=== PATIENT | male | born 1930 | race Caucasian/White ===

== ENCOUNTER 2016-12-14 16:30 | Inpatient (IN) | payer OTHER ==
[~2016-12-14] VITALS: Ht 175.3 cm; Wt 87.3 kg
[~2016-12-14 16:30] MED LIST: AMLO-114 PO; CHOL100040 PO; CMD10 PO; FINA5TAB PO; FURO40TA3 PO; HYDR25TA5 PO; ISOS30TA35 PO; LISI-729 PO; METO25TA56 PO; NITR0.4S UT; PANT40TA PO; PHEN64.8 PO; POTA20TA16 PO; SIMV20TA2 PO; SUCR5SUS PO; WARF10TA4 PO
[2016-12-14 17:19] LABS: BASO % 0.2 %; BASO ABS # 0.02 K/uL (0-0.2); COMPLETE YES; EOS % 2.5 %; HEMATOCRIT 38.1 % (42-52); IG% 0.2 %; LYMPH % 16.2 %; LYMPH ABS # 1.83 K/uL (1.2-3.4); MEAN CELL VOLUME 90.9 fL (80-100); MEAN CORPUSCULAR HEMOGLOBIN 29.6 pg (25-34); MEAN CORPUSCULAR HGB CONC 32.5 g/dl (32-36); MEAN PLATELET VOLUME 10.3 fL (7.4-10.4); MONO % 11.7 %; NEUT % 69.2 %; PLATELET COUNT 185 K/uL (130-400); RED BLOOD COUNT 4.19 M/uL (4.7-6.1); WHITE BLOOD COUNT 11.32 K/uL (4.8-10.8)
[2016-12-14 17:22] LABS: URINE APPEARANCE CLEAR (CLEAR); URINE BILIRUBIN NEG (NEG); URINE COLOR YELLOW; URINE EPITHELIAL CELL AUTO 20-30 /lpf (0-5); URINE NITRITE NEG (NEG); UROBILINOGEN NEG (NEG); ZZUR CULT IF INDIC CLEAN CATCH YES
[2016-12-14 17:23] LABS: MANUAL MICROSCOPIC REQUIRED? NO; REVIEW REQ? YES
[2016-12-14] MEDS ORDERED: SODIUM CHLORIDE 0.9% 1000ML 1,000 ML IV STA (17:25)
[2016-12-14] MEDS ORDERED: FAMOTIDINE 20MG/102 ML D5W IV STA (17:25)
[2016-12-14] MEDS ORDERED: PANTOprazole INJ 40 MG in SYRINGE 0 ML IV ONE (17:30)
[2016-12-14] MEDS ORDERED: TOPI25TA10 PO (17:34)
[2016-12-14] MEDS ORDERED: HYDR2.5O TOP (17:34)
[2016-12-14] MEDS ORDERED: PRIM50TA34 PO (17:34)
[2016-12-14] MEDS ORDERED: ALLO300T2 PO (17:34)
[2016-12-14] MEDS ORDERED: WARF5TAB90 PO ×2 (17:34)
[2016-12-14 17:35] LABS: URINE PATH CASTS 0-3 GRANULAR CASTS /lpf (0)
[2016-12-14 17:36] LABS: BUN/CREATININE RATIO 20.7 (10-20); CREATININE 1.5 mg/dl (0.60-1.40); POTASSIUM 3.6 mmol/L (3.5-5.1)
--- NOTE | 2016-12-14 17:37 | EMERGENCY ROOM VISIT NOTE ---
History Report prepared by Neri: Marko Irene Under the Supervision of: Dr. Andres South D.O. First contact with patient: 17:15 Chief Complaint: ABDOMINAL PAIN Stated Complaint: ABD PAIN, BLACK STOOL, LOW BP, FATIGUE Nursing Triage Summary: triage note: pt reports since sunday he has felt "sick in his stomach." pt reports abd pain and dark stools, increased fatigue. History of Present Illness The patient is an 86 year old male who presents to the Emergency Room with complaints of intermittent, burning, epigastric abdominal pain beginning three days ago. The patient states that he was sick to his stomach, and he thought that he was going to vomit. He reports that if he tried to vomit, he would have been successful. The patient notes two nights ago he laid in his bed and tried to drink some Coke before he eventually fell asleep. He states that for the past two days he has not been able to eat anything. The patient reports that yesterday he experienced dark, watery diarrhea and extreme fatigue. He states that his pain does not radiated anywhere else. The patient denies melena, chest pain, and back pain. He notes that he has had similar symptoms like this before , and he was told they were ulcers that were bleeding. He states that he is not on medication for this, and he denies any history of stomach surgeries. The patient reports that he has not seen his PCP yet for these symptoms. He notes that he has right kidney cancer. The patient states that he had his kidney froze twice, but the treatment is not successful. He notes that he is currently taking Warfarin. The patient states that he has a history of a cholecystectomy and an appendectomy. Source of History: patient Onset: three days ago Position: abdomen (epigastric) Quality: burning Timing: intermittent Associated Symptoms: + diarrhea, + fatigue, No chest pain, No back pain, No melena Review of Systems See HPI for pertinent positives & negatives. A total of 10 systems reviewed and were otherwise negative. Past Medical & Surgical Medical Problems: (1) Anemia (2) Cancer of right kidney (3) DVT (deep venous thrombosis) (4) HTN (hypertension) (5) Upper GI bleeding Family History Hypertension Social History Smoking Status: Never Smoker Marital Status: Housing Status: lives with family Occupation Status: employed Current/Historical Medications Scheduled Allopurinol (Zyloprim), 300 MG PO QAM Amlodipine (Norvasc), 10 MG PO QAM Cholecalciferol (Vitamin D-1000), 1,000 UNIT PO QAM Finasteride (Proscar), 5 MG PO HS Furosemide (Lasix), 40 MG PO QAM Isosorbide Mononitrate Ext Rel (Imdur Ext Rel), 30 MG PO QAM Lisinopril (Zestril), 5 MG PO QAM Metoprolol Tartrate (Lopressor) (Lopressor), 25 MG PO BID Phenobarbital (Phenobarbital), 64.8 MG PO BID Primidone (Mysoline), 100 MG PO DIRECTED Simvastatin (Zocor), 20 MG PO HS Topiramate (Topamax), 25 MG PO BID Warfarin Sodium (Coumadin), 2.5 MG PO 2XWK Warfarin Sodium (Coumadin), 5 MG PO 5XWK Scheduled PRN Hydrocortisone (Topical) (Hydrocortisone), 1 APPLN TOP BID PRN for Affected Skin Folds Nitroglycerin (Nitrostat), 0.4 MG UT PRN PRN for Chest Pain Allergies Coded Allergies: Penicillins (Verified Allergy, Severe, HIVES + THROAT SWELLING, 12/14/16) URTICARIA Physical Exam Vital Signs Date Time Temp Pulse Resp B/P (MAP) Pulse Ox O2 Delivery O2 Flow Rate FiO2 12/14/16 18:40 68 20 161/68 97 Room Air 12/14/16 17:45 63 12/14/16 16:44 36.8 68 18 113/61 99 Room Air Physical Exam GENERAL: Patient is awake, alert, and in no acute distress. Patient is resting comfortably and showing mild signs of anxiety EYES: The conjunctivae are clear. The pupils are round and reactive. EARS, NOSE, MOUTH AND THROAT: The nose is without any evidence of any deformity. Mucous membranes are moist tongue is midline NECK: The neck is nontender and supple. RESPIRATORY: Normal respiratory effort is noted there is no evidence of wheezing rhonchi or rales CARDIOVASCULAR: Regular rate and rhythm noted. Systolic murmur was appreciated. GASTROINTESTINAL: The abdomen is soft and distended. No guarding or rigidity. Bowel sounds are present in all quadrants. Abdomen is nontender RECTAL: Dark stool, strongly hem positive. PELVIS: The Pelvis is stable. No tenderness to palpation is noted. BACK: No midline tenderness or or step-off noted range of motion in flexion extension as well as rotation no signs of muscle spasm noted MUSCULOSKELETAL/EXTREMITIES: There is no evidence of gross deformity full range of motion is noted in the hips and shoulders. Pitting edema to the lower extremities bilaterally. SKIN: There is no obvious evidence of any rash. There are no petechiae, pallor or cyanosis noted. NEUROLOGIC: Patient is awake alert and oriented x3 strength is symmetric patellar reflexes are 2+ bilaterally Medical Decision & Procedures ER Provider Diagnostic Interpretation: X-ray results as stated below per interpretation by me and the radiologist. SINGLE VIEW CHEST CLINICAL HISTORY: Epigastric abdominal pain. Fatigue. FINDINGS: An AP, portable, upright chest radiograph is compared to study dated 07/11/2015. The examination is degraded by portable technique and patient rotation. The heart is enlarged and there is atherosclerotic calcification of the thoracic aorta. The pulmonary vasculature is noncongested. Chronic residual thickening is similar to previous. Linear atelectasis versus scarring is seen in the right lower lung and there is mild chronic elevation of the right hemidiaphragm. No airspace consolidation, large pleural effusion, or pneumothorax is seen. The skeletal structures are osteopenic. The bony thorax is grossly intact. IMPRESSION: Cardiomegaly with no acute cardiopulmonary abnormality. Electronically signed by: Mukul Crum M.D. 12/14/2016 6:06 PM Dictated Date/Time: 12/14/2016 6:05 PM Laboratory Results Test 12/14/16 17:08 Immature Granulocyte % (Auto) 0.2 % White Blood Count 11.32 K/uL (4.8-10.8) Red Blood Count 4.19 M/uL (4.7-6.1) Hemoglobin 12.4 g/dL (14.0-18.0) Hematocrit 38.1 % (42-52) Mean Corpuscular Volume 90.9 fL (80-100) Mean Corpuscular Hemoglobin 29.6 pg (25-34) Mean Corpuscular Hemoglobin Concent 32.5 g/dl (32-36) Platelet Count 185 K/uL (130-400) Mean Platelet Volume 10.3 fL (7.4-10.4) Neutrophils (%) (Auto) 69.2 % Lymphocytes (%) (Auto) 16.2 % Monocytes (%) (Auto) 11.7 % Eosinophils (%) (Auto) 2.5 % Basophils (%) (Auto) 0.2 % Neutrophils # (Auto) 7.85 K/uL (1.4-6.5) Lymphocytes # (Auto) 1.83 K/uL (1.2-3.4) Monocytes # (Auto) 1.32 K/uL (0.11-0.59) Eosinophils # (Auto) 0.28 K/uL (0-0.5) Basophils # (Auto) 0.02 K/uL (0-0.2) Immature Granulocyte # (Auto) 0.02 K/uL (0.00-0.02) Activated Partial Thromboplast Time 53.1 SECONDS (21.0-31.0) Partial Thromboplastin Ratio 2.0 Urine Color YELLOW Urine Appearance CLEAR (CLEAR) Urine pH 5.0 (4.5-7.5) Urine Specific [place] 1.020 (1.000-1.030) Urine Protein 1+ (NEG) Urine Glucose (UA) NEG (NEG) Urine Ketones NEG (NEG) Urine Occult Blood 1+ (NEG) Urine Nitrite NEG (NEG) Urine Bilirubin NEG (NEG) Urine Urobilinogen NEG (NEG) Urine Leukocyte Esterase SMALL (NEG) Urine WBC (Auto) 5-10 /hpf (0-5) Urine RBC (Auto) 5-10 /hpf (0-4) Urine Hyaline Casts (Auto) 10-30 /lpf (0-5) Urine Epithelial Cells (Auto) 20-30 /lpf (0-5) Urine Bacteria (Auto) NEG (NEG) Urine Crystals CALCIUM OXALATE (NONE Urine Pathogenic Casts 0-3 GRANULAR CASTS /lpf (0) Urine Yeast (Auto) (NONE PRSENT) Total Bilirubin 0.4 mg/dl (0.2-1) Aspartate Amino Transf (AST/SGOT) 24 U/L (15-37) Alanine Aminotransferase (ALT/SGPT) 29 U/L (12-78) Alkaline Phosphatase 104 U/L (45-117) Troponin I < 0.015 ng/ml (0-0.045) Total Protein 7.3 gm/dl (6.4-8.2) Albumin 3.5 gm/dl (3.4-5.0) Globulin 3.8 gm/dl (2.5-4.0) Albumin/Globulin Ratio 0.9 (0.9-2) Lipase 369 U/L (73-393) Laboratory results per my review. Medications Administered Medications (Trade) Dose Ordered Sig/Oscar Route Start Time Stop Time Status Last Admin Dose Admin Sodium Chloride 1,000 ml @ 125 mls/hr Q8H STAT IV 12/14/16 17:25 12/14/16 21:05 DC 12/14/16 17:25 125 MLS/HR Pantoprazole Sodium 40 mg/ Syringe 10 ml @ 5 mls/min NOW ONCE IV 12/14/16 17:30 12/14/16 17:31 DC 12/14/16 17:42 5 MLS/MIN Famotidine (Pepcid 20mg/100 ml) 20 mg ONE STAT IV 12/14/16 17:25 12/14/16 17:27 DC 12/14/16 17:43 20 MG Sodium Chloride 1,000 ml @ 75 mls/hr [id number] IV 12/14/16 18:54 01/13/17 18:53 12/15/16 08:20 75 MLS/HR ECG Indication: abdominal pain Rate (beats per minute): 67 Rhythm: sinus rhythm Findings: 1st degree AV block, no ectopy, other (LVH was noted by voltage criteria) Comparison ECG Date: 07/13/15 Change: no significant change ED Course 1717: The patient was evaluated in room B10. A complete history and physical examination were performed. 1725: Ordered Famotidine 20mg IV, NSS 1,000 ml @ 125 mls/hr IV 1758: Upon reevaluation, the patient is resting comfortably. I discussed results and treatment plan with him. He verbalizes agreement and understanding. 1801: I discussed the patients case with Dr. Dutch Anand, [facility] Hospitalist. The patient will be evaluated for further treatment. Medical Decision Prior records/ancillary studies reviewed. Triage Nursing notes reviewed. Additional history obtained from the patient's daughter. The patient's history was concerning for possible gastrointestinal bleeding. Differential diagnosis: Etiologies such as diverticulosis, AVM, coagulopathy, colitis, inflammatory bowel disease, malignancy, Kira-Marcelino tear, esophagitis, peptic ulcer disease , variceal bleed, gastritis, epistaxis, fissure, hemorrhoids, as well as others were entertained. Medication Reconciliation: I attest that I have personally reviewed the patient' s current medications list. Blood pressure screening: Patient was found to have normal blood pressure on screening and does not require follow-up. The patient is an 86-year-old male who presented to the emergency department for an evaluation of upper abdominal pain. The patient states that he has a history of upper GI bleeding and currently takes Coumadin for DVT. The patient' s abdominal exam was not consistent with an acute surgical abdomen however he did have black stool which was strongly heme positive. I discussed the patient' s laboratory and radiographic studies with him. Because of his history of anticoagulant use as well as his history of peptic ulcer disease he was started on proton pump inhibitors and H2 blockers. I discussed his case with the on- call [facility] hospitalist group. They've agreed to evaluate the patient in emergency apartment for further management and disposition. Consults Time Called: 175 Consulting Physician: Dr. Dutch Anand, [facility] Hospitalist Returned Call: 1801 I discussed the patients case with Dr. Dutch Anand [facility] Hospitalist. The patient will be evaluated for further treatment. Impression Primary Impression: Upper GI bleed Additional Impression: Upper abdominal pain Scribe Attestation The scribe's documentation has been prepared under my direction and personally reviewed by me in its entirety. I confirm that the note above accurately reflects all work, treatment, procedures, and medical decision making performed by me. Departure Information Dispostion Being Evaluated By Hospitalist Referrals Devyn Garzon M.D. (PCP) Patient Instructions My [facility] Health Problem Qualifiers
[2016-12-14 17:39] LABS: ALB/GLOB RATIO 0.9 (0.9-2)
[2016-12-14 17:55] LABS: INR 2.9 (0.9-1.1); PROTHROMBIN TIME (PATIENT) 32.2 SECONDS (9.0-12.0)
--- NOTE | 2016-12-14 18:08 | DIAGNOSTIC IMAGING REPORT ---
SINGLE VIEW CHEST CLINICAL HISTORY: Epigastric abdominal pain. Fatigue. FINDINGS: An AP, portable, upright chest radiograph is compared to study dated 07/11/2015. The examination is degraded by portable technique and patient rotation. The heart is enlarged and there is atherosclerotic calcification of the thoracic aorta. The pulmonary vasculature is noncongested. Chronic residual thickening is similar to previous. Linear atelectasis versus scarring is seen in the right lower lung and there is mild chronic elevation of the right hemidiaphragm. No airspace consolidation, large pleural effusion, or pneumothorax is seen. The skeletal structures are osteopenic. The bony thorax is grossly intact. IMPRESSION: Cardiomegaly with no acute cardiopulmonary abnormality. Electronically signed by: Mukul Crum M.D. 12/14/2016 6:06 PM Dictated Date/Time: 12/14/2016 6:05 PM
[2016-12-14] MEDS ORDERED: ONDANSETRON INJ 2 MG/ML 2 ML VIAL IV PRN (19:00)
[2016-12-14] MEDS ORDERED: MAGNESIUM HYDROXIDE SUSP 30 ML UDC PO PRN (19:00)
[2016-12-14] MEDS ORDERED: HYDROCORTISONE 2.5% CR 30 GM TUBE EXT PRN (19:00)
[2016-12-14] MEDS ORDERED: POLYETHYLENE (MIRALAX) 17 GM PACK PO PRN (19:00)
[2016-12-14] MEDS ORDERED: NITROGLYCERIN 0.4 MG SL PER TAB CHARGE UT PRN (19:00)
[2016-12-14] MEDS ORDERED: ACETAMINOPHEN 325 MG TAB PO PRN (19:00)
[2016-12-14] MEDS ORDERED: ALUMINUM/MAGNESIUM/SIMETH (MAALOX MAX) 30 ML UDC PO PRN (19:00)
--- NOTE | 2016-12-14 19:26 | History and Physical ---
History & Physical Date & Time of Service: Dec 14, 2016 at 19:22 Chief Complaint: Abd Pain, Black Stool, Low Bp, Fatigue Primary Care Physician: Devyn Garzon M.D. History of Present Illness Source: patient, family Mr. Marshall is an 86 y/o male with PMHx of GI Bleed 2/2 Gastric Ulcers (5 years ago and 1 year ago), CAD S/P Stent x1, DVT/PE S/P IVC Filter, R Kidney CA S/P Multiple Cryotherapy, HTN, BPH, and Seizure Disorder who presents to the ED complaining of generalized fatigue and abdominal pain x 3 days. On Sunday evening, patient began experiencing burning epigastric pain that has been intermittent. He states that this discomfort made him nauseous however he did not vomit. He reports that he was preventing himself from vomiting. He has been mostly resting in bed as he reports generalized fatigue and generalized weakness. He has not been able to eat or drink very much. Associated diarrhea times one episode that was melanotic today. Associated dyspnea on exertion that was present yesterday but resolved at this time. He reports the symptoms are similar to when he had gastric ulcers in the past. 5 years ago, he was transferred to [facility] and needed numerous amounts of blood related to these ulcers. States he was treated with antibiotics as well but is unsure if he was tested for H. pylori. One year ago, he was admitted for GI bleeding related to gastric ulcers. 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 He denies NSAID use and excessive alcohol intake. In the ED, he is normotensive and hemodynamically stable. WBC 11.32. Hemoglobin 12.4. BUNs 31 and creatinine 1.5. EKG with sinus rhythm and first AV block without ischemic changes. CANDACE performed by ED DrMaxine with heme positive stool. Patient will be admitted to telemetry for acute upper GI bleed. Past Medical/Surgical History Medical Problems: (1) DVT (deep venous thrombosis) Status: Resolved (2) HTN (hypertension) Status: Chronic Family History Hypertension Social History Smoking Status: Never Smoker Smokeless Tobacco Use: No Alcohol Use: socially Drug Use: none Marital Status: Housing status: lives alone Occupational Status: employed Immunizations History of Influenza Vaccine: Unknown Influenza Vaccine Date: Apr 12, 2010 History of Tetanus Vaccine?: Yes History of Pneumococcal: Unknown History of Hepatitis B Vaccine: No Multi-Drug Resistant Organisms History of MDRO: No Allergies Coded Allergies: Penicillins (Verified Allergy, Severe, HIVES + THROAT SWELLING, 12/14/16) URTICARIA Home Medications Scheduled Allopurinol (Zyloprim), 300 MG PO QAM Amlodipine (Norvasc), 10 MG PO QAM Cholecalciferol (Vitamin D-1000), 1,000 UNIT PO QAM Finasteride (Proscar), 5 MG PO HS Furosemide (Lasix), 40 MG PO QAM Isosorbide Mononitrate Ext Rel (Imdur Ext Rel), 30 MG PO QAM Lisinopril (Zestril), 5 MG PO QAM Metoprolol Tartrate (Lopressor) (Lopressor), 25 MG PO BID Phenobarbital (Phenobarbital), 64.8 MG PO BID Primidone (Mysoline), 100 MG PO DIRECTED Simvastatin (Zocor), 20 MG PO HS Topiramate (Topamax), 25 MG PO BID Warfarin Sodium (Coumadin), 2.5 MG PO 2XWK Warfarin Sodium (Coumadin), 5 MG PO 5XWK Scheduled PRN Hydrocortisone (Topical) (Hydrocortisone), 1 APPLN TOP BID PRN for Affected Skin Folds Nitroglycerin (Nitrostat), 0.4 MG UT PRN PRN for Chest Pain Review of Systems Constitutional: + weakness (generalized), + fatigue, No fever, No chills Eyes: No worsening of vision ENT: No nasal symptoms, No sore throat, No trouble swallowing Respiratory: + dyspnea on exertion (yesterday - resolved), No cough, No sputum Cardiovascular: No chest pain Abdomen: + pain (burning epigastric), + nausea (yesterday - currently resolved) , + diarrhea (x 1 episode), + GI bleeding (melena x 1 episode), No vomiting Musculoskeletal: No swelling, No calf pain Genitourinary - Male: No dysuria Neurologic: + problem reported (tremor - bilateral hands (chronic)) Integumentary: No rash Physical Exam Vital Signs Date Time Temp Pulse Resp B/P (MAP) Pulse Ox O2 Delivery O2 Flow Rate FiO2 12/14/16 18:40 68 20 161/68 97 Room Air 12/14/16 17:45 63 12/14/16 16:44 36.8 68 18 113/61 99 Room Air General Appearance: WD/WN, no apparent distress Head: normocephalic, atraumatic Eyes: sclerae normal ENT: hearing grossly normal, pharynx normal Neck: supple, no JVD, trachea midline Respiratory/Chest: lungs clear, normal breath sounds, no respiratory distress, no accessory muscle use Cardiovascular: regular rate, rhythm, no gallop, + systolic murmur (harsh III/ appears to radiate into abdomen) Abdomen/GI: normal bowel sounds, non tender, soft Back: no CVA tenderness Extremities/Musculoskelatal: no calf tenderness, no pedal edema Neurologic/Psych: alert, oriented x 3 Skin: normal color, warm/dry Diagnostics Laboratory Results Results Past 24 Hours Test 12/14/16 17:08 Range/Units White Blood Count 11.32 4.8-10.8 K/uL Red Blood Count 4.19 4.7-6.1 M/uL Hemoglobin 12.4 14.0-18.0 g/dL Hematocrit 38.1 42-52 % Mean Corpuscular Volume 90.9 80-100 fL Mean Corpuscular Hemoglobin 29.6 25-34 pg Mean Corpuscular Hemoglobin Concent 32.5 32-36 g/dl Platelet Count 185 130-400 K/uL Mean Platelet Volume 10.3 7.4-10.4 fL Neutrophils (%) (Auto) 69.2 % Lymphocytes (%) (Auto) 16.2 % Monocytes (%) (Auto) 11.7 % Eosinophils (%) (Auto) 2.5 % Basophils (%) (Auto) 0.2 % Neutrophils # (Auto) 7.85 1.4-6.5 K/uL Lymphocytes # (Auto) 1.83 1.2-3.4 K/uL Monocytes # (Auto) 1.32 0.11-0.59 K/uL Eosinophils # (Auto) 0.28 0-0.5 K/uL Basophils # (Auto) 0.02 0-0.2 K/uL RDW Standard Deviation 54.1 36.4-46.3 fL RDW Coefficient of Variation 16.5 11.5-14.5 % Immature Granulocyte % (Auto) 0.2 % Immature Granulocyte # (Auto) 0.02 0.00-0.02 K/uL Prothrombin Time 32.2 9.0-12.0 SECONDS Prothromb Time International Ratio 2.9 0.9-1.1 Activated Partial Thromboplast Time 53.1 21.0-31.0 SECONDS Partial Thromboplastin Ratio 2.0 Urine Color YELLOW Urine Appearance CLEAR CLEAR Urine pH 5.0 4.5-7.5 Urine Specific [place] 1.020 1.000-1.030 Urine Protein 1+ NEG Urine Glucose (UA) NEG NEG Urine Ketones NEG NEG Urine Occult Blood 1+ NEG Urine Nitrite NEG NEG Urine Bilirubin NEG NEG Urine Urobilinogen NEG NEG Urine Leukocyte Esterase SMALL NEG Urine WBC (Auto) 5-10 0-5 /hpf Urine RBC (Auto) 5-10 0-4 /hpf Urine Hyaline Casts (Auto) 10-30 0-5 /lpf Urine Epithelial Cells (Auto) 20-30 0-5 /lpf Urine Bacteria (Auto) NEG NEG Urine Crystals CALCIUM OXALATE NONE PRSENT Urine Pathogenic Casts 0-3 GRANULAR CASTS 0 /lpf Urine Yeast (Auto) NONE PRSENT Sodium Level 144 136-145 mmol/L Potassium Level 3.6 3.5-5.1 mmol/L Chloride Level 112 98-107 mmol/L Carbon Dioxide Level 22 21-32 mmol/L Anion Gap 10.0 3-11 mmol/L Blood Urea Nitrogen 31 7-18 mg/dl Creatinine 1.50 0.60-1.40 mg/dl Est Creatinine Clear Calc Drug Dose 39.4 ml/min Estimated GFR () 48.5 Estimated GFR (Non- 41.9 BUN/Creatinine Ratio 20.7 10-20 Random Glucose 57 70-99 mg/dl Calcium Level 9.0 8.5-10.1 mg/dl Total Bilirubin 0.4 0.2-1 mg/dl Aspartate Amino Transf (AST/SGOT) 24 15-37 U/L Alanine Aminotransferase (ALT/SGPT) 29 12-78 U/L Alkaline Phosphatase 104 45-117 U/L Troponin I < 0.015 0-0.045 ng/ml Total Protein 7.3 6.4-8.2 gm/dl Albumin 3.5 3.4-5.0 gm/dl Globulin 3.8 2.5-4.0 gm/dl Albumin/Globulin Ratio 0.9 0.9-2 Lipase 369 73-393 U/L Microbiology Results 12/14/16 Urine Culture, Received Pending Diagnostic Radiology SINGLE VIEW CHEST CLINICAL HISTORY: Epigastric abdominal pain. Fatigue. FINDINGS: An AP, portable, upright chest radiograph is compared to study dated 07/11/2015. The examination is degraded by portable technique and patient rotation. The heart is enlarged and there is atherosclerotic calcification of the thoracic aorta. The pulmonary vasculature is noncongested. Chronic residual thickening is similar to previous. Linear atelectasis versus scarring is seen in the right lower lung and there is mild chronic elevation of the right hemidiaphragm. No airspace consolidation, large pleural effusion, or pneumothorax is seen. The skeletal structures are osteopenic. The bony thorax is grossly intact. IMPRESSION: Cardiomegaly with no acute cardiopulmonary abnormality. EKG Sinus rhythm with 1st degree A-V block Voltage criteria for left ventricular hypertrophy Abnormal ECG When compared with ECG of 13-JUL-2015 12:17, No significant change was found Confirmed by Abilio Reynoso ([id number]) on 12/14/2016 5:56:57 PM Impression Assessment and Plan Mr. Marshall is an 86 y/o male with PMHx of GI Bleed 2/2 Gastric Ulcers (5 years ago and 1 year ago), CAD S/P Stent x1, DVT/PE S/P IVC Filter, R Kidney CA, HTN, BPH, and Seizure Disorder who presents to the ED complaining of generalized fatigue and abdominal pain x 3 days. Acute Upper GI Bleed Likely Gastric Ulcers: Melena and Heme + Stool - 5 years ago (14 units) and 1 year ago recurrent gastric ulcers - INR 2.9 with only 1 episode melena - given history will reverse with Vit K 2.5 IV - NPO - medications will be help with IV replacements until GI evaluation/ intervention - Protonix IV bolus/drip - NSS at 75 mL/hr - Monitor H&H Q6H - Blood consent obtained - Type and screen pending - Consult GI - last year seen by [facility] - appreciate recommendations/EGD Mild Increase in Cr - Prerenal at 1.5: - Hydration and assess BMP CAD S/P Stent x 1 and HTN: Follows with Dr. Rios - Norvasc 10 mg daily and metoprolol tartrate 25 mg BID - Imdur 30 mg daily and Nitrostat PRN - Hold Lasix and Lisinopril - can likely be resumed in AM after BMP - mild Cr bump of 1.5 - While NPO will place Nitropaste 0.5 in Q6H and Lopressor and Hydralazine PRN Seizure Disorder and Essential Tremor: - Primidone 100 mg TID PRN tremors - Phenobarbital 64.8 mg BID and Topamax 25 mg BID -- Use Phenobarbital 65 mg IV BID until NPO lifted DVT/PE S/P IVC Filter: Hold Coumadin Gout: Follows with [facility] - Hold Allopurinol - can likely be resumed tomorrow with repeat BMP BPH: - Proscar 5 mg daily R Kidney CA S/P Multiple Cryotherapy: STABLE DVT Prophylaxis: ALEAH/SCD; Avoid chemical prophylaxis in setting of bleed Code Status: FULL RESUSCITATION Disposition: - Lives with daughter - does not use ambulatory devices - observed gait to bathroom and is steady I personally and independently interviewed and examined the patient I reviewed labs and imaging I agree with above mentioned physical exam, History and ROS I discussed and formulated the assessment and plan with Mrs. Segal 86 y/o male with PMHx of DVT S/P IVCF and coumadin , P/W melena and had positive occult blood in stool in ED rest of ROS is as above PE average built, not in acute distress chest CTA, heart S1/S2 normal abd soft ND NT ext no edema assessment: Melena Hx of DVT S/P IVCF currently on coumadin Hx of GI Bleed 2/2 Gastric Ulcers CAD S/P Stent x1 R Kidney CA S/P Cryotherapy, HTN BPH Seizure Disorde Plan: continue IVF hydration GI consult follow up H&H hold coumadin Vit K SQ PPI drip FFP X 2 units SCD boots Pretty Anand [facility] Hospitalist Level of Care Telemetry Resuscitation Status FULL RESUSCITATION VTE Prophylaxis VTE Risk Assessment Done? Y/N: Yes Risk Level: Moderate Given or contraindicated: T.E.D. Stockings, SCD's
[2016-12-14] MEDS ORDERED: PANTOprazole INJ 80 MG in DEXTROSE 5% 100ML IV SCH (19:45)
[2016-12-14] MEDS ORDERED: HydrALAZINE HCL 20 MG/ML VIAL IV. PRN (20:15)
[2016-12-14] MEDS ORDERED: METOPROLOL TARTRATE 1 MG/ML VIAL IV PRN (20:15)
[2016-12-14 21:00] VITALS: BP 167/68; PULSE 69; TEMP 37; O2SAT 99; Ht 175.3 cm; Wt 87.3 kg
[2016-12-14] MEDS ORDERED: PHYTONADIONE INJ 2.5 MG in SODIUM CHLORIDE 0.9% 50ML 50 ML IV ONE (21:00)
[2016-12-14] MEDS: PANTOprazole INJ 40 MG in DEXTROSE 5% 100ML IV SCH (21:15)
[2016-12-14] MEDS: SODIUM CHLORIDE 0.9% 1000ML 1,000 ML IV SCH (21:16)
[2016-12-14] MEDS: PHENOBARBITAL SOD INJ 65 MG in SYRINGE 0 ML IV SCH (22:07)
[2016-12-14] MEDS: SIMVASTATIN 20 MG TAB PO SCH (22:11)
[2016-12-14] MEDS: TOPIRAMATE 25 MG TAB PO SCH (22:11)
[2016-12-14] MEDS: FINASTERIDE 5 MG TAB PO SCH (22:12)
[2016-12-14] MEDS: METOPROLOL TARTRATE 25 MG TAB PO SCH (22:12)
[2016-12-14] MEDS: NITROGLYCERIN OINT 2% 1GM PACKET EXT SCH (22:13)
[2016-12-14 22:20] VITALS: BP 161/65; PULSE 74; TEMP 36.9; O2SAT 99
[2016-12-14 22:35] VITALS: BP 161/70; PULSE 75; TEMP 36.9; O2SAT 97
[2016-12-14 22:50] VITALS: BP 131/66; PULSE 70; TEMP 37.1; O2SAT 96
[2016-12-14 23:20] VITALS: BP 134/68; PULSE 70; TEMP 36.8; O2SAT 96
[2016-12-14 23:22] VITALS: BP 134/68; PULSE 70; TEMP 36.8; O2SAT 96
[2016-12-15] VITALS (13 sets, daily range): BP systolic 118–156; BP diastolic 61–73; PULSE 56–72; TEMP 36.4–37; O2SAT 96–98
[2016-12-15] MEDS: PANTOprazole INJ 40 MG in DEXTROSE 5% 100ML IV SCH ×3 (01:49→11:55)
[2016-12-15 03:13] LABS: HEMATOCRIT 31.5 % (42-52); MEAN CELL VOLUME 89.7 fL (80-100); MEAN CORPUSCULAR HEMOGLOBIN 29.1 pg (25-34); MEAN CORPUSCULAR HGB CONC 32.4 g/dl (32-36); MEAN PLATELET VOLUME 10.2 fL (7.4-10.4); PLATELET COUNT 141 K/uL (130-400); RED BLOOD COUNT 3.51 M/uL (4.7-6.1); WHITE BLOOD COUNT 7.22 K/uL (4.8-10.8)
[2016-12-15] MEDS: NITROGLYCERIN OINT 2% 1GM PACKET EXT SCH ×4 (04:22→21:21)
[2016-12-15 05:59] LABS: HEMATOCRIT 32.3 % (42-52); MEAN CORPUSCULAR HEMOGLOBIN 28.7 pg (25-34); MEAN CORPUSCULAR HGB CONC 31.9 g/dl (32-36); MEAN PLATELET VOLUME 10.9 fL (7.4-10.4); PLATELET COUNT 151 K/uL (130-400); RED BLOOD COUNT 3.59 M/uL (4.7-6.1); WHITE BLOOD COUNT 7.86 K/uL (4.8-10.8)
[2016-12-15 06:08] LABS: INR 1.3 (0.9-1.1); PROTHROMBIN TIME (PATIENT) 14.2 SECONDS (9.0-12.0)
[2016-12-15 06:28] LABS: BUN/CREATININE RATIO 20.6 (10-20); CALCIUM 8.1 mg/dl (8.5-10.1); CREATININE 1.2 mg/dl (0.60-1.40); POTASSIUM 3.5 mmol/L (3.5-5.1)
--- NOTE | 2016-12-15 07:39 | Gastrointestinal Consultation ---
Gastrointestinal Consultation Date of Consultation: Dec 15, 2016 Attending Physician: Cheng Consulting Physician: Brock Reason for Consultation: melena, epigastic pain, h/o GI bleed History of Present Illness Patient is a 86 year old male w/ PMH significant for GI Bleed (gastric Ulcers 2011, 2015), CAD S/P Stent, HTN, BPH, DVT/PE S/P IVC Filter, R Kidney CA, Seizure Disorder and others below who presented through the ED for evaluation of abdominal pain, fatigue and melena - GI is consulted for management. Pt was seen and evaluated this AM. He tells me he has had severe upper abdominal pain associated with epigastric burning, burping, nausea and belching x 4 days. He developed dark, melanotic stools yesterday and was concerned about a repeat gastric ulcer and presented through the ED. He cannot tell me which medications he is taking - but tells me he takes everything he prescribed. Does not appear he is taking a PPI. He is on coumadin. INR on arrival was 2.9. His only other complaints are generalized muscle aches and pains. Epigastric pain has been greatly resolved since admission. EGD 07/10/15: Normal esophagus. Multiple large ulcers along the incisura extending up into the cardia. Erythematous, friable (with contact bleeding) and ulcerated mucosa in the cardia, gastric fundus and incisura. Biopsied. ? ischemic vs infiltrative process vs ZE vs?? Normal examined duodenum. EGD 09/13/15: esophagus normal, food in stomach Past Medical/Surgical History Medical Problems: (1) GI bleed Status: Acute (2) Near syncope Status: Acute (3) Upper abdominal pain Status: Acute (4) Upper GI bleed Status: Acute (5) Weakness Status: Acute Past Medical History: seizure disorder, history of tremors, GERD, CAD, gastric ulcers, PE, DVT, renal artery aneurysm Past Surgical History: ex lap for adhesions, appendectomy, hemorrhoidectomy, choleycysectomy, cryablation of renal mass, IVC clipping, cardiac cancerization Family History Hypertension Social History Smoking Status: Never Smoker Drug Use: none Marital Status: Housing Status: lives with family Occupation Status: employed Allergies Coded Allergies: Penicillins (Verified Allergy, Severe, HIVES + THROAT SWELLING, 12/14/16) URTICARIA Current Medications Home Meds and Scripts Medications Dose Route/Sig Max Daily Dose Days Date Category Dose Instructions Hydrocortisone (Hydrocortisone (Topical)) 2.5 % Oin 1 Appln TOP BID PRN 5 12/14/16 Reported Topamax (Topiramate) 25 Mg Tab 25 Mg PO BID 12/14/16 Reported Mysoline (Primidone) 50 Mg Tab 100 Mg PO DIRECTED 12/14/16 Reported FOR TREMORS-MAY TAKE UP TO 3XDAY. Zyloprim (Allopurinol) 300 Mg Tab 300 Mg PO QAM 12/14/16 Reported Coumadin (Warfarin Sodium) 5 Mg Tab 5 Mg PO 5XWK 12/14/16 Reported TAKES EVERY DAY EXCEPT SUN. & SUN. Coumadin (Warfarin Sodium) 5 Mg Tab 2.5 Mg PO 2XWK 90 12/14/16 Reported TAKES ON SUNDAY & SATURDAYS. Lasix (Furosemide) 40 Mg Tab 40 Mg PO QAM 09/08/15 Reported Phenobarbital 64.8 Mg Tab 64.8 Mg PO BID 07/11/15 Reported Nitrostat (Nitroglycerin) 0.4 Mg Sub 0.4 Mg UT PRN PRN 07/11/15 Reported Lopressor (Metoprolol Tartrate) 25 Mg Tab 25 Mg PO BID 07/11/15 Reported Zestril (Lisinopril) 5 Mg Tab 5 Mg PO QAM 07/11/15 Reported Imdur Ext Rel (Isosorbide Mononitrate) 30 Mg Tabcr 30 Mg PO QAM 07/11/15 Reported Vitamin D-1000 (Cholecalciferol) 1,000 Unit Tab 1,000 Unit PO QAM 07/11/15 Reported Norvasc (Amlodipine Besylate) 10 Mg Tab 10 Mg PO QAM 07/11/15 Reported Zocor (Simvastatin) 20 Mg Tab 20 Mg PO HS 01/20/08 Reported Proscar (Finasteride) 5 Mg Tab 5 Mg PO HS 01/20/08 Reported Review of Systems Constitutional: No fever, No chills Respiratory: + shortness of breath (unchanged from baselines, occurs with activity), No cough Cardiac: No chest pain Abdomen: + pain, + nausea, + diarrhea, + GI bleeding, No vomiting Physical Exam Date Time Temp Pulse Resp B/P (MAP) Pulse Ox O2 Delivery O2 Flow Rate FiO2 12/15/16 07:01 36.4 63 18 118/66 (83) 98 Room Air 12/15/16 04:22 37.0 71 16 138/66 (90) 96 Room Air 12/15/16 04:00 Room Air 12/15/16 01:15 36.9 71 18 133/66 (88) 96 Room Air 12/15/16 00:45 36.9 71 18 147/69 (95) 96 Room Air 12/15/16 00:30 36.9 72 18 156/71 (99) 97 Room Air 12/15/16 00:15 36.4 70 18 130/62 (84) 96 Room Air 12/15/16 00:14 36.4 70 18 130/62 96 12/15/16 00:00 96 Room Air 0.0 12/14/16 23:22 36.8 70 16 134/68 (90) 96 Room Air 12/14/16 23:20 36.8 70 18 134/68 (90) 96 Room Air 12/14/16 22:50 37.1 70 18 131/66 (87) 96 Room Air 12/14/16 22:35 36.9 75 18 161/70 (100) 97 Room Air 12/14/16 22:20 36.9 74 18 161/65 99 0.0 12/14/16 22:20 36.9 74 18 161/65 (97) 99 Room Air 12/14/16 21:00 37.0 69 18 167/68 99 Room Air 12/14/16 20:36 68 18 158/59 95 12/14/16 19:30 66 18 154/59 96 Room Air 12/14/16 18:40 68 20 161/68 97 Room Air 12/14/16 17:45 63 12/14/16 16:44 36.8 68 18 113/61 99 Room Air General Appearance: no apparent distress Eyes: PERRL ENT: hearing grossly normal Neck: supple, trachea midline Respiratory/Chest: lungs clear, normal breath sounds Cardiovascular: regular rate, rhythm, + systolic murmur Abdomen: normal bowel sounds, non tender, soft Neurologic/Psych: alert, normal mood/affect, oriented x 3 Skin: normal color, no jaundice Laboratory Results Last 24 Hours Test 12/14/16 17:08 12/15/16 03:05 12/15/16 05:17 White Blood Count 11.32 K/uL 7.22 K/uL 7.86 K/uL Red Blood Count 4.19 M/uL 3.51 M/uL 3.59 M/uL Hemoglobin 12.4 g/dL 10.2 g/dL 10.3 g/dL Hematocrit 38.1 % 31.5 % 32.3 % Mean Corpuscular Volume 90.9 fL 89.7 fL 90.0 fL Mean Corpuscular Hemoglobin 29.6 pg 29.1 pg 28.7 pg Mean Corpuscular Hemoglobin Concent 32.5 g/dl 32.4 g/dl 31.9 g/dl Platelet Count 185 K/uL 141 K/uL 151 K/uL Mean Platelet Volume 10.3 fL 10.2 fL 10.9 fL Neutrophils (%) (Auto) 69.2 % Lymphocytes (%) (Auto) 16.2 % Monocytes (%) (Auto) 11.7 % Eosinophils (%) (Auto) 2.5 % Basophils (%) (Auto) 0.2 % Neutrophils # (Auto) 7.85 K/uL Lymphocytes # (Auto) 1.83 K/uL Monocytes # (Auto) 1.32 K/uL Eosinophils # (Auto) 0.28 K/uL Basophils # (Auto) 0.02 K/uL RDW Standard Deviation 54.1 fL 53.1 fL 53.5 fL RDW Coefficient of Variation 16.5 % 16.2 % 16.2 % Immature Granulocyte % (Auto) 0.2 % Immature Granulocyte # (Auto) 0.02 K/uL Prothrombin Time 32.2 SECONDS 14.2 SECONDS Prothromb Time International Ratio 2.9 1.3 Activated Partial Thromboplast Time 53.1 SECONDS Partial Thromboplastin Ratio 2.0 Urine Color YELLOW Urine Appearance CLEAR Urine pH 5.0 Urine Specific [place] 1.020 Urine Protein 1+ Urine Glucose (UA) NEG Urine Ketones NEG Urine Occult Blood 1+ Urine Nitrite NEG Urine Bilirubin NEG Urine Urobilinogen NEG Urine Leukocyte Esterase SMALL Urine WBC (Auto) 5-10 /hpf Urine RBC (Auto) 5-10 /hpf Urine Hyaline Casts (Auto) 10-30 /lpf Urine Epithelial Cells (Auto) 20-30 /lpf Urine Bacteria (Auto) NEG Urine Crystals CALCIUM OXALATE Urine Pathogenic Casts 0-3 GRANULAR CASTS /lpf Urine Yeast (Auto) Sodium Level 144 mmol/L 143 mmol/L Potassium Level 3.6 mmol/L 3.5 mmol/L Chloride Level 112 mmol/L 112 mmol/L Carbon Dioxide Level 22 mmol/L 22 mmol/L Anion Gap 10.0 mmol/L 9.0 mmol/L Blood Urea Nitrogen 31 mg/dl 25 mg/dl Creatinine 1.50 mg/dl 1.20 mg/dl Est Creatinine Clear Calc Drug Dose 39.4 ml/min 49.7 ml/min Estimated GFR () 48.5 63.5 Estimated GFR (Non- 41.9 54.8 BUN/Creatinine Ratio 20.7 20.6 Random Glucose 57 mg/dl 90 mg/dl Calcium Level 9.0 mg/dl 8.1 mg/dl Total Bilirubin 0.4 mg/dl Aspartate Amino Transf (AST/SGOT) 24 U/L Alanine Aminotransferase (ALT/SGPT) 29 U/L Alkaline Phosphatase 104 U/L Troponin I < 0.015 ng/ml Total Protein 7.3 gm/dl Albumin 3.5 gm/dl Globulin 3.8 gm/dl Albumin/Globulin Ratio 0.9 Lipase 369 U/L Impression Patient is a 86 year old male with upper GI symptoms including epigastric pain, burning, nausea and burping x 4 days who developed melena yesterday. VSS. HGB 10.3, INR 2.9 --> 1.3, BUN 25, INSPECTOR EYEGLASS 1.2 Plan NPO EGD with Brock Barrientos H&H Monitor stools Transfuse as needed IV PPI Hold Coumadin Given his history of gastric ulcers and numerous upper GI bleeds, he should be on PPI as an outpatient Further recommendations pending EGD. Dr. Ford is covering our service this weekend, please contact him with any questions. Rosario STEVENS will resume coverage on Sunday. I saw and evaluated the patient with Ms. Pierson. He presents with recurrent melena, prior history of PUD. PE: nad, no icterus Impression; patient with suspected UGI bleeding, history of PUD. Plan EGD today Agree with protonix drip patient should be discharged on long-term PPI given prior hx of PUD.
[2016-12-15] MEDS: SODIUM CHLORIDE 0.9% 1000ML 1,000 ML IV SCH ×2 (08:20→22:02)
[2016-12-15] MEDS: ISOSORBIDE MONONITRATE 30 MG TABCR PO SCH (08:23)
[2016-12-15] MEDS: TOPIRAMATE 25 MG TAB PO SCH ×2 (08:23→20:19)
[2016-12-15] MEDS: AMLODIPINE BESYLATE 5 MG TAB PO SCH (08:24)
[2016-12-15] MEDS: METOPROLOL TARTRATE 25 MG TAB PO SCH ×2 (08:24→20:18)
[2016-12-15] MEDS: PHENOBARBITAL SOD INJ 65 MG in SYRINGE 0 ML IV SCH ×2 (08:25→20:18)
--- NOTE | 2016-12-15 10:34 | Clinical Documentation Query ---
CLINICAL DOCUMENTATION QUERY Query #1/3 86 year old male who presents to the Emergency Room with complaints of intermittent, burning, & epigastric abdominal pain. In your clinical opinion is this patient being managed for: (x ) Suspected bleeding peptic ulcer due to Warfarin therapy treated with Protonix gtt, Vitamin K, and FFP. ( ) Other explanation of clinical findings (Please Explain) ( ) Unable to determine (Please Define) ( ) Need to Discuss ( ) Not Agree The medical record reflects the following clinical findings, treatment, and risk factors. Clinical Indicators: Anemia (Hgb 10.2, Hct 31.5), upper GI symptoms including epigastric pain, burning, nausea and burping x 4, and INR of 2.9. Treatment: 2 FFP, Protonix gtt, IV Vitamin K, daily CBC's, repeat PT/INR, NPO Risk Factors: Age, Hx of gastric ulcer, warfarin therapy, Query #2/3 H&P states "mild increase in creatinine" BUN 31, Creatinine 1.50, GFR 41.9. In your clinical opinion is this patient being managed for: ( x ) GUSTAVO on CKD 3 treated with IVF's and daily PRP's ( ) GUSTAVO only ( ) CKD stage 3 only ( ) Other explanation of clinical findings (Please Explain) ( ) Unable to determine (Please Define) ( ) Need to Discuss ( ) Not Agree The medical record reflects the following clinical findings, treatment, and risk factors. Clinical Indicators: As above. BUN 31, Creatinine 1.50, GFR 41.9 Hgb 10.2, Hct 31.5, Treatment: IVF's, daily PRP's Risk Factors: Age, dehydration, GI bleed Query #3/3 This patient normally is on Lasix, Norvasc, Lisinopril and Imdur at home. In your clinical opinion is this patient being managed for: (x ) Chronic diastolic (Preserved EF) heart failure ( ) Other explanation of clinical findings (Please Explain) ( ) Unable to determine (Please Define) ( ) Need to Discuss ( ) Not Agree The medical record reflects the following clinical findings, treatment, and risk factors. Clinical Indicators: HTN, home diuretic therapy Treatment: I/O's, daily weights Risk Factors: Age, CAD, HTN, Please clarify and document your clinical opinion in the progress notes and discharge summary. Terms such as "probable", "suspected", "likely", "questionable", "possible", or "still to be ruled out" are acceptable. IF IN AGREEMENT, YOU MUST DOCUMENT ABOVE DIAGNOSTIC STATEMENT IN DAILY PROGRESS NOTES AND DISCHARGE SUMMARY. This document is not part of the patient's record. Thank You, Puneet Wells, DAWSON [phone]
[2016-12-15] MEDS ORDERED: PROPOFOL IV EMULSION 10 MG/ML 20 ML VIAL IV ONE (14:28)
[2016-12-15] MEDS ORDERED: LIDOCAINE HCL 2% 2 ML VIAL (20MG/ML) ONE (14:28)
--- NOTE | 2016-12-15 15:01 | Anesthesiology Progress Note ---
Anesthesia Post Op Note Date & Time Dec 15, 2016 at 15:00 Vital Signs Pain Intensity: 0.0 Vital Signs Past 12 Hours Date Time Temp Pulse Resp B/P (MAP) Pulse Ox O2 Delivery O2 Flow Rate FiO2 12/15/16 13:03 36.5 55 16 134/56 (82) 96 Room Air 12/15/16 12:00 96 Room Air 0.0 12/15/16 11:42 36.6 56 16 128/61 (83) 97 Room Air 12/15/16 08:00 98 Room Air 0.0 12/15/16 07:01 36.4 63 18 118/66 (83) 98 Room Air 12/15/16 04:22 37.0 71 16 138/66 (90) 96 Room Air 12/15/16 04:00 Room Air Notes Mental Status: alert / awake / arousable, participated in evaluation Pt Amnestic to Procedure: Yes Nausea / Vomiting: adequately controlled Pain: adequately controlled Airway Patency, RR, SpO2: stable & adequate BP & HR: stable & adequate Hydration State: stable & adequate Anesthetic Complications: no major complications apparent
--- NOTE | 2016-12-15 15:10 | GI REPORT ---
Procedure Date: 12/15/2016 2:30 PM Procedure: Upper GI endoscopy Indications: Melena Medicines: Monitored Anesthesia Care Complications: No immediate complications. Estimated blood loss: Minimal. Estimated Blood Loss: Estimated blood loss was minimal. Procedure: Pre-Anesthesia Assessment: - Prior to the procedure, a History and Physical was performed, and patient medications, allergies and sensitivities were reviewed. The patient's tolerance of previous anesthesia was reviewed. - The risks and benefits of the procedure and the sedation options and risks were discussed with the patient. All questions were answered and informed consent was obtained. - Patient identification and proposed procedure were verified prior to the procedure by the physician, the nurse and the manager creative services. The procedure was verified in the procedure room. - Pre-procedure physical examination revealed no contraindications to sedation. - ASA Grade Assessment: III - A patient with severe systemic disease. - After reviewing the risks and benefits, the patient was deemed in satisfactory condition to undergo the procedure. - The anesthesia plan was to use monitored anesthesia care (MAC). - Immediately prior to administration of medications, the patient was re-assessed for adequacy to receive sedatives. - The heart rate, respiratory rate, oxygen saturations, blood pressure, adequacy of pulmonary ventilation, and response to care were monitored throughout the procedure. - The physical status of the patient was re-assessed after the procedure. After obtaining informed consent, the endoscope was passed under direct vision. Throughout the procedure, the patient's blood pressure, pulse, and oxygen saturations were monitored continuously. The scope was introduced through the mouth, and advanced to the third part of duodenum. The upper GI endoscopy was accomplished without difficulty. The patient tolerated the procedure well. Findings: The examined esophagus was normal. The Z-line was regular and was found 39 cm from the incisors. A medium-sized, infiltrative, partially circumferential (involving one-half of the lumen circumference) mass - like arem involving most of the posterior gastric wall and lesser curvature of the gastric body was seen, several ulcerations were also noted.. Biopsies were taken with a cold forceps for histology. Estimated blood loss was minimal. The examined duodenum was normal. Impression: - Normal esophagus. - Z-line regular, 39 cm from the incisors. - Rule out malignancy, gastric tumor on the lesser curvature of the gastric body. Biopsied. - Normal examined duodenum. Recommendation: - Full liquid diet today. - Use Protonix (pantoprazole) 40 mg PO BID. - Perform CT scan (computed tomography) of the abdomen with contrast. Kwesi Gutiérrez D.O. Kwesi Gutiérrez, DO 12/15/2016 3:09:53 PM This report has been signed electronically. Note Initiated On: 12/15/2016 2:30 PM I attest to the content of the Intraoperative Record and orders documented therein, exceptions below
[2016-12-15] MEDS ORDERED: OPTIRAY 320 IV PRN (15:15)
--- NOTE | 2016-12-15 18:24 | DIAGNOSTIC IMAGING REPORT ---
ABDOMEN AND PELVIS CT WITH IV AND ORAL CONTRAST CT DOSE: 734.75 mGy.cm HISTORY: Pain abnormal EGD TECHNIQUE: Multiaxial CT images of the abdomen and pelvis were performed following the use of intravenous and oral contrast. COMPARISON STUDY: 09/25/2007 FINDINGS: Right to a lesser extent left basilar atelectatic and/or fibrotic change. Prior cholecystectomy. Liver appears to be generally uniform. There is a large right renal mass occupying the bulk of the mid to upper aspect of the right kidney. This shows areas of partial necrosis. Dimensions are approximately 9 x 6 cm. There appears to be extension to the renal vein as well as inferior vena cava. Masslike changes are identified within the inferior vena cava. There is moderate perinephric infiltrative change. There is a potential partial involvement medial aspect lower right hepatic lobe. There may be a slight degree of reactive wall thickening of the a sending colon. There is trace amount of free fluid within the right paracolic gutter region area Calcified renal aneurysms previously described are similar. There is a 1.2 x 1.0 cm calcification within the right renal pelvis. There is no evidence for hydronephrosis. Left kidney demonstrates several small cysts similar as compared to the prior study. There is no evidence for left renal hydronephrosis. Pancreas appears uniform. There is a slight degree of nonspecific gastric wall thickening. There is a small hiatal hernia. There is slight wall thickening of the descending aspect of the duodenal sweep. There are no obstructive changes. Bowel pattern is considered nonobstructive. Prostate is enlarged. Bladder is midline. There is no significant pelvic adenopathy. Several small inguinal nodes measuring up to 9 mm are unchanged in the prior study. IMPRESSION: 1. Large right renal mass demonstrating evidence for invasion into the right renal vein and inferior vena cava. 2. Additional invasive characteristics most likely to the medial aspect of the right hepatic lobe and possibly components of the right paracolic gutter region. 3. Mild reactive in wall thickening of the a sending colon. 4. Small hiatal hernia. 5. Slight gastric wall thickening. 6. Nonobstructing calcification of the right renal pelvis. 7. Mild wall thickening descending aspect of the duodenum raising the possibility of localized invasive change to the structure versus technical lack of distention 8. This study is highly suggestive of a right renal neoplasm with evidence for localized soft tissue as well as vascular invasion. Electronically signed by: Dilshad Rivero M.D. 12/15/2016 6:23 PM Dictated Date/Time: 12/15/2016 6:14 PM
[2016-12-15] MEDS: PANTOprazole SOD 40 MG TAB PO SCH (20:19)
[2016-12-15] MEDS: FINASTERIDE 5 MG TAB PO SCH (20:19)
[2016-12-15] MEDS: SIMVASTATIN 20 MG TAB PO SCH (20:19)
[2016-12-16] VITALS (8 sets, daily range): BP systolic 122–167; BP diastolic 60–67; PULSE 57–71; TEMP 36.5–37; O2SAT 93–97
[2016-12-16] MEDS: NITROGLYCERIN OINT 2% 1GM PACKET EXT SCH (03:53)
--- NOTE | 2016-12-16 05:52 | Progress Note ---
Subjective Date of Service: Dec 15, 2016. Subjective Pt evaluation today including: conversation w/ patient, conversation w/ family (daughter at bedside), physical exam, chart review, lab review, review of studies (EGD), conversation w/ travel sales consultant (GI- Dr. Gutiérrez), review of inpatient medication list Pain: denies abd pain Voiding: no voiding problems tele overnight normal no further melena no overt GI bleeding reports some element of weight loss over the last few months at home -10-20 pounds? reports mild upper abdominal discomfort last few months Problem List Medical Problems: (1) GI bleed Status: Acute (2) Near syncope Status: Acute (3) Upper abdominal pain Status: Acute (4) Upper GI bleed Status: Acute (5) Weakness Status: Acute Review of Systems Constitutional: No fever Respiratory: No shortness of breath, No dyspnea on exertion Cardiac: No chest pain Abdomen: No pain Objective Vital Signs Date Time Temp Pulse Resp B/P (MAP) Pulse Ox O2 Delivery O2 Flow Rate FiO2 12/15/16 20:11 Room Air 12/15/16 19:36 36.7 68 20 137/73 (94) 96 Room Air 12/15/16 16:00 Room Air 12/15/16 15:20 65 16 121/57 (78) 97 Room Air 12/15/16 15:05 62 16 140/47 (78) 98 Room Air 12/15/16 14:50 59 16 95/43 (60) 96 Room Air 12/15/16 13:03 36.5 55 16 134/56 (82) 96 Room Air 12/15/16 12:00 96 Room Air 0.0 12/15/16 11:42 36.6 56 16 128/61 (83) 97 Room Air 12/15/16 08:00 98 Room Air 0.0 12/15/16 07:01 36.4 63 18 118/66 (83) 98 Room Air 12/15/16 04:22 37.0 71 16 138/66 (90) 96 Room Air 12/15/16 04:00 Room Air 12/15/16 01:15 36.9 71 18 133/66 (88) 96 Room Air 12/15/16 00:45 36.9 71 18 147/69 (95) 96 Room Air 12/15/16 00:30 36.9 72 18 156/71 (99) 97 Room Air 12/15/16 00:15 36.4 70 18 130/62 (84) 96 Room Air 12/15/16 00:14 36.4 70 18 130/62 96 12/15/16 00:00 96 Room Air 0.0 12/14/16 23:22 36.8 70 16 134/68 (90) 96 Room Air 12/14/16 23:20 36.8 70 18 134/68 (90) 96 Room Air 12/14/16 22:50 37.1 70 18 131/66 (87) 96 Room Air 12/14/16 22:35 36.9 75 18 161/70 (100) 97 Room Air 12/14/16 22:20 36.9 74 18 161/65 99 0.0 12/14/16 22:20 36.9 74 18 161/65 (97) 99 Room Air 12/14/16 21:00 37.0 69 18 167/68 99 Room Air Physical Exam General Appearance: no apparent distress ENT: pharynx normal Neck: no JVD Respiratory/Chest: lungs clear, no respiratory distress, no accessory muscle use Cardiovascular: regular rate, rhythm, no gallop, no murmur Abdomen: normal bowel sounds, non tender, soft, no organomegaly Extremities: no pedal edema Neurologic/Psychiatric: alert, oriented x 3 Laboratory Results Last 24 Hours Test 12/15/16 03:05 12/15/16 05:17 White Blood Count 7.22 K/uL 7.86 K/uL Red Blood Count 3.51 M/uL 3.59 M/uL Hemoglobin 10.2 g/dL 10.3 g/dL Hematocrit 31.5 % 32.3 % Mean Corpuscular Volume 89.7 fL 90.0 fL Mean Corpuscular Hemoglobin 29.1 pg 28.7 pg Mean Corpuscular Hemoglobin Concent 32.4 g/dl 31.9 g/dl RDW Standard Deviation 53.1 fL 53.5 fL RDW Coefficient of Variation 16.2 % 16.2 % Platelet Count 141 K/uL 151 K/uL Mean Platelet Volume 10.2 fL 10.9 fL Prothrombin Time 14.2 SECONDS Prothromb Time International Ratio 1.3 Sodium Level 143 mmol/L Potassium Level 3.5 mmol/L Chloride Level 112 mmol/L Carbon Dioxide Level 22 mmol/L Anion Gap 9.0 mmol/L Blood Urea Nitrogen 25 mg/dl Creatinine 1.20 mg/dl Est Creatinine Clear Calc Drug Dose 49.7 ml/min Estimated GFR () 63.5 Estimated GFR (Non- 54.8 BUN/Creatinine Ratio 20.6 Random Glucose 90 mg/dl Calcium Level 8.1 mg/dl Assessment and Plan 86yo male with: 1. upper GI bleeding in the setting of chronic warfarin therapy - s/p protonix drip, vitamin K and FFP. EGD today with mass in the gastric body. Minor ulcerations also seen. No overt bleeding during the EGD. Stop PPI drip. Change to po protonix BID. Repeat cbc in am. Await biopsy results. Appreciate GI consultation. CT abd/pelvis pending for tonight. 2. acute kidney injury in the setting of CKD stage 3 - improving Cr. Leave fluids on due to need for IV contrast for CT scan. Repeat BMP in am. 3. chronic diastolic CHF - compensated. 4. CAD with stents in the past - stable, no ischemic symptoms at this time. 5. 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 Coumadin has been reversed. Leave coumadin off for now. 6. 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 7. HTN - acceptable BPs at this time. 8. BPH - noted; no voiding sx's at this time. 9. seizure d/o - topamax, phenobarbital. daughter updated PT eval Continued [facility] stay due to: multiple IV medications needed Discharge planning: home
[2016-12-16 06:12] LABS: HEMATOCRIT 31.5 % (42-52); MEAN CELL VOLUME 89.2 fL (80-100); MEAN CORPUSCULAR HEMOGLOBIN 28.9 pg (25-34); MEAN CORPUSCULAR HGB CONC 32.4 g/dl (32-36); MEAN PLATELET VOLUME 10.2 fL (7.4-10.4); PLATELET COUNT 162 K/uL (130-400); RED BLOOD COUNT 3.53 M/uL (4.7-6.1); WHITE BLOOD COUNT 6.13 K/uL (4.8-10.8)
[2016-12-16 06:20] LABS: INR 1.1 (0.9-1.1); PROTHROMBIN TIME (PATIENT) 11.3 SECONDS (9.0-12.0)
[2016-12-16 06:57] LABS: BUN/CREATININE RATIO 14.5 (10-20); CALCIUM 8.5 mg/dl (8.5-10.1); CREATININE 1.1 mg/dl (0.60-1.40); POTASSIUM 3.9 mmol/L (3.5-5.1)
[2016-12-16] MEDS: METOPROLOL TARTRATE 25 MG TAB PO SCH ×2 (08:12→21:07)
[2016-12-16] MEDS: PHENOBARBITAL SOD INJ 65 MG in SYRINGE 0 ML IV SCH (08:12)
[2016-12-16] MEDS: ISOSORBIDE MONONITRATE 30 MG TABCR PO SCH (08:13)
[2016-12-16] MEDS: AMLODIPINE BESYLATE 5 MG TAB PO SCH (08:13)
[2016-12-16] MEDS: PANTOprazole SOD 40 MG TAB PO SCH ×2 (08:14→21:07)
[2016-12-16] MEDS: TOPIRAMATE 25 MG TAB PO SCH ×2 (08:15→21:07)
--- NOTE | 2016-12-16 14:30 | Gastroenterology Progress Note ---
Progress Note Date of Service: Dec 16, 2016 Subjective Pt evaluation today including: conversation w/ patient, conversation w/ family , physical exam, chart review, lab review, review of studies, review of inpatient medication list Doing OK today. States that he had a small BM this morning without any melena or hematochezia. States that he is tolerating PO intake. Review of Systems Constitutional: No fever, No chills ENT: No trouble swallowing, No pain on swallowing Respiratory: No cough, No sputum Cardiac: No chest pain Abdomen: No GI bleeding, No dysphagia, No odynophagia Male : No dysuria, No hematuria Endo: + fatigue Medications Current Inpatient Medications Medications (Trade) Dose Ordered Sig/Oscar Route Start Time Stop Time Status Last Admin Dose Admin Acetaminophen (Tylenol Tab) 650 mg Q4H PRN PO 12/14/16 19:00 01/13/17 18:59 Al Hydrox/Mg Hydrox/Simethicone (Maalox Max Susp) 15 ml Q4H PRN PO 12/14/16 19:00 01/13/17 18:59 Magnesium Hydroxide (Milk Of Magnesia Susp) 30 ml Q12H PRN PO 12/14/16 19:00 01/13/17 18:59 Ondansetron HCl (Zofran Inj) 4 mg Q6H PRN IV 12/14/16 19:00 01/13/17 18:59 Polyethylene (Miralax Powder Packet) 17 gm DAILY PRN PO 12/14/16 19:00 01/13/17 18:59 Amlodipine Besylate (Norvasc Tab) 10 mg QAM PO 12/15/16 09:00 01/14/17 08:59 12/16/16 08:13 10 MG Finasteride (Proscar Tab) 5 mg HS PO 12/14/16 21:00 01/13/17 20:59 12/15/16 20:19 5 MG Isosorbide Mononitrate (Imdur Ext Rel Tab) 30 mg QAM PO 12/15/16 09:00 01/14/17 08:59 12/16/16 08:13 30 MG Metoprolol Tartrate (Lopressor Tab) 25 mg BID PO 12/14/16 21:00 01/13/17 20:59 12/16/16 08:12 25 MG Nitroglycerin (Nitrostat Tab) 0.4 mg PRN PRN UT 12/14/16 19:00 01/13/17 18:59 Simvastatin (Zocor Tab) 20 mg HS PO 12/14/16 21:00 01/13/17 20:59 12/15/16 20:19 20 MG Topiramate (Topamax Tab) 25 mg BID PO 12/14/16 21:00 01/13/17 20:59 12/16/16 08:15 25 MG Hydrocortisone (Hydrocortisone 2.5% Crm) 1 appln BID PRN EXT 12/14/16 19:00 01/13/17 18:59 Phenobarbital (Phenobarbital Tab) 64.8 mg BID PO 12/14/16 21:00 01/13/17 20:59 Future hold Primidone (Mysoline Tab) 100 mg TID PRN PO 12/14/16 19:00 01/13/17 18:59 Metoprolol Tartrate (Lopressor Iv) 5 mg Q6H PRN IV 12/14/16 20:15 01/13/17 20:14 Hydralazine HCl (HydrALAZINE INJ) 10 mg Q6 PRN IV. 12/14/16 20:15 01/13/17 20:14 Ioversol (Optiray 320) 100 ml UD PRN IV 12/15/16 15:15 12/19/16 15:14 Pantoprazole Sodium (Protonix Tab) 40 mg BID PO 12/15/16 21:00 01/14/17 20:59 12/16/16 08:14 40 MG Sucralfate (Carafate Susp) 1 gm QID PO 12/16/16 17:00 01/15/17 16:59 Objective Vital Signs Date Time Temp Pulse Resp B/P (MAP) Pulse Ox O2 Delivery O2 Flow Rate FiO2 12/16/16 12:00 93 Room Air 12/16/16 11:28 36.7 57 20 160/63 (95) 97 Room Air 12/16/16 08:00 95 Room Air 12/16/16 07:54 36.7 71 18 156/66 (96) 95 Room Air 12/16/16 04:11 Room Air 12/16/16 04:00 36.7 67 18 122/60 (80) 96 Room Air 12/16/16 00:12 Room Air 12/15/16 23:46 36.8 70 20 135/65 (88) 96 Room Air 12/15/16 20:11 Room Air 12/15/16 19:36 36.7 68 20 137/73 (94) 96 Room Air 12/15/16 16:00 Room Air 12/15/16 15:20 65 16 121/57 (78) 97 Room Air 12/15/16 15:05 62 16 140/47 (78) 98 Room Air 12/15/16 14:50 59 16 95/43 (60) 96 Room Air Physical Exam General Appearance: no apparent distress, + pertinent finding (Chronic ill- appearing) Eyes: PERRL, EOMI ENT: hearing grossly normal Neck: supple Respiratory/Chest: lungs clear Cardiovascular: regular rate, rhythm Abdomen: non tender, soft Laboratory Results Last 24 Hours Test 12/16/16 05:51 White Blood Count 6.13 K/uL Red Blood Count 3.53 M/uL Hemoglobin 10.2 g/dL Hematocrit 31.5 % Mean Corpuscular Volume 89.2 fL Mean Corpuscular Hemoglobin 28.9 pg Mean Corpuscular Hemoglobin Concent 32.4 g/dl RDW Standard Deviation 51.8 fL RDW Coefficient of Variation 15.9 % Platelet Count 162 K/uL Mean Platelet Volume 10.2 fL Prothrombin Time 11.3 SECONDS Prothromb Time International Ratio 1.1 Sodium Level 142 mmol/L Potassium Level 3.9 mmol/L Chloride Level 113 mmol/L Carbon Dioxide Level 20 mmol/L Anion Gap 9.0 mmol/L Blood Urea Nitrogen 16 mg/dl Creatinine 1.10 mg/dl Est Creatinine Clear Calc Drug Dose 54.2 ml/min Estimated GFR () 70.6 Estimated GFR (Non- 60.9 BUN/Creatinine Ratio 14.5 Random Glucose 85 mg/dl Calcium Level 8.5 mg/dl Assessment and Plan Assessment: 86 yo CM who underwent EGD yesterday secondary to melena and was found to have a gastric mass with numerous ulcerations. Plan: Continue Protonix 40mg by mouth twice daily Add Carafate 1g by mouth four times daily prior to each meal and at bedtime for 10 days. Will follow clinical course and make further recommendations as needed. [facility] will resume care on 12/18/2016
[2016-12-16] MEDS: SUCRALFATE 1 GM/10 ML UDC PO SCH ×2 (16:49→21:07)
[2016-12-16] MEDS: PRIMIDONE 50 MG TAB PO PRN ×2 (17:26→21:06)
[2016-12-16] MEDS ORDERED: PHENOBARBITAL 32.4 MG TAB PO SCH (21:00)
[2016-12-16] MEDS: FINASTERIDE 5 MG TAB PO SCH (21:06)
[2016-12-16] MEDS: PHENOBARBITAL 32.4 MG TAB PO SCH (21:06)
[2016-12-16] MEDS: SIMVASTATIN 20 MG TAB PO SCH (21:07)
[2016-12-17 00:03] VITALS: BP 160/66; PULSE 62; TEMP 37; O2SAT 96
--- NOTE | 2016-12-17 00:29 | Progress Note ---
Subjective Date of Service: late entry for visit Dec 16, 2016. Subjective Pt evaluation today including: conversation w/ patient, conversation w/ family (daughter at bedside), physical exam, chart review, lab review, review of studies (records from [facility]), conversation w/ media consultant outside sales ( gastroenterology), review of inpatient medication list Pain: denies abd pain PO Intake: tolerating full liquids Voiding: no voiding problems tele stable overnight denies any overt GI bleeding, melena, etc he reports his last imaging study for his renal cell ca was 2 years ago in [place] surgery was recommended in 2014 but he declined and has not had any f/u since Problem List Medical Problems: (1) GI bleed Status: Acute (2) Near syncope Status: Acute (3) Upper abdominal pain Status: Acute (4) Upper GI bleed Status: Acute (5) Weakness Status: Acute Review of Systems Constitutional: No fever Respiratory: No shortness of breath Cardiac: No chest pain Abdomen: + diarrhea, No pain, No nausea, No vomiting, No constipation, No GI bleeding Objective Vital Signs Date Time Temp Pulse Resp B/P (MAP) Pulse Ox O2 Delivery O2 Flow Rate FiO2 12/17/16 00:03 37.0 62 20 160/66 (97) 96 Room Air 12/16/16 20:05 Room Air 12/16/16 19:53 37.0 58 20 167/67 (100) 97 Room Air 12/16/16 16:00 95 Room Air 12/16/16 14:43 36.5 68 18 163/66 (98) 96 Room Air 12/16/16 12:00 93 Room Air 12/16/16 11:28 36.7 57 20 160/63 (95) 97 Room Air 12/16/16 08:00 95 Room Air 12/16/16 07:54 36.7 71 18 156/66 (96) 95 Room Air 12/16/16 04:11 Room Air 12/16/16 04:00 36.7 67 18 122/60 (80) 96 Room Air Physical Exam General Appearance: no apparent distress ENT: pharynx normal Neck: no JVD Respiratory/Chest: lungs clear, no respiratory distress, no accessory muscle use Cardiovascular: regular rate, rhythm, no gallop Abdomen: normal bowel sounds, non tender, soft, no organomegaly Extremities: no pedal edema Neurologic/Psychiatric: alert, oriented x 3 Laboratory Results Last 24 Hours Test 12/16/16 05:51 White Blood Count 6.13 K/uL Red Blood Count 3.53 M/uL Hemoglobin 10.2 g/dL Hematocrit 31.5 % Mean Corpuscular Volume 89.2 fL Mean Corpuscular Hemoglobin 28.9 pg Mean Corpuscular Hemoglobin Concent 32.4 g/dl RDW Standard Deviation 51.8 fL RDW Coefficient of Variation 15.9 % Platelet Count 162 K/uL Mean Platelet Volume 10.2 fL Prothrombin Time 11.3 SECONDS Prothromb Time International Ratio 1.1 Sodium Level 142 mmol/L Potassium Level 3.9 mmol/L Chloride Level 113 mmol/L Carbon Dioxide Level 20 mmol/L Anion Gap 9.0 mmol/L Blood Urea Nitrogen 16 mg/dl Creatinine 1.10 mg/dl Est Creatinine Clear Calc Drug Dose 54.2 ml/min Estimated GFR () 70.6 Estimated GFR (Non- 60.9 BUN/Creatinine Ratio 14.5 Random Glucose 85 mg/dl Calcium Level 8.5 mg/dl Assessment and Plan 86yo male with: 1. acute blood loss anemia due to upper GI bleeding in the setting of chronic warfarin therapy - s/p protonix drip, vitamin K and FFP. H/H remaining stable. EGD with mass in the gastric body. Minor ulcerations also seen. No overt bleeding during the EGD. Cont PPI bid. Carafate to be added by Dr. Ford. Await biopsy results. Appreciate GI consultation. CT abd/pelvis results reviewed in detail with pt/daughter. 2. acute kidney injury in the setting of CKD stage 3 - GUSTAVO resolved. Ok to stop fluids. BMP in am. 3. chronic diastolic CHF - compensated. 4. CAD with stents in the past - stable, no ischemic symptoms at this time. 5. 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 Coumadin has been reversed. Leave coumadin off for now. 6. 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 The right-sided renal cancer is in fact bigger now than in 2015. Consider heme/onc consultation and/or urology consultation. 7. HTN - BPs mildly elevated; follow for now; adjust meds if needed. 8. BPH - noted; no voiding sx's at this time. 9. seizure d/o - topamax, phenobarbital. daughter updated extensively advance diet Continued [facility] stay due to: inadequate po fluid intake Discharge planning: home
[2016-12-17 04:00] VITALS: BP 146/67; PULSE 64; TEMP 36.7; O2SAT 97
[2016-12-17 07:13] LABS: HEMATOCRIT 32.2 % (42-52)
[2016-12-17 07:27] VITALS: BP 151/64; PULSE 64; TEMP 36.7; O2SAT 96
[2016-12-17 07:55] LABS: BUN/CREATININE RATIO 12.8 (10-20); POTASSIUM 3.8 mmol/L (3.5-5.1)
[2016-12-17 07:58] LABS: CALCIUM 8.8 mg/dl (8.5-10.1)
[2016-12-17] MEDS: SUCRALFATE 1 GM/10 ML UDC PO SCH ×2 (07:59→12:05)
[2016-12-17 08:00] VITALS: O2SAT 96
[2016-12-17] MEDS: ISOSORBIDE MONONITRATE 30 MG TABCR PO SCH (08:00)
[2016-12-17] MEDS: PANTOprazole SOD 40 MG TAB PO SCH (08:00)
[2016-12-17] MEDS: AMLODIPINE BESYLATE 5 MG TAB PO SCH (08:00)
[2016-12-17] MEDS: METOPROLOL TARTRATE 25 MG TAB PO SCH (08:00)
[2016-12-17] MEDS: PRIMIDONE 50 MG TAB PO PRN (08:00)
[2016-12-17] MEDS: TOPIRAMATE 25 MG TAB PO SCH (08:01)
[2016-12-17] MEDS: PHENOBARBITAL 32.4 MG TAB PO SCH (08:07)
[2016-12-17 12:29] VITALS: BP 172/69; PULSE 71; TEMP 36.6; O2SAT 95
[2016-12-17] MEDS ORDERED: CRFUDL PO (14:02)
[2016-12-17] MEDS ORDERED: PRT40 PO (14:02)
[2016-12-17] MEDS ORDERED: FRRS300 PO (14:06)
--- NOTE | 2016-12-17 14:16 | Discharge Instructions ---
Discharge Instructions Date of Service Dec 17, 2016. Admission Reason for Admission: Upper Gi Bleed Discharge Discharge Diagnosis / Problem: Upper GI bleeding due to mass in the stomach Discharge Goals Goal(s): Learn about illness, Diagnostic testing, Therapeutic intervention Activity Recommendations Activity Limitations: resume your previous activity (take it easy for the next 2-3 days as you recover from your hospitalization) . Instructions / Follow-Up Instructions / Follow-Up From Dr. Wolff - 1. upper gastrointestinal bleeding due to stomach mass and tiny ulcerations - * please take the following to prevent stomach bleeding - * protonix 40mg twice daily every day (AM on empty stomach, and at bedtime) indefinitely * carafate liquid 1gram four times a day for 30 days (take 30 minutes before meals and at bedtime) * do NOT take any aspirin, motrin, ibuprofen, naprosyn, alleve * tylenol IS ok to take for aches & pains * avoid excessive amounts of caffeine (soda, tea, coffee) * avoid all forms of alcohol * you may see some dark stool for the next 1-2 days; this is OLD blood 2. anemia due to bleeding - * take ferrous sulfate 325mg twice a day for 2-3 months * the iron can be purchased [id number] * it will cause your stools to be dark and cause constipation 3. coumadin - * please STOP your coumadin at this time * talk with Dr. Garzon about risks/benefits of resuming this in the future, if at all 4. right-sided kidney cancer - * please see Dr. Call in the Cancer Center over the next 1-2 weeks to discuss options for treatment 5. please see Dr. Arnoldo Gutiérrez, [facility], in the next 1-2 weeks to discuss the biopsy findings 6. please see Dr. Garzon no later than THIS Sunday 7. during your follow-up visit with Dr. Garzon please ask him to repeat a "CBC" (blood counts) 8. Upon return home today please TAKE your lisinopril AND lasix (furosemide) rather than waiting until tomorrow 9. Return to [facility] if - * you feel dizzy, lightheaded, or experience passing out * you see dark stools that remind you of the GI bleeding you had last week * you see bright red blood in your stool * your legs are swollen, painful, etc (these could be signs of blood clots) * you experience shortness of breath, chest pain, etc Current Hospital Diet Patient's current hospital diet: AHA Diet (Heart Healthy) Discharge Diet Recommended Diet: AHA Diet (Heart Healthy) Procedures Procedures Performed: 1. Upper endoscopy with mass in the stomach and very tiny ulcerations. 2. CAT scan of the abdomen showing enlargement of the right-sided kidney cancer. Pending Studies Studies pending at discharge: yes List of pending studies: biopsy from the stomach mass Medical Emergencies . Who to Call and When: Medical Emergencies: If at any time you feel your situation is an emergency, please call 911 immediately. . Non-Emergent Contact Non-Emergency issues call your: Primary Care Provider Call Non-Emergent contact if: temperature is above 100.5, your pain is unusual for you, you have any medication questions . . "Provider Documentation" section prepared by Reji Wolff. . VTE Core Measure Inpt VTE Proph given/why not?: T.E.D. Stockings, SCD's, Contraindicated
[2016-12-17 14:28] VITALS: BP 172/69; PULSE 71; TEMP 36.6; O2SAT 95
--- NOTE | 2016-12-17 14:35 | ONCOLOGY CONSULTATION ---
DATE OF CONSULTATION: 12/17/2016 REASON FOR CONSULTATION: Gastric mass and remote history of renal cell carcinoma. HISTORY OF PRESENT ILLNESS: Mr. Marshall is a pleasant 86-year-old gentleman who was admitted to [facility] on December 14 with progressive generalized fatigue and abdominal pain x3 days. He states that as of late, he has become more anorexic and nauseated to the point where he was eating very little. He also describes burning epigastric pain which has been intermittent. He denies any overt vomiting, but because of his fatigue and weakness he has not been able to do his activities of daily living. He reports diarrhea x1 which was melanotic. Mr. Marshall has several comorbid issues including renal cell carcinoma that was diagnosed a few years prior at [facility] and underwent cryosurgery x2. He was also admitted about 1 year prior with gastrointestinal bleeding related to ulcers. He continues on anticoagulation because of recurrent thromboses. CT scan of the abdomen and pelvis done on admission reveals a large right renal mass with evidence of invasion into the right renal vein and inferior vena cava. Additionally, wall thickening of the descending aspect of the duodenum raising the possibility of a localized invasive picture. The patient has been seen by gastroenterology and underwent an EGD revealing a large gastric mass with numerous ulcerations. Biopsy was performed with results pending. The primary hospitalist service is requesting assistance what appears to be a second primary gastric tumor and progression of previously diagnosed renal cell carcinoma. 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 MEDICATIONS: On admission include allopurinol 300 mg p.o. q.a.m., Norvasc 10 mg p.o. daily, cholecalciferol 1000 units p.o. q.a.m., finasteride 5 mg p.o. at bedtime, Lasix 40 mg p.o. daily, Imdur 30 mg p.o. daily, lisinopril 5 mg p.o. daily, metoprolol 25 mg p.o. b.i.d., phenobarbital 64.8 mg p.o. b.i.d., primidone 100 mg p.o. daily, Zocor 20 mg p.o. daily, Topamax 25 mg p.o. b.i.d., Coumadin 2.5 mg p.o. twice weekly and 5 mg p.o. 5 times weekly. ALLERGIES: PENICILLINS. SOCIAL HISTORY: The patient is , lives with his daughter. Nonsmoker, social alcohol consumer. FAMILY HISTORY: Positive for hypertension. REVIEW OF SYSTEMS: As per HPI most notably for a gastrointestinal pain, chronic nausea, gastrointestinal bleeding, anorexia. Negative for fevers, chills or night sweats. SKIN: No history of dermatoses. No current rashes or lesions. HEENT: Negative for headaches, lightheadedness or dizziness. No acute visual or hearing deficits. No sinus symptoms, sore throat, and denies dysphagia. LYMPH: No history of lymphoproliferative disorder or peripheral lymphadenopathy. CARDIAC: Positive history of coronary artery disease. No current angina or palpitations. PULMONARY: Negative for COPD. No shortness of breath, dyspnea or orthopnea. No cough or hemoptysis at present. GASTROINTESTINAL: As per HPI. GENITOURINARY: Positive for BPH. No current hematuria, dysuria, urinary incontinence. PSYCHIATRIC: Negative for anxiety or depression. NEUROLOGIC: Positive for seizure disorder by history, currently on phenobarbital. ENDOCRINE: Negative for diabetes or thyroid disease. NEUROLOGIC: Negative for stroke or migraine headache. Again, positive for seizure disorder, currently on phenobarbital. HEMATOLOGIC: Positive for thrombophilia. PHYSICAL EXAMINATION: GENERAL: Colin is a very pleasant 86-year-old gentleman awake, alert and conversant, in no acute distress. VITAL SIGNS: Temperature 36.7, pulse 64, respirations 18, blood pressure 151/64. SKIN: Pale, warm, dry, noncyanotic without petechia, rash or ecchymosis. HEAD: Atraumatic, normocephalic. EYES: PERRLA, EOMI. Sclerae nonicteric. No conjunctival injection. Nares are patent without rhinorrhea or discharge. Throat is clear. Tongue is midline. Mucous membranes are moist. NECK: Supple without JVD or thyromegaly. LYMPH: No cervical, supraclavicular, axillary or inguinal palpable nodes. HEART: Regular rate and rhythm, 3/6 holosystolic murmur heard in the left precordium. LUNGS: Clear to auscultation bilaterally. ABDOMEN: Mildly distended, soft otherwise. No rigidity or guarding. Bowel sounds are hypoactive. No palpable hepatosplenomegaly. EXTREMITIES: Musculoskeletal strength is equal as are pulses. No clubbing, cyanosis or edema otherwise. NEUROLOGICALLY: He is awake, alert and oriented x3. Cranial nerves II through XII are intact. No gross motor or sensory deficits are noted. LABORATORY DATA: WBC count 6130, hemoglobin 10.2, platelet count 162,000. Sodium 143, potassium 3.8, chloride 111, carbon dioxide 22, creatinine 1, BUN 13. RADIOGRAPHIC DATA: Chest x-ray on admission reveals cardiomegaly, but otherwise no acute intrapulmonary findings. CT scan of the abdomen and pelvis as described with enlarging right renal mass with vascular invasion and thickening of the duodenal wall which most likely represents the gastric mass biopsied. IMPRESSION: 1. Gastric mass. 2. Progressing renal cell carcinoma (right kidney). 3. Normocytic normochromic anemia. 4. Generalized weakness. 5. Abdominal pain. PLAN: Mr. Marshall is a pleasant 86-year-old gentleman who was admitted to [facility] on the with subacute onset of abdominal pain. Radiographic studies on admission confirmed the presence of relatively large gastric mass which proved to be ulcerated. Dr. Dragan Ford saw the patient in consultation and EGD performed. Biopsy of the gastric mass is pending. Additionally, Mr. Marshall was diagnosed with a clear cell carcinoma of the right kidney a couple years prior by physicians at [facility]. He was offered and received cryosurgery x2. Radiographically, it would appear his disease is progressing with vascular invasion evident. I suspect the gastric lesion is another primary as this is a very unusual site for metastatic renal cell carcinoma. Commonly renal cell carcinoma invades bone and lung. We will await formal biopsy and discuss therapeutic options thereafter. I agree with patient's current medical management and have nothing further to add at this time. Dr. Cooley will take over service tomorrow and will sign Mr. Marshall's case out and arrange for appropriate followup. Thank you very much for allowing me to participate in his care. If you have any questions or concerns, feel free to contact me at any time.
--- NOTE | 2016-12-20 22:17 | Discharge Summary ---
Discharge Summary Date of Service Dec 20, 2016. Discharge Summary Admission Date: Dec 14, 2016 at 19:05 Discharge Date: Dec 17, 2016 Discharge Disposition: Home Principal Diagnosis: acute blood loss anemia due to upper GI bleeding Problems/Secondary Diagnoses: 1. 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 hyperlipidemia 5. renal cell cancer 6. HTN 7. h/o recurrent upper GI bleeding due to gastric ulcers 8. acute kidney injury 9. CAD S/P Stent 10. BPH 11. seizure Disorder 12. chronic diastolic CHF Immunizations: Have You Had Influenza Vaccine: Unknown Influenza Vaccine Date: Apr 12, 2010 History of Tetanus Vaccine?: Yes History of Pneumococcal: Unknown History of Hepatitis B Vaccine: No Procedures: 1. EGD - Dr. Kwesi Gutiérrez - Findings: The examined esophagus was normal. The Z-line was regular and was found 39 cm from the incisors. A medium-sized, infiltrative, partially circumferential (involving one-half of the lumen circumference) mass - like arem involving most of the posterior gastric wall and lesser curvature of the gastric body was seen, several ulcerations were also noted.. Biopsies were taken with a cold forceps for histology. Estimated blood loss was minimal. The examined duodenum was normal. 2. CT abd/pelvis - IMPRESSION: 1. Large right renal mass demonstrating evidence for invasion into the right renal vein and inferior vena cava. 2. Additional invasive characteristics most likely to the medial aspect of the right hepatic lobe and possibly components of the right paracolic gutter region. 3. Mild reactive in wall thickening of the a sending colon. 4. Small hiatal hernia. 5. Slight gastric wall thickening. 6. Nonobstructing calcification of the right renal pelvis. 7. Mild wall thickening descending aspect of the duodenum raising the possibility of localized invasive change to the structure versus technical lack of distention 8. This study is highly suggestive of a right renal neoplasm with evidence for localized soft tissue as well as vascular invasion. 3. two units FFP Consultations: gastroenterology - Kwesi Gutiérrez, DO physical therapy Medication Reconciliation New Medications: Ferrous Sulfate (Ferrous Sulfate) 325 Mg Tab 325 MG PO BID, #60 TABS 2 Refills Pantoprazole (Pantoprazole Sodium) 40 Mg Tab 40 MG PO BID, #60 TAB 5 Refills Sucralfate (Sucralfate) 1 Gm/10 Ml Susp 1 GM PO ACHS for 15 Days, #600 ML 1 Refill Continued Medications: Allopurinol (Zyloprim) 300 Mg Tab 300 MG PO QAM, TAB Amlodipine (Norvasc) 10 Mg Tab 10 MG PO QAM, TAB Cholecalciferol (Vitamin D-1000) 1,000 Unit Tab 1000 UNIT PO QAM Finasteride (Proscar) 5 Mg Tab 5 MG PO HS, 0 Refills Furosemide (Lasix) 40 Mg Tab 40 MG PO QAM, TAB Hydrocortisone (Topical) (Hydrocortisone) 2.5 % Oin 1 APPLN TOP BID PRN for Affected Skin Folds for 5 Days, #30 GM Isosorbide Mononitrate Ext Rel (Imdur Ext Rel) 30 Mg Tabcr 30 MG PO QAM, TAB Lisinopril (Zestril) 5 Mg Tab 5 MG PO QAM, TAB Metoprolol Tartrate (Lopressor) (Lopressor) 25 Mg Tab 25 MG PO BID, TAB Nitroglycerin (Nitrostat) 0.4 Mg Sub 0.4 MG UT PRN PRN for Chest Pain, BTL Phenobarbital (Phenobarbital) 64.8 Mg Tab 64.8 MG PO BID Primidone (Mysoline) 50 Mg Tab 100 MG PO DIRECTED , TAB FOR TREMORS-MAY TAKE UP TO 3XDAY. Simvastatin (Zocor) 20 Mg Tab 20 MG PO HS, 0 Refills Topiramate (Topamax) 25 Mg Tab 25 MG PO BID, TAB Discontinued Medications: Warfarin Sodium (Coumadin) 5 Mg Tab 2.5 MG PO 2XWK for 90 Days, TAB 3 Refills TAKES ON SUNDAY & SATURDAYS. Warfarin Sodium (Coumadin) 5 Mg Tab 5 MG PO 5XWK, TAB TAKES EVERY DAY EXCEPT SUN. & SUN. Referrals At Discharge Follow up Referrals: Labor Supervisor Referral - Within 1 Week with Kwesi Gutiérrez DO Oncology/Hematology Referral - Within 1-2 Weeks with Jerry Call D.O. Discharge Exam Physical Exam: General Appearance: no apparent distress, + pertinent finding (severe kyphosis ) ENT: pharynx normal Neck: no JVD Respiratory/Chest: lungs clear, no respiratory distress, no accessory muscle use Cardiovascular: regular rate, rhythm, no gallop, no murmur, normal peripheral pulses Abdomen / GI: normal bowel sounds, non tender, soft, no organomegaly Extremities: no pedal edema Neurologic/Psychiatric: alert, oriented x 3 Hospital Course HISTORY OF PRESENT ILLNESS: Mr. Marshall is an 86 y/o male with PMHx of two GI Bleeds secondary to Gastric Ulcers (5 years ago, and 1 year ago, respectively), CAD S/P Stent x1, DVT/PE S/ P IVC Filter, right Kidney CA S/P Multiple Cryotherapy, HTN, BPH, and Seizure Disorder who presented to the ED complaining of generalized fatigue and abdominal pain x 3 days. On Sunday evening, patient began experiencing burning epigastric pain that had been intermittent. He stated that this discomfort made him nauseous however he did not vomit. He reported that he was preventing himself from vomiting. He had not been able to eat or drink very much. Associated diarrhea times one episode that was melanotic on the day of admission. Associated dyspnea on exertion that was present yesterday but resolved at this time. He reported the symptoms were similar to when he had gastric ulcers in the past. 5 years ago, he was transferred to [facility] and needed numerous amounts of blood related to these ulcers. Stated he was treated with antibiotics as well but is unsure if he was tested for H. pylori. One year ago, he was admitted for GI bleeding related to gastric ulcers. 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 He denied NSAID use or excessive alcohol intake. In the ED, he was normotensive and hemodynamically stable. Initial hemoglobin was 12.4. CANDACE performed by ED physician showed heme positive stool. HOSPITAL COURSE: The patient's acute blood loss anemia was due to upper GI bleeding from a gastric mass and small gastric ulcerations in the setting of chronic warfarin therpay. He received protonix drip, FFP, and vitamin K. Lowest hemoglobin while hospitalized was 10.2. He was seen in consult by [facility] and underwent EGD by Dr. Kwesi Gutiérrez. This demonstrated a gastric mass. Biopsy was taken and results were pending at time of discharge. Following his EGD he was resumed on a diet and this was advanced as tolerated. He remained hemodynamically stable for the remainder of his stay. He discharged home on PPI twice daily as well as carafate QID. CT abd/pelvis was recommended by GI and this showed evidence of worsening right- sided renal cell carcinoma. Records were obtained from [facility] and his previous imaging of the right kidney was in 2015. The 2015 study did NOT show invasion of the tumor into the vascular structures as seen on this admission's study. He was seen in consult by Dr. Jerry Call of oncology and Mr. Marshall will have follow-up with him after discharge to discuss his options for the renal cell cancer. Other issues addressed while hospitalized: 1. acute kidney injury - admission Cr was 1.5, improving to 1 at discharge. 2. 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 This is his 3rd major episode of GI bleeding on coumadin over the last few years. Fortunately he has an IVC filter in place. At time of discharge it was decided to hold the coumadin for now. The patient will discuss further with his PCP, oncology, and GI about resuming coumadin in the future if deemed appropriate and safe. All other medical problems remained stable while hospitalized. Total Time Spent: Greater than 30 minutes This includes examination of the patient, discharge planning, medication reconciliation, and communication with other providers. Discharge Instructions Please refer to the electronic Patient Visit Report (Discharge Instructions) for additional information. Follow-Up 1. Dr. Devyn Garzon within [address] Call in [facility] over the next 1-2 weeks to discuss options for treatment 3. Dr. Arnoldo Gutiérrez, [facility], in the next 1-2 weeks to discuss the gastric biopsy findings Additional Copies To Kwesi Gutiérrez, DO; Devyn Garzon M.D.; Jerry Call D.O.
== END 2016-12-17 14:50 | disposition home or self-care (01) | DRG 813 ==
LOC: C.EDB 16:31 → C.MED 19:05 → ENRESERV 20:27
PROVIDERS: ADMIT Internal Medicine; ATTEND Internal Medicine
PROC: 0DB68ZX Excision of Stomach, Via Natural or Artificial Opening Endoscopic, Diagnostic (ICD-10-PCS; principal; 2016-12-15 12:51)
DX: D68.32 Hemorrhagic disorder due to extrinsic circulating anticoagulants (principal); K27.4 Chronic or unspecified peptic ulcer, site unspecified, with hemorrhage; D62 Acute posthemorrhagic anemia; I13.0 Hypertensive heart and chronic kidney disease with heart failure and stage 1 through stage 4 chronic kidney disease, or unspecified chronic kidney disease; I50.32 Chronic diastolic (congestive) heart failure; N17.9 Acute kidney failure, unspecified; K25.9 Gastric ulcer, unspecified as acute or chronic, without hemorrhage or perforation; N18.3 Chronic kidney disease, stage 3 (moderate); I25.10 Atherosclerotic heart disease of native coronary artery without angina pectoris; Z95.5 Presence of coronary angioplasty implant and graft; N40.0 Benign prostatic hyperplasia without lower urinary tract symptoms; G40.909 Epilepsy, unspecified, not intractable, without status epilepticus; G25.0 Essential tremor; Z85.528 Personal history of other malignant neoplasm of kidney; Z79.899 Other long term (current) drug therapy; Z87.19 Personal history of other diseases of the digestive system; Z86.711 Personal history of pulmonary embolism; Z86.718 Personal history of other venous thrombosis and embolism; Z79.01 Long term (current) use of anticoagulants; Z82.49 Family history of ischemic heart disease and other diseases of the circulatory system; Z90.49 Acquired absence of other specified parts of digestive tract

== ENCOUNTER → 2016-12-20 | Outpatient (CLI) | payer OTHER ==
[~2016-12-20] MED LIST changes: +ALLO300T2 PO; -CMD10 PO; +CRFUDL PO; +FRRS300 PO; +HYDR2.5O TOP; -HYDR25TA5 PO; -PANT40TA PO; -POTA20TA16 PO; +PRIM50TA34 PO; +PRT40 PO; -SUCR5SUS PO; +TOPI25TA10 PO; -WARF10TA4 PO
[2016-12-20 16:56] LABS: HEMATOCRIT 37.3 % (42-52); MEAN CELL VOLUME 90.5 fL (80-100); MEAN CORPUSCULAR HEMOGLOBIN 28.4 pg (25-34); MEAN CORPUSCULAR HGB CONC 31.4 g/dl (32-36); MEAN PLATELET VOLUME 9.9 fL (7.4-10.4); PLATELET COUNT 233 K/uL (130-400); RED BLOOD COUNT 4.12 M/uL (4.7-6.1); WHITE BLOOD COUNT 8.55 K/uL (4.8-10.8)
== END | disposition home or self-care (01) ==
LOC: C.LABBC 12:49
PROVIDERS: ATTEND Physician Assistant Medical
DX: K92.2 Gastrointestinal hemorrhage, unspecified (principal)

== ENCOUNTER 2017-01-25 07:11 | Day surgery (SDC) | payer OTHER ==
[2017-01-09 13:06] VITALS: BMI 28.0
[~2017-01-25] VITALS: Ht 175.3 cm; Wt 86.4 kg
[~2017-01-25 07:11] MED LIST changes: -HYDR2.5O TOP; +LACTATED RINGER'S 1000ML 1,000 ML IV SCH
[2017-01-25] MEDS ORDERED: MIDAZOLAM HCL 1 MG/ML 2ML VIAL ONE (07:16)
[2017-01-25] MEDS ORDERED: KETAMINE HCL INJ 50 MG/ML 10 ML VIAL ONE (07:16)
[2017-01-25] MEDS ORDERED: PROPOFOL IV EMULSION 10 MG/ML 20 ML VIAL IV ONE ×2 (07:16→08:57)
[2017-01-25] MEDS ORDERED: PROMETHAZINE HCL INJ 6.25 MG in SODIUM CHLORIDE 0.9% 50ML 50 ML IV PRN (07:45)
[2017-01-25] MEDS ORDERED: ATROPINE SULFATE 0.1 MG/ML 5ML SYR IV PRN (07:45)
[2017-01-25] MEDS ORDERED: EpHEDrine SULFATE INJ 50 MG/ML AMP IV PRN (07:45)
[2017-01-25] MEDS ORDERED: FENTANYL CITRATE INJ 50 MCG/1 ML 2 ML VIAL IV PRN (07:45)
[2017-01-25] MEDS ORDERED: ONDANSETRON INJ 2 MG/ML 2 ML VIAL IV PRN ×2 (07:45→10:00)
[2017-01-25 07:51] VITALS: BP 164/71; PULSE 68; TEMP 36.6; O2SAT 99; Ht 175.3 cm; Wt 86.4 kg
[2017-01-25] MEDS ORDERED: LACTATED RINGER'S 1000ML 1,000 ML IV ONE (08:19)
--- NOTE | 2017-01-25 08:23 | Endo History and Physical ---
History & Physical Date of Service: Jan 25, 2017. Chief Complaint: Abnormal imaging study Referring Physician: Dr. Garzon History of Present Illness The patient presented to the hospital 6 weeks ago with melena and suspected upper GI bleeding. Upper endoscopy was performed showing a large area of thickened ulcerated mucosa. Biopsies showed inflammatory changes. The patient presents for follow-up endoscopy and endoscopic ultrasound for a suspected gastric malignancy. Past Medical History Angioplasty/Stent, Arthritis, Pulmonary Emboli, Reflux, Cancer, High Cholesterol , Hypertension, Thrombophlebitis, [place] Renal Cell Carcinoma Past Surgical History Hx Cardiac Surgery: Yes (CATH AND STENT X1 ) Hx Internal Defibrillator: No Hx Pacemaker: No Hx Abdominal Surgery: Yes (MARY, APPY, repair of H.Hernia) Hx Post-Op Nausea and Vomiting: No Hx Cancer Surgery: Yes (CRYOTHERAPY RIGHT RENAL) Hx Thoracic Surgery: No Hx Orthopedic: No Hx Urinary Tract Surgery: Yes (CYSTO, CYSTO WITH STENT AND STONE RETRIEVAL) Cholecystectomy Sid Fundoplication Social History Smoking Status: Never Smoker Hx Substance Use: No Hx Alcohol Use: Yes (OCCASIONAL) Allergies Coded Allergies: Penicillins (Verified Allergy, Severe, HIVES + THROAT SWELLING, 01/09/17) URTICARIA Current Medications Reported Home Medications Medications Dose Route/Sig Max Daily Dose Days Date Category Dose Instructions Ferrous Sulfate 325 Mg Tab 325 Mg PO BID 12/17/16 Rx Sucralfate 1 Gm/10 Ml Susp 1 Gm PO ACHS 15 12/17/16 Rx Pantoprazole Sodium (Pantoprazole) 40 Mg Tab 40 Mg PO BID 12/17/16 Rx Topamax (Topiramate) 25 Mg Tab 25 Mg PO BID 12/14/16 Reported Mysoline (Primidone) 50 Mg Tab 100 Mg PO DIRECTED 12/14/16 Reported FOR TREMORS-MAY TAKE UP TO 3XDAY. Zyloprim (Allopurinol) 300 Mg Tab 300 Mg PO QPM 12/14/16 Reported Lasix (Furosemide) 40 Mg Tab 40 Mg PO QAM 09/08/15 Reported Phenobarbital 64.8 Mg Tab 64.8 Mg PO BID 07/11/15 Reported Nitrostat (Nitroglycerin) 0.4 Mg Sub 0.4 Mg UT PRN PRN 07/11/15 Reported Lopressor (Metoprolol Tartrate) 25 Mg Tab 25 Mg PO BID 07/11/15 Reported Zestril (Lisinopril) 5 Mg Tab 5 Mg PO QAM 07/11/15 Reported Imdur Ext Rel (Isosorbide Mononitrate) 30 Mg Tabcr 30 Mg PO QAM 07/11/15 Reported Vitamin D-1000 (Cholecalciferol) 1,000 Unit Tab 1,000 Unit PO QAM 07/11/15 Reported Norvasc (Amlodipine Besylate) 10 Mg Tab 10 Mg PO QAM 07/11/15 Reported Zocor (Simvastatin) 20 Mg Tab 20 Mg PO HS 01/20/08 Reported Proscar (Finasteride) 5 Mg Tab 5 Mg PO HS 01/20/08 Reported Vital Signs Weight (Kilograms): 86.36 Height (Feet): 5 Height (Inches): 9 Date Time Temp Pulse Resp B/P (MAP) Pulse Ox O2 Delivery O2 Flow Rate FiO2 01/25/17 07:51 36.6 68 20 164/71 (102) 99 Room Air Physical Exam General Appearance: no apparent distress Respiratory/Chest: Auscultation: deminished air movement Cardiovascular: Heart Auscultation: RRR Abdomen: Inspection & Palpation: soft Assessment and Plan Endoscopic ultrasound and upper endoscopy for evaluation of abnormal-appearing gastric mucosa. Given the patient's history I am suspicious for an underlying gastric malignancy. We have discussed the risks and benefits of upper endoscopy and endoscopic ultrasound to include bleeding, infection, perforation , pain and insufficient cellularity
[2017-01-25] MEDS ORDERED: FENTANYL CITRATE INJ 50 MCG/1 ML 2 ML VIAL ONE (08:35)
[2017-01-25] MEDS ORDERED: SUCCINYLCHOLINE CHLORIDE 20 MG/ML 10 ML VIAL IV ONE (08:57)
[2017-01-25] MEDS ORDERED: DEXAMETHASONE SOD INJ 4 MG/ML VIAL ONE (08:57)
[2017-01-25] MEDS ORDERED: LIDOCAINE HCL 2% 2 ML VIAL (20MG/ML) ONE (08:57)
[2017-01-25] MEDS ORDERED: ONDANSETRON INJ 2 MG/ML 2 ML VIAL ONE (08:57)
[2017-01-25] MEDS ORDERED: EpHEDrine SULFATE INJ 50 MG/ML AMP ONE (09:20)
--- NOTE | 2017-01-25 09:54 | Discharge Instructions ---
Endoscopy Patient Instructions Date / Procedure(s) Performed Jan 25, 2017. EGD, Other (Endoscopic ultrasound) Allergy Information Coded Allergies: Penicillins (Verified Allergy, Severe, HIVES + THROAT SWELLING, 01/09/17) URTICARIA Discharge Date / Findings Jan 25, 2017. Diffuse gastritis No gastric masses seen Medication Instructions Reported Home Medications Medications Dose Route/Sig Max Daily Dose Days Date Category Dose Instructions Ferrous Sulfate 325 Mg Tab 325 Mg PO BID 12/17/16 Rx Sucralfate 1 Gm/10 Ml Susp 1 Gm PO ACHS 15 12/17/16 Rx Pantoprazole Sodium (Pantoprazole) 20 Mg Tab 20 12/17/16 Rx Topamax (Topiramate) 25 Mg Tab 25 Mg PO BID 12/14/16 Reported Mysoline (Primidone) 50 Mg Tab 100 Mg PO DIRECTED 12/14/16 Reported FOR TREMORS-MAY TAKE UP TO 3XDAY. Zyloprim (Allopurinol) 300 Mg Tab 300 Mg PO QPM 12/14/16 Reported Lasix (Furosemide) 40 Mg Tab 40 Mg PO QAM 09/08/15 Reported Phenobarbital 64.8 Mg Tab 64.8 Mg PO BID 07/11/15 Reported Nitrostat (Nitroglycerin) 0.4 Mg Sub 0.4 Mg UT PRN PRN 07/11/15 Reported Lopressor (Metoprolol Tartrate) 25 Mg Tab 25 Mg PO BID 07/11/15 Reported Zestril (Lisinopril) 5 Mg Tab 5 Mg PO QAM 07/11/15 Reported Imdur Ext Rel (Isosorbide Mononitrate) 30 Mg Tabcr 30 Mg PO QAM 07/11/15 Reported Vitamin D-1000 (Cholecalciferol) 1,000 Unit Tab 1,000 Unit PO QAM 07/11/15 Reported Norvasc (Amlodipine Besylate) 10 Mg Tab 10 Mg PO QAM 07/11/15 Reported Zocor (Simvastatin) 20 Mg Tab 20 Mg PO HS 01/20/08 Reported Proscar (Finasteride) 5 Mg Tab 5 Mg PO HS 01/20/08 Reported Provider Instructions Activity Restrictions - No exercising or heavy lifting for 24 hours. - Do not drink alcohol the day of the procedure. - Do not drive a car or operate machinery until the day after the procedure. - Do not make any important decisions or sign important papers in 24 hours after the procedure. Following Day: - Return to full activity which may include returning to work/school. Diet Start your diet with liquids and light foods (jello, soup, juice, toast). Then eat your usual diet if not nauseated. Treatment For Common After Affects For mild abdominal pain, bloating, or excessive gas: - Rest - Eat lightly - Lie on right side Follow-Up Information Decrease Protonix to 20 mg 1 time daily Await today's pathology results Follow-up with gastroenterology in 4-6 months Anesthesia Information What You Should Know You have had a procedure that required some medicine to reduce anxiety and discomfort. This treatment is called moderate sedation. After receiving the treatment, you may be sleepy, but you will be able to breathe on your own. The effects of the treatment may last for several hours. Follow these instructions along with Activity/Diet recommendations noted above: * Do NOT do anything where dizziness or clumsiness would be dangerous. * Rest quietly at home today, then you can be up and about tomorrow. * Have a responsible person stay with you the rest of today. * You may have had an I.V. today. If so, you may take the dressing off later today. Recommendations Call your doctor if: * Trouble breathing * Continuous vomiting for more than 24 hours * Temperature above 101 degrees * Severe abdominal pain or bloating * Pain not relieved by pain medicine ordered * There is increased drainage or redness from any incision * A large amount of rectal bleeding greater than 2-3 tablespoons. (If you had a polyp/s removed or have hemorrhoids, a small amount of blood - from the rectum is to be expected.) * You have any unanswered questions or concerns. IN THE EVENT OF A SERIOUS EMERGENCY, GO TO THE NEAREST EMERGENCY ROOM Your discharge instructions were prepared by provider Kwesi Gutiérrez. Patient Instructions Signature Page Colin Marshall Patient (or Guardian) Signature/Date: I have read and understand the instructions given to me by my caregivers. Caregiver/RN/Doctor Signature/Date: The above-named patient and/or guardian has received patient instructions on this date. + Original Patient Signature Page (only) stays with chart. Please make copy for patient.
--- NOTE | 2017-01-25 09:56 | [facility] Post Operative Brief Note ---
Immediate Operative Summary Operative Date Jan 25, 2017. Pre-Operative Diagnosis Abnormal esophagogastroduodenoscopy with thicked ulcerated mucosa Post-Operative Diagnosis Diffuse gastritis Procedure(s) Performed Endoscopy and Upper Endoscopic Ultrasound with Biopsies Surgeon Brock Paint Technician Surgeon(s) Endoscopy staff Estimated Blood Loss 0CC Findings Diffuse gastritis No gastric mass seen Specimens A) gastric antrum B) Gastric body C) Gastric fundus Drains None Anesthesia General Disposition Recovery Room / PACU
--- NOTE | 2017-01-25 10:01 | GI REPORT ---
Procedure Date: 01/25/2017 8:33 AM Procedure: Upper GI endoscopy Indications: Follow-up of gastric mucosal hypertrophy with hemorrhage and diffuse ulceration Medicines: General Anesthesia Complications: No immediate complications. Estimated blood loss: Minimal. Estimated Blood Loss: Estimated blood loss was minimal. Procedure: Pre-Anesthesia Assessment: - Prior to the procedure, a History and Physical was performed, and patient medications, allergies and sensitivities were reviewed. The patient's tolerance of previous anesthesia was reviewed. - The risks and benefits of the procedure and the sedation options and risks were discussed with the patient. All questions were answered and informed consent was obtained. - Patient identification and proposed procedure were verified prior to the procedure by the physician, the nurse and the machine cementer. The procedure was verified in the procedure room. - Pre-procedure physical examination revealed no contraindications to sedation. - ASA Grade Assessment: III - A patient with severe systemic disease. - After reviewing the risks and benefits, the patient was deemed in satisfactory condition to undergo the procedure. - The anesthesia plan was to use general anesthesia. - Immediately prior to administration of medications, the patient was re-assessed for adequacy to receive sedatives. - The heart rate, respiratory rate, oxygen saturations, blood pressure, adequacy of pulmonary ventilation, and response to care were monitored throughout the procedure. - The physical status of the patient was re-assessed after the procedure. After obtaining informed consent, the endoscope was passed under direct vision. Throughout the procedure, the patient's blood pressure, pulse, and oxygen saturations were monitored continuously. The scope was introduced through the mouth, and advanced to the second part of duodenum. The upper GI endoscopy was accomplished without difficulty. The patient tolerated the procedure well. Findings: The examined esophagus was normal. The Z-line was regular and was found 39 cm from the incisors. Evidence of a Pio fundoplication was found in the cardia. The wrap appeared intact. This was traversed. A medium amount of food (residue) was found in the gastric fundus. Removal of food was accomplished. Diffuse moderate inflammation characterized by congestion (edema), erythema and granularity was found in the entire examined stomach. This was much improved compared to his prior examination. No obvious mass lesion was noted. Biopsies were taken with a cold forceps for histology. Estimated blood loss was minimal. The examined duodenum was normal. Impression: - Normal esophagus. - Z-line regular, 39 cm from the incisors. - A Pio fundoplication was found. The wrap appears intact. - A medium amount of food (residue) in the stomach. Removal was successful. - Chronic gastritis. Biopsied. - Normal examined duodenum. Recommendation: - Perform an upper endoscopic ultrasound (UEUS) today. - Use Protonix (pantoprazole) 20 mg PO daily indefinitely. - Await pathology results. Kwesi Gutiérrez D.O. Kwesi Gutiérrez, 01/25/2017 10:01:04 AM This report has been signed electronically. Note Initiated On: 01/25/2017 8:33 AM I attest to the content of the Intraoperative Record and orders documented therein, exceptions below
--- NOTE | 2017-01-25 10:10 | GI REPORT ---
Procedure Date: 01/25/2017 8:46 AM Procedure: Upper EUS Indications: Gastric mucosal mass/polyp found on endoscopy Medicines: General Anesthesia Complications: No immediate complications. Estimated blood loss: Minimal. Estimated Blood Loss: Estimated blood loss was minimal. Procedure: Pre-Anesthesia Assessment: - Prior to the procedure, a History and Physical was performed, and patient medications, allergies and sensitivities were reviewed. The patient's tolerance of previous anesthesia was reviewed. - The risks and benefits of the procedure and the sedation options and risks were discussed with the patient. All questions were answered and informed consent was obtained. - Patient identification and proposed procedure were verified prior to the procedure by the physician, the nurse and the morning news anchor. The procedure was verified in the procedure room. - Pre-procedure physical examination revealed no contraindications to sedation. - ASA Grade Assessment: III - A patient with severe systemic disease. - After reviewing the risks and benefits, the patient was deemed in satisfactory condition to undergo the procedure. - The anesthesia plan was to use general anesthesia. - Immediately prior to administration of medications, the patient was re-assessed for adequacy to receive sedatives. - The heart rate, respiratory rate, oxygen saturations, blood pressure, adequacy of pulmonary ventilation, and response to care were monitored throughout the procedure. - The physical status of the patient was re-assessed after the procedure. After obtaining informed consent, the endoscope was passed under direct vision. Throughout the procedure, the patient's blood pressure, pulse, and oxygen saturations were monitored continuously. The Endosonoscope was introduced through the mouth, and advanced to the second part of duodenum. The upper EUS was accomplished without difficulty. The patient tolerated the procedure well. Findings: Endosonographic Finding : Endosonographic images of the stomach were unremarkable. No pathologic lymphadenopathy and no masses were identified. No lymphadenopathy seen. Evidence of a previous cholecystectomy was identified endosonographically. There was no sign of significant endosonographic abnormality in the common bile duct. The maximum diameter of the duct was 6.2 mm. No masses, no stones and no biliary sludge were identified. A hypoechoic lesion suggestive of a cyst was identified in the pancreatic body. It is not in obvious communication with the pancreatic duct. The lesion measured 8 mm by 6 mm in maximal cross-sectional diameter. There was a single compartment without septae. The outer wall of the lesion was not seen. There was no associated mass. There was no internal debris within the fluid-filled cavity. This appeared too small for FNA. There was no sign of significant endosonographic abnormality in the pancreatic head, in the pancreatic tail, in the pancreatic neck and in the main pancreatic duct. The pancreatic duct measured up to 2.2 mm in diameter. There was no sign of significant endosonographic abnormality in the left lobe of the liver. Homogeneous parenchyma and no focal pathology were identified. An irregular mass was identified endosonographically in the right kidney. The mass was hypoechoic. The endosonographic borders were poorly-defined. There was no sign of significant endosonographic abnormality in the ampulla. No masses were identified. Impression: - Endosonographic images of the stomach were unremarkable. No masses seen. - Evidence of a cholecystectomy. - Normal common bile duct. - A cystic lesion was seen in the pancreatic body. Tissue has not been obtained. 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 - There was no evidence of significant pathology in the left lobe of the liver. - A mass was identified endosonographically in the right kidney. This has previously been identified as a renal cell carcinoma (FNA not done today) - No specimens collected. Recommendation: - Discharge patient to home (ambulatory). - Advance diet as tolerated today. - No evidnece of a gastric mass. - Prior EGD findings likely related to a medication or perhaps ischemia (now resolved). Kwesi Gutiérrez D.O. Kwesi Gutiérrez, 01/25/2017 10:09:11 AM This report has been signed electronically. Note Initiated On: 01/25/2017 8:46 AM I attest to the content of the Intraoperative Record and orders documented therein, exceptions below
[2017-01-25 10:45] VITALS: BP 131/58; PULSE 68; TEMP 37.1; O2SAT 93
--- NOTE | 2017-01-25 10:46 | Anesthesiology Progress Note ---
Anesthesia Post Op Note Date & Time Jan 25, 2017 at 10:43 Vital Signs Pain Intensity: 3 Vital Signs Past 12 Hours Date Time Temp Pulse Resp B/P (MAP) Pulse Ox O2 Delivery O2 Flow Rate FiO2 01/25/17 10:36 142/67 01/25/17 10:33 69 16 01/25/17 10:33 69 16 95 01/25/17 10:31 147/63 01/25/17 10:29 36.8 01/25/17 10:28 68 16 95 01/25/17 10:28 69 16 01/25/17 10:27 71 16 93 01/25/17 10:27 69 16 01/25/17 10:26 141/62 01/25/17 10:22 70 12 01/25/17 10:22 70 12 98 01/25/17 10:21 148/64 01/25/17 10:17 70 16 95 01/25/17 10:17 70 16 01/25/17 10:16 70 16 144/60 95 01/25/17 10:16 70 16 01/25/17 10:12 141/62 01/25/17 10:11 72 13 96 01/25/17 10:11 73 13 01/25/17 10:06 75 14 01/25/17 10:06 75 14 142/60 97 01/25/17 10:05 67 12 99 01/25/17 10:05 67 12 01/25/17 10:01 145/61 01/25/17 10:00 68 14 99 01/25/17 10:00 69 14 01/25/17 09:56 149/65 01/25/17 09:55 69 16 100 01/25/17 09:55 69 16 01/25/17 09:51 152/63 01/25/17 09:50 76 14 100 01/25/17 09:50 76 14 01/25/17 09:47 167/71 01/25/17 09:45 36.5 83 12 167/71 100 Mask 10 01/25/17 07:51 36.6 68 20 164/71 (102) 99 Room Air Notes Mental Status: alert / awake / arousable, participated in evaluation Pt Amnestic to Procedure: Yes Nausea / Vomiting: adequately controlled Pain: adequately controlled Airway Patency, RR, SpO2: stable & adequate BP & HR: stable & adequate Hydration State: stable & adequate Anesthetic Complications: no major complications apparent Patient had some "chest discomfort" in recovery. This was reported to be just above his sternum and was slightly worse with swallowing. Hemodynamically the patient was stable and he was otherwise showing any sign of acute coronary syndrome. This appears to be mild discomfort from the EUS procedure and the patient is stable for dispo from phase I recovery.
[2017-01-25 11:15] VITALS: BP 139/62; PULSE 69; O2SAT 97
[2017-01-25 11:40] VITALS: BP 130/61; PULSE 72; TEMP 36.8; O2SAT 96
== END 2017-01-25 11:42 | disposition home or self-care (01) ==
LOC: C.ACU 07:11
PROVIDERS: ATTEND Internal Medicine Gastroenterology
DX: K92.1 Melena (principal); K29.50 Unspecified chronic gastritis without bleeding; Z95.5 Presence of coronary angioplasty implant and graft; M19.90 Unspecified osteoarthritis, unspecified site; Z86.711 Personal history of pulmonary embolism; K21.9 Gastro-esophageal reflux disease without esophagitis; E78.00 Pure hypercholesterolemia, unspecified; I10 Essential (primary) hypertension; I80.9 Phlebitis and thrombophlebitis of unspecified site; I25.2 Old myocardial infarction; Z85.528 Personal history of other malignant neoplasm of kidney; Z90.49 Acquired absence of other specified parts of digestive tract; Z90.89 Acquired absence of other organs; F41.9 Anxiety disorder, unspecified; F32.9 Major depressive disorder, single episode, unspecified; M10.9 Gout, unspecified; I25.10 Atherosclerotic heart disease of native coronary artery without angina pectoris; E78.5 Hyperlipidemia, unspecified; K25.9 Gastric ulcer, unspecified as acute or chronic, without hemorrhage or perforation; G25.0 Essential tremor; Z87.442 Personal history of urinary calculi

== ENCOUNTER → 2017-04-23 | Outpatient (CLI) | payer OTHER ==
[~2017-04-23] MED LIST changes: -LACTATED RINGER'S 1000ML 1,000 ML IV SCH
[2017-04-23 17:06] LABS: BASO % 0.1 %; BASO ABS # 0.01 K/uL (0-0.2); COMPLETE YES; EOS % 2.8 %; HEMATOCRIT 37.7 % (42-52); IG% 0.1 %; LYMPH % 27.2 %; LYMPH ABS # 1.87 K/uL (1.2-3.4); MEAN CELL VOLUME 90.4 fL (80-100); MEAN CORPUSCULAR HEMOGLOBIN 28.5 pg (25-34); MEAN CORPUSCULAR HGB CONC 31.6 g/dl (32-36); MEAN PLATELET VOLUME 10.2 fL (7.4-10.4); MONO % 6.3 %; NEUT % 63.5 %; PLATELET COUNT 190 K/uL (130-400); RED BLOOD COUNT 4.17 M/uL (4.7-6.1); WHITE BLOOD COUNT 6.87 K/uL (4.8-10.8)
[2017-04-23 17:25] LABS: ALT/SGPT 28 U/L (12-78); AST/SGOT 29 U/L (15-37); BLOOD UREA NITROGEN 21 mg/dl (7-18); BUN/CREATININE RATIO 14.7 (10-20); CALCIUM 8.8 mg/dl (8.5-10.1); CARBON DIOXIDE 20 mmol/L (21-32); CHLORIDE 112 mmol/L (98-107); CREATININE 1.41 mg/dl (0.60-1.40); GLUCOSE 127 mg/dl (70-99); POTASSIUM 3.9 mmol/L (3.5-5.1); SODIUM 141 mmol/L (136-145)
[2017-04-23 17:28] LABS: ALB/GLOB RATIO 0.9 (0.9-2); ALKALINE PHOSPHATASE 128 U/L (45-117)
== END | disposition home or self-care (01) ==
LOC: C.LABBC 13:41
PROVIDERS: ATTEND Internal Medicine Hematology & Oncology
DX: C64.1 Malignant neoplasm of right kidney, except renal pelvis (principal)

== ENCOUNTER 2017-06-22 17:30 | Inpatient (IN) | payer OTHER ==
[~2017-06-22] VITALS: Ht 170.2 cm; Wt 79.3 kg
[~2017-06-22 17:30] MED LIST changes: -AMLO-114 PO; +AMLO10TA3 PO; +PANT1TAB4 PO; -PRT40 PO
--- NOTE | 2017-06-22 18:00 | EMERGENCY ROOM VISIT NOTE ---
History Report prepared by Rowdyibroopa: Gilmer Macias Under the Supervision of: Dr. Gregory Vincent M.D. First contact with patient: 17:34 Chief Complaint: DIARRHEA Stated Complaint: FALL, SHOULDER PAIN, FLU LIKE SX Nursing Triage Summary: Patient has had diarrhea for three days "I don't know where all the water is coming from". Patient was getting ready to come to ED and was bent over tying his shoes and fell to the floor also complaining of right shoulder pain. History of Present Illness The patient is a 87 year old white male with a past medical history of renal cell carcinoma, stent, IVC filter, HTN, BPH, reoccurring blood clots, and cholecystectomy who presents to the ED with a cc of constant diarrhea beginning three days ago. He rates his discomfort as a 4/10 in severity. Positive abdominal pain, sick contact, flu shot, right shoulder pain, head injury, weakness, fatigue. Negative urinating difficulty, nausea, vomiting, blood in stool, blood thinner use, using stream or well water, headache, head pain, neck pain. The patient states that he was getting ready to come to the ED and was bending over to tie his shoe when he fell over. He reports that he fell another time and hit his right arm on the carpet. He reports that during one incident, he hit his head after falling on the ground. The patient states that following these incidents he started to experience right shoulder pain. Source of History: patient Onset: three days ago Position: other (global) Symptom Intensity: 4/10 Timing: constant Associated Symptoms: + abdominal pain, + fatigue, + weakness, No headache, No neck pain, No nausea, No vomiting, No melena, No hematochezia, No urinary symptoms Review of Systems See HPI for pertinent positives and negatives. A total of ten systems were reviewed and were otherwise negative. Past Medical & Surgical Medical Problems: (1) Anemia (2) Cancer of right kidney (3) DVT (deep venous thrombosis) (4) Gastric mass (5) HTN (hypertension) (6) Upper GI bleeding Family History Hypertension Social History Smoking Status: Former Smoker Drug Use: none Marital Status: Housing Status: lives with family Occupation Status: employed Current/Historical Medications Scheduled Allopurinol (Zyloprim), 300 MG PO QPM Amlodipine (Norvasc), 10 MG PO QAM Cholecalciferol (Vitamin D-1000), 1,000 UNIT PO QAM Ferrous Sulfate (Ferrous Sulfate), 325 MG PO BID Finasteride (Proscar), 5 MG PO HS Furosemide (Lasix), 40 MG PO QAM Isosorbide Mononitrate Ext Rel (Imdur Ext Rel), 30 MG PO QAM Lisinopril (Zestril), 5 MG PO QAM Loperamide Hcl (Imodium), 2 MG PO prn ud Metoprolol Tartrate (Lopressor) (Lopressor), 25 MG PO BID Pantoprazole (Pantoprazole Sodium), 40 MG PO BID Phenobarbital (Phenobarbital), 64.8 MG PO BID Primidone (Mysoline), 100 MG PO DIRECTED Simvastatin (Zocor), 20 MG PO HS Topiramate (Topamax), 25 MG PO BID Scheduled PRN Nitroglycerin (Nitrostat), 0.4 MG UT PRN PRN for Chest Pain Allergies Coded Allergies: Penicillins (Verified Allergy, Severe, HIVES + THROAT SWELLING, 01/09/17) URTICARIA Physical Exam Vital Signs Date Time Temp Pulse Resp B/P (MAP) Pulse Ox O2 Delivery O2 Flow Rate FiO2 06/22/17 20:36 76 20 111/47 97 Room Air 06/22/17 20:10 81 18 140/59 99 Room Air 06/22/17 19:21 59 20 108/48 99 Room Air 06/22/17 18:05 59 06/22/17 17:36 36.4 89 12 124/55 96 Room Air Physical Exam GENERAL: Awake, alert, well-appearing, NAD HENT: Normocephalic, atraumatic. EYES: Normal conjunctiva. Sclera non-icteric. NECK: Supple. No nuchal rigidity. FROM. RESPIRATORY: CTAB, no rhonchi, wheezing, crackles CARDIAC: RRR, no MRG ABDOMEN: Soft, Mid abdominal TTP, ND, BS+ MSK: No chest wall TTP, no LE edema, No midline tenderness, No anterior chest wall pain, No pain in upper or lower extremities bilaterally. NEURO: GCS 15, CN 2-12 intact, moves all 4s on command SKIN: No rash or jaundice noted. Prior surgical scars. Medical Decision & Procedures ER Provider Diagnostic Interpretation: Radiology results as stated below per my review and radiologist interpretation: CHEST ONE VIEW PORTABLE CLINICAL HISTORY: ABDOMINAL PAIN/GI pain COMPARISON STUDY: No previous studies for comparison. FINDINGS: Moderate cardiomegaly. Lungs are clear. Diaphragms smooth. IMPRESSION: Moderate cardiomegaly. Otherwise negative study The above report was generated using voice recognition software. It may contain grammatical, syntax or spelling errors. Electronically signed by: Dilshad Rivero M.D. 06/22/2017 6:13 PM Dictated Date/Time: 06/22/2017 6:13 PM HEAD WITHOUT CONTRAST (CT) CT DOSE: 1689.94 mGy.cm HISTORY: Trauma. Assess change. s/p fall TECHNIQUE: Multiaxial CT images of the head were performed without the use of intravenous contrast. A dose lowering technique was utilized adhering to the principles of ALARA. Comparison: None. Findings: The paranasal sinuses and mastoid air cells are clear. Findings of moderate generalized cerebellar as well as cerebral atrophy. Components of chronic small vessel change are noted. Scattered areas of several malacia are noted and appear old. No acute intracranial abnormality. No evidence for acute intracranial hemorrhage. Ventricular system is midline. Impression: Chronic and age-related change. No acute intracranial abnormality. The above report was generated using voice recognition software. It may contain grammatical, syntax or spelling errors. Electronically signed by: Dilshad Rivero M.D. 06/22/2017 7:13 PM Dictated Date/Time: 06/22/2017 7:12 PM CERVICAL SPINE W/O CT DOSE: HISTORY: Trauma. Pain. s/p fall TECHNIQUE: Multiaxial CT images of the cervical spine were performed and reformatted in the sagittal and coronal plane without the use of contrast. A dose lowering technique was utilized adhering to the principles of ALARA. COMPARISON: None. FINDINGS: Considerable degenerative change throughout the entire cervical region. Accentuation of the cervical lordosis. Considerable degenerative change of the posterior elements throughout. No acute compression deformity. No evidence for disruption of the C1-C2 complex. Degenerative changes anterior arch of C1. IMPRESSION: Chronic and degenerative change. No acute process. The above report was generated using voice recognition software. It may contain grammatical, syntax or spelling errors. Electronically signed by: Dilshad Rivero M.D. 06/22/2017 7:15 PM Dictated Date/Time: 06/22/2017 7:13 PM ABD/PELVIS NO IV OR ORAL CONT CT DOSE: HISTORY: Trauma s/p fall, ab pain, h/o gastric mass and RCC TECHNIQUE: Multiaxial CT images of the abdomen and pelvis were performed without contrast. A dose lowering technique was utilized adhering to the principles of ALARA. COMPARISON STUDY: 04/26/2017 FINDINGS: Slight chronic basilar interstitial prominence. The 5 mm nodule left lung base is unchanged. Calcified granuloma medial left base is unchanged. The invasive right renal mass is noted and appears to be similar. The right renal calcifications including the calcification of the right renal pelvis is unaltered. Infiltrative change of the perinephric fat as well as potential vascular involvement are again noted. This is considered similar within limitations of an unenhanced scan as compared to the prior study. Multiple cystic calcific as well as renovascular findings of the left kidney are unchanged. Generalized bowel pattern is considered consistent with a generalized nonobstructive ileus. IMPRESSION: 1. No significant posttraumatic abnormality of the abdomen or pelvis. 2. Multiple additional findings previously described involving the right kidney, vasculature, and multiple additional nonacute findings produces described. 3. Mild nonobstructive ileus, most likely on a posttraumatic basis. The above report was generated using voice recognition software. It may contain grammatical, syntax or spelling errors. Electronically signed by: Dilshad Rivero M.D. 06/22/2017 7:40 PM Dictated Date/Time: 06/22/2017 7:31 PM Laboratory Results 06/22/17 18:35 Red Blood Count 4.27, Mean Corpuscular Volume 91.6, Mean Corpuscular Hemoglobin 29.5, Mean Corpuscular Hemoglobin Concent 32.2, Mean Platelet Volume 10.1, Neutrophils (%) (Auto) 71.4, Lymphocytes (%) (Auto) 14.0, Monocytes (%) (Auto) 12.7, Eosinophils (%) (Auto) 1.5, Basophils (%) (Auto) 0.1, Neutrophils # (Auto ) 7.38, Lymphocytes # (Auto) 1.45, Monocytes # (Auto) 1.31, Eosinophils # (Auto ) 0.16, Basophils # (Auto) 0.01 06/22/17 18:35 Test 06/22/17 18:35 06/22/17 19:53 White Blood Count 10.34 K/uL (4.8-10.8) Red Blood Count 4.27 M/uL (4.7-6.1) Hemoglobin 12.6 g/dL (14.0-18.0) Hematocrit 39.1 % (42-52) Mean Corpuscular Volume 91.6 fL (80-100) Mean Corpuscular Hemoglobin 29.5 pg (25-34) Mean Corpuscular Hemoglobin Concent 32.2 g/dl (32-36) Platelet Count 186 K/uL (130-400) Mean Platelet Volume 10.1 fL (7.4-10.4) Neutrophils (%) (Auto) 71.4 % Lymphocytes (%) (Auto) 14.0 % Monocytes (%) (Auto) 12.7 % Eosinophils (%) (Auto) 1.5 % Basophils (%) (Auto) 0.1 % Neutrophils # (Auto) 7.38 K/uL (1.4-6.5) Lymphocytes # (Auto) 1.45 K/uL (1.2-3.4) Monocytes # (Auto) 1.31 K/uL (0.11-0.59) Eosinophils # (Auto) 0.16 K/uL (0-0.5) Basophils # (Auto) 0.01 K/uL (0-0.2) RDW Standard Deviation 52.7 fL (36.4-46.3) RDW Coefficient of Variation 15.8 % (11.5-14.5) Immature Granulocyte % (Auto) 0.3 % Immature Granulocyte # (Auto) 0.03 K/uL (0.00-0.02) Anion Gap 13.0 mmol/L (3-11) Est Creatinine Clear Calc Drug Dose 15.1 ml/min Estimated GFR () 16.2 Estimated GFR (Non- 14.0 BUN/Creatinine Ratio 15.6 (10-20) Calcium Level 8.8 mg/dl (8.5-10.1) Magnesium Level 2.5 mg/dl (1.8-2.4) Total Bilirubin 0.2 mg/dl (0.2-1) Direct Bilirubin < 0.1 mg/dl (0-0.2) Aspartate Amino Transf (AST/SGOT) 27 U/L (15-37) Alanine Aminotransferase (ALT/SGPT) 31 U/L (12-78) Alkaline Phosphatase 159 U/L (45-117) Troponin I < 0.015 ng/ml (0-0.045) Total Protein 7.8 gm/dl (6.4-8.2) Albumin 3.7 gm/dl (3.4-5.0) Lipase 270 U/L (73-393) Venous Blood pH 7.16 (7.36-7.41) Venous Blood Partial Pressure CO2 35 mmHg (38.0-50.0) Venous Blood Partial Pressure O2 33 mmHg Venous Blood HCO3 12 mmol/L Venous Blood Oxygen Saturation < 60.0 % Venous Blood Base Excess -15.2 mEq/L Lactic Acid Level 1.0 mmol/L (0.4-2.0) Laboratory results reviewed by me Medications Administered Medications (Trade) Dose Ordered Sig/Oscar Route Start Time Stop Time Status Last Admin Dose Admin Sodium Chloride 1,000 ml @ 999 mls/hr Q1H1M STAT IV 06/22/17 18:53 06/22/17 19:53 DC 06/22/17 18:53 999 MLS/HR Dextrose (Dextrose 50% 50ML Syringe) 50 ml NOW ONCE IV 06/22/17 19:45 06/22/17 19:46 DC 06/22/17 19:51 50 ML Fentanyl Citrate (Fentanyl Inj) 25 mcg NOW ONCE IV 06/22/17 20:00 06/22/17 20:01 DC 06/22/17 20:06 25 MCG Nitroglycerin (Nitrostat Tab) 0.4 mg ONE STAT SL 06/22/17 20:02 06/22/17 20:04 DC 06/22/17 20:09 0.4 MG Aspirin (Aspirin Chew) 324 mg NOW STAT PO 06/22/17 20:02 06/22/17 20:04 DC 06/22/17 20:09 324 MG ECG Indication: syncope Rate (beats per minute): 61 Rhythm: normal sinus Findings: 1st degree AV block, other (prolonged MS, Normal axis and intervals) ED Course 1742: The patient was evaluated in room C09. A complete history and physical exam was performed. 1933: I discussed the patient's case with Dr. Powell, [facility] Hospitalist. He understands the patient's condition and agrees to accept the patient. The patient will be further evaluated. 1850: I reevaluated the patient and he is doing well. 1927: I reevaluated the patient and updated him on his results. We are waiting on more scans to come back. Medical Decision Triage Nursing notes reviewed. The patient is a 87 year old white male with a past medical history of renal cell carcinoma, stent, IVC filter, HTN, BPH, reoccurring blood clots, and cholecystectomy who presents to the ED with a cc of constant diarrhea beginning three days ago. The patient's presentation and history were concerning for etiologies such as gastroenteritis, food borne illness, infections, appendicitis, diverticulitis, inflammatory bowel disease, obstruction, GI bleed, biliary pathology, ICH, sprain, strain, fracture, as well as others were entertained. Patient was seen and evaluated the bedside. Patient has purportedly been having persistent diarrhea for approximately 3 days time. Patient did have 2 falls today and they believe this is secondary to weakness. Unsure as to whether not he struck his head but denies any LOC. Patient does not take any blood thinning medications including aspirin or Plavix. Patient was taken off any blood thinning medications and GI bleeds in the past. Patient did have blood work that was completed along with CT scans. Of note patient did not have any focal neurologic deficits and no other signs of overt trauma. Patient did have CT scans of the C-spine and head which only showed chronic changes without any acute abnormalities. The CT of the abdomen pelvis did not show much acute change but does show his renal cell carcinoma as well as non obstructing ileus. Patient's blood work did show a normal white blood cell count. Patient does have chronic anemia which is fairly unchanged from prior. Patient does not show any elevations in his LFTs or troponin. Patient's EKG was fairly unremarkable. Patient kidney function did show acute worsening and concern for renal failure. Patient does have a low bicarbonate. A VBG and lactate were added in addition to a Nam catheter to monitor urine output. Patient was also given fluids as well as D50 given his low blood sugar. I did speak with the hospitalist about patient's acute renal failure as well as low bicarbonate. This may be slightly contributory secondary to his uremia. Patient did have an episode of active chest pain. Patient did have a repeat EKG and troponin ordered. Patient's EKG did show some changes or he now has T- wave inversions in the high lateral leads along with lateral depressions. Cardiology was consulted. Dr. Matos did review the EKG and did agree that there were acute changes on his EKG. Given the patient's acute renal failure, he recommended medical management at this time. Patient was ordered additional statin and heparin drip. I did relay these findings to the hospitalist who agreed with the management of the patient. Of note the patient had a normal lactate but was acidotic with a fairly normal PCO2 although look like mild respiratory compensation as he did have a PCO2 less than 40. Patient's anion gap is not very high, so this may be a non-anion gap metabolic acidosis potentially related to his diarrhea. Other considerations would be ureteral enteric fistula or renal tubular acidosis. Patient was admitted to the medicine team. Medication Reconcilliation Current Medication List: was personally reviewed by me Blood Pressure Screening Patient's blood pressure: Normal blood pressure Consults Time Called: 1933 Consulting Physician: Dr. Powell, [facility] Hospitalist Returned Call: 1933 I discussed the patient's case with Dr. Powell [facility] Hospitalist. He understands the patient's condition and agrees to accept the patient. The patient will be further evaluated. Additional Consults: Time Called: 2011 Consulted Physician: [place]. Mat[place], [facility] [place] Returned Call: 2016 Additional Comments: Needs to see transmitted EKG Returned Call: 2026 Additional Comments: Agrees that there are marked changes on EKG. Given worsening kidney function would be more conservative w/ medical management, statin, heparin, and IVF. Impression Primary Impression: Acute renal failure Additional Impressions: Chest pain Acute electrocardiogram changes Anemia Ileus Critical Care I have personally spent greater than 45 minutes of critical care time in the direct management of this patient. This includes bedside care, interpretation of diagnostic studies, and testing, discussion with consultants, patient, and family members, and other required patient management activities. This 45 minutes is in excess of all separately billable procedures. Scribe Attestation The scribe's documentation has been prepared under my direction and personally reviewed by me in its entirety. I confirm that the note above accurately reflects all work, treatment, procedures, and medical decision making performed by me. Departure Information Dispostion Being Evaluated By Hospitalist Referrals Devyn Garzon M.D. (PCP) Patient Instructions [facility] Problem Qualifiers Primary Impression: Acute renal failure Acute renal failure type: unspecified Qualified Codes: N17.9 - Acute kidney failure, unspecified Additional Impressions: Chest pain Chest pain type: chest pain due to myocardial ischemia Ischemic chest pain type: unspecified angina pectoris type Qualified Codes: I20.9 - Angina pectoris, unspecified Anemia Anemia type: unspecified type Qualified Codes: D64.9 - Anemia, unspecified
--- NOTE | 2017-06-22 18:15 | DIAGNOSTIC IMAGING REPORT ---
CHEST ONE VIEW PORTABLE CLINICAL HISTORY: ABDOMINAL PAIN/GI pain COMPARISON STUDY: No previous studies for comparison. FINDINGS: Moderate cardiomegaly. Lungs are clear. Diaphragms smooth. IMPRESSION: Moderate cardiomegaly. Otherwise negative study The above report was generated using voice recognition software. It may contain grammatical, syntax or spelling errors. Electronically signed by: Dilshad Rivero M.D. 06/22/2017 6:13 PM Dictated Date/Time: 06/22/2017 6:13 PM
[2017-06-22 18:49] LABS: BASO % 0.1 %; BASO ABS # 0.01 K/uL (0-0.2); EOS % 1.5 %; EOS ABS # 0.16 K/uL (0-0.5); HEMATOCRIT 39.1 % (42-52); HEMOGLOBIN 12.6 g/dL (14.0-18.0); IG# 0.03 K/uL (0.00-0.02); LYMPH ABS # 1.45 K/uL (1.2-3.4); MEAN CELL VOLUME 91.6 fL (80-100); MEAN CORPUSCULAR HEMOGLOBIN 29.5 pg (25-34); MEAN CORPUSCULAR HGB CONC 32.2 g/dl (32-36); MEAN PLATELET VOLUME 10.1 fL (7.4-10.4); MONO % 12.7 %; MONO ABS # 1.31 K/uL (0.11-0.59); NEUT % 71.4 %; NEUT ABS # 7.38 K/uL (1.4-6.5); PLATELET COUNT 186 K/uL (130-400); RED CELL DISTRIBUTION WIDTH CV 15.8 % (11.5-14.5); RED CELL DISTRIBUTION WIDTH SD 52.7 fL (36.4-46.3); WHITE BLOOD COUNT 10.34 K/uL (4.8-10.8)
[2017-06-22] MEDS ORDERED: SODIUM CHLORIDE 0.9% 1000ML 1,000 ML IV STA (18:53)
[2017-06-22] MEDS ORDERED: IMD/2 PO (18:58)
[2017-06-22 19:07] LABS: ALBUMIN 3.7 gm/dl (3.4-5.0); ALT/SGPT 31 U/L (12-78); AST/SGOT 27 U/L (15-37); BLOOD UREA NITROGEN 57 mg/dl (7-18); CALCIUM 8.8 mg/dl (8.5-10.1); CARBON DIOXIDE 13 mmol/L (21-32); CREATININE 3.69 mg/dl (0.60-1.40); GLUCOSE 60 mg/dl (70-99); LIPASE 270 U/L (73-393); POTASSIUM 3.9 mmol/L (3.5-5.1); SODIUM 139 mmol/L (136-145)
[2017-06-22 19:12] LABS: ALKALINE PHOSPHATASE 159 U/L (45-117); TOTAL PROTEIN 7.8 gm/dl (6.4-8.2)
--- NOTE | 2017-06-22 19:14 | DIAGNOSTIC IMAGING REPORT ---
HEAD WITHOUT CONTRAST (CT) CT DOSE: 1689.94 mGy.cm HISTORY: Trauma. Assess change. s/p fall TECHNIQUE: Multiaxial CT images of the head were performed without the use of intravenous contrast. A dose lowering technique was utilized adhering to the principles of ALARA. Comparison: None. Findings: The paranasal sinuses and mastoid air cells are clear. Findings of moderate generalized cerebellar as well as cerebral atrophy. Components of chronic small vessel change are noted. Scattered areas of several malacia are noted and appear old. No acute intracranial abnormality. No evidence for acute intracranial hemorrhage. Ventricular system is midline. Impression: Chronic and age-related change. No acute intracranial abnormality. The above report was generated using voice recognition software. It may contain grammatical, syntax or spelling errors. Electronically signed by: Dilshad Rivero M.D. 06/22/2017 7:13 PM Dictated Date/Time: 06/22/2017 7:12 PM
--- NOTE | 2017-06-22 19:16 | DIAGNOSTIC IMAGING REPORT ---
CERVICAL SPINE W/O CT DOSE: HISTORY: Trauma. Pain. s/p fall TECHNIQUE: Multiaxial CT images of the cervical spine were performed and reformatted in the sagittal and coronal plane without the use of contrast. A dose lowering technique was utilized adhering to the principles of ALARA. COMPARISON: None. FINDINGS: Considerable degenerative change throughout the entire cervical region. Accentuation of the cervical lordosis. Considerable degenerative change of the posterior elements throughout. No acute compression deformity. No evidence for disruption of the C1-C2 complex. Degenerative changes anterior arch of C1. IMPRESSION: Chronic and degenerative change. No acute process. The above report was generated using voice recognition software. It may contain grammatical, syntax or spelling errors. Electronically signed by: Dilshad Rivero M.D. 06/22/2017 7:15 PM Dictated Date/Time: 06/22/2017 7:13 PM
--- NOTE | 2017-06-22 19:41 | DIAGNOSTIC IMAGING REPORT ---
ABD/PELVIS NO IV OR ORAL CONT CT DOSE: HISTORY: Trauma s/p fall, ab pain, h/o gastric mass and RCC TECHNIQUE: Multiaxial CT images of the abdomen and pelvis were performed without contrast. A dose lowering technique was utilized adhering to the principles of ALARA. COMPARISON STUDY: 04/26/2017 FINDINGS: Slight chronic basilar interstitial prominence. The 5 mm nodule left lung base is unchanged. Calcified granuloma medial left base is unchanged. The invasive right renal mass is noted and appears to be similar. The right renal calcifications including the calcification of the right renal pelvis is unaltered. Infiltrative change of the perinephric fat as well as potential vascular involvement are again noted. This is considered similar within limitations of an unenhanced scan as compared to the prior study. Multiple cystic calcific as well as renovascular findings of the left kidney are unchanged. Generalized bowel pattern is considered consistent with a generalized nonobstructive ileus. IMPRESSION: 1. No significant posttraumatic abnormality of the abdomen or pelvis. 2. Multiple additional findings previously described involving the right kidney, vasculature, and multiple additional nonacute findings produces described. 3. Mild nonobstructive ileus, most likely on a posttraumatic basis. The above report was generated using voice recognition software. It may contain grammatical, syntax or spelling errors. Electronically signed by: Dilshad Rivero M.D. 06/22/2017 7:40 PM Dictated Date/Time: 06/22/2017 7:31 PM
[2017-06-22] MEDS ORDERED: DEXTROSE 50% 50 ML SYR IV ONE (19:45)
[2017-06-22] MEDS ORDERED: FENTANYL CITRATE INJ 50 MCG/1 ML 2 ML VIAL IV ONE (20:00)
[2017-06-22] MEDS ORDERED: ASPIRIN 324 MG CHEW PO STA (20:02)
[2017-06-22] MEDS ORDERED: NITROGLYCERIN 0.4 MG SL PER TAB CHARGE SL STA (20:02)
[2017-06-22] MEDS ORDERED: ATORVASTATIN 40 MG TAB PO STA (20:28)
[2017-06-22] MEDS ORDERED: HEPARIN IV LOW DOSE NO BOLUS STA (20:32)
[2017-06-22] MEDS ORDERED: HEPARIN 25000 UNIT/500 ML D5W ONE (20:45)
[2017-06-22] MEDS ORDERED: HEPARIN 25,000 UNIT/500ML D5W 500 ML IV PRN (21:15)
[2017-06-22] MEDS ORDERED: SODIUM BICARBONATE 8.4% INJ 50 MEQ in D5W AND 1/2NSS 1,000 ML IV SCH (21:45)
--- NOTE | 2017-06-22 22:57 | History and Physical ---
History & Physical Date & Time of Service: Jun 22, 2017 at 22:57 Chief Complaint: Fall, Shoulder Pain, Flu Like Sx Primary Care Physician: Devyn Garzon M.D. History of Present Illness Source: patient, hospital records The patient is an 87-year-old male who presents to the ED with complaint of diarrhea that began 3 days prior to arrival, with abdominal pain, generalized weakness and fatigue, and reports falling over when bending over to tie his shoe just prior to arrival. He did fall a previous time and hit his right arm and head on the carpet. Past Medical/Surgical History Medical Problems: (1) DVT (deep venous thrombosis) Status: Resolved (2) HTN (hypertension) Status: Chronic Family History Hypertension Social History Smoking Status: Former Smoker Smokeless Tobacco Use: No Alcohol Use: none Drug Use: none Marital Status: Housing status: lives alone Occupational Status: employed Immunizations History of Influenza Vaccine: Unknown Influenza Vaccine Date: Apr 12, 2010 History of Tetanus Vaccine?: Yes History of Pneumococcal: Unknown History of Hepatitis B Vaccine: No Multi-Drug Resistant Organisms History of MDRO: No Allergies Coded Allergies: Penicillins (Verified Allergy, Severe, HIVES + THROAT SWELLING, 01/09/17) URTICARIA Home Medications Scheduled Allopurinol (Zyloprim), 300 MG PO QPM Amlodipine (Norvasc), 10 MG PO QAM Cholecalciferol (Vitamin D-1000), 1,000 UNIT PO QAM Ferrous Sulfate (Ferrous Sulfate), 325 MG PO BID Finasteride (Proscar), 5 MG PO HS Furosemide (Lasix), 40 MG PO QAM Isosorbide Mononitrate Ext Rel (Imdur Ext Rel), 30 MG PO QAM Lisinopril (Zestril), 5 MG PO QAM Loperamide Hcl (Imodium), 2 MG PO prn ud Metoprolol Tartrate (Lopressor) (Lopressor), 25 MG PO BID Pantoprazole (Pantoprazole Sodium), 40 MG PO BID Phenobarbital (Phenobarbital), 64.8 MG PO BID Primidone (Mysoline), 100 MG PO DIRECTED Simvastatin (Zocor), 20 MG PO HS Topiramate (Topamax), 25 MG PO BID Scheduled PRN Nitroglycerin (Nitrostat), 0.4 MG UT PRN PRN for Chest Pain Review of Systems The patient denies chest pain, palpitations, shortness of breath, cough, lower extremity swelling, vision change, hearing change, sore throat, fevers, chills, sweats, nausea, vomiting, blood in urine or stool , dysuria, urinary frequency or urgency, loss of consciousness, rash, abnormal bruising or bleeding, focal weakness, numbness or tingling in arms or legs, generalized arthralgias or myalgias, back or neck pain, or night sweats. The review of systems is otherwise negative other than for that already noted above, and at least 10 systems have been reviewed. Physical Exam Vital Signs Date Time Temp Pulse Resp B/P (MAP) Pulse Ox O2 Delivery O2 Flow Rate FiO2 06/22/17 22:23 75 06/22/17 22:23 74 20 107/49 99 Room Air 06/22/17 20:36 76 20 111/47 97 Room Air 06/22/17 20:10 81 18 140/59 99 Room Air 06/22/17 19:21 59 20 108/48 99 Room Air 06/22/17 18:05 59 06/22/17 17:36 36.4 89 12 124/55 96 Room Air The patient is awake, alert and oriented 3, normocephalic and atraumatic, looks fatigued, lying in bed and in no acute distress. HEENT--PERRL, EOMI, mucous membranes and oropharynx dry. Neck--supple, no JVD or bruits, thyroid normal, trachea midline, no adenopathy. Heart--normal S1 and S2, no extra beats, no murmurs, rubs or gallops. Lungs--clear bilaterally with good air movement, no respiratory distress, no accessory muscle use. Abdomen--decreased bowel sounds, mildly distended, nontender. Extremities--no cyanosis, clubbing or edema. There are good distal pulses b/l. Dermatologic--normal skin turgor, normal color, warm and dry, no abnormal lymph nodes, no rash. Neurologic--cranial nerves II through XII grossly intact. Rheumatologic--normal range of motion. Psychiatric--normal affect. Diagnostics Laboratory Results Results Past 24 Hours Test 06/22/17 18:35 06/22/17 19:53 06/22/17 20:47 Range/Units White Blood Count 10.34 4.8-10.8 K/uL Red Blood Count 4.27 4.7-6.1 M/uL Hemoglobin 12.6 14.0-18.0 g/dL Hematocrit 39.1 42-52 % Mean Corpuscular Volume 91.6 80-100 fL Mean Corpuscular Hemoglobin 29.5 25-34 pg Mean Corpuscular Hemoglobin Concent 32.2 32-36 g/dl Platelet Count 186 130-400 K/uL Mean Platelet Volume 10.1 7.4-10.4 fL Neutrophils (%) (Auto) 71.4 % Lymphocytes (%) (Auto) 14.0 % Monocytes (%) (Auto) 12.7 % Eosinophils (%) (Auto) 1.5 % Basophils (%) (Auto) 0.1 % Neutrophils # (Auto) 7.38 1.4-6.5 K/uL Lymphocytes # (Auto) 1.45 1.2-3.4 K/uL Monocytes # (Auto) 1.31 0.11-0.59 K/uL Eosinophils # (Auto) 0.16 0-0.5 K/uL Basophils # (Auto) 0.01 0-0.2 K/uL RDW Standard Deviation 52.7 36.4-46.3 fL RDW Coefficient of Variation 15.8 11.5-14.5 % Immature Granulocyte % (Auto) 0.3 % Immature Granulocyte # (Auto) 0.03 0.00-0.02 K/uL Sodium Level 139 136-145 mmol/L Potassium Level 3.9 3.5-5.1 mmol/L Chloride Level 113 98-107 mmol/L Carbon Dioxide Level 13 21-32 mmol/L Anion Gap 13.0 3-11 mmol/L Blood Urea Nitrogen 57 7-18 mg/dl Creatinine 3.69 0.60-1.40 mg/dl Est Creatinine Clear Calc Drug Dose 15.1 ml/min Estimated GFR () 16.2 Estimated GFR (Non- 14.0 BUN/Creatinine Ratio 15.6 10-20 Random Glucose 60 70-99 mg/dl Calcium Level 8.8 8.5-10.1 mg/dl Magnesium Level 2.5 1.8-2.4 mg/dl Total Bilirubin 0.2 0.2-1 mg/dl Direct Bilirubin < 0.1 0-0.2 mg/dl Aspartate Amino Transf (AST/SGOT) 27 15-37 U/L Alanine Aminotransferase (ALT/SGPT) 31 12-78 U/L Alkaline Phosphatase 159 45-117 U/L Troponin I < 0.015 0-0.045 ng/ml Total Protein 7.8 6.4-8.2 gm/dl Albumin 3.7 3.4-5.0 gm/dl Lipase 270 73-393 U/L Venous Blood pH 7.16 7.36-7.41 Venous Blood Partial Pressure CO2 35 38.0-50.0 mmHg Venous Blood Partial Pressure O2 33 mmHg Venous Blood HCO3 12 mmol/L Venous Blood Oxygen Saturation < 60.0 % Venous Blood Base Excess -15.2 mEq/L Lactic Acid Level 1.0 0.4-2.0 mmol/L Bedside Troponin I < 0.030 0-0.045 ng/ml Microbiology Results 06/22/17 C.difficile Toxin B Gene (PCR), Received Pending Diagnostic Radiology Patient Name: ELLEN ARGUELLES Unit Number: [id number] Dictated: 06/22/171911 Transcribed: 06/22/171911 MS Printed Date/Time: [~ rep prt dt]/[~ rep prt tm] [~ rep ct labl] - [~ rep ct ivnm] [facility] [place] [address] Dictated: 06/22/171911 Transcribed: 06/22/171911 MS Printed Date/Time: [~ rep prt dt]/[~ rep prt tm] [~ rep ct labl] - [~ rep ct ivnm] HEAD WITHOUT CONTRAST (CT) CT DOSE: 1689.94 mGy.cm HISTORY: Trauma. Assess change. s/p fall TECHNIQUE: Multiaxial CT images of the head were performed without the use of intravenous contrast. A dose lowering technique was utilized adhering to the principles of ALARA. Comparison: None. Findings: The paranasal sinuses and mastoid air cells are clear. Findings of moderate generalized cerebellar as well as cerebral atrophy. Components of chronic small vessel change are noted. Scattered areas of several malacia are noted and appear old. No acute intracranial abnormality. No evidence for acute intracranial hemorrhage. Ventricular system is midline. Impression: Chronic and age-related change. No acute intracranial abnormality. The above report was generated using voice recognition software. It may contain grammatical, syntax or spelling errors. Electronically signed by: Dilshad Rivero M.D. 06/22/2017 7:13 PM Dictated Date/Time: 06/22/2017 7:12 PM The status of this report is Signed. Draft = Not yet reviewed or approved by Radiologist. Signed = Reviewed and approved by Radiologist. <AttendingPhy></AttendingPhy> <FamilyPhy>Devyn Garzon M.D.</FamilyPhy> < PrimaryPhy>Devyn Garzon M.D.</PrimaryPhy> <UnitNumber>[id number]</UnitNumber> <VisitNumber>[id number]</VisitNumber> <PatientName>ELLEN ARGUELLES</PatientName > <DateOfBirth>1930</DateOfBirth> <Location>[facility]</Location> <ServiceDate> 06/22/17</ServiceDate> <MNE>ESINDI</MNE> <OrderingPhy>Gregory Vincent M.D.</ OrderingPhy> <OrderingPhyMNE>f rep ord dr colon</OrderingPhyMNE> <DictatingPhyMNE> f rep dict dr colon</DictatingPhyMNE> <CCListMNE>f rep ct mne</CCListMNE> < AdmittingPhyMNE>f pt admit dr colon</AdmittingPhyMNE> <AttendingPhyMNE>f pt attend dr colon</AttendingPhyMNE> <ConsultingPhyMNE>f pt consult dr colon</ConsultingPhyMNE> <FamilyPhyMNE>f pt fam dr colon</FamilyPhyMNE> <OtherPhyMNE>f pt other dr colon</OtherPhyMNE> < PrimaryPhyMNE>f pt prim care dr colon</PrimaryPhyMNE> <ReferringPhyMNE>f pt referring dr colon</ReferringPhyMNE> Patient Name: MALINDALEBRONELLEN Unit Number: [id number] Dictated: 06/22/171812 Transcribed: 06/22/171812 MS Printed Date/Time: [~ rep prt dt]/[~ rep prt tm] [~ rep ct labl] - [~ rep ct ivnm] [facility] Radiology [place] [address] Dictated: 06/22/171812 Transcribed: 06/22/171812 MS Printed Date/Time: [~ rep prt dt]/[~ rep prt tm] [~ rep ct labl] - [~ rep ct ivnm] [~ rep ct add3]] CHEST ONE VIEW PORTABLE CLINICAL HISTORY: ABDOMINAL PAIN/GI pain COMPARISON STUDY: No previous studies for comparison. FINDINGS: Moderate cardiomegaly. Lungs are clear. Diaphragms smooth. IMPRESSION: Moderate cardiomegaly. Otherwise negative study The above report was generated using voice recognition software. It may contain grammatical, syntax or spelling errors. Electronically signed by: Dilshad Rivero M.D. 06/22/2017 6:13 PM Dictated Date/Time: 06/22/2017 6:13 PM The status of this report is Signed. Draft = Not yet reviewed or approved by Radiologist. Signed = Reviewed and approved by Radiologist. <AttendingPhy></AttendingPhy> <FamilyPhy>Devyn Garzon M.D.</FamilyPhy> < PrimaryPhy>Devyn Garzon M.D.</PrimaryPhy> <UnitNumber>[id number]</UnitNumber> <VisitNumber>[id number]</VisitNumber> <PatientName>KINDRAELLEN</PatientName > <DateOfBirth>1930</DateOfBirth> <Location>[facility]</Location> <ServiceDate> 06/22/17</ServiceDate> <MNE>ESINDI</MNE> <OrderingPhy>Gregory Vincent M.D.</ OrderingPhy> <OrderingPhyMNE>f rep ord dr colon</OrderingPhyMNE> <DictatingPhyMNE> f rep dict dr colon</DictatingPhyMNE> <CCListMNE>f rep ct mne</CCListMNE> < AdmittingPhyMNE>f pt admit dr colon</AdmittingPhyMNE> <AttendingPhyMNE>f pt attend dr colon</AttendingPhyMNE> <ConsultingPhyMNE>f pt consult dr colon</ConsultingPhyMNE> <FamilyPhyMNE>f pt fam dr colon</FamilyPhyMNE> <OtherPhyMNE>f pt other dr colon</OtherPhyMNE> < PrimaryPhyMNE>f pt prim care dr colon</PrimaryPhyMNE> <ReferringPhyMNE>f pt referring dr colon</ReferringPhyMNE> Patient Name: ELLEN ARGUELLES Unit Number: [id number] Dictated: 06/22/171912 Transcribed: 06/22/171912 MS Printed Date/Time: [~ rep prt dt]/[~ rep prt tm] [~ rep ct labl] - [~ rep ct ivnm] [facility] Radiology Department [place] [id number] Dictated: 06/22/171912 Transcribed: 06/22/171912 MS Printed Date/Time: [~ rep prt dt]/[~ rep prt tm] [~ rep ct labl] - [~ rep ct ivnm] CERVICAL SPINE W/O CT DOSE: HISTORY: Trauma. Pain. s/p fall TECHNIQUE: Multiaxial CT images of the cervical spine were performed and reformatted in the sagittal and coronal plane without the use of contrast. A dose lowering technique was utilized adhering to the principles of ALARA. COMPARISON: None. FINDINGS: Considerable degenerative change throughout the entire cervical region. Accentuation of the cervical lordosis. Considerable degenerative change of the posterior elements throughout. No acute compression deformity. No evidence for disruption of the C1-C2 complex. Degenerative changes anterior arch of C1. IMPRESSION: Chronic and degenerative change. No acute process. The above report was generated using voice recognition software. It may contain grammatical, syntax or spelling errors. Electronically signed by: Dilshad Rivero M.D. 06/22/2017 7:15 PM Dictated Date/Time: 06/22/2017 7:13 PM The status of this report is Signed. Draft = Not yet reviewed or approved by Radiologist. Signed = Reviewed and approved by Radiologist. <AttendingPhy></AttendingPhy> <FamilyPhy>Devyn Garzon M.D.</FamilyPhy> < PrimaryPhy>Devyn Garzon M.D.</PrimaryPhy> <UnitNumber>[id number]</UnitNumber> <VisitNumber>[id number]</VisitNumber> <PatientName>ELLEN ARGUELLES</PatientName > <DateOfBirth>1930</DateOfBirth> <Location>[facility]</Location> <ServiceDate> 06/22/17</ServiceDate> <MNE>ESINDI</MNE> <OrderingPhy>Gregory Vincent M.D.</ OrderingPhy> <OrderingPhyMNE>f rep ord dr colon</OrderingPhyMNE> <DictatingPhyMNE> f rep dict dr colon</DictatingPhyMNE> <CCListMNE>f rep ct mne</CCListMNE> < AdmittingPhyMNE>f pt admit dr colon</AdmittingPhyMNE> <AttendingPhyMNE>f pt attend dr colon</AttendingPhyMNE> <ConsultingPhyMNE>f pt consult dr colon</ConsultingPhyMNE> <FamilyPhyMNE>f pt fam dr colon</FamilyPhyMNE> <OtherPhyMNE>f pt other dr colon</OtherPhyMNE> < PrimaryPhyMNE>f pt prim care dr colon</PrimaryPhyMNE> <ReferringPhyMNE>f pt referring dr colon</ReferringPhyMNE> Patient Name: ELLEN ARGUELLES Unit Number: [id number] Dictated: 06/22/171930 Transcribed: 06/22/171930 MS Printed Date/Time: [~ rep prt dt]/[~ rep prt tm] [~ rep ct labl] - [~ rep ct ivnm] [facility] [place] [address] Dictated: 06/22/171930 Transcribed: 06/22/171930 MS Printed Date/Time: [~ rep prt dt]/[~ rep prt tm] [~ rep ct labl] - [~ rep ct ivnm] ABD/PELVIS NO IV OR ORAL CONT CT DOSE: HISTORY: Trauma s/p fall, ab pain, h/o gastric mass and RCC TECHNIQUE: Multiaxial CT images of the abdomen and pelvis were performed without contrast. A dose lowering technique was utilized adhering to the principles of ALARA. COMPARISON STUDY: 04/26/2017 FINDINGS: Slight chronic basilar interstitial prominence. The 5 mm nodule left lung base is unchanged. Calcified granuloma medial left base is unchanged. The invasive right renal mass is noted and appears to be similar. The right renal calcifications including the calcification of the right renal pelvis is unaltered. Infiltrative change of the perinephric fat as well as potential vascular involvement are again noted. This is considered similar within limitations of an unenhanced scan as compared to the prior study. Multiple cystic calcific as well as renovascular findings of the left kidney are unchanged. Generalized bowel pattern is considered consistent with a generalized nonobstructive ileus. IMPRESSION: 1. No significant posttraumatic abnormality of the abdomen or pelvis. 2. Multiple additional findings previously described involving the right kidney, vasculature, and multiple additional nonacute findings produces described. 3. Mild nonobstructive ileus, most likely on a posttraumatic basis. The above report was generated using voice recognition software. It may contain grammatical, syntax or spelling errors. Electronically signed by: Dilshad Rivero M.D. 06/22/2017 7:40 PM Dictated Date/Time: 06/22/2017 7:31 PM The status of this report is Signed. Draft = Not yet reviewed or approved by Radiologist. Signed = Reviewed and approved by Radiologist. <AttendingPhy></AttendingPhy> <FamilyPhy>Devyn Garzon M.D.</FamilyPhy> < PrimaryPhy>Devyn Garzon M.D.</PrimaryPhy> <UnitNumber>[id number]</UnitNumber> <VisitNumber>[id number]</VisitNumber> <PatientName>ELLEN ARGUELLES</PatientName > <DateOfBirth>1930</DateOfBirth> <Location>[facility]</Location> <ServiceDate> 06/22/17</ServiceDate> <MNE>ESINDI</MNE> <OrderingPhy>Gregory Vincent M.D.</ OrderingPhy> <OrderingPhyMNE>f rep ord dr colon</OrderingPhyMNE> <DictatingPhyMNE> f rep dict dr colon</DictatingPhyMNE> <CCListMNE>f rep ct karole</CCListMNE> < AdmittingPhyMNE>f pt admit dr colon</AdmittingPhyMNE> <AttendingPhyMNE>f pt attend dr colon</AttendingPhyMNE> <ConsultingPhyMNE>f pt consult dr colon</ConsultingPhyMNE> <FamilyPhyMNE>f pt fam dr colon</FamilyPhyMNE> <OtherPhyMNE>f pt other dr colon</OtherPhyMNE> < PrimaryPhyMNE>f pt prim care dr colon</PrimaryPhyMNE> <ReferringPhyMNE>f pt referring dr colon</ReferringPhyMNE> EKG EKG #1 shows normal sinus rhythm at 61 bpm, first-degree heart block, with no acute ST-T changes EKG #2 shows normal sinus rhythm with first-degree heart block at 78 bpm, with lateral ST-T changes. This EKG was performed after patient had a Nam catheter placed and reported a brief episode of chest discomfort which resolved spontaneously. Impression Assessment and Plan Acute renal failure/dehydration secondary to diarrhea/ileus-- Place on normal saline IV Recheck BMP and magnesium level in the a.m. We'll place on heart healthy diet as tolerated, as diarrheal symptoms appear to be improving. Stool is negative for C. difficile, stool cultures pending CAD/hypertension/chest pain during Nam insertion with rate related lateral EKG changes-- The patient will be admitted to telemetry for serial cardiac enzymes, cardiac rhythm monitoring and a 2-D echocardiogram with Dopplers. Stop amlodipine 10 mg daily, lisinopril 5 mg daily and furosemide 40 mg daily. Increase Imdur from 30-60 mg daily and increased with metoprolol tartrate 25 mg twice a day to 50 mg twice a day. His case was discussed by Dr. Vincent with Dr. Matos from cardiology, who advised starting heparin drip. Patient's daughter reports that Dr. Traore from hematology advised the patient should never be on heparin due to severe GI bleed recently. Since patient's symptoms were brought on by the stress of Nam catheter placement, and have resolved, and monitor is improved, we will hold on heparin drip at this time. 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 Follows with Dr. Traore from oncology Follow resolution of acute renal failure with hydration as above. Question possible extension if failure does not improve. Seizure disorder-- Continue phenobarbital, primidone and Topamax Hyperlipidemia-- continue simvastatin 20 mg at bedtime Gout-- Continue allopurinol 300 mg in the evening BPH-- Continue finasteride 5 mg at bedtime GERD-- Continue pantoprazole 40 mg by mouth twice a day Level of Care Telemetry Advanced Directives Existing Advance Directive: No Existing Living Will: No Existing Power of Bag Bleacher: No Resuscitation Status FULL RESUSCITATION VTE Prophylaxis VTE Risk Assessment Done? Y/N: Yes Risk Level: Moderate Given or contraindicated: SCD's Social Service Consult None Apply
[2017-06-22] MEDS ORDERED: ONDANSETRON 8MG OD TAB PO PRN (23:00)
[2017-06-22] MEDS ORDERED: NITROGLYCERIN 0.4 MG SL PER TAB CHARGE SL PRN (23:00)
[2017-06-22] MEDS ORDERED: ACETAMINOPHEN 325 MG TAB PO PRN (23:00)
[2017-06-22] MEDS ORDERED: LOPERAMIDE HCL 2 MG CAP PO PRN (23:00)
[2017-06-22] MEDS ORDERED: NITROGLYCERIN 0.4 MG SL PER TAB CHARGE UT PRN (23:00)
[2017-06-22 23:15] VITALS: BP 130/65; PULSE 71; TEMP 36.8; O2SAT 100; Ht 170.2 cm; Wt 79.3 kg
--- NOTE | 2017-06-22 23:15 | NUR ---
A/ID: PT ARRIVED TO UNIT AROUND THIS TIME VIA LITTER. PT TRANSFERRED INTO HOSPITAL BED WITH STAFF ASSIST. ASSESSMENT COMPLETED SEE DOCUMENTATION FOR DETAILS. GOWN CHANGED, MONITOR APPLIED, WEIGHT, AND VITAL SIGNS TAKEN. PT ORIENTED TO ROOM, CALL THAO, LIGHTS, BED CONTROLS, AND UNIT ACTIVITIES. CODE WORD AND FALL SHEET SIGNED. PT GIVEN YELLOW SOCKS AND FALL BRACELET. CARE ASSUMED BY PRIMARY RN. CALL THAO WITHIN REACH. PENDING DISCHARGE.
--- NOTE | 2017-06-23 00:05 | NUR ---
A: Full assessment complete; see EMR. A&OX4. SR on tele monitor. Lungs clear/diminished on RA. Pulses WNL. Trace edema noted to BLE. Hyperactive BSx4; abdomen soft, NT & ND. Diarrhea noted upon arrival from ED; ambulated to BR w/1 assist. Patient is slightly unsteady & weak. Nam catheter intact & patent; draining clear, fer urine. No skin issues noted. Bicarb gtt infusing per MD order. BSG 84 upon arrival; patient given dinner tray. Denies CP, SOB, numbness/tingling, nausea, pain. Call monroy within reach. RN will continue to monitor.
[2017-06-23 03:34] VITALS: BP 99/54; PULSE 64; TEMP 36.5; O2SAT 99
--- NOTE | 2017-06-23 04:15 | NUR ---
A: Patient resting in bed; no changes noted in assessment. VSS. SR w/1st degree & PVCs on tele monitor. No diarrhea since start of 11-7 shift. Nam patent. Denies pain/needs. Bicarb infusing. Call monroy within reach. RN will continue to monitor.
[2017-06-23 06:46] LABS: BASO % 0.1 %; BASO ABS # 0.01 K/uL (0-0.2); EOS % 3.2 %; EOS ABS # 0.26 K/uL (0-0.5); HEMATOCRIT 32.9 % (42-52); HEMOGLOBIN 10.8 g/dL (14.0-18.0); IG# 0.02 K/uL (0.00-0.02); LYMPH % 15.6 %; LYMPH ABS # 1.28 K/uL (1.2-3.4); MEAN CELL VOLUME 90.1 fL (80-100); MEAN CORPUSCULAR HEMOGLOBIN 29.6 pg (25-34); MEAN CORPUSCULAR HGB CONC 32.8 g/dl (32-36); MEAN PLATELET VOLUME 9.5 fL (7.4-10.4); MONO % 12.8 %; MONO ABS # 1.05 K/uL (0.11-0.59); NEUT % 68.1 %; NEUT ABS # 5.56 K/uL (1.4-6.5); PLATELET COUNT 133 K/uL (130-400); RED CELL DISTRIBUTION WIDTH CV 15.6 % (11.5-14.5); RED CELL DISTRIBUTION WIDTH SD 51.3 fL (36.4-46.3); WHITE BLOOD COUNT 8.18 K/uL (4.8-10.8)
[2017-06-23 07:23] LABS: CALCIUM 8.1 mg/dl (8.5-10.1); CREATININE 3.07 mg/dl (0.60-1.40); POTASSIUM 3.4 mmol/L (3.5-5.1)
[2017-06-23 07:28] LABS: CKMB 4.6 ng/ml (0.5-3.6)
[2017-06-23 07:49] VITALS: BP 112/56; PULSE 67; TEMP 36.9; O2SAT 96
[2017-06-23] MEDS ORDERED: POTASSIUM CHLORIDE 20 MEQ TABCR PO STA (08:12)
[2017-06-23] MEDS: CHOLECALCIFEROL 1000 INTER.UNIT TAB PO SCH (08:32)
[2017-06-23] MEDS: TOPIRAMATE 25 MG TAB PO SCH ×2 (08:32→21:25)
[2017-06-23] MEDS: PANTOprazole SOD 40 MG TAB PO SCH ×2 (08:32→21:25)
[2017-06-23] MEDS: ISOSORBIDE MONONITRATE 30 MG TABCR PO SCH (08:32)
[2017-06-23] MEDS: FERROUS SULFATE 325 MG TAB PO SCH ×2 (08:32→21:25)
[2017-06-23] MEDS: METOPROLOL TARTRATE 25 MG TAB PO SCH ×2 (08:32→21:25)
[2017-06-23] MEDS: PHENOBARBITAL 32.4 MG TAB PO SCH ×2 (08:36→21:25)
--- NOTE | 2017-06-23 09:30 | NUR ---
Case Management: Received discharge planning consult on this pt. Dr Molina was in seeing pt and when I returned pt was behind the curtain and son Bert was outside the room - phone [phone]. Bert was able to provide some information. Pt lives in his own home with 1st floor set up. Dgt Peggy lives with pt. Per Bert pt is does not use any equipment in the home and is independent with his care. No services involved at this time. CM will cont to follow for possible needs.
--- NOTE | 2017-06-23 09:40 | NUR ---
pt resting in bed alert and orientedx4, pt denies any pain or sob, pt lungs clear dim in bases no sob, pt sr 1st degree on monitor, oob into chair with some assistance mild weakness noted, pt denies any pain at this time, zamudio intact with dark fer urine, conc, almost tea colored, aware and updated this am, will continue to monitor call monroy and monitor intact.
[2017-06-23 11:26] VITALS: BP 108/55; PULSE 58; TEMP 36.9; O2SAT 98
--- NOTE | 2017-06-23 12:28 | Progress Note ---
Subjective Date of Service: Jun 23, 2017. Subjective pt is in quite good spirits has no new issues and no recurrent chest pain, still with metabolic acidosis likely from renal failure Problem List Medical Problems: (1) Acute electrocardiogram changes Status: Acute (2) Acute renal failure Status: Acute (3) Chest pain Status: Acute (4) GI bleed Status: Acute (5) Near syncope Status: Acute (6) Upper abdominal pain Status: Acute (7) Upper GI bleed Status: Acute (8) Weakness Status: Acute Review of Systems Constitutional: + weakness, + fatigue Respiratory: No cough, No sputum, No wheezing Cardiac: No chest pain, No PND, No edema Abdomen: No pain, No nausea, No vomiting, No diarrhea Musculoskeletal: + muscle pain (has some neck pain from fall), No joint pain Objective Vital Signs Date Time Temp Pulse Resp B/P (MAP) Pulse Ox O2 Delivery O2 Flow Rate FiO2 06/23/17 07:49 36.9 67 18 112/56 (74) 96 06/23/17 04:02 Room Air 06/23/17 03:34 36.5 64 20 99/54 (69) 99 Room Air 06/23/17 00:00 Room Air 06/22/17 23:15 36.8 71 18 130/65 100 Room Air 06/22/17 22:23 75 06/22/17 22:23 74 20 107/49 99 Room Air 06/22/17 20:36 76 20 111/47 97 Room Air 06/22/17 20:10 81 18 140/59 99 Room Air 06/22/17 19:21 59 20 108/48 99 Room Air 06/22/17 18:05 59 06/22/17 17:36 36.4 89 12 124/55 96 Room Air Physical Exam General Appearance: WD/WN, + mild distress Eyes: normal inspection, sclerae normal Neck: + pertinent finding (muscular tenderness to exam) Respiratory/Chest: chest non-tender, lungs clear, normal breath sounds Cardiovascular: regular rate, rhythm, + systolic murmur Abdomen: normal bowel sounds, non tender, soft Extremities: no pedal edema, no calf tenderness Neurologic/Psychiatric: alert, oriented x 3 Laboratory Results Last 24 Hours Test 06/22/17 18:35 06/22/17 19:53 06/22/17 20:47 06/22/17 23:24 White Blood Count 10.34 K/uL Red Blood Count 4.27 M/uL Hemoglobin 12.6 g/dL Hematocrit 39.1 % Mean Corpuscular Volume 91.6 fL Mean Corpuscular Hemoglobin 29.5 pg Mean Corpuscular Hemoglobin Concent 32.2 g/dl Platelet Count 186 K/uL Mean Platelet Volume 10.1 fL Neutrophils (%) (Auto) 71.4 % Lymphocytes (%) (Auto) 14.0 % Monocytes (%) (Auto) 12.7 % Eosinophils (%) (Auto) 1.5 % Basophils (%) (Auto) 0.1 % Neutrophils # (Auto) 7.38 K/uL Lymphocytes # (Auto) 1.45 K/uL Monocytes # (Auto) 1.31 K/uL Eosinophils # (Auto) 0.16 K/uL Basophils # (Auto) 0.01 K/uL RDW Standard Deviation 52.7 fL RDW Coefficient of Variation 15.8 % Immature Granulocyte % (Auto) 0.3 % Immature Granulocyte # (Auto) 0.03 K/uL Sodium Level 139 mmol/L Potassium Level 3.9 mmol/L Chloride Level 113 mmol/L Carbon Dioxide Level 13 mmol/L Anion Gap 13.0 mmol/L Blood Urea Nitrogen 57 mg/dl Creatinine 3.69 mg/dl Est Creatinine Clear Calc Drug Dose 15.1 ml/min Estimated GFR () 16.2 Estimated GFR (Non- 14.0 BUN/Creatinine Ratio 15.6 Random Glucose 60 mg/dl Calcium Level 8.8 mg/dl Magnesium Level 2.5 mg/dl Total Bilirubin 0.2 mg/dl Direct Bilirubin < 0.1 mg/dl Aspartate Amino Transf (AST/SGOT) 27 U/L Alanine Aminotransferase (ALT/SGPT) 31 U/L Alkaline Phosphatase 159 U/L Troponin I < 0.015 ng/ml Total Protein 7.8 gm/dl Albumin 3.7 gm/dl Lipase 270 U/L Venous Blood pH 7.16 Venous Blood Partial Pressure CO2 35 mmHg Venous Blood Partial Pressure O2 33 mmHg Venous Blood HCO3 12 mmol/L Venous Blood Oxygen Saturation < 60.0 % Venous Blood Base Excess -15.2 mEq/L Lactic Acid Level 1.0 mmol/L Bedside Troponin I < 0.030 ng/ml Bedside Glucose 84 mg/dl Test 06/23/17 05:04 06/23/17 06:37 Bedside Glucose 93 mg/dl White Blood Count 8.18 K/uL Red Blood Count 3.65 M/uL Hemoglobin 10.8 g/dL Hematocrit 32.9 % Mean Corpuscular Volume 90.1 fL Mean Corpuscular Hemoglobin 29.6 pg Mean Corpuscular Hemoglobin Concent 32.8 g/dl Platelet Count 133 K/uL Mean Platelet Volume 9.5 fL Neutrophils (%) (Auto) 68.1 % Lymphocytes (%) (Auto) 15.6 % Monocytes (%) (Auto) 12.8 % Eosinophils (%) (Auto) 3.2 % Basophils (%) (Auto) 0.1 % Neutrophils # (Auto) 5.56 K/uL Lymphocytes # (Auto) 1.28 K/uL Monocytes # (Auto) 1.05 K/uL Eosinophils # (Auto) 0.26 K/uL Basophils # (Auto) 0.01 K/uL RDW Standard Deviation 51.3 fL RDW Coefficient of Variation 15.6 % Immature Granulocyte % (Auto) 0.2 % Immature Granulocyte # (Auto) 0.02 K/uL Sodium Level 141 mmol/L Potassium Level 3.4 mmol/L Chloride Level 116 mmol/L Carbon Dioxide Level 12 mmol/L Anion Gap 13.0 mmol/L Blood Urea Nitrogen 67 mg/dl Creatinine 3.07 mg/dl Est Creatinine Clear Calc Drug Dose 17.5 ml/min Estimated GFR () 20.3 Estimated GFR (Non- 17.5 BUN/Creatinine Ratio 21.8 Random Glucose 92 mg/dl Calcium Level 8.1 mg/dl Magnesium Level 2.2 mg/dl Total Creatine Kinase 70 U/L Creatine Kinase MB 4.6 ng/ml Creatine Kinase MB Ratio 6.6 Troponin I 0.031 ng/ml Assessment and Plan 87 M with know renal carcinoma who had a fall while bending over, no acute injures but appears with Acute renal failure/dehydration secondary to diarrhea/ ileus acute on chronic renal failure, was placed on bicarb gtt, has persistent metabolic acidosis and Cr elevated, has one kidney, will have renal evaluation and continue treatment unless directed otherwise, no changes to left kidney seen on intake imaging. baseline Cr seems to be about 1/2 and although usually some decrease in CO2 it is much more at this point Clinical dehydration, replete K+ Place on normal saline IV. Stool is negative for C. difficile, stool cultures pending CAD/hypertension/chest pain during Nam insertion with rate related lateral EKG changes Dr Jarrett will follow no elevated troponin and ECG returned to baseline, did hold norvasc Increased Imdur to 60 mg daily plus increased with metoprolol tartrate to 50 mg twice a day. 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 Follows with Dr. Traore from oncology Seizure disorder--phenobarbital, primidone and Topamax Hyperlipidemia-- simvastatin 20 mg at bedtime Gout-- allopurinol 300 mg in the evening BPH--finasteride 5 mg at bedtime GERD-- pantoprazole 40 mg by mouth twice a day
--- NOTE | 2017-06-23 13:13 | NUR ---
pt resting oob into chair, no c/o pain or chest pain, no sob noted, pt assessment unchanged, remains on bicarb@50cc/hr intact will continue to monitor call monroy and monitor intact.
--- NOTE | 2017-06-23 14:09 | NEPHROLOGY CONSULTATION ---
DATE OF CONSULTATION: 06/23/2017 ATTENDING OF RECORD: Dr. Molina. REASON FOR CONSULTATION: GUSTAVO with metabolic acidosis. HISTORY OF PRESENT ILLNESS: This is an 87-year-old male who was feeling well up until Sunday, when he developed significant diarrhea with abdominal pain and generalized weakness and eventually got so weak that he fell over and came to the Emergency Room with a baseline creatinine of 1.2 and comes in with a creatinine of 3.69 with a bicarbonate of 13. A VBG showed a pH of 7.16, pCO2 of 35, pO2 of 33 and a bicarbonate of 12. Elevated white count at 10,000. C. diff was checked and came back negative. The patient had abdominal pelvis CT, which shows an invasive right renal mass, which is known to the patient, who has undergone cryoablation x2 and is followed closely by Dr. Pizarro in [place] of urology as well as Dr. Call of hematology. The patient is currently getting a bicarbonate drip at a low rate of 50 mL an hour. He did have a traumatic Nam insertion with some resultant hematuria. Otherwise, doing okay. Surrounded by 2 daughters, who also providing history. 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 PAST SURGICAL HISTORY: Hernia repair, appendectomy, tonsillectomy, cholecystectomy, and renal lesion ablation in 2011. SOCIAL HISTORY: with 3 children. Former smoker. Occasional alcohol. No drugs. FAMILY HISTORY: Significant for mother with metastatic liver cancer. Father with a PE. CURRENT MEDICATIONS: Allopurinol 300 mg a day, Proscar 5 mg at night, Zocor 20 mg at night, vitamin D 1000 units daily, iron 325 p.o. b.i.d., Imdur 60 mg daily, Lopressor 50 mg p.o. b.i.d., Protonix 40 mg p.o. b.i.d., Topamax 25 mg p.o. b.i.d., phenobarbital 64.8 mg p.o. b.i.d., D5W half NS at 50 mL an hour with 50 mEq sodium bicarbonate. REVIEW OF SYSTEMS: No fevers or chills. No blurry vision. No dysphagia. No chest pain. No shortness of breath. No nausea or vomiting. Positive diarrhea. Positive abdominal tenderness. Positive generalized weakness. Positive anorexia. All other review of systems otherwise negative. PHYSICAL EXAMINATION: VITAL SIGNS: Temperature 36.9, pulse 58, respiratory rate 16, blood pressure 108/55 and satting 98% on room air. GENERAL: Awake, alert, and oriented x3. EYES: No scleral icterus. ENT: Moist mucous membranes. NECK: Supple. PULMONARY: Clear to auscultation. CARDIAC: [place]. 3/6 systolic murmur. ABDOMEN: Mild tenderness. Bowel sounds positive. Nondistended. EXTREMITIES: No clubbing, cyanosis or edema. NEUROLOGICALLY: Nonfocal. DERMATOLOGIC: No rash or ulcers noted. LABORATORY DATA: White count 8, H&H 10 and 32, and platelet count 133. Sodium level is 141, potassium 3.4, chloride is 116, bicarb is 12, BUN 67, creatinine is 3.07, glucose 92, calcium is 8.1, and mag is 2.2. Troponins negative. C. diff negative. ASSESSMENT AND PLAN: Acute kidney injury, nonoliguric in the setting of significant diarrhea, currently on a bicarbonate drip, appears to be tolerating the fluids well. We will increase the rate of fluids and add more bicarbonate to help offset the significant acidosis. The patient is on Topamax, which could contribute to non-gap metabolic acidosis; however, this has been on for years with relatively normal bicarb levels. Lactic acid was normal. So, the patient is likely with an acidosis from diarrhea with concomitant renal failure, nonseptic given the fact lactic acid is normal. We will continue hydration with bicarbonate; however, we will switch to D5W with 3 amps of bicarbonate and increase rate to 100 mL an hour, following the calcium levels closely since it is known to drop in the setting of bicarb. I appreciate the consultation. KENNETH
[2017-06-23] MEDS: SODIUM BICARBONATE 8.4% INJ 150 MEQ in DEXTROSE 5% 1000ML 1,000 ML IV SCH (14:22)
--- NOTE | 2017-06-23 14:26 | ECHOCARDIOGRAM REPORT ---
*NOTICE TO RECEIVING [employer] This information is strictly Confidential and protected under [place] law. [place] law prohibits you from making any further disclosure of this information unless further disclosure is expressly permitted by the written consent of the person to whom it pertains or is authorized by law. A general authorization for the release of medical or other information is not sufficient for this purpose. Hospital accepts no responsibility if the information is made available to any other person, INCLUDING THE PATIENT. Interpretation Summary * Name: ELLEN ARGUELLES Study Date: 06/23/2017 09:23 AM BP: 99/54 mmHg * Patient Location: C.2T\S\S233\S\1 HR: 64 * : 1930 (M/d/yyyy) Gender: Male Height: 67 in * Age: 87 yrs Ethnicity: [place] Weight: 172 lb * Ordering Physician: Juan Powell * Referring Physician: Devyn Garzon * Performed By: Adam Abarca RCS * * Reason For Study: Chest Pain * BSA: 1.9 m2 * The study was technically difficult. * -- Conclusions -- * There is moderate concentric left ventricular hypertrophy. * Focal thickening of the basal septum with no evidence of left ventricular outflow obstruction. * The left ventricular wall motion is normal. * The LV Ejection Fraction = 55-60%. * The aortic valve is severely calcified, however, it is not visualized sufficiently to determine the number of cusps. * Mild aortic regurgitation. * Moderate to severe valvular aortic stenosis. * The peak CW aortic valve velocity is 3.7 m/s, mean gradient =29 mm Hg. * There is mild mitral regurgitation. Procedure Details * A complete two-dimensional transthoracic echocardiogram was performed (2D, M-mode, Doppler and color flow Doppler). Left Ventricle * The left ventricle is normal in size. * There is moderate concentric left ventricular hypertrophy. * Focal thickening of the basal septum with no evidence of left ventricular outflow obstruction. * Ejection Fraction = 55-60%. * Left ventricular systolic function is normal. * The left ventricular wall motion is normal. Right Ventricle * The right ventricle is normal size. * The right ventricular systolic function is normal as assessed by tricuspid annular plane systolic excursion (TAPSE) (normal >1.5 cm). Atria * The left atrium is mildly dilated. * Right atrial size is normal. * There is no evidence of atrial septal defect, but resolution does not allow assessment for a patent foramen ovale. Mitral Valve * The mitral valve is normal. * There is no mitral valve stenosis. * There is mild mitral regurgitation. Tricuspid Valve * The tricuspid valve is normal. * There is no tricuspid stenosis. * Significant tricuspid regurgitation is absent. * Doppler findings do not suggest pulmonary hypertension. Aortic Valve * The aortic valve is severely calcified however, it is not visuallized sufficiently to determine the number of cusps. * Moderate to severe valvular aortic stenosis. * Mild aortic regurgitation. Pulmonic Valve * The pulmonary valve is not well seen, but the Doppler examination is normal without significant regurgitation or stenosis. Great Vessels * The aortic root and proximal ascending aorta are normal sized. Pericardium/Pleural * There is no pericardial effusion. Great Vessels * Normal inferior vena cava diameter and respiratory variation suggests normal central venous pressure. Left Ventricular Diastolic Function * Grade I diastolic dysfunction, (abnormal relaxation pattern). MMode 2D Measurements and Calculations IVSd 0.99 cm IVSs 1.2 cm LVIDd 4.6 cm LVIDs 3.2 cm LVPWd 1.1 cm LVPWs 1.3 cm IVS/LVPW 0.92 FS 30.2 % EDV(Teich) 97.2 ml ESV(Teich) 41.3 ml EF(Teich) 57.5 % EDV(cubed) 97.2 ml ESV(cubed) 33.1 ml EF(cubed) 65.9 % % IVS thick 21.2 % % LVPW thick 23.4 % LV mass(C)d 165.3 grams LV mass(C)dI 87.1 grams/m\S\2 LV mass(C)s 129.7 grams LV mass(C)sI 68.4 grams/m\S\2 SV(Teich) 55.9 ml SI(Teich) 29.5 ml/m\S\2 SV(cubed) 64.1 ml SI(cubed) 33.8 ml/m\S\2 Ao root diam 3.9 cm Ao root area 12.0 cm\S\2 LA dimension 4.7 cm asc Aorta Diam 3.4 cm LA/Ao 1.2 LVOT diam 2.2 cm LVOT area 3.7 cm\S\2 EDV(MOD-sp4) 111.0 ml ESV(MOD-sp4) 50.0 ml EF(MOD-sp4) 55.0 % EDV(MOD-sp2) 121.0 ml ESV(MOD-sp2) 59.0 ml EF(MOD-sp2) 51.2 % SV(MOD-sp4) 61.0 ml SI(MOD-sp4) 32.2 ml/m\S\2 SV(MOD-sp2) 62.0 ml SI(MOD-sp2) 32.7 ml/m\S\2 Doppler Measurements and Calculations MV E max aundrea 81.4 cm/sec MV A max aundrea 97.1 cm/sec MV E/A 0.84 MV P1/2t max aundrea 109.5 cm/sec MV P1/2t 74.8 msec MVA(P1/2t) 2.9 cm\S\2 MV dec slope 428.5 cm/sec\S\2 MV dec time 0.26 sec Ao V2 max 359.7 cm/sec Ao max PG 51.8 mmHg Ao max PG (full) 44.6 mmHg Ao V2 mean 241.2 cm/sec Ao mean PG 26.9 mmHg Ao mean PG (full) 23.0 mmHg Ao V2 VTI 89.4 cm ALICIA(I,A) 1.5 cm\S\2 ALICIA(I,D) 1.5 cm\S\2 ALICIA(V,A) 1.4 cm\S\2 ALICIA(V,D) 1.4 cm\S\2 AI max aundrea 299.0 cm/sec AI max PG 35.7 mmHg AI dec slope 175.4 cm/sec\S\2 AI P1/2t 499.1 msec LV V1 max PG 7.2 mmHg LV V1 mean PG 4.0 mmHg LV V1 max 134.2 cm/sec LV V1 mean 93.9 cm/sec LV V1 VTI 35.2 cm SV(Ao) 1075.2 ml SI(Ao) 566.9 ml/m\S\2 SV(LVOT) 131.4 ml SI(LVOT) 69.3 ml/m\S\2 PA V2 max 133.7 cm/sec PA max PG 7.2 mmHg TR max aundrea 297.8 cm/sec
[2017-06-23 15:17] VITALS: BP 98/56; PULSE 59; TEMP 36.5; O2SAT 99
[2017-06-23 15:23] LABS: CKMB 4.6 ng/ml (0.5-3.6)
--- NOTE | 2017-06-23 15:26 | Cardiology Consultation ---
Cardiology Consultation Date of Consultation: Jun 23, 2017 History of Present Illness Colin Marshall is a 87 year old male seen in cardiology consultation per the request of Dr. Powell for the evaluation of abnormal EKG. The patient's primary food sales clerk is Dr. Rios of our practice. His most recent outpatient visit was in the spring 2016. He has a history of coronary heart disease with remote circumflex territory pertains coronary intervention and moderate aortic valve stenosis based on his prior echocardiogram dating back to 2015. He presented to the emergency room last evening complaining of 4 days of diarrhea and not quite feeling like himself. Initial EKG revealed sinus rhythm with no significant ST changes. He then reported chest discomfort and repeat EKG was performed on 06/22/17 at 20:00 hours revealing sinus rhythm at 70 bpm with first-degree AV block, new ST segment depression noted in the lateral leads not present on the prior tracing. The patient was found to be in acute renal failure with a creatinine of 3.69. His previous baseline creatinine is typically in the 1.2 mg/dL range, and he had a reading of 1.4 in March 2017. IV fluids were initiated received a dose of sublingual nitroglycerin with palliation of his chest discomfort. Cardiac enzymes were negative 2 thus far with the third set pending this afternoon. Repeat tracing was performed this morning. 6:28 AM revealed resolution of the previously noted ischemic EKG changes. During my interview with the patient and he states that the discomfort he had last night in the emergency room was healing recent chest discomfort he has had. Otherwise he is just concerned about the diarrhea related illness. He denies any recent lightheadedness or dizziness. Past Medical/Surgical History Problem List: Medical Problems: (1) Anemia (2) Cancer of right kidney (3) DVT (deep venous thrombosis) (4) Gastric mass (5) HTN (hypertension) (6) Upper GI bleeding History Past Medical History: 1. History of coronary artery disease, status post prior coronary intervention to the circumflex territory 2. Hypertension 3. History of pulmonary embolism in the past, as well as DVT, with Coumadin having been stopped within the last year due to gastrointestinal bleeding 4. History of invasive right renal mass for which she has undergone prior cryoablation 2 and is followed by urology in [place] as well as by hematology 5. History of prior moderate aortic valve stenosis Past Surgical History: 1. Cryoablation of renal mass 2. Cardiac catheterization with artery stenting 3. Cholecystectomy 4. Tonsillectomy Social History: He is . His daughter convinced him at the bedside. Review Of Systems See above for pertinent positives & negatives. A total of 10 systems reviewed and were otherwise negative. Allergies Coded Allergies: Penicillins (Verified Allergy, Severe, HIVES + THROAT SWELLING, 01/09/17) URTICARIA Medications Reported Home Medications Medications Dose Route/Sig Max Daily Dose Days Date Category Dose Instructions Imodium (Loperamide HCl) 2 Mg Cap 2 Mg PO PRN UD 06/22/17 Reported Ferrous Sulfate 325 Mg Tab 325 Mg PO BID 12/17/16 Rx Pantoprazole Sodium (Pantoprazole) 40 Mg Tab 40 Mg PO BID 12/17/16 Rx Topamax (Topiramate) 25 Mg Tab 25 Mg PO BID 12/14/16 Reported Mysoline (Primidone) 50 Mg Tab 100 Mg PO DIRECTED 12/14/16 Reported FOR TREMORS-MAY TAKE UP TO 3XDAY. Zyloprim (Allopurinol) 300 Mg Tab 300 Mg PO QPM 12/14/16 Reported Lasix (Furosemide) 40 Mg Tab 40 Mg PO QAM 09/08/15 Reported Phenobarbital 64.8 Mg Tab 64.8 Mg PO BID 07/11/15 Reported Nitrostat (Nitroglycerin) 0.4 Mg Sub 0.4 Mg UT PRN PRN 07/11/15 Reported Lopressor (Metoprolol Tartrate) 25 Mg Tab 25 Mg PO BID 07/11/15 Reported Zestril (Lisinopril) 5 Mg Tab 5 Mg PO QAM 07/11/15 Reported Imdur Ext Rel (Isosorbide Mononitrate) 30 Mg Tabcr 30 Mg PO QAM 07/11/15 Reported Vitamin D-1000 (Cholecalciferol) 1,000 Unit Tab 1,000 Unit PO QAM 07/11/15 Reported Norvasc (Amlodipine Besylate) 10 Mg Tab 10 Mg PO QAM 07/11/15 Reported Zocor (Simvastatin) 20 Mg Tab 20 Mg PO HS 01/20/08 Reported Proscar (Finasteride) 5 Mg Tab 5 Mg PO HS 01/20/08 Reported Physical Exam Vital Signs (Last 8hrs): Last 8 Hrs Date Time Temp Pulse Resp B/P (MAP) Pulse Ox O2 Delivery O2 Flow Rate FiO2 06/23/17 12:03 Room Air 06/23/17 11:26 36.9 58 16 108/55 (72) 98 06/23/17 08:04 Room Air 06/23/17 07:49 36.9 67 18 112/56 (74) 96 General Appearance: Alert and Oriented x3. NAD. Head: Normocephalic Atraumatic. Eyes: PERRLA, EOMI, conjunctiva and sclera clear Neck: Supple. No carotid bruits noted. No JVD. No HJD. Respiratory: Breath sounds clear to auscultation bilaterally. No w/r/r. Cardiovascular: Reg rate and rhythm. S1 and S2 noted. No murmurs, rubs, gallops. PMI non displace. Abdomen: Normal bowel sounds, soft nontender. no abdominal bruits. Extremities: No edema, no clubbing or cyanosis. distal pulses 2/4 bilaterally. Neuro: No focal deficits. Psychiatric: Normal affect. Data Last Resulted 06/23/17 06:37 Red Blood Count 3.65, Mean Corpuscular Volume 90.1, Mean Corpuscular Hemoglobin 29.6, Mean Corpuscular Hemoglobin Concent 32.8, Mean Platelet Volume 9.5, Neutrophils (%) (Auto) 68.1, Lymphocytes (%) (Auto) 15.6, Monocytes (%) (Auto) 12.8, Eosinophils (%) (Auto) 3.2, Basophils (%) (Auto) 0.1, Neutrophils # (Auto ) 5.56, Lymphocytes # (Auto) 1.28, Monocytes # (Auto) 1.05, Eosinophils # (Auto ) 0.26, Basophils # (Auto) 0.01 Last Resulted 06/23/17 06:37 Past 24 Hours Test 06/22/17 18:35 06/23/17 06:37 06/23/17 14:52 Range/Units Troponin I < 0.015 0.031 0-0.045 ng/ml Creatine Kinase MB 4.6 H 0.5-3.6 ng/ml Creatine Kinase MB Ratio 6.6 H 0-3.0 Total Creatine Kinase 70 39-308 U/L Imaging: Echocardiogram performed today 06/23/17 reviewed independently by the undersigned revealed normal left ventricular wall motion with normal LVEF, normal right ventricular wall motion. Moderate to severe aortic valve stenosis was noted. EKG: Tracings as outlined in the history of present illness Telemetry reviewed: Stable sinus rhythm Assessment & Plan Impression: 87-year-old male 1. Transient ischemic EKG changes in the setting of profound volume depletion, lactic acidosis from diarrhea related illness 2. Normal resting wall motion after mount is an echocardiogram, moderate to severe aortic stenosis which is progressed to some degree since his prior outpatient echo in 2016, based on the peak continuous wave Doppler velocity of 2.7 m/s, mean gradient 29 mmHg, it appears that the severity of aortic stenosis is still within the range of moderate, however valve is very calcified, and the doctor may be underestimating the degree of severity. Plan: Nephrology input is noted and appreciated. IV fluids with sodium bicarbonate. Resume aspirin. Hold his antihypertensives including amlodipine, furosemide, and lisinopril. Continue metoprolol. Continue isosorbide mononitrate. Continue home dose of simvastatin.
[2017-06-23] MEDS ORDERED: ASPIRIN 81 MG CHEW ONE (15:45)
[2017-06-23] MEDS ORDERED: ASPIRIN 81 MG ECTAB PO ONE (16:00)
--- NOTE | 2017-06-23 16:39 | NUR ---
pt resting in bed hob elevated, denies any n/v, pt had one bm today, no /o abd pain, pt assessment unchanged, sr/sb 1st degree on monitor, no c/o call monroy and monitor intact, will continue to monitor.
[2017-06-23 19:38] VITALS: BP 116/59; PULSE 66; TEMP 36.5; O2SAT 100
--- NOTE | 2017-06-23 20:06 | NUR ---
A: Full assessment complete; see EMR. A&OX4. SR w/1st degree block on tele monitor. Lungs clear/diminished on RA. Pulses WNL. +1 pitting edema noted to BLE. Normoactive BSx4; abdomen soft, NT & ND. C/o ongoing diarrhea. OOB w/1 assist. Nam catheter intact & patent; draining concentrated, fer urine w/some clots noted. Bicarb gtt infusing at 100ml/hr per MD order. Denies CP, SOB, numbness/tingling, nausea, pain. Call monroy within reach. RN will continue to monitor.
[2017-06-23] MEDS: FINASTERIDE 5 MG TAB PO SCH (21:25)
[2017-06-23] MEDS: ALLOPURINOL 300 MG TAB PO SCH (21:25)
[2017-06-23] MEDS: SIMVASTATIN 20 MG TAB PO SCH (21:25)
[2017-06-23 23:39] VITALS: BP 123/67; PULSE 67; TEMP 36.8; O2SAT 98
--- NOTE | 2017-06-24 00:02 | NUR ---
A: Patient resting in bed; no changes noted in assessment. VSS. SR w/1st degree on tele monitor. Incontinent of stool; OOB to finish BM in toilet, liquid stool. Linen change & skin care provided. Nam patent. Denies pain/needs. Bicarb infusing. Call monroy within reach. RN will continue to monitor.
[2017-06-24] MEDS: SODIUM BICARBONATE 8.4% INJ 150 MEQ in DEXTROSE 5% 1000ML 1,000 ML IV SCH ×3 (01:37→21:26)
--- NOTE | 2017-06-24 04:08 | NUR ---
A: Patient resting in bed; no changes noted in assessment. VSS. SR w/1st degree on tele monitor. Viv patent. Denies pain/needs. Bicarb infusing. Call monroy within reach. RN will continue to monitor.
[2017-06-24 04:33] VITALS: BP 129/56; PULSE 61; TEMP 37; O2SAT 98
[2017-06-24 06:27] LABS: BASO % 0.1 %; BASO ABS # 0.01 K/uL (0-0.2); EOS % 2.5 %; EOS ABS # 0.19 K/uL (0-0.5); HEMATOCRIT 33.8 % (42-52); HEMOGLOBIN 11.5 g/dL (14.0-18.0); IG# 0.03 K/uL (0.00-0.02); LYMPH % 18.2 %; LYMPH ABS # 1.37 K/uL (1.2-3.4); MEAN CELL VOLUME 88.5 fL (80-100); MEAN CORPUSCULAR HEMOGLOBIN 30.1 pg (25-34); MEAN PLATELET VOLUME 9.9 fL (7.4-10.4); MONO % 14.5 %; MONO ABS # 1.09 K/uL (0.11-0.59); NEUT % 64.3 %; NEUT ABS # 4.82 K/uL (1.4-6.5); PLATELET COUNT 142 K/uL (130-400); RED CELL DISTRIBUTION WIDTH CV 15.5 % (11.5-14.5); RED CELL DISTRIBUTION WIDTH SD 50.1 fL (36.4-46.3); WHITE BLOOD COUNT 7.51 K/uL (4.8-10.8)
[2017-06-24 06:59] LABS: CALCIUM 8.5 mg/dl (8.5-10.1); CREATININE 2.46 mg/dl (0.60-1.40); PHOSPHORUS 3.7 mg/dl (2.5-4.9); URIC ACID 5.3 mg/dl (2.6-7.2)
[2017-06-24] MEDS ORDERED: POTASSIUM CHLORIDE 20 MEQ TABCR PO ONE (07:45)
[2017-06-24 07:49] VITALS: BP 118/62; PULSE 61; TEMP 36.5; O2SAT 96
[2017-06-24] MEDS: PANTOprazole SOD 40 MG TAB PO SCH ×2 (08:01→21:26)
[2017-06-24] MEDS: ASPIRIN 81 MG ECTAB PO SCH (08:01)
[2017-06-24] MEDS: ISOSORBIDE MONONITRATE 30 MG TABCR PO SCH (08:01)
[2017-06-24] MEDS: FERROUS SULFATE 325 MG TAB PO SCH ×2 (08:01→21:27)
[2017-06-24] MEDS: TOPIRAMATE 25 MG TAB PO SCH ×2 (08:02→21:27)
[2017-06-24] MEDS: METOPROLOL TARTRATE 25 MG TAB PO SCH ×2 (08:02→21:26)
[2017-06-24] MEDS: CHOLECALCIFEROL 1000 INTER.UNIT TAB PO SCH (08:03)
[2017-06-24] MEDS: PHENOBARBITAL 32.4 MG TAB PO SCH ×2 (08:08→21:27)
--- NOTE | 2017-06-24 08:30 | NUR ---
pt resting in bed quietly at this time, pt lungs clear pt has some puffiness of legs this am, pt oob to bathroom, c/o some diaherra at this time, pt sr on monitor, dr. adler updated at this time, no c/o pain oob in chair will continue to monitor call monroy and monitor intact.
--- NOTE | 2017-06-24 09:38 | Nephrology Progress Note ---
Nephrology Progress Note Date of Service: Jun 24, 2017. Subjective 87 yo male with renal cell carcinoma with hx of cryoablation x 2, moderate to severe aortic stenosis who presented with watery diarrhea, metabolic acidosis and barbara. on bicarb drip. creatinine improving although continues to have persistent acidosis. pt still weak, with abdominal tenderness and decreased appetite. pt with heavy urine sediment in zamudio. urination is trending down despite hydration. Objective Date Time Temp Pulse Resp B/P (MAP) Pulse Ox O2 Delivery O2 Flow Rate FiO2 06/24/17 07:49 36.5 61 18 118/62 (80) 96 06/24/17 04:33 37.0 61 22 129/56 (80) 98 Room Air 06/24/17 04:02 Room Air 06/24/17 00:00 Room Air 06/23/17 23:39 36.8 67 20 123/67 (85) 98 Room Air 06/23/17 20:00 Room Air 06/23/17 19:38 36.5 66 18 116/59 (78) 100 Room Air 06/23/17 16:04 Room Air 06/23/17 15:17 36.5 59 16 98/56 (70) 99 Room Air 06/23/17 12:03 Room Air 06/23/17 11:26 36.9 58 16 108/55 (72) 98 Physical Exam: General-aaox3 Eyes-no scleral icterus ENT-mmm Neck-supple Lungs-cta Heart-3/6 systolic murmur Abdomen-bs+, mildly tender Extremities-no c/c/e Neuro-nonfocal Current Inpatient Medications Medications (Trade) Dose Ordered Sig/Oscar Route Start Time Stop Time Status Last Admin Dose Admin Acetaminophen (Tylenol Tab) 650 mg Q4H PRN PO 06/22/17 23:00 07/22/17 22:59 06/23/17 08:36 650 MG Allopurinol (Zyloprim Tab) 300 mg QPM PO 06/23/17 21:00 07/23/17 20:59 06/23/17 21:25 300 MG Cholecalciferol (Vitamin D Tab) 1,000 inter.unit QAM PO 06/23/17 09:00 07/23/17 08:59 06/24/17 08:03 1,000 INTER.UNIT Ferrous Sulfate (Feosol Tab) 325 mg BID PO 06/23/17 09:00 07/23/17 08:59 06/24/17 08:01 325 MG Finasteride (Proscar Tab) 5 mg HS PO 06/23/17 21:00 07/23/17 20:59 06/23/17 21:25 5 MG Isosorbide Mononitrate (Imdur Ext Rel Tab) 60 mg QAM PO 06/23/17 09:00 07/23/17 08:59 06/24/17 08:01 60 MG Loperamide HCl (Imodium Cap) 2 mg DAILY PRN PO 06/22/17 23:00 07/22/17 22:59 Metoprolol Tartrate (Lopressor Tab) 50 mg BID PO 06/23/17 09:00 07/23/17 08:59 06/24/17 08:02 50 MG Nitroglycerin (Nitrostat Tab) 0.4 mg PRN PRN UT 06/22/17 23:00 07/22/17 22:59 Pantoprazole Sodium (Protonix Tab) 40 mg BID PO 06/23/17 09:00 07/23/17 08:59 06/24/17 08:01 40 MG Simvastatin (Zocor Tab) 20 mg HS PO 06/23/17 21:00 07/23/17 20:59 06/23/17 21:25 20 MG Topiramate (Topamax Tab) 25 mg BID PO 06/23/17 09:00 07/23/17 08:59 06/24/17 08:02 25 MG Phenobarbital (Phenobarbital Tab) 64.8 mg BID PO 06/23/17 09:00 07/23/17 08:59 06/24/17 08:08 64.8 MG Ondansetron HCl (Zofran Odt) 8 mg Q6H PRN PO 06/22/17 23:00 07/22/17 22:59 Sodium Bicarbonate 150 meq/Dextrose 1,150 ml @ 100 mls/hr [id number] IV 06/23/17 14:15 07/23/17 13:44 06/24/17 01:37 100 MLS/HR Aspirin (Ecotrin Tab) 81 mg QAM PO 06/24/17 09:00 07/24/17 08:59 06/24/17 08:01 81 MG Last 24 Hours Test 06/23/17 14:52 06/24/17 06:15 06/24/17 09:21 Total Creatine Kinase 78 U/L Creatine Kinase MB 4.6 ng/ml Creatine Kinase MB Ratio 5.9 Troponin I 0.021 ng/ml White Blood Count 7.51 K/uL Red Blood Count 3.82 M/uL Hemoglobin 11.5 g/dL Hematocrit 33.8 % Mean Corpuscular Volume 88.5 fL Mean Corpuscular Hemoglobin 30.1 pg Mean Corpuscular Hemoglobin Concent 34.0 g/dl Platelet Count 142 K/uL Mean Platelet Volume 9.9 fL Neutrophils (%) (Auto) 64.3 % Lymphocytes (%) (Auto) 18.2 % Monocytes (%) (Auto) 14.5 % Eosinophils (%) (Auto) 2.5 % Basophils (%) (Auto) 0.1 % Neutrophils # (Auto) 4.82 K/uL Lymphocytes # (Auto) 1.37 K/uL Monocytes # (Auto) 1.09 K/uL Eosinophils # (Auto) 0.19 K/uL Basophils # (Auto) 0.01 K/uL RDW Standard Deviation 50.1 fL RDW Coefficient of Variation 15.5 % Immature Granulocyte % (Auto) 0.4 % Immature Granulocyte # (Auto) 0.03 K/uL Sodium Level 138 mmol/L Potassium Level 3.0 mmol/L Chloride Level 114 mmol/L Carbon Dioxide Level 12 mmol/L Anion Gap 12.0 mmol/L Blood Urea Nitrogen 71 mg/dl Creatinine 2.46 mg/dl Est Creatinine Clear Calc Drug Dose 20.2 ml/min Estimated GFR () 26.5 Estimated GFR (Non- 22.9 BUN/Creatinine Ratio 28.8 Random Glucose 122 mg/dl Uric Acid 5.3 mg/dl Calcium Level 8.5 mg/dl Ionized Calcium 1.22 mmol/l Phosphorus Level 3.7 mg/dl Magnesium Level 2.2 mg/dl Assessment & Plan barbara-urination is trending down-will follow is/os. has a zamudio catheter so assume accurate is/os. despite urination trending down, creatinine is improving. continue hydration. hypokalemia-repleting prn. giving additional 40meq of kdur this morning. [id number]. one last night and one this morning. check stool cultures. cdiff negative. metabolic acidosis-should be improving with the bicarb drip. tolerating fluids well. will increase the rate to 125cc/hr. recheck an abg. recheck lactic acid in the am. pt is on topamax for tremors and would like to continue the topamax for now-could contribute to non gapped metabolic acidosis. check salicylate level and osmolar gap to be thorough.
[2017-06-24 11:36] VITALS: BP 116/65; PULSE 62; TEMP 36.6; O2SAT 99
--- NOTE | 2017-06-24 12:30 | NUR ---
pt resting oob in chair no c/o pain or sob, pt denies any distress, assessment unchanged, sr on monitor will continue to monitor call monroy and monitor intact.
[2017-06-24 15:41] VITALS: BP 108/59; PULSE 65; TEMP 36.5; O2SAT 98
--- NOTE | 2017-06-24 16:00 | NUR ---
a- VSS... BANKING ATTORNEY SR....LETHARGIC....IV.BICARB INFUSING AT PRESENT....K 3.....
--- NOTE | 2017-06-24 18:33 | Progress Note ---
Subjective Date of Service: Jun 24, 2017. Subjective Pt evaluation today including: conversation w/ patient, conversation w/ family (daughter at bedside), physical exam, chart review, lab review, review of studies (CT abd/pelvis, etc), review of inpatient medication list Pain: minimal abdominal bloating PO Intake: poor Voiding: zamudio catheter in place tele stable overnight has had 2 loose stools since the AM frequent of stooling has decreased per daughter as he was stooling every 1-2 hours at home prior to admission he continues with weakness denies recent travel or sick contacts Problem List Medical Problems: (1) Acute electrocardiogram changes Status: Acute (2) Acute renal failure Status: Acute (3) Chest pain Status: Acute (4) GI bleed Status: Acute (5) Near syncope Status: Acute (6) Upper abdominal pain Status: Acute (7) Upper GI bleed Status: Acute (8) Weakness Status: Acute Review of Systems Constitutional: No fever Respiratory: No shortness of breath Cardiac: No chest pain Abdomen: No pain, No nausea, No vomiting Objective Vital Signs Date Time Temp Pulse Resp B/P (MAP) Pulse Ox O2 Delivery O2 Flow Rate FiO2 06/24/17 16:00 Room Air 06/24/17 15:41 36.5 65 18 108/59 (75) 98 Room Air 06/24/17 12:06 Room Air 06/24/17 11:36 36.6 62 18 116/65 (82) 99 06/24/17 08:05 Room Air 06/24/17 07:49 36.5 61 18 118/62 (80) 96 06/24/17 04:33 37.0 61 22 129/56 (80) 98 Room Air 06/24/17 04:02 Room Air 06/24/17 00:00 Room Air 06/23/17 23:39 36.8 67 20 123/67 (85) 98 Room Air 06/23/17 20:00 Room Air 06/23/17 19:38 36.5 66 18 116/59 (78) 100 Room Air Physical Exam General Appearance: no apparent distress ENT: + pertinent finding (MM very dry) Neck: no JVD Respiratory/Chest: lungs clear, no respiratory distress, no accessory muscle use Cardiovascular: regular rate, rhythm, no gallop, + systolic murmur (2/6 holosystolic RUSB) Abdomen: normal bowel sounds, non tender, no organomegaly, + distended (mild) Extremities: no pedal edema Neurologic/Psychiatric: alert, oriented x 3 Laboratory Results Last 24 Hours Test 06/24/17 06:15 06/24/17 10:02 White Blood Count 7.51 K/uL Red Blood Count 3.82 M/uL Hemoglobin 11.5 g/dL Hematocrit 33.8 % Mean Corpuscular Volume 88.5 fL Mean Corpuscular Hemoglobin 30.1 pg Mean Corpuscular Hemoglobin Concent 34.0 g/dl Platelet Count 142 K/uL Mean Platelet Volume 9.9 fL Neutrophils (%) (Auto) 64.3 % Lymphocytes (%) (Auto) 18.2 % Monocytes (%) (Auto) 14.5 % Eosinophils (%) (Auto) 2.5 % Basophils (%) (Auto) 0.1 % Neutrophils # (Auto) 4.82 K/uL Lymphocytes # (Auto) 1.37 K/uL Monocytes # (Auto) 1.09 K/uL Eosinophils # (Auto) 0.19 K/uL Basophils # (Auto) 0.01 K/uL RDW Standard Deviation 50.1 fL RDW Coefficient of Variation 15.5 % Immature Granulocyte % (Auto) 0.4 % Immature Granulocyte # (Auto) 0.03 K/uL Sodium Level 138 mmol/L Potassium Level 3.0 mmol/L Chloride Level 114 mmol/L Carbon Dioxide Level 12 mmol/L Anion Gap 12.0 mmol/L Blood Urea Nitrogen 71 mg/dl Creatinine 2.46 mg/dl Est Creatinine Clear Calc Drug Dose 20.2 ml/min Estimated GFR () 26.5 Estimated GFR (Non- 22.9 BUN/Creatinine Ratio 28.8 Random Glucose 122 mg/dl Uric Acid 5.3 mg/dl Calcium Level 8.5 mg/dl Ionized Calcium 1.22 mmol/l Phosphorus Level 3.7 mg/dl Magnesium Level 2.2 mg/dl Arterial Blood pH 7.32 Arterial Blood Partial Pressure CO2 28 mmHg Arterial Blood Partial Pressure O2 114 mm/Hg Arterial Blood HCO3 14 mmol/L Arterial Blood Oxygen Saturation 97.9 % Arterial Blood Base Excess -10.5 mEq/L Arterial Blood Gas Delivery ROOM AIR Young Test POS Assessment and Plan 87yo male: 1. diarrhea/enteritis - etiology uncertain. C diff negative. Stool cx pending. Check rotavirus. Supportive care, IVF. No antibiotics at this time. 2. acute renal failure - 2nd to volume depletion from #1 above. Slowly improving with IVF/supportive care. Appreciate nephrology consultation. Has associated non-anion gap acidosis from #1. On bicarbonate infusion. Hold LYNDON. 3. non-anion gap acidosis 2nd to diarrhea - bicarb drip, daily BMP. 4. right-sided renal cell cancer - noted. Known issue. 5. CAD with prior stent - noted; had transient chest pain earlier this admission; no Rx at this time. 6. mod-severe - no symptoms referrable to such; no acute CHF. 7. seizure disorder - continue outpatient medications. Check phenobarbital level in AM. 8. BPH - zamudio in place. Cont finasteride. 9. hyperlipidemia - statin agent. 10. GERD - PPI. 11. hypokalemia - replace, repeat BMP am. PT, OT evals due to weakness Continued [facility] stay due to: multiple IV medications needed Discharge planning: uncertain
[2017-06-24 19:57] VITALS: BP 112/61; PULSE 69; TEMP 36.3; O2SAT 99
--- NOTE | 2017-06-24 20:04 | NUR ---
A: Full assessment complete; see EMR. A&OX4. SR w/1st degree block on tele monitor. Lungs clear/diminished on RA. Pulses WNL. +1 pitting edema noted to BLE. +BSx4, abdomen soft, NT & ND. Ongoing diarrhea; stool culture pending. OOB w/1 assist & walker. Nam catheter intact & patent; draining clear, fer urine. Bicarb gtt infusing at 125ml/hr per MD order. Denies CP, SOB, numbness/tingling, nausea, pain. Call monroy within reach. RN will continue to monitor.
[2017-06-24] MEDS: SIMVASTATIN 20 MG TAB PO SCH (21:26)
[2017-06-24] MEDS: FINASTERIDE 5 MG TAB PO SCH (21:27)
[2017-06-24] MEDS: ALLOPURINOL 300 MG TAB PO SCH (21:27)
[2017-06-24 23:51] VITALS: BP 139/71; PULSE 69; TEMP 36.7; O2SAT 98
--- NOTE | 2017-06-25 00:04 | NUR ---
A: Patient resting in bed; no changes noted in assessment. VSS. SR w/1st degree on tele monitor. OOB to toilet; liquid stool. Nam patent. Denies pain/needs. Bicarb infusing. Call monroy within reach. RN will continue to monitor.
--- NOTE | 2017-06-25 04:10 | NUR ---
A: Patient OOB to have BM in toilet; liquid stool. 2 assist to get OOB. No changes in assessment. VSS. SR w/1st degree block on tele monitor. Bicarb infusing. Nam patent. Denies pain/needs. Call monroy within reach. RN will continue to monitor.
[2017-06-25 04:30] VITALS: BP 134/68; PULSE 61; TEMP 36.9; O2SAT 99
[2017-06-25] MEDS: SODIUM BICARBONATE 8.4% INJ 150 MEQ in DEXTROSE 5% 1000ML 1,000 ML IV SCH ×2 (05:49→14:52)
[2017-06-25 07:02] LABS: BASO % 0.3 %; BASO ABS # 0.02 K/uL (0-0.2); EOS % 3.2 %; EOS ABS # 0.21 K/uL (0-0.5); HEMATOCRIT 32.9 % (42-52); HEMOGLOBIN 11.4 g/dL (14.0-18.0); IG# 0.01 K/uL (0.00-0.02); LYMPH ABS # 1.82 K/uL (1.2-3.4); MEAN CELL VOLUME 86.8 fL (80-100); MEAN CORPUSCULAR HEMOGLOBIN 30.1 pg (25-34); MEAN CORPUSCULAR HGB CONC 34.7 g/dl (32-36); MONO % 14.9 %; MONO ABS # 0.97 K/uL (0.11-0.59); NEUT % 53.4 %; NEUT ABS # 3.47 K/uL (1.4-6.5); PLATELET COUNT 147 K/uL (130-400); RED CELL DISTRIBUTION WIDTH CV 15.4 % (11.5-14.5); RED CELL DISTRIBUTION WIDTH SD 48.8 fL (36.4-46.3)
[2017-06-25 07:38] VITALS: BP 161/64; PULSE 65; TEMP 36.8; O2SAT 99
[2017-06-25 07:45] LABS: CALCIUM 8.5 mg/dl (8.5-10.1); CREATININE 1.96 mg/dl (0.60-1.40); POTASSIUM 3.1 mmol/L (3.5-5.1)
[2017-06-25] MEDS: TOPIRAMATE 25 MG TAB PO SCH ×2 (07:47→21:12)
[2017-06-25] MEDS: PANTOprazole SOD 40 MG TAB PO SCH ×2 (07:47→21:12)
[2017-06-25] MEDS: FERROUS SULFATE 325 MG TAB PO SCH ×2 (07:47→21:12)
[2017-06-25] MEDS: METOPROLOL TARTRATE 25 MG TAB PO SCH ×2 (07:47→21:12)
[2017-06-25] MEDS: PHENOBARBITAL 32.4 MG TAB PO SCH ×2 (07:47→21:12)
[2017-06-25] MEDS: ISOSORBIDE MONONITRATE 30 MG TABCR PO SCH (07:47)
[2017-06-25] MEDS: ASPIRIN 81 MG ECTAB PO SCH (07:47)
[2017-06-25] MEDS: CHOLECALCIFEROL 1000 INTER.UNIT TAB PO SCH (07:48)
--- NOTE | 2017-06-25 08:00 | NUR ---
a/id: pt assessment completed. pt is awake, alert and oriented. denies pain. c/o liquid stool. SR 1st degree block. zamudio patent and draining. call monroy within reach.
[2017-06-25] MEDS ORDERED: POTASSIUM CHLORIDE 20 MEQ TABCR PO STA (08:12)
[2017-06-25] MEDS: CHOLESTYRAMINE LIGHT 4 GM PKT PO SCH (09:06)
--- NOTE | 2017-06-25 09:08 | Nephrology Progress Note ---
Nephrology Progress Note Date of Service: Jun 25, 2017. Subjective 87 yo male with renal cell carcinoma with hx of cryoablation x 2, moderate to severe aortic stenosis who presented with watery diarrhea, metabolic acidosis and barbara. on bicarb drip. urine looks much clearer. bicarb improving. kidney function continues to improve. pt complaining of substernal pain worse with swallowing. no sob. Objective Date Time Temp Pulse Resp B/P (MAP) Pulse Ox O2 Delivery O2 Flow Rate FiO2 06/25/17 08:00 Room Air 06/25/17 07:38 36.8 65 18 161/64 (96) 99 06/25/17 04:30 36.9 61 17 134/68 (90) 99 Room Air 06/25/17 04:02 Room Air 06/25/17 00:02 Room Air 06/24/17 23:51 36.7 69 18 139/71 (93) 98 Room Air 06/24/17 20:00 Room Air 06/24/17 19:57 36.3 69 18 112/61 (78) 99 Room Air 06/24/17 16:00 Room Air 06/24/17 15:41 36.5 65 18 108/59 (75) 98 Room Air 06/24/17 12:06 Room Air 06/24/17 11:36 36.6 62 18 116/65 (82) 99 Physical Exam: General-aaox3 Eyes-no scleral icterus ENT-mmm Neck-supple Lungs-clear Heart-3/6 systolic murmur Abdomen-bs+, epigastric tenderness Extremities-no c/c/e Neuro-nonfocal Current Inpatient Medications Medications (Trade) Dose Ordered Sig/Oscar Route Start Time Stop Time Status Last Admin Dose Admin Acetaminophen (Tylenol Tab) 650 mg Q4H PRN PO 06/22/17 23:00 07/22/17 22:59 06/23/17 08:36 650 MG Allopurinol (Zyloprim Tab) 300 mg QPM PO 06/23/17 21:00 07/23/17 20:59 06/24/17 21:27 300 MG Cholecalciferol (Vitamin D Tab) 1,000 inter.unit QAM PO 06/23/17 09:00 07/23/17 08:59 06/25/17 07:48 1,000 INTER.UNIT Ferrous Sulfate (Feosol Tab) 325 mg BID PO 06/23/17 09:00 07/23/17 08:59 06/25/17 07:47 325 MG Finasteride (Proscar Tab) 5 mg HS PO 06/23/17 21:00 07/23/17 20:59 06/24/17 21:27 5 MG Isosorbide Mononitrate (Imdur Ext Rel Tab) 60 mg QAM PO 06/23/17 09:00 07/23/17 08:59 06/25/17 07:47 60 MG Loperamide HCl (Imodium Cap) 2 mg DAILY PRN PO 06/22/17 23:00 07/22/17 22:59 Metoprolol Tartrate (Lopressor Tab) 50 mg BID PO 06/23/17 09:00 07/23/17 08:59 06/25/17 07:47 50 MG Nitroglycerin (Nitrostat Tab) 0.4 mg PRN PRN UT 06/22/17 23:00 07/22/17 22:59 Pantoprazole Sodium (Protonix Tab) 40 mg BID PO 06/23/17 09:00 07/23/17 08:59 06/25/17 07:47 40 MG Simvastatin (Zocor Tab) 20 mg HS PO 06/23/17 21:00 07/23/17 20:59 06/24/17 21:26 20 MG Topiramate (Topamax Tab) 25 mg BID PO 06/23/17 09:00 07/23/17 08:59 06/25/17 07:47 25 MG Phenobarbital (Phenobarbital Tab) 64.8 mg BID PO 06/23/17 09:00 07/23/17 08:59 06/25/17 07:47 64.8 MG Ondansetron HCl (Zofran Odt) 8 mg Q6H PRN PO 06/22/17 23:00 07/22/17 22:59 Sodium Bicarbonate 150 meq/Dextrose 1,150 ml @ 125 mls/hr Q9H12M IV 06/23/17 14:15 07/23/17 13:44 06/25/17 05:49 125 MLS/HR Aspirin (Ecotrin Tab) 81 mg QAM PO 06/24/17 09:00 07/24/17 08:59 06/25/17 07:47 81 MG Potassium Chloride (Klor-Con Tab) 40 meq ONE ONCE PO 06/25/17 12:00 06/25/17 12:01 Cholestyramine Resin (Questran Powder Light) 4 gm DAILY@1000 PO 06/25/17 10:00 07/25/17 09:59 Last 24 Hours Test 06/24/17 10:02 06/25/17 06:53 Arterial Blood pH 7.32 Arterial Blood Partial Pressure CO2 28 mmHg Arterial Blood Partial Pressure O2 114 mm/Hg Arterial Blood HCO3 14 mmol/L Arterial Blood Oxygen Saturation 97.9 % Arterial Blood Base Excess -10.5 mEq/L Arterial Blood Gas Delivery ROOM AIR Young Test POS White Blood Count 6.50 K/uL Red Blood Count 3.79 M/uL Hemoglobin 11.4 g/dL Hematocrit 32.9 % Mean Corpuscular Volume 86.8 fL Mean Corpuscular Hemoglobin 30.1 pg Mean Corpuscular Hemoglobin Concent 34.7 g/dl Platelet Count 147 K/uL Mean Platelet Volume 10.0 fL Neutrophils (%) (Auto) 53.4 % Lymphocytes (%) (Auto) 28.0 % Monocytes (%) (Auto) 14.9 % Eosinophils (%) (Auto) 3.2 % Basophils (%) (Auto) 0.3 % Neutrophils # (Auto) 3.47 K/uL Lymphocytes # (Auto) 1.82 K/uL Monocytes # (Auto) 0.97 K/uL Eosinophils # (Auto) 0.21 K/uL Basophils # (Auto) 0.02 K/uL RDW Standard Deviation 48.8 fL RDW Coefficient of Variation 15.4 % Immature Granulocyte % (Auto) 0.2 % Immature Granulocyte # (Auto) 0.01 K/uL Sodium Level 139 mmol/L Potassium Level 3.1 mmol/L Chloride Level 111 mmol/L Carbon Dioxide Level 17 mmol/L Anion Gap 11.0 mmol/L Blood Urea Nitrogen 64 mg/dl Creatinine 1.96 mg/dl Est Creatinine Clear Calc Drug Dose 25.3 ml/min Estimated GFR () 34.9 Estimated GFR (Non- 30.1 BUN/Creatinine Ratio 32.7 Random Glucose 122 mg/dl Osmolality 307 mOsm/kg Lactic Acid Level 1.1 mmol/L Calcium Level 8.5 mg/dl Magnesium Level 2.1 mg/dl Salicylates Level < 1.7 mg/dl Phenobarbital Level 26.0 mcg/mL Date/Time Source Procedure Growth Status 06/24/17 13:35 Stool Rotavirus Antigen - Final Negative for Rotavirus Antigen Complete 06/24/17 13:35 Stool Shiga Toxin Test Pending Received 06/24/17 13:35 Stool Stool Culture Pending Received Assessment & Plan barbara-creatinine continues to improve. hopefully will be able to stop the iv fluids tomorrow and remove the zamudio catheter depending on labs. hypokalemia-repleting prn. getting 40 this am and 40 again at noon. [id number]. cdiff negative. cultures pending. metabolic acidosis-finally starting to improve after several days of iv fluids. perhaps pt was very dehydrated at baseline prior to the diarrhea. did check salicylates which was negative and checked osmolar gap which was -2-so normal. lactic acid on recheck was normal. abg showed appropriate ompensation. likely from diarrhea and renal failure but was slow to improve. hopefully will be able to stop the bicarb drip tomorrow.
--- NOTE | 2017-06-25 11:45 | NUR ---
A: no acute changes to pt assessment. new 20g IV placed to right forearm - other site was leaking. up in chair. zamudio patent and draining - bicarb drip continues to infuse. Dr. Small saw patient earlier this AM - pt continues to improve, will reeval bicarb drip and zamudio tomorrow. call monroy within reach.
[2017-06-25 11:53] VITALS: BP 126/62; PULSE 64; TEMP 36.4; O2SAT 99
[2017-06-25] MEDS: SUCRALFATE 1 GM/10 ML UDC PO SCH ×3 (12:00→21:12)
[2017-06-25] MEDS ORDERED: POTASSIUM CHLORIDE 20 MEQ TABCR PO ONE (12:00)
--- NOTE | 2017-06-25 14:23 | Progress Note ---
Subjective Date of Service: Jun 25, 2017. Subjective Pt evaluation today including: conversation w/ patient, physical exam, chart review, lab review, conversation w/ agriculture consultant (nephrology Dr. Small) Pain: starting last pm developed upper abdominal discomfort - similar to GERD PO Intake: eating is fair if not poor Voiding: zamudio catheter in place tele stable overnight main complaint is the abdominal pain states it is NOT cardiac type pain no vomiting still with diarrhea - loose/watery/some mucous no blood per rectum Problem List Medical Problems: (1) Acute electrocardiogram changes Status: Acute (2) Acute renal failure Status: Acute (3) Chest pain Status: Acute (4) GI bleed Status: Acute (5) Near syncope Status: Acute (6) Upper abdominal pain Status: Acute (7) Upper GI bleed Status: Acute (8) Weakness Status: Acute Review of Systems Constitutional: No fever, No chills Respiratory: No shortness of breath, No dyspnea on exertion Cardiac: No chest pain Abdomen: + see HPI, + pain Objective Vital Signs Date Time Temp Pulse Resp B/P (MAP) Pulse Ox O2 Delivery O2 Flow Rate FiO2 06/25/17 12:00 Room Air 06/25/17 11:53 36.4 64 18 126/62 (83) 99 06/25/17 08:00 Room Air 06/25/17 07:38 36.8 65 18 161/64 (96) 99 06/25/17 04:30 36.9 61 17 134/68 (90) 99 Room Air 06/25/17 04:02 Room Air 06/25/17 00:02 Room Air 06/24/17 23:51 36.7 69 18 139/71 (93) 98 Room Air 06/24/17 20:00 Room Air 06/24/17 19:57 36.3 69 18 112/61 (78) 99 Room Air 06/24/17 16:00 Room Air 06/24/17 15:41 36.5 65 18 108/59 (75) 98 Room Air Physical Exam General Appearance: no apparent distress ENT: pharynx normal Neck: no JVD Respiratory/Chest: lungs clear, no respiratory distress, no accessory muscle use Cardiovascular: regular rate, rhythm, no gallop, + systolic murmur (2-3/6 holosystolic RUSB) Abdomen: normal bowel sounds, soft, no organomegaly, + tenderness (epigastric region), + pertinent finding (no peritoneal signs) Extremities: no pedal edema Neurologic/Psychiatric: alert, oriented x 3 Laboratory Results Last 24 Hours Test 06/25/17 06:53 White Blood Count 6.50 K/uL Red Blood Count 3.79 M/uL Hemoglobin 11.4 g/dL Hematocrit 32.9 % Mean Corpuscular Volume 86.8 fL Mean Corpuscular Hemoglobin 30.1 pg Mean Corpuscular Hemoglobin Concent 34.7 g/dl Platelet Count 147 K/uL Mean Platelet Volume 10.0 fL Neutrophils (%) (Auto) 53.4 % Lymphocytes (%) (Auto) 28.0 % Monocytes (%) (Auto) 14.9 % Eosinophils (%) (Auto) 3.2 % Basophils (%) (Auto) 0.3 % Neutrophils # (Auto) 3.47 K/uL Lymphocytes # (Auto) 1.82 K/uL Monocytes # (Auto) 0.97 K/uL Eosinophils # (Auto) 0.21 K/uL Basophils # (Auto) 0.02 K/uL RDW Standard Deviation 48.8 fL RDW Coefficient of Variation 15.4 % Immature Granulocyte % (Auto) 0.2 % Immature Granulocyte # (Auto) 0.01 K/uL Sodium Level 139 mmol/L Potassium Level 3.1 mmol/L Chloride Level 111 mmol/L Carbon Dioxide Level 17 mmol/L Anion Gap 11.0 mmol/L Blood Urea Nitrogen 64 mg/dl Creatinine 1.96 mg/dl Est Creatinine Clear Calc Drug Dose 25.3 ml/min Estimated GFR () 34.9 Estimated GFR (Non- 30.1 BUN/Creatinine Ratio 32.7 Random Glucose 122 mg/dl Osmolality 307 mOsm/kg Lactic Acid Level 1.1 mmol/L Calcium Level 8.5 mg/dl Magnesium Level 2.1 mg/dl Salicylates Level < 1.7 mg/dl Phenobarbital Level 26.0 mcg/mL Assessment and Plan 87yo male: 1. diarrhea/enteritis - etiology uncertain. C diff negative. Rotavirus negative. Stool cx pending but thus far negative. No other symptoms/signs, however, to suggest enteric pathogen (salmonella, e. coli, etc). If stool cx is negative and diarrhea persists then GI consultation. Low fiber diet. Supportive care, IVF. No antibiotics at this time. Since c. diff is negative trial of questran powder. 2. acute renal failure - 2nd to volume depletion from #1 above. Cont to improve with IVF/supportive care. Appreciate nephrology consultation. Has associated non-anion gap acidosis from #1. That too is improving with bicarbonate infusion. Hold LYNDON. 3. non-anion gap acidosis 2nd to diarrhea - bicarb drip and improving. BMP am. 4. right-sided renal cell cancer - noted. Known issue. 5. CAD with prior stent - noted; had transient chest pain earlier this admission. Seen by cardiology; no intervention recommended. Abdominal pain overnight - I don't believe this is cardiac - see below. 6. mod-severe - no symptoms referable to such; no acute CHF. 7. seizure disorder - continue outpatient medications. phenobarbital level acceptable today. 8. BPH - zamudio in place. Cont finasteride. Likely d/c zamudio in AM. 9. hyperlipidemia - statin agent. 10. GERD - PPI. 11. hypokalemia - replace once again, repeat BMP am. 12. epigastric pain - has h/o severe gastritis on multiple prior EGDs. These were done by Dr. Kwesi Gutiérrez. remains on PPI. add carafate QID. lipase/lfts earlier this admission were normal. follow this issue carefully. PT, OT evals due to weakness leave on tele until the AM Continued [facility] stay due to: multiple IV medications needed Discharge planning: uncertain
[2017-06-25 15:27] VITALS: BP 137/63; PULSE 71; TEMP 36.6; O2SAT 98
--- NOTE | 2017-06-25 15:35 | NUR ---
A: NO ACUTE CHANGES TO PT ASSESSMENT. HE IS ALERT AND ORIENTED. SR 1ST DEGREE BLOCK ON MONITOR. IV INTACT - BICARB DRIP INFUSING WITHOUT DIFFICULTY. JOHNSON PATENT AND DRAINING. DAUGHTER AT BEDSIDE. CALL LIGHT WITHIN REACH.
--- NOTE | 2017-06-25 18:15 | NUR ---
PT RESTING IN BED READING NEWSPAPER. DENIES COMPLAINTS. IV INTACT. JOHNSON PATENT AND DRAINING. CALL THAO WITHIN REACH.
[2017-06-25 19:41] VITALS: BP 136/67; PULSE 103; TEMP 37.4; O2SAT 98
--- NOTE | 2017-06-25 20:00 | NUR ---
A: Full assessment complete; see EMR. A&OX4. SR w/1st degree block on tele monitor. Lungs clear/diminished on RA. Pulses WNL. +1 pitting edema noted to BLE. +BSx4, abdomen soft, NT & ND. Patient reports that he still has diarrhea but not as frequently as when he came to the hospital. OOB w/1 assist & walker. Nam catheter intact & patent; draining clear, fer urine. Bicarb gtt infusing at 125ml/hr per MD order. Denies CP, SOB, numbness/tingling, nausea, pain. Call monroy within reach. RN will continue to monitor.
[2017-06-25] MEDS: ALLOPURINOL 300 MG TAB PO SCH (21:12)
[2017-06-25] MEDS: SIMVASTATIN 20 MG TAB PO SCH (21:12)
[2017-06-25] MEDS: FINASTERIDE 5 MG TAB PO SCH (21:12)
[2017-06-25 23:54] VITALS: BP 156/70; PULSE 75; TEMP 37; O2SAT 99
[2017-06-26] VITALS (7 sets, daily range): BP systolic 125–171; BP diastolic 63–69; PULSE 68–78; TEMP 36.8–37.3; O2SAT 96–98
--- NOTE | 2017-06-26 00:06 | NUR ---
A: Patient OOB to have BM in toilet; liquid stool. 1 assist to get OOB; patient is still very weak. No changes in assessment. VSS. SR w/1st degree block on tele monitor. Bicarb infusing. Nam patent. Denies pain/needs. Call monroy within reach. RN will continue to monitor.
[2017-06-26] MEDS: SODIUM BICARBONATE 8.4% INJ 150 MEQ in DEXTROSE 5% 1000ML 1,000 ML IV SCH ×2 (00:15→10:14)
--- NOTE | 2017-06-26 09:02 | Hospitalist Progress Note ---
Hospitalist Progress Note Date of Service Jun 26, 2017. (Nicky Blount PA-C) Subjective Pt evaluation today including: conversation w/ patient, physical exam, chart review, lab review, review of studies Pain: None PO Intake: Good Voiding: zamudio catheter in place The patient was seen and examined this morning. Pt reports doing better today. He had one BM last evening prior to getting ready for bed, and one watery bowel movement overnight. He didn't sleep well due to new patients arriving on the floor beside his room. Additional Comments: Constitutional: No fever, sweats or chills Eyes: No diplopia, no worsening or blurred vision ENT: normal hearing, no trouble swallowing Respiratory: No cough, sputum, dyspnea at rest or on exertion Cardiovascular: No chest pain, tightness or palpitations Abdomen: See history of present illness Musculoskeletal: No joint pain, calf pain, swelling Neurologic: + weakness generalized, numbness/tingling, or balance problems Psychiatric: No anxiety or depression Skin: No rash or itch (Nicky Blount PA-C) Objective Vital Signs Date Time Temp Pulse Resp B/P (MAP) Pulse Ox O2 Delivery O2 Flow Rate FiO2 06/26/17 07:15 37.1 73 20 125/67 (86) 96 Room Air 06/26/17 04:02 Room Air 06/26/17 03:58 37.2 74 18 136/66 (89) 98 Room Air 06/26/17 00:00 Room Air 06/25/17 23:54 37.0 75 18 156/70 (98) 99 Room Air 06/25/17 20:01 Room Air 06/25/17 19:41 37.4 103 18 136/67 (90) 98 Room Air 06/25/17 16:00 Room Air 06/25/17 15:27 36.6 71 18 137/63 (87) 98 Room Air 06/25/17 12:00 Room Air 06/25/17 11:53 36.4 64 18 126/62 (83) 99 (Nicky Blount PA-C) Physical Exam Notes: General: awake, alert, no apparent distress Head: Normocephalic, atraumatic ENT: PERRL, EOMI, no pharyngeal exudate, mucous membranes moist Chest: Clear to auscultation, on room air, no adventitious breath sounds Cardiac: Regular rate and rhythm, + holosystolic murmur RUSB grade III/, no JVD, normal peripheral pulses, good capillary refill Abdominal: NABS x 4 quadrants, + mildly distended, soft, nontender to palpation , no rebound, guarding or tenderness Extremities: Normal inspection, no peripheral edema or erythema, calfs nontender to palpation Psych: Normal mood and affect Neuro: AAO x 3, speech is clear, no peripheral sensory deficits (Nicky Blount PA-C) Laboratory Results Last 24 Hours Test 06/26/17 05:56 Vitamin B12 Level 273 pg/mL Folate 4.97 ng/mL (Nicky Blount PA-C) Assessment and Plan 87yo male: Diarrhea/enteritis - etiology uncertain. C diff negative. Rotavirus negative. Stool cx neg for salmonella and shigella - No other symptoms/signs, however, to suggest enteric pathogen (salmonella, e. coli, etc). -Stool cx is negative- diarrhea is improving and the patient had increased appetite this morning. No need for GI consultation at this time. - Low fiber diet. - Supportive care, DC IVF - No antibiotics at this time. Likely viral gastroenteritis. - Since c. diff is negative continue cholestyramine, immodium and other supportive care - PT, OT evals due to generalized weakness Acute renal failure Non anion gap Metabolic Acidosis secondary to diarrhea - 2nd to volume depletion from diarrhea - Cr improved, bicarb also improved. D/c IVFs, follow am PRP - Appreciate nephrology consultation. - Hold LYNDON. Hypokalemia - K 2.7 today, replaced via 2 doses of 40 meq PO. Follow am prp Right-sided renal cell cancer - noted. CAD with prior stent - noted; had transient chest pain earlier this admission. - Seen by cardiology; no intervention recommended. - Abdominal pain overnight resolved, pt denies any type of cardiac sx Mod-severe - no symptoms referable to such; no acute CHF. Seizure disorder - continue outpatient medications. - Phenobarbital 64.8 mg BID, level acceptable - Continue on topamax 25 mg BID BPH - zamudio in place during exam, dc today. Void trial. - Cont finasteride. Hyperlipidemia - statin agent. GERD - PPI. Epigastric pain - has h/o severe gastritis on multiple prior EGDs. These were done by Dr. Kwesi Gutiérrez. remains on PPI. - Cont carafate QID. - lipase/lfts earlier this admission were normal. DVT ppx: teds, scds CODE STATUS: FULL Disposition: From home, lives with daughter, likely dc in ~2 days. (Nicky Blount, THEO) Attending Attestation: Pt seen/examined, chart reviewed, care plan d/w JILL Blount. I agree w/ the garcia components of her documentation. Pt with "really good" appetite this AM, no abd bloating, and less # of diarrhea stools. Feels better overall. Tele stable overnight. Upper epigastric pain resolved. VSS no fever gen - looks better mouth - MMM neck - no JVD heart - RRR, s1, s2, 2/6 holosystolic murmur RUSB lungs - CTA b/l abd - minimal distension, BS+, NT, no HSM ext - no edema K low mag wnl Cr < 2 today A/P: 1. diarrhea - nonspecific enteritis - improving. Stool cx, c. diff, rotavirus negative. Since he is improved (less diarrhea, better appetite) - hold off on GI consult for now. Cont questran. 2. hypokalemia - replace, BMP/mag today and in AM. 3. metabolic acidosis - resolved; d/c bicarbonate infusion. 4. GUSTAVO - resolving nicely. d/c fluids, BMP am. d/c lizz PT, OT - needs rehab; SW aware ok to send to med/surg Sidra WOLFF MD (Reji Wolff MD)
[2017-06-26] MEDS: SUCRALFATE 1 GM/10 ML UDC PO SCH ×4 (09:13→21:44)
[2017-06-26] MEDS: ASPIRIN 81 MG ECTAB PO SCH (09:13)
[2017-06-26] MEDS: FERROUS SULFATE 325 MG TAB PO SCH ×2 (09:14→21:42)
[2017-06-26] MEDS: ISOSORBIDE MONONITRATE 30 MG TABCR PO SCH (09:14)
[2017-06-26] MEDS: TOPIRAMATE 25 MG TAB PO SCH ×2 (09:14→21:44)
[2017-06-26] MEDS: PANTOprazole SOD 40 MG TAB PO SCH ×2 (09:14→21:44)
[2017-06-26] MEDS: CHOLECALCIFEROL 1000 INTER.UNIT TAB PO SCH (09:14)
[2017-06-26] MEDS: METOPROLOL TARTRATE 25 MG TAB PO SCH ×2 (09:14→21:43)
[2017-06-26] MEDS: PHENOBARBITAL 32.4 MG TAB PO SCH ×2 (09:28→21:43)
[2017-06-26] MEDS: CHOLESTYRAMINE LIGHT 4 GM PKT PO SCH (10:15)
[2017-06-26] MEDS: CYANOCOBALAMIN 500 MCG TAB (VIT B-12) PO SCH (10:15)
--- NOTE | 2017-06-26 10:42 | NUR ---
A:Awake and oriented. Denies chest pain. Breath sounds clear throughout. Room air. Sinus on monitor. Vitals stable at this time. Nam draining. Patient resting in bed with call monroy in reach. Will continue to monitor patient.
[2017-06-26 10:45] LABS: CALCIUM 8.1 mg/dl (8.5-10.1); CREATININE 1.4 mg/dl (0.60-1.40); POTASSIUM 2.7 mmol/L (3.5-5.1)
[2017-06-26] MEDS ORDERED: POTASSIUM CHLORIDE 20 MEQ TABCR PO STA (10:47)
--- NOTE | 2017-06-26 12:06 | NUR ---
A:At bedside eating. Vitals stable at this time. Will continue to monitor patient.
[2017-06-26] MEDS ORDERED: POTASSIUM CHLORIDE 20 MEQ TABCR PO SCH (14:00)
--- NOTE | 2017-06-26 16:00 | NUR ---
A: Patient resting in bed. Denies any pain or SOB. NSR on the monitor. Supervision with ambulation with a walker. Call monroy is in reach.
[2017-06-26 16:14] LABS: POTASSIUM 3.2 mmol/L (3.5-5.1)
--- NOTE | 2017-06-26 16:16 | NUR ---
Case Management: Pt lives with his daughter, Peggy, and is independent at baseline per his family. PT/OT evaluated pt and recommend inpatient rehab. Will need to address with pt and family. Case Management to follow.
--- NOTE | 2017-06-26 16:39 | NUR ---
Patient transferred to room 452 in stable condition. Report called to DAWSON Espinal. All belongings sent with him. He notified his family members.
[2017-06-26] MEDS ORDERED: NURSING VERBAL MED ORDER ONE (16:45)
--- NOTE | 2017-06-26 16:45 | NUR ---
A: The patient arrived to [facility] from [facility] at 16:44. The patient is alert and oriented x4, denies pain, nausea and shortness of breath. Patient's vital signs are stable on room air. The patient is being reoriented to call monroy use and new room. Belongings and medications arrived with the patient. Call monroy is within reach. Addendum: 06/26/17 at 1821 by Cindy Alicea RN A: Report received from DAWSON Carlson. Addendum: 06/26/17 at 2246 by Cindy Alicea RN A: 1600 inside sales manager reviewed, this nurse agrees with assessment. Pt is alert and oriented x4, remains stable, pleasantly conversational.
[2017-06-26] MEDS ORDERED: POTASSIUM CHLORIDE 20 MEQ TABCR PO ONE (17:00)
[2017-06-26] MEDS: POTASSIUM CHLORIDE 20 MEQ TABCR PO SCH (21:42)
[2017-06-26] MEDS: ALLOPURINOL 300 MG TAB PO SCH (21:44)
[2017-06-26] MEDS: FINASTERIDE 5 MG TAB PO SCH (21:44)
[2017-06-26] MEDS: SIMVASTATIN 20 MG TAB PO SCH (21:44)
--- NOTE | 2017-06-27 05:03 | NUR ---
ID: Pt is AAO x 4, VSS on RA. Denies pain. Pt has been having diarrhea, which is improving per pt. OOB with 1 assist and a walker. See EMR for full assessment. DCP: Inpatient rehab; [facility]. Will monitor.
[2017-06-27] MEDS: SUCRALFATE 1 GM/10 ML UDC PO SCH ×2 (06:42→10:04)
[2017-06-27] MEDS: ASPIRIN 81 MG ECTAB PO SCH (07:24)
[2017-06-27] MEDS: FERROUS SULFATE 325 MG TAB PO SCH (07:24)
[2017-06-27] MEDS: METOPROLOL TARTRATE 25 MG TAB PO SCH (07:25)
[2017-06-27] MEDS: CHOLECALCIFEROL 1000 INTER.UNIT TAB PO SCH (07:25)
[2017-06-27] MEDS: TOPIRAMATE 25 MG TAB PO SCH (07:25)
[2017-06-27] MEDS: ISOSORBIDE MONONITRATE 30 MG TABCR PO SCH (07:25)
[2017-06-27] MEDS: CYANOCOBALAMIN 500 MCG TAB (VIT B-12) PO SCH (07:25)
[2017-06-27] MEDS: POTASSIUM CHLORIDE 20 MEQ TABCR PO SCH (07:25)
[2017-06-27] MEDS: PANTOprazole SOD 40 MG TAB PO SCH (07:25)
[2017-06-27 07:41] VITALS: BP 149/61; PULSE 67; TEMP 36.7; O2SAT 96
[2017-06-27 07:41] LABS: CALCIUM 8.6 mg/dl (8.5-10.1); CREATININE 1.31 mg/dl (0.60-1.40); POTASSIUM 3.7 mmol/L (3.5-5.1)
[2017-06-27 08:01] VITALS: O2SAT 96
--- NOTE | 2017-06-27 08:01 | NUR ---
A/ID: Assessment completed, see EMR. Alert and oriented X4. VSS. Denies CP or SOB. Lungs clear and diminished throughout on room air. Bowel sounds WNL. Voiding. + pedal pulses with trace pitting edema noted to BLE. Skin issues noted in EMR. Tolerating diet. Self positioning. Call monroy within reach. Verbalizes no needs at this time. Plan for home or [facility] upon discharge at this time.
--- NOTE | 2017-06-27 08:27 | Hospitalist Progress Note ---
Hospitalist Progress Note Date of Service Jun 27, 2017. Objective Vital Signs Date Time Temp Pulse Resp B/P (MAP) Pulse Ox O2 Delivery O2 Flow Rate FiO2 06/27/17 07:41 36.7 67 20 149/61 (90) 96 Room Air 06/27/17 00:00 Room Air 06/26/17 23:48 36.9 75 18 171/65 (100) 96 Room Air 06/26/17 16:50 36.9 78 18 151/64 (93) 98 Room Air 06/26/17 16:00 96 Room Air 06/26/17 15:24 36.8 74 18 135/69 (91) 96 06/26/17 12:00 Room Air 06/26/17 11:19 37.3 68 20 144/63 (90) 97 Room Air Laboratory Results Last 24 Hours Test 06/26/17 15:30 06/27/17 06:31 Potassium Level 3.2 mmol/L 3.7 mmol/L Magnesium Level 1.9 mg/dl 2.0 mg/dl Sodium Level 142 mmol/L Chloride Level 112 mmol/L Carbon Dioxide Level 25 mmol/L Anion Gap 5.0 mmol/L Blood Urea Nitrogen 39 mg/dl Creatinine 1.31 mg/dl Est Creatinine Clear Calc Drug Dose 37.9 ml/min Estimated GFR () 56.7 Estimated GFR (Non- 49.0 BUN/Creatinine Ratio 29.5 Random Glucose 87 mg/dl Calcium Level 8.6 mg/dl Assessment and Plan 87yo male: Diarrhea/enteritis - etiology likely viral as all other causes ruled out -C diff negative. Rotavirus negative. Stool cx neg for salmonella and shigella - No other symptoms/signs, however, to suggest enteric pathogen (salmonella, e. coli, etc). - Stool cx is negative- diarrhea is improving and the patient had increased appetite this morning. No need for GI consultation at this time. - Low fiber diet. - Supportive care, DC IVF - No antibiotics at this time. Likely viral gastroenteritis. - Since c. diff is negative continue cholestyramine, immodium and other supportive care - PT, OT evals due to generalized weakness Acute renal failure Non anion gap Metabolic Acidosis secondary to diarrhea - 2nd to volume depletion from diarrhea - Cr improved, bicarb also improved. D/c IVFs, follow am PRP - Appreciate nephrology consultation. - Hold LYNDON. Hypokalemia - K 3.7 today. If more diarrhea will give additional 40 meq due to low level yesterday. Follow am prp Right-sided renal cell cancer - noted. CAD with prior stent - noted; had transient chest pain earlier this admission. - Seen by cardiology; no intervention recommended. - Abdominal pain overnight resolved, pt denies any type of cardiac sx Mod-severe - no symptoms referable to such; no acute CHF. Seizure disorder - continue outpatient medications. - Phenobarbital 64.8 mg BID, level acceptable - Continue on topamax 25 mg BID BPH - zamudio dc - Void trial. - Cont finasteride. Hyperlipidemia - statin agent. GERD - PPI. Epigastric pain - has h/o severe gastritis on multiple prior EGDs. These were done by Dr. Kwesi Gutiérrez. remains on PPI. - Cont carafate QID. - lipase/lfts earlier this admission were normal. DVT ppx: teds, scds CODE STATUS: FULL Disposition: From home, lives with daughter, likely dc in ~2 days.
--- NOTE | 2017-06-27 08:54 | NUR ---
Case Management: Transferred to [facility]; handoff with unit Health Aide. Met with pt this morning to address PT/OT recommendations for inpatient rehab. Pt is resistant to rehab at this time but is agreeable to home health. Pt states he used [facility] with his and felt that was good care. Referral placed to [facility]. Case Management to follow. Addendum: 06/27/17 at 1353 by Maru Brooks SERV Discharge instructions given to MERLINE Sue liaison.
[2017-06-27] MEDS: CHOLESTYRAMINE LIGHT 4 GM PKT PO SCH (10:04)
[2017-06-27] MEDS: PHENOBARBITAL 32.4 MG TAB PO SCH (10:04)
[2017-06-27] MEDS ORDERED: AMLODIPINE BESYLATE 5 MG TAB PO SCH (12:30)
[2017-06-27] MEDS ORDERED: LISINOPRIL 5 MG TAB PO SCH (12:30)
[2017-06-27] MEDS ORDERED: CRFUDL PO (12:48)
[2017-06-27] MEDS ORDERED: QSTP PO (12:48)
[2017-06-27] MEDS ORDERED: ASPI-320 PO (12:48)
[2017-06-27] MEDS ORDERED: MCRK20 PO (12:48)
--- NOTE | 2017-06-27 12:50 | NUR ---
[facility]: Post hospital appointment scheduled w/ Dr. Devyn Garzon for SundayJuly 04 at 11:00 am. Addendum: 06/27/17 at 1323 by Tamia Mohan SERV This info was added to the DC instructions.
--- NOTE | 2017-06-27 13:02 | Discharge Instructions ---
Discharge Instructions Date of Service Jun 27, 2017. Admission Reason for Admission: Acute Electrocardiogram Changes, Acute Renal Failu Discharge Discharge Diagnosis / Problem: Viral gastroenteritis, acute renal failure Discharge Goals Goal(s): Decrease discomfort, Improve function, Increase independence, Improve disease control Activity Recommendations Activity Limitations: resume your previous activity Lifting Limitations: no more than 25 pounds, gradually increase as tolerated Exercise/Sports Limitations: rest today, gradually increase as tolerated Shower/Bathe: no limitations Driving or Machine Use: Do Not Drive . Instructions / Follow-Up Instructions / Follow-Up You were admitted to [facility] with Viral Gastroenteritis, acute renal failure and diagnosed with the same. Stool cultures were obtained and negative for any infectious etiology. Your blood cultures were negative. Diarrhea improved with supportive care, immodium, Questran, and low fiber diet. Medications: Continue taking cholestyramine (Questran) to help bulk your stools, and immodium as needed for diarrhea. Drink plenty of fluids to help remain hydrated while still having loose stools. HOLD Lasix for 4 days! You have been given a potassium supplement to start taking with lasix in 4 days. Discuss this with your family physician, follow up within 1 week. Continue taking your other antihypertensive medications (metoprolol, amlodipine and lisinopril) as you have been prescribed. Continue taking your other medications as prescribed. Appointments Follow up with your Primary Care Provider within 1 week. An appointment has been requested for you. Current Hospital Diet Patient's current hospital diet: AHA Diet (Heart Healthy), Low Fiber Diet Discharge Diet Recommended Diet: AHA Diet (Heart Healthy) Procedures Procedures Performed: None Pending Studies Studies pending at discharge: no Medical Emergencies . Who to Call and When: Medical Emergencies: If at any time you feel your situation is an emergency, please call 911 immediately. . Non-Emergent Contact Non-Emergency issues call your: Primary Care Provider Call Non-Emergent contact if: you have a fever, temperature is above 100.5, your pain is not controlled, your pain is worsening, your pain is unusual for you, your pain is concerning you, you have any medication questions other concerns with your health. Call 911 or go directly to the Emergency Department if you experience any of the following: Chest pain, chest tightness, shortness of breath, abdominal pain , lightheadedness, dizziness, gastrointestinal bleeding, or have any other concerns regarding your health. . Past History Medical & Surgical History: (1) Gastroenteritis (2) Acute renal failure (3) HTN (hypertension) (4) Anemia (5) Cancer of right kidney . "Provider Documentation" section prepared by Angelita Blount. Attending Attestation: Pt seen/examined, and discharge care plan d/w PA Angelita Blount. I agree with her discharge instructions as outlined. Reji Wolff MD . VTE Core Measure Inpt VTE Proph given/why not?: SCD's
--- NOTE | 2017-06-27 13:21 | Discharge Summary ---
Discharge Summary Date of Service Jun 27, 2017. Discharge Summary Admission Date: Jun 22, 2017 at 22:05 Discharge Date: Jun 27, 2017 Discharge Disposition: Home Principal Diagnosis: Viral Gastroenteritis, Acute renal failure due to dehydration Problems/Secondary Diagnoses: Diarrhea/ viral gastroenteritis Acute renal failure Non anion gap Metabolic Acidosis secondary to diarrhea Hypokalemia Right-sided renal cell cancer CAD with prior stent Mod-severe Seizure disorder BPH Hyperlipidemia GERD Immunizations: Have You Had Influenza Vaccine: Unknown Influenza Vaccine Date: Apr 12, 2010 History of Tetanus Vaccine?: Yes History of Pneumococcal: Unknown History of Hepatitis B Vaccine: No Procedures: HEAD WITHOUT CONTRAST (CT) 06/22/17 Impression: Chronic and age-related change. No acute intracranial abnormality. CHEST ONE VIEW PORTABLE 06/22/17 IMPRESSION: Moderate cardiomegaly. Otherwise negative study CERVICAL SPINE W/O 06/22/17 IMPRESSION: Chronic and degenerative change. No acute process. ABD/PELVIS NO IV OR ORAL CONT 06/22/17 FINDINGS: Slight chronic basilar interstitial prominence. The 5 mm nodule left lung base is unchanged. Calcified granuloma medial left base is unchanged. The invasive right renal mass is noted and appears to be similar. The right renal calcifications including the calcification of the right renal pelvis is unaltered. Infiltrative change of the perinephric fat as well as potential vascular involvement are again noted. This is considered similar within limitations of an unenhanced scan as compared to the prior study. Multiple cystic calcific as well as renovascular findings of the left kidney are unchanged. Generalized bowel pattern is considered consistent with a generalized nonobstructive ileus. IMPRESSION: 1. No significant posttraumatic abnormality of the abdomen or pelvis. 2. Multiple additional findings previously described involving the right kidney, vasculature, and multiple additional nonacute findings produces described. 3. Mild nonobstructive ileus, most likely on a posttraumatic basis. Consultations: Nephrology Cardiology Medication Reconciliation New Medications: Aspirin (Aspirin EC Low Dose) 81 Mg Ectab 81 MG PO QAM for 30 Days, #30 TAB Cholestyramine (Cholestyramine Light) 4 Gm Pack 4 GM PO DAILY@1000 for 7 Days, #7 DOSE Potassium Chloride (Klor-Con M20) 20 Meq Tabcr 20 MEQ PO DAILY for 7 Days, #7 DOSE Sucralfate (Sucralfate) 1 Gm/10 Ml Susp 1 GM PO ACHS for 14 Days, #28 DOSE Continued Medications: Allopurinol (Zyloprim) 300 Mg Tab 300 MG PO QPM, TAB Amlodipine (Norvasc) 10 Mg Tab 10 MG PO QAM, TAB Cholecalciferol (Vitamin D-1000) 1,000 Unit Tab 1000 UNIT PO QAM Ferrous Sulfate (Ferrous Sulfate) 325 Mg Tab 325 MG PO BID, #60 TABS 2 Refills Finasteride (Proscar) 5 Mg Tab 5 MG PO HS, 0 Refills Furosemide (Lasix) 40 Mg Tab 40 MG PO QAM, TAB Isosorbide Mononitrate Ext Rel (Imdur Ext Rel) 30 Mg Tabcr 30 MG PO QAM, TAB Lisinopril (Zestril) 5 Mg Tab 5 MG PO QAM, TAB Loperamide Hcl (Imodium) 2 Mg Cap 2 MG PO prn ud, CAP Metoprolol Tartrate (Lopressor) (Lopressor) 25 Mg Tab 25 MG PO BID, TAB Nitroglycerin (Nitrostat) 0.4 Mg Sub 0.4 MG UT PRN PRN for Chest Pain, BTL Pantoprazole (Pantoprazole Sodium) 40 Mg Tab 40 MG PO BID, #60 TAB 5 Refills Phenobarbital (Phenobarbital) 64.8 Mg Tab 64.8 MG PO BID Primidone (Mysoline) 50 Mg Tab 100 MG PO DIRECTED , TAB FOR TREMORS-MAY TAKE UP TO 3XDAY. Simvastatin (Zocor) 20 Mg Tab 20 MG PO HS, 0 Refills Topiramate (Topamax) 25 Mg Tab 25 MG PO BID, TAB Discharge Exam The patient was seen and examined this morning. Pt reports doing well, he had one BM this morning which he reports was almost back to normal for him. He has been eating and drinking fluids without difficulty. He has been up walking with as tolerated, but OT noted him to be slightly unsteady with gait. He is adamant that he is going home. Pt does have a walker which he is using. He also is requesting home health be set up as he does not want to go to an inpatient rehab facility. ROS: Constitutional: No fever, sweats or chills Eyes: No diplopia, no worsening or blurred vision ENT: normal hearing, no trouble swallowing Respiratory: No cough, sputum, dyspnea at rest or on exertion Cardiovascular: No chest pain, tightness or palpitations Abdomen: No abd pain, no cramping, 1 BM today. Musculoskeletal: No joint pain, calf pain, swelling Neurologic: + weakness generalized improving, numbness/tingling, or balance problems Psychiatric: No anxiety or depression Skin: No rash or itch Physical Exam General: awake, alert, no apparent distress Head: Normocephalic, atraumatic ENT: PERRL, EOMI, no pharyngeal exudate, mucous membranes moist Chest: Clear to auscultation, on room air, no adventitious breath sounds Cardiac: Regular rate and rhythm, + holosystolic murmur RUSB grade III/, no JVD, normal peripheral pulses, good capillary refill Abdominal: NABS x 4 quadrants, nondistended, soft, nontender to palpation, no rebound, guarding or tenderness Extremities: Normal inspection, no peripheral edema or erythema, calfs nontender to palpation Psych: Normal mood and affect Neuro: AAO x 3, speech is clear, no peripheral sensory deficits Hospital Course History of Present Illness Source: patient, hospital records The patient is an 87-year-old male who presents to the ED with complaint of diarrhea that began 3 days prior to arrival, with abdominal pain, generalized weakness and fatigue, and reports falling over when bending over to tie his shoe just prior to arrival. He did fall a previous time and hit his right arm and head on the carpet. Physical Exam The patient is awake, alert and oriented 3, normocephalic and atraumatic, looks fatigued, lying in bed and in no acute distress. HEENT--PERRL, EOMI, mucous membranes and oropharynx dry. Neck--supple, no JVD or bruits, thyroid normal, trachea midline, no adenopathy. Heart--normal S1 and S2, no extra beats, no murmurs, rubs or gallops. Lungs--clear bilaterally with good air movement, no respiratory distress, no accessory muscle use. Abdomen--decreased bowel sounds, mildly distended, nontender. Extremities--no cyanosis, clubbing or edema. There are good distal pulses b/l. Dermatologic--normal skin turgor, normal color, warm and dry, no abnormal lymph nodes, no rash. Neurologic--cranial nerves II through XII grossly intact. Rheumatologic--normal range of motion. Psychiatric--normal affect. Hospital Course: 87yo male Diarrhea/enteritis - etiology likely viral as all other causes ruled out -C diff negative. Rotavirus negative. Stool cx neg for salmonella and shigella - No other symptoms/signs, however, to suggest enteric pathogen (salmonella, e. coli, etc). - Stool cx is negative- diarrhea is improving and the patient had increased appetite this morning. No need for GI consultation during admission. - Low fiber diet and can advance as tolerated - Supportive care, DC IVF - No antibiotics administered. - Since c. diff is negative continue cholestyramine, immodium and other supportive care - PT, OT evals due to generalized weakness - pt will go home with home health services Acute renal failure - RESOLVED Non anion gap Metabolic Acidosis secondary to diarrhea- RESOLVED - 2nd to volume depletion from diarrhea - Cr improved, bicarb also improved. D/c IVFs - Appreciate nephrology consultation. - Hold LYNDON. - resumed prior to admission as Cr and GFR improved. Hypokalemia - K 3.7 today. If more diarrhea will give additional 40 meq due to low level yesterday. - Lasix held during admission - Ordered supplemental potassium to start with resuming lasix in 4 days to allow diarrhea to completely resolve (start Lasix on 07/01/17 unless otherwise directed by PCP). Right-sided renal cell cancer - noted. CAD with prior stent - noted; had transient chest pain earlier this admission. - Seen by cardiology; no intervention recommended. - Abdominal pain overnight resolved, pt denies any type of cardiac sx Mod-severe - no symptoms referable to such; no acute CHF. Seizure disorder - continue outpatient medications. - Phenobarbital 64.8 mg BID, level acceptable - Continue on topamax 25 mg BID BPH - zamudio dc - Void trial. - Cont finasteride. Hyperlipidemia - statin agent. GERD - PPI. Epigastric pain - has h/o severe gastritis on multiple prior EGDs. These were done by Dr. Kwesi Gutiérrez. remains on PPI. - Cont carafate QID. - lipase/lfts earlier this admission were normal. DVT ppx: teds, scds CODE STATUS: FULL Disposition: From home, lives with daughter, dc home today. Follow up with PCP within 1 week. Attending Attestation and Discharge Note: Pt seen/examined, chart reviewed, discharge care plan d/w JILL Blount on day of discharge. I agree with the garcia components of her discharge summary. 87yo male with history of CAD, HTN, gastritis, and renal cell cancer who presented with several days of severe diarrhea leading to dehydration. At time of admission he had evidence of acute renal failure and non-anion gap metabolic acidosis from his diarrhea. C. diff toxin, rotavirus antigen, and stool cultures were all negative while here. He required copious hydration and even bicarbonate infusion due to his dehydration & metabolic derangements. Over his hospitalization the frequency of his diarrhea improved and stools started to bulk. Appetite returned and improved to normal. Electrolyte abnormalities were corrected prior to discharge. The exact etiology of his diarrhea was uncertain but suspected to be viral in nature. Admission creatinine was over 3, improving to 1.3 at discharge. He was seen by PT/OT, both of whom suggested inpatient rehab, but he refused such. He was agreeable to home health services. He will take several more days of cholestyramine then taper off. He was also prescribed a 2-week course of carafate for suspected gastritis. He will remain on his PPI twice a day as previous. If diarrhea was to recur he would need evaluation by [facility] GI. Lastly, the patient was seen by [facility] cardiology during this stay due to ischemic appearing changes on EKG. It was felt that his EKG changes were due in part to the stress of his diarrhea illness. Cardiac biomarkers were negative and he never had chest pain or dyspnea. Aspirin and statin therapy were advised to be continued. Discharge exam: gen - NAD mouth - MMM neck - no JVD heart - RRR, s1, s2, 2/6 holosystolic murmur RUSB lungs - CTA b/l abd - soft, NT, BS+ ext - no edema f/u with his PCP within 1 week of discharge was recommended Reji Wolff MD Total Time Spent: Greater than 30 minutes This includes examination of the patient, discharge planning, medication reconciliation, and communication with other providers. Discharge Instructions Please refer to the electronic Patient Visit Report (Discharge Instructions) for additional information. Follow-Up Follow up with your Primary Care Provider within 1 week. Additional Copies To Devyn Garzon M.D.
[2017-06-27 13:37] VITALS: BP 149/61; PULSE 67; TEMP 36.7; O2SAT 96
--- NOTE | 2017-06-27 14:44 | NUR ---
A: Patient discharged with all belongings and daughter via wheelchair by volunteer. Discharge instructions given and patient verbalizes understanding.
[2017-12-12] MEDS ORDERED: CLC/300 (23:33)
[2017-12-12] MEDS ORDERED: PANT40TA2 PO (23:34)
[2017-12-20] MEDS ORDERED: ASPI81TA28 PO (04:18)
[2017-12-20] MEDS ORDERED: MCRK20 PO (04:23)
[2017-12-27] MEDS ORDERED: IMDSR60 PO (10:03)
[2017-12-27] MEDS ORDERED: LPT40 PO (10:03)
[2017-12-27] MEDS ORDERED: CLC100 PO (10:03)
[2017-12-27] MEDS ORDERED: SPT/ PO (10:03)
[2017-12-27] MEDS ORDERED: LVQ250 PO (10:03)
[2017-12-27] MEDS ORDERED: METO50TA16 PO (10:03)
== END 2017-06-27 14:45 | disposition home health service (06) | DRG 683 ==
LOC: EDBD 17:30 → C.EDC 17:33 → C.2T 22:05 → ENRESERV 22:34 → C.MS4W 06-26 16:39
PROVIDERS: ADMIT Hospitalist; ATTEND Internal Medicine
DX: N17.9 Acute kidney failure, unspecified (principal); K56.7 Ileus, unspecified; E87.2 Acidosis; A08.4 Viral intestinal infection, unspecified; R07.9 Chest pain, unspecified; I10 Essential (primary) hypertension; E86.0 Dehydration; I25.10 Atherosclerotic heart disease of native coronary artery without angina pectoris; G40.909 Epilepsy, unspecified, not intractable, without status epilepticus; I35.0 Nonrheumatic aortic (valve) stenosis; E78.5 Hyperlipidemia, unspecified; M1A.9XX0 Chronic gout, unspecified, without tophus (tophi); N40.0 Benign prostatic hyperplasia without lower urinary tract symptoms; K21.9 Gastro-esophageal reflux disease without esophagitis; E87.6 Hypokalemia; Z95.818 Presence of other cardiac implants and grafts; Z87.891 Personal history of nicotine dependence; Z85.528 Personal history of other malignant neoplasm of kidney; Z86.718 Personal history of other venous thrombosis and embolism; Z86.711 Personal history of pulmonary embolism

== ENCOUNTER → 2017-07-04 | Outpatient (CLI) | payer OTHER ==
[~2017-07-04] MED LIST changes: +AMLO-114 PO; -AMLO10TA3 PO; +ASPEC81 PO; +IMD/2 PO; +MCRK20 PO; -PANT1TAB4 PO; +PRT40 PO; +QSTP PO
[2017-07-04 17:21] LABS: BASO % 0.2 %; BASO ABS # 0.02 K/uL (0-0.2); EOS % 2.5 %; EOS ABS # 0.21 K/uL (0-0.5); HEMATOCRIT 34.4 % (42-52); HEMOGLOBIN 11.4 g/dL (14.0-18.0); IG# 0.06 K/uL (0.00-0.02); LYMPH % 21.5 %; LYMPH ABS # 1.84 K/uL (1.2-3.4); MEAN CELL VOLUME 90.1 fL (80-100); MEAN CORPUSCULAR HEMOGLOBIN 29.8 pg (25-34); MEAN CORPUSCULAR HGB CONC 33.1 g/dl (32-36); MEAN PLATELET VOLUME 10.4 fL (7.4-10.4); MONO % 6.9 %; MONO ABS # 0.59 K/uL (0.11-0.59); NEUT % 68.2 %; NEUT ABS # 5.84 K/uL (1.4-6.5); PLATELET COUNT 195 K/uL (130-400); RED CELL DISTRIBUTION WIDTH CV 15.4 % (11.5-14.5); RED CELL DISTRIBUTION WIDTH SD 49.9 fL (36.4-46.3); WHITE BLOOD COUNT 8.56 K/uL (4.8-10.8)
[2017-07-04 17:31] LABS: ALBUMIN 3.5 gm/dl (3.4-5.0); ALT/SGPT 28 U/L (12-78); AST/SGOT 25 U/L (15-37); BLOOD UREA NITROGEN 17 mg/dl (7-18); CARBON DIOXIDE 18 mmol/L (21-32); GLUCOSE 81 mg/dl (70-99); POTASSIUM 3.4 mmol/L (3.5-5.1); SODIUM 140 mmol/L (136-145)
[2017-07-04 17:33] LABS: ALKALINE PHOSPHATASE 144 U/L (45-117); TOTAL PROTEIN 7.2 gm/dl (6.4-8.2)
[2017-07-05 06:11] LABS: HEMOGLOBIN A1C 5.5 % (4.5-5.6)
== END | disposition home or self-care (01) ==
LOC: C.LABBC 12:26
PROVIDERS: ATTEND Internal Medicine
DX: R73.09 Other abnormal glucose (principal); N18.3 Chronic kidney disease, stage 3 (moderate); K52.9 Noninfective gastroenteritis and colitis, unspecified

== ENCOUNTER → 2017-07-27 | Outpatient (CLI) | payer OTHER ==
[~2017-07-27] MED LIST changes: +OPTIRAY 320 IV PRN
--- NOTE | 2017-07-27 15:31 | DIAGNOSTIC IMAGING REPORT ---
CHEST, ABDOMEN, PELVIS CT WITH CONTRAST CT DOSE: 768.79 mGycm HISTORY: RENAL CELL CA TECHNIQUE: Multiaxial CT images of the chest , abdomen, and pelvis were performed following the intravenous administration of contrast. Oral contrast was also used for the abdomen and pelvis CT. A dose lowering technique was utilized adhering to the principles of ALARA. COMPARISON: Abdomen and pelvis CT 06/22/2017. Chest CT 04/26/2017. 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 Small hiatus hernia. No mediastinal or hilar lymphadenopathy. The heart remains mildly enlarged. Normal caliber thoracic aorta. The central pulmonary arteries are patent. No suspicious lytic or blastic osseous lesions within the chest. No pneumothorax. Small amount of mucoid material within the upper trachea. Otherwise, the airways are patent. Calcified granuloma seen within the base of the left lower lobe. Bibasilar linear densities consistent with subsegmental atelectasis. Tiny subpleural nodular densities within the left lung apex measuring 1 mm remain stable. These are likely benign. Decrease in size in the small nodule within the base of the left lower lobe on image 212. This now measures 4 mm, previously measuring 6 mm. No new pulmonary nodules. These subpleural nodule within the lingula on image 179 has also decreased in size and measures 4 mm. No pneumoperitoneum. No pneumatosis. No suspicious lytic or blastic osseous lesions within the abdomen or pelvis. No hepatic masses. The spleen, pancreas, left adrenal gland are unremarkable. Stable 12 mm right adrenal gland nodule. Stable hypodense lesions within the left kidney which favor cysts. 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 The prostate remains enlarged. The bladder is mildly to the standard and demonstrates mild thickening. This may be due to chronic elevation. Right-sided varicocele is again noted. No change in the 13 mm right inguinal lymph node which is concerning for metastatic disease. Colonic diverticulosis. No bowel wall thickening or obstruction. Postoperative changes at the gastroesophageal junction. Mild delayed distended fluid-filled stomach. However, there is no transition point to suggest an obstruction. Single mildly enlarged gastrohepatic lymph node remains unchanged. This measures approximately 14 mm. Large infiltrative mass centered within the right kidney and extending into the right renal sinus is not significant changed. This measures approximately 10.5 x 6.1 cm. There is tumor extension into the right renal vein and the IVC extending into the intrahepatic IVC. This does not clearly extend into the right atrium. There is again noted a 1.4 cm right renal pelvis stone, unchanged. A few additional right renal calculi are noted. No significant hydronephrosis. Soft tissue infiltration within the adjacent right perinephric fat with thickening of the posterior Gerota's fascia. This is concerning for spread of tumor. This is also unchanged. There is a metallic device surrounding the distal IVC. This remains unchanged. IMPRESSION: 1. Decrease in size in the lingular and left lower lobe pulmonary nodules. 2. No significant change in appearance of the large infiltrative right renal mass with associated invasion of the right renal vein and IVC. Right perinephric soft tissue infiltration is also unchanged. 3. Stable right renal calculi. No hydronephrosis. 4. Additional findings as described above. Electronically signed by: Maynor Soler M.D. 07/27/2017 3:30 PM Dictated Date/Time: 07/27/2017 3:11 PM
== END | disposition home or self-care (01) ==
LOC: C.CTS 12:41
PROVIDERS: ATTEND Nurse Practitioner Family
DX: C64.1 Malignant neoplasm of right kidney, except renal pelvis (principal); R91.8 Other nonspecific abnormal finding of lung field; N20.0 Calculus of kidney

== ENCOUNTER → 2018-02-07 | Outpatient (CLI) | payer OTHER ==
[~2018-02-07] MED LIST changes: -AMLO-114 PO; +AMLO10TA3 PO; -ASPEC81 PO; +ASPI81TA28 PO; -CRFUDL PO; -FRRS300 PO; -IMD/2 PO; +IMDSR60 PO; -ISOS30TA35 PO; +LPT40 PO; +LVQ250 PO; -METO25TA56 PO; +METO50TA16 PO; -OPTIRAY 320 IV PRN; +PANT40TA2 PO; -PRT40 PO; -QSTP PO; -SIMV20TA2 PO
[2018-02-07 15:11] VITALS: BP 136/53; PULSE 58; TEMP 36.7; O2SAT 97
--- NOTE | 2018-02-07 16:17 | Radiation Oncology Follow-Up ---
Radiation Oncology Follow-Up Date of Visit Feb 07, 2018. Reason For Visit One-month follow-up Radiation Completion Date 01/11/18 Diagnosis (1) Metastatic renal cell carcinoma Status: Chronic Stage: IV Permanent Comment: Status post completion of radiation therapy January 11, 2018 given for palliation due to hematuria caused by the right renal neoplasm. He received 3750 cGy. Last Edited By: Felicia Nails on Jan 18, 2018 09:54 History of Present Illness Mr. Marshall is an 87-year-old gentleman with a long-standing history of renal cell carcinoma who was previously treated with multiple cryo-ablative procedures by Dr. Perez from urology at [facility] in [place], [place]. More recently, the patient has been followed and evaluated by Dr. Call and Yoly Seth from [facility]. The patient has refused any treatment and has only elected to being monitor. He was most recently seen by Yoly Burger on 12/04/2017 and the plan was to repeat imaging studies in 3 months with consideration of Sutent if the shows continued progression of disease. Patient July 2017, he did have a CT of the chest/ abdomen/pelvis which did reveal pulmonary nodules and a stable mass involving the right kidney consistent with progressive renal cell carcinoma. More recently, he was complaining of hematuria and was brought to the emergency department. He was admitted to the hospital for further workup and evaluation. As per the patient, he has been in contact with Dr. Cisneros who also discussed options including arterial embolization and palliative radiation therapy. We are being asked to evaluate him for consideration of palliative external beam radiation therapy. Currently, the patient is relatively tired. He also states that he continues to have some bleeding with clots which causes some discomfort. Status post completion of radiation therapy January 11, 2017. He received 3750 cGy For palliation of bleeding caused by the right kidney neoplasm. Interim History He continues to have intermittent hematuria. This is mild. This greatly improved compared to prior emergency room evaluation. The bleeding usually occurs twice each day. It is noted especially at 5 AM. The blood is red. There has been passage of small clots on 2 occasions. Otherwise there has been no passage of clots. He denies any back pain or pelvis pain. There is been no increasing fatigue. Between the morning void and evening void the urine is clear. Allergies Coded Allergies: Penicillins (Verified Allergy, Severe, HIVES + THROAT SWELLING, 01/09/17) URTICARIA Home Medications Scheduled Allopurinol (Zyloprim), 300 MG PO QPM Amlodipine (Norvasc), 10 MG PO QAM Aspirin (Aspirin Ec), 81 MG PO DAILY Atorvastatin (Lipitor), 40 MG PO QPM Cholecalciferol (Vitamin D-1000), 1,000 UNIT PO QAM Finasteride (Proscar), 5 MG PO HS Furosemide (Lasix), 40 MG PO QAM Isosorbide Mononitrate (Isosorbide Mononitrate ER), 60 MG PO QAM Lisinopril (Zestril), 5 MG PO QAM Metoprolol Tartrate (Lopressor) (Lopressor), 50 MG PO BID Pantoprazole (Pantoprazole Sodium), 40 MG PO DAILY Phenobarbital (Phenobarbital), 64.8 MG PO BID Primidone (Mysoline), 100 MG PO DIRECTED Topiramate (Topamax), 25 MG PO BID Scheduled PRN Nitroglycerin (Nitrostat), 0.4 MG UT UD PRN for Chest Pain Review of Systems Gastrointestinal: Symptoms: Nausea Oral: Symptoms: No Problems Respiratory: Symptoms: SOB With Exertion, Productive Cough Sputum Character: white, yellow Urinary: Comments: hematuria Skin: Other Skin Symptoms: dry and pruitis treatment area per patient Additional Notes: He completed a distress management report and answered "no" to all questions other than a feeling of depression. Physical Exam Vital Signs Date Time Temp Pulse Resp B/P (MAP) Pulse Ox O2 Delivery O2 Flow Rate FiO2 02/07/18 15:11 36.7 58 24 136/53 97 ECOG Performance Status: 1 Fatigue: Mild General Appearance: no apparent distress Eyes: normal inspection, EOMI ENT: normal ENT inspection, hearing grossly normal Respiratory/Chest: lungs clear, no respiratory distress, no accessory muscle use Cardiovascular: regular rate, rhythm, no gallop, no murmur Abdomen: non tender, soft Extremities: no pedal edema Neurologic/Psychiatric: no motor/sensory deficits, alert, normal mood/affect Skin: warm/dry Pain Management Patient Reports Pain: No Initial Pain Intensity: 0.0 Pain Management Plan He denies pain therefore requires no pain management. Laboratory Laboratory Results: not applicable Pathology Pathology Results: not applicable Imaging Imaging Studies: not applicable Assessment & Plan Plan: He was seen and examined by Dr. Blanco. We have discussed his episodes of bleeding. These have been minimal. Laboratory studies have been checked at the end of treatment and his hemoglobin was stable. He is seeing Dr. Traore March 07, 2018. He will have blood work just prior to that visit. Should he have an increase amount of bleeding he can call our office for recheck laboratory studies. He will continue follow-up with his primary care provider and medical oncologist. A follow-up appointment with our office was not given. He may call if he has any questions or concerns. He will return only on an as -needed basis. Assessment & Plan (Attending) I agree with note created by Felicia Nails PA-C. I reviewed the patient's chart and information with her. I have examined and evaluated the patient. I reviewed relevant clinical information and answered the patient's and/or family' s questions. REGISTERED NURSE CARDIAC Total Time In Follow-Up I spent 20 minutes speaking to the patient in performing examination. I spent 15 minutes reviewing information and completing this note. [place] Total Time (Attending) In Follow-Up I spent 15 minutes examining and counseling the patient. REGISTERED NURSE CARDIAC Copy To Junior Cisneros M.D.; Devyn Garzon M.D.; Jerry Call D.O. Problem Qualifiers (1) Metastatic renal cell carcinoma: Laterality: right Qualified Codes: C64.1 - Malignant neoplasm of right kidney , except renal pelvis; C79.9 - Secondary malignant neoplasm of unspecified site
== END | disposition home or self-care (01) ==
LOC: C.ONC 14:53
PROVIDERS: ATTEND Physician Assistant Medical
DX: Z08 Encounter for follow-up examination after completed treatment for malignant neoplasm (principal); Z92.3 Personal history of irradiation; Z85.528 Personal history of other malignant neoplasm of kidney

== ENCOUNTER 2020-11-01 06:34 | Inpatient (IN) ==
[2020-11-01] MEDS ORDERED: ASPIRIN CHEW 324 MG PO STA (07:09)
--- NOTE | 2020-11-01 07:17 | Emergency Department Note ---
Impression & Plan Hypoxia, Chest pain ED Provider Note NAME: ELLEN ARGUELLES AGE: 89 SEX: M : 1930 ARRIVES VIA: Ambulance INFORMANT: Patient ED PROVIDER(S): Anselmo Olsen DO CHIEF COMPLAINT: chest pain and shortness of breath HPI: Patient is an 86-year-old male, presents the ER for shortness of breath and chest pain. Past medical history includes aortic stenosis, DVT with IVC filter in place, renal artery aneurysm, upper GI bleed and previous DC. Symptoms started this morning around 2 AM. He describes chest pain which she had 2 episodes of. Admits to previous heart attacks but this feels different. Denies any belly pain but admits to some watery diarrhea. Admits to nausea as well. No vomiting. Denies any dysuria, urgency, or frequency. Admits to taking blood thinners previously but has not taken any recently as his doctor told him not to. He denies any history of CHF. EMS brought him in and found him hypoxic at 70% on room air. He has no chest pain at this time. He notes his shortness of breath is nearly resolved. ROS: See above HPI for pertinent positives & negatives. A total of 10 systems reviewed and were otherwise negative. PAST MEDICAL HISTORY:See Below PAST SURGICAL HISTORY:See Below FAMILY HISTORY:See Below SOCIAL HISTORY:See Below HOME MEDICATIONS:See Below ALLERGIES:See Below VITALS:See Below PHYSICAL EXAMINATION: GENERAL: Sitting up in bed, alert, ill appearing, disheveled EYE EXAM: normal conjunctiva. OROPHARYNX: no exudate, no erythema, lips, buccal mucosa, and tongue normal and mucous membranes are moist NECK: supple, no nuchal rigidity, no adenopathy, non-tender LUNGS: Diminished bilateral with crackles. Normal chest wall mechanics HEART: no murmurs, S1 normal and S2 normal ABDOMEN: abdomen soft, non-tender, normo-active bowel sounds, no masses, no rebound or guarding. UPPER EXTREMITIES: upper extremities are grossly normal. LOWER EXTREMITIES: Pitting edema bilaterally NEURO EXAM: Normal sensorium, cranial nerves II-XII grossly intact, normal speech, no gross weakness of arms, no gross weakness of legs. MEDICAL DECISION MAKING: Patient is a 89-year-old male who presents the ER for the above complaints. He has no chest pain at this time. IV was established blood work was obtained. Chest x-ray showed pulmonary vascular congestion. Labs showed mild leukocytosis 11.9 thousand. No significant anemia. INR was unremarkable. BMP with slightly elevated chloride. LFTs bilirubin was unremarkable. Troponin was positive at 0.079 consistent with his previous admission. He has no chest pain at this time. Uncertain if this is secondary to aortic stenosis, ischemia, demand i schemia. EKG was no significant change from previous. Covid was negative. He was given IV Lasix. Discussed with the hospitalist as he rested comfortably on nasal cannula. Did not feel this consistent with a PE as he does have an IVC filter. Patient was lightly diuresed and discussed and admitted for further work-up with [facility] service. Triage Nursing notes reviewed. Limited review of prior medical records performed Vital Signs: reviewed and remarkable for HTN Differential diagnosis: Differential diagnoses includes but is not limited to pneumonia, bronchitis, COPD/Asthma exacerbation, pneumothorax, pulmonary embolism, congestive heart failure, acute coronary syndrome ER treatment provided: See below Diagnostics interpreted by me: ECG: Sinus rhythm rate 84 First-degree AV block Left axis ST depressions in the lateral leads Cardiac Monitoring: An order was placed for continuous cardiac monitoring. The monitor shows a rate of 86 with sinus rhythm. Laboratory studies: As stated above and show below. Imaging studies: Portable AP upright one view of the chest shows pulmonary vascular congestion Consultation(s): [facility] be admitted to Dr. Azalea Cross. Procedures: none Critical Care: I have personally spent 32 minutes of critical care time in the direct management of this patient. This includes bedside care, interpretation of diagnostic studies, and testing, discussion with consultants, patient, and family members, and other required patient management activities. This 32 minutes is in excess of all separately billable procedures. 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 He received 3750 cGy." Moderate aortic stenosis Palliative care encounter Upper GI bleeding Surgical History H/O colonoscopy H/O hernia repair diaphragmatic hernia History of appendectomy History of cholecystectomy History of cystoscopy History of intravascular stent placement Hx of tonsillectomy S/P IVC filter Status post cryoablation renal cancer Family History Mother Liver cancer Denies family history of Ovarian cancer Prostate cancer Breast cancer Lung cancer Colorectal cancer Social History Smoking Status: Former smoker Second Hand Exposure: No; Do You Dip or Chew Tobacco: No; Tobacco Cessation Education Requested by Patient: No Hx Alcohol Use: Yes Alcohol Intake Frequency: Monthly or Less Hx Substance Use: No Preferred Language: Lao [employer] Instructor Required: No Beliefs That Will Affect Care: None marital status: / Current Living Situation: Family Current Living Situation Comment: Lives with daughter Peggy current occupational status: retired Other Information That Helps Us Care for You: No Feels Safe at Home: Yes Safety Concerns: Feels Safe At This Time Dental Care, Regularly: No Physical Activity Frequency: Does not Exercise Seatbelt Use: always Sunscreen Use: No Assistive Devices: Cane, Denture - Upper, Denture - Lower, Glasses, Walker and Wheelchair Assistive Devices Comment: patient uses as needed for ambulation assistance Allergies Allergies Allergy/AdvReac Type Severity Reaction Status Date / Time Penicillins Allergy Severe HIVES + Verified 11/01/20 07:24 THROAT SWELLING Home Meds Home Medications Medication Instructions Recorded Confirmed allopurinol 300 mg PO DAILY 12/26/18 11/01/20 furosemide [Lasix] 40 mg PO DAILY 12/26/18 11/01/20 isosorbide mononitrate 60 mg PO QAM 12/26/18 11/01/20 phenobarbital 64.8 mg PO BID 12/26/18 11/01/20 primidone [Mysoline] 100 mg PO TID PRN 12/26/18 11/01/20 metoprolol tartrate 50 mg tablet 50 mg PO BID tab 04/01/19 11/01/20 aspirin 81 mg PO DAILY 11/01/20 11/01/20 atorvastatin 40 mg PO QPM 11/01/20 11/01/20 cholecalciferol (vitamin D3) 1,000 unit PO DAILY 11/01/20 11/01/20 [Vitamin D3] diphenoxylate-atropine [Lomotil] 1 tab PO DAILY PRN 11/01/20 11/01/20 fluorouracil 1 applic TOPICAL BID 11/01/20 11/01/20 folic acid 400 mcg PO DAILY 11/01/20 11/01/20 nitroglycerin 0.4 mg SUBLINGUAL UD PRN 11/01/20 11/01/20 psyllium [Metamucil] 1 packet PO TID PRN 11/01/20 11/01/20 topiramate 25 mg PO BID 11/01/20 11/01/20 Previous Rx's Medication Instructions Recorded lisinopril 5 mg tablet 5 mg PO DAILY #90 tab 06/03/20 amlodipine 10 mg tablet 10 mg PO DAILY #90 tab 09/13/20 finasteride 5 mg tablet 5 mg PO DAILY #90 tab 10/15/20 Results & Data (ED) Vital Signs Vital Signs - 24 hr 11/01/20 06:39 11/01/20 06:41 11/01/20 06:46 Temperature 36.9 C Temperature Source Oral Pulse Rate 84 85 84 Pulse Rate [Finger] Pulse Rate from SpO2 Sensor 84 85 Respiratory Rate 19 20 19 Respiratory Effort / Characteristics Spontaneous Labored Blood Pressure 157/73 H 157/73 H Blood Pressure [Left Arm] Blood Pressure Mean 101 101 Blood Pressure Mean [Left Arm] Blood Pressure Position [Left Arm] Pulse Oximetry 99 99 99 Oxygen Delivery Method Non-rebreather Oxygen Flow Rate 10 Sepsis New/Unexplained Change in Mental Status N/A Sepsis Action Taken by Nursing No Action Required Oxygen Flow Rate - Titration Pulse Oximetry Post Tiitration 11/01/20 06:50 11/01/20 06:54 11/01/20 07:00 Temperature Temperature Source Pulse Rate 80 78 Pulse Rate [Finger] Pulse Rate from SpO2 Sensor 81 78 Respiratory Rate 18 17 Respiratory Effort / Characteristics Spontaneous Labored Short of Breath Blood Pressure 149/56 H Blood Pressure [Left Arm] Blood Pressure Mean 87 Blood Pressure Mean [Left Arm] Blood Pressure Position [Left Arm] Pulse Oximetry 100 100 Oxygen Delivery Method Non-rebreather Oxygen Flow Rate 10 Sepsis New/Unexplained Change in Mental Status Sepsis Action Taken by Nursing Oxygen Flow Rate - Titration Pulse Oximetry Post Tiitration 11/01/20 07:01 11/01/20 07:10 11/01/20 07:13 Temperature Temperature Source Pulse Rate 78 78 Pulse Rate [Finger] Pulse Rate from SpO2 Sensor 78 78 Respiratory Rate 16 17 Respiratory Effort / Characteristics Blood Pressure Blood Pressure [Left Arm] Blood Pressure Mean Blood Pressure Mean [Left Arm] Blood Pressure Position [Left Arm] Pulse Oximetry 100 100 Oxygen Delivery Method Non-rebreather Oxygen Flow Rate 10 Sepsis New/Unexplained Change in Mental Status Sepsis Action Taken by Nursing Oxygen Flow Rate - Titration Pulse Oximetry Post Tiitration 11/01/20 07:20 11/01/20 07:30 11/01/20 07:31 Temperature Temperature Source Pulse Rate 76 76 77 Pulse Rate [Finger] Pulse Rate from SpO2 Sensor 76 77 77 Respiratory Rate 22 16 20 Respiratory Effort / Characteristics Blood Pressure 142/58 H Blood Pressure [Left Arm] Blood Pressure Mean 86 Blood Pressure Mean [Left Arm] Blood Pressure Position [Left Arm] Pulse Oximetry 100 100 100 Oxygen Delivery Method Non-rebreather Oxygen Flow Rate 5 Sepsis New/Unexplained Change in Mental Status Sepsis Action Taken by Nursing Oxygen Flow Rate - Titration Pulse Oximetry Post Tiitration 11/01/20 07:34 11/01/20 07:40 11/01/20 07:50 Temperature Temperature Source Pulse Rate 75 73 Pulse Rate [Finger] 77 Pulse Rate from SpO2 Sensor 75 73 Respiratory Rate 22 17 17 Respiratory Effort / Characteristics Blood Pressure Blood Pressure [Left Arm] 142/58 H Blood Pressure Mean Blood Pressure Mean [Left Arm] 86 Blood Pressure Position [Left Arm] Sitting Pulse Oximetry 100 100 100 Oxygen Delivery Method Non-rebreather Oxygen Flow Rate 5 Sepsis New/Unexplained Change in Mental Status Sepsis Action Taken by Nursing Oxygen Flow Rate - Titration Pulse Oximetry Post Tiitration 11/01/20 08:00 11/01/20 08:01 11/01/20 08:10 Temperature Temperature Source Pulse Rate 70 71 69 Pulse Rate [Finger] Pulse Rate from SpO2 Sensor 70 70 68 Respiratory Rate 16 17 17 Respiratory Effort / Characteristics Blood Pressure 134/68 Blood Pressure [Left Arm] Blood Pressure Mean 90 Blood Pressure Mean [Left Arm] Blood Pressure Position [Left Arm] Pulse Oximetry 100 100 100 Oxygen Delivery Method Oxygen Flow Rate Sepsis New/Unexplained Change in Mental Status Sepsis Action Taken by Nursing Oxygen Flow Rate - Titration Pulse Oximetry Post Tiitration 11/01/20 08:20 11/01/20 08:29 11/01/20 08:30 Temperature Temperature Source Pulse Rate 66 66 Pulse Rate [Finger] Pulse Rate from SpO2 Sensor 66 66 Respiratory Rate 17 16 Respiratory Effort / Characteristics Blood Pressure 129/54 L Blood Pressure [Left Arm] Blood Pressure Mean 79 Blood Pressure Mean [Left Arm] Blood Pressure Position [Left Arm] Pulse Oximetry 100 100 100 Oxygen Delivery Method Nasal Cannula Oxygen Flow Rate 5 Sepsis New/Unexplained Change in Mental Status Sepsis Action Taken by Nursing Oxygen Flow Rate - Titration 4 Pulse Oximetry Post Tiitration 100 11/01/20 08:31 11/01/20 08:40 11/01/20 08:50 Temperature Temperature Source Pulse Rate 65 67 68 Pulse Rate [Finger] Pulse Rate from SpO2 Sensor 66 67 68 Respiratory Rate 16 17 18 Respiratory Effort / Characteristics Blood Pressure Blood Pressure [Left Arm] Blood Pressure Mean Blood Pressure Mean [Left Arm] Blood Pressure Position [Left Arm] Pulse Oximetry 100 100 100 Oxygen Delivery Method Oxygen Flow Rate Sepsis New/Unexplained Change in Mental Status Sepsis Action Taken by Nursing Oxygen Flow Rate - Titration Pulse Oximetry Post Tiitration 11/01/20 09:00 11/01/20 09:01 11/01/20 09:10 Temperature Temperature Source Pulse Rate 73 71 68 Pulse Rate [Finger] Pulse Rate from SpO2 Sensor 74 71 68 Respiratory Rate 22 17 18 Respiratory Effort / Characteristics Blood Pressure 147/63 H Blood Pressure [Left Arm] Blood Pressure Mean 91 Blood Pressure Mean [Left Arm] Blood Pressure Position [Left Arm] Pulse Oximetry 99 98 100 Oxygen Delivery Method Oxygen Flow Rate Sepsis New/Unexplained Change in Mental Status Sepsis Action Taken by Nursing Oxygen Flow Rate - Titration Pulse Oximetry Post Tiitration 11/01/20 09:20 11/01/20 09:30 11/01/20 09:40 Temperature Temperature Source Pulse Rate 70 70 73 Pulse Rate [Finger] Pulse Rate from SpO2 Sensor 69 71 73 Respiratory Rate 18 18 22 Respiratory Effort / Characteristics Blood Pressure 142/62 H Blood Pressure [Left Arm] Blood Pressure Mean 88 Blood Pressure Mean [Left Arm] Blood Pressure Position [Left Arm] Pulse Oximetry 100 100 98 Oxygen Delivery Method Oxygen Flow Rate Sepsis New/Unexplained Change in Mental Status Sepsis Action Taken by Nursing Oxygen Flow Rate - Titration Pulse Oximetry Post Tiitration 11/01/20 09:42 11/01/20 09:50 11/01/20 10:00 Temperature Temperature Source Pulse Rate 78 76 Pulse Rate [Finger] 73 Pulse Rate from SpO2 Sensor 78 76 Respiratory Rate 22 20 18 Respiratory Effort / Characteristics Blood Pressure 154/63 H Blood Pressure [Left Arm] 142/62 H Blood Pressure Mean 93 Blood Pressure Mean [Left Arm] 88 Blood Pressure Position [Left Arm] Sitting Pulse Oximetry 99 99 97 Oxygen Delivery Method Nasal Cannula Oxygen Flow Rate 4 Sepsis New/Unexplained Change in Mental Status Sepsis Action Taken by Nursing Oxygen Flow Rate - Titration Pulse Oximetry Post Tiitration 11/01/20 10:01 11/01/20 10:10 11/01/20 10:20 Temperature Temperature Source Pulse Rate 75 80 73 Pulse Rate [Finger] Pulse Rate from SpO2 Sensor 75 81 73 Respiratory Rate 16 21 16 Respiratory Effort / Characteristics Blood Pressure Blood Pressure [Left Arm] Blood Pressure Mean Blood Pressure Mean [Left Arm] Blood Pressure Position [Left Arm] Pulse Oximetry 99 98 98 Oxygen Delivery Method Oxygen Flow Rate Sepsis New/Unexplained Change in Mental Status Sepsis Action Taken by Nursing Oxygen Flow Rate - Titration Pulse Oximetry Post Tiitration Laboratory Data Result diagrams: 11/01/20 06:45 11/01/20 06:45 Lab Results 11/01/20 11/01/20 11/01/20 Range/Units 06:45 06:45 06:45 WBC 11.92 H (4.8-10.8) K/uL RBC 3.66 L (4.7-6.1) M/uL Hgb 11.0 L (14.0-18.0) g/dL Hct 35.3 L (42-52) % MCV 96.4 (80-100) fL MCH 30.1 (25-34) pg MCHC 31.2 L (32-36) g/dL RDW Std Deviation 57.3 H (36.4-46.3) fL RDW Coeff of [place] 16.3 H (11.5-14.5) % Plt Count 207 (130-400) K/uL MPV 10.4 (7.4-10.4) fL Immature Gran % (Auto) 0.3 % Neut % (Auto) 73.3 % Lymph % (Auto) 18.6 % [place] % (Auto) 6.5 % Eos % (Auto) 1.2 % Baso % (Auto) 0.1 % Neut # (Auto) 8.74 H (1.4-6.5) K/uL Lymph # (Auto) 2.22 (1.2-3.4) K/uL [place] # (Auto) 0.78 H (0.11-0.59) K/uL Eos # (Auto) 0.14 (0-0.5) K/uL Baso # (Auto) 0.01 (0-0.2) K/uL Immature Gran # (Auto) 0.03 H (0.00-0.02) K/uL PT 10.0 (9.0-12.0) Seconds INR 1.0 (0.9-1.1) Sodium 142 (136-145) mmol/L Potassium 4.1 (3.5-5.1) mmol/L Chloride 112 H (98-107) mmol/L Carbon Dioxide 22 (21-32) mmol/L Anion Gap 8.0 (3-11) BUN 28 H (7-18) mg/dl Creatinine 1.40 (0.6-1.4) mg/dl Est Cr Clr Drug Dosing 34.4 ml/min Est GFR ( Amer) 51.3 Est GFR (Non-Af Amer) 44.2 BUN/Creatinine Ratio 20.1 H (10-20) Glucose 173 H (70-99) mg/dl Calcium 8.4 L (8.5-10.1) mg/dl Total Bilirubin 0.3 (0.2-1) mg/dl AST 26 (15-37) U/L ALT 28 (12-78) U/L Alkaline Phosphatase 206 H (45-117) U/L Troponin I 0.079 H* (0-0.045) ng/ml Total Protein 7.7 (6.4-8.2) gm/dl Albumin 3.5 (3.4-5.0) gm/dl Globulin 4.2 H (2.5-4.0) gm/dl Albumin/Globulin Ratio 0.8 L (0.9-2) Lipase 180 (73-393) U/L Phenobarbital (15-40) mcg/mL COVID-19 Eval Order SARS-CoV-2 (PCR) (Negative) Influenza Type A (PCR) (Neg) Influenza Type B (PCR) (Neg) RSV (RT-PCR) (Neg) SARS-CoV-2, RNA, NAAT 11/01/20 11/01/20 11/01/20 Range/Units 06:45 07:24 07:24 WBC (4.8-10.8) K/uL RBC (4.7-6.1) M/uL Hgb (14.0-18.0) g/dL Hct (42-52) % MCV (80-100) fL MCH (25-34) pg MCHC (32-36) g/dL RDW Std Deviation (36.4-46.3) fL RDW Coeff of [place] (11.5-14.5) % Plt Count (130-400) K/uL MPV (7.4-10.4) fL Immature Gran % (Auto) % Neut % (Auto) % Lymph % (Auto) % [place] % (Auto) % Eos % (Auto) % Baso % (Auto) % Neut # (Auto) (1.4-6.5) K/uL Lymph # (Auto) (1.2-3.4) K/uL [place] # (Auto) (0.11-0.59) K/uL Eos # (Auto) (0-0.5) K/uL Baso # (Auto) (0-0.2) K/uL Immature Gran # (Auto) (0.00-0.02) K/uL PT (9.0-12.0) Seconds INR (0.9-1.1) Sodium (136-145) mmol/L Potassium (3.5-5.1) mmol/L Chloride (98-107) mmol/L Carbon Dioxide (21-32) mmol/L Anion Gap (3-11) BUN (7-18) mg/dl Creatinine (0.6-1.4) mg/dl Est Cr Clr Drug Dosing ml/min Est GFR ( Amer) Est GFR (Non-Af Amer) BUN/Creatinine Ratio (10-20) Glucose (70-99) mg/dl Calcium (8.5-10.1) mg/dl Total Bilirubin (0.2-1) mg/dl AST (15-37) U/L ALT (12-78) U/L Alkaline Phosphatase (45-117) U/L Troponin I (0-0.045) ng/ml Total Protein (6.4-8.2) gm/dl Albumin (3.4-5.0) gm/dl Globulin (2.5-4.0) gm/dl Albumin/Globulin Ratio (0.9-2) Lipase (73-393) U/L Phenobarbital 38.1 (15-40) mcg/mL COVID-19 Eval Order CovFluRsv at [facility] SARS-CoV-2 (PCR) (Negative) Influenza Type A (PCR) (Neg) Influenza Type B (PCR) (Neg) RSV (RT-PCR) (Neg) SARS-CoV-2, RNA, NAAT Cancelled 11/01/20 Range/Units 07:24 WBC (4.8-10.8) K/uL RBC (4.7-6.1) M/uL Hgb (14.0-18.0) g/dL Hct (42-52) % MCV (80-100) fL MCH (25-34) pg MCHC (32-36) g/dL RDW Std Deviation (36.4-46.3) fL RDW Coeff of [place] (11.5-14.5) % Plt Count (130-400) K/uL MPV (7.4-10.4) fL Immature Gran % (Auto) % Neut % (Auto) % Lymph % (Auto) % [place] % (Auto) % Eos % (Auto) % Baso % (Auto) % Neut # (Auto) (1.4-6.5) K/uL Lymph # (Auto) (1.2-3.4) K/uL [place] # (Auto) (0.11-0.59) K/uL Eos # (Auto) (0-0.5) K/uL Baso # (Auto) (0-0.2) K/uL Immature Gran # (Auto) (0.00-0.02) K/uL PT (9.0-12.0) Seconds INR (0.9-1.1) Sodium (136-145) mmol/L Potassium (3.5-5.1) mmol/L Chloride (98-107) mmol/L Carbon Dioxide (21-32) mmol/L Anion Gap (3-11) BUN (7-18) mg/dl Creatinine (0.6-1.4) mg/dl Est Cr Clr Drug Dosing ml/min Est GFR ( Amer) Est GFR (Non-Af Amer) BUN/Creatinine Ratio (10-20) Glucose (70-99) mg/dl Calcium (8.5-10.1) mg/dl Total Bilirubin (0.2-1) mg/dl AST (15-37) U/L ALT (12-78) U/L Alkaline Phosphatase (45-117) U/L Troponin I (0-0.045) ng/ml Total Protein (6.4-8.2) gm/dl Albumin (3.4-5.0) gm/dl Globulin (2.5-4.0) gm/dl Albumin/Globulin Ratio (0.9-2) Lipase (73-393) U/L Phenobarbital (15-40) mcg/mL COVID-19 Eval Order SARS-CoV-2 (PCR) NEGATIVE (Negative) Influenza Type A (PCR) Negative (Neg) Influenza Type B (PCR) Negative (Neg) RSV (RT-PCR) Negative (Neg) SARS-CoV-2, RNA, NAAT Administered Medications Amlodipine Besylate (Amlodipine Besylate 5 Mg Tab) 10 mg PO DAILY [facility] Stop: 12/01/20 11:32 Last Admin: 11/01/20 12:40 Dose: 10 mg Documented by: [id number] Finasteride (Finasteride 5 Mg Tab) 5 mg PO DAILY [facility] Stop: 12/01/20 11:32 Last Admin: 11/01/20 12:41 Dose: 5 mg Documented by: [id number] Folic Acid (Folic Acid 400 Mcg Tab) 400 mcg PO DAILY [facility] Stop: 12/01/20 11:32 Last Admin: 11/01/20 12:39 Dose: 400 mcg Documented by: [id number] Isosorbide Mononitrate (Isosorbide [place] Extended Rel 60 Mg Tabcr) 60 mg PO QAM [facility] Stop: 12/01/20 11:32 Last Admin: 11/01/20 12:40 Dose: 60 mg Documented by: [id number] Lisinopril (Lisinopril 5 Mg Tab) 5 mg PO DAILY [facility] Stop: 12/01/20 11:32 Last Admin: 11/01/20 12:40 Dose: 5 mg Documented by: [id number] Metoprolol Tartrate (Metoprolol Tartrate 50 Mg Tab) 50 mg PO BID [facility] Stop: 12/01/20 11:32 Last Admin: 11/01/20 12:39 Dose: 50 mg Documented by: [id number] Phenobarbital (Phenobarbital 32.4 Mg Tab) 64.8 mg PO BID [facility] Stop: 12/01/20 11:32 Last Admin: 11/01/20 12:48 Dose: 64.8 mg Documented by: [id number] Potassium Chloride (Potassium Chloride 10 Meq Tabcr) 10 meq PO BID [facility] Stop: 12/01/20 11:32 Last Admin: 11/01/20 12:38 Dose: 10 meq Documented by: [id number] Primidone (Primidone 50 Mg Tab) 100 mg PO TID PRN PRN Reason: Tremor(S) Stop: 12/01/20 11:32 Last Admin: 11/01/20 12:39 Dose: 100 mg Documented by: [id number] Topiramate (Topiramate 25 Mg Tab) 25 mg PO BID [facility] Stop: 12/01/20 11:32 Last Admin: 11/01/20 12:38 Dose: 25 mg Documented by: [id number] Discontinued Medications Aspirin (Aspirin Chew 324 Mg) 324 mg PO NOW STA Stop: 11/01/20 07:10 Last Admin: 11/01/20 07:19 Dose: 324 mg Documented by: [id number] Furosemide (Furosemide 40 Mg/4 Ml Vial) 40 mg IV NOW STA Stop: 11/01/20 08:17 Last Admin: 11/01/20 08:22 Dose: 40 mg Documented by: [id number] Imaging Data Radiologist's Impression: Chest X-Ray 11/01/20 07:09 XR chest 1V portable CLINICAL HISTORY: Atypical chest pain COMPARISON STUDY: 12/24/2017 FINDINGS: The heart is enlarged. There is diffuse elevation of interstitium consistent with congestive failure and mild pulmonary edema. Clinical correlation is advocated is a bilateral infectious/inflammatory process could appear similar. There is a suspected trace left pleural effusion[ IMPRESSION: Cardiomegaly and radiographic evidence of congestive failure with mild pulmonary edema. Clinical correlation advocated as a bilateral infectious /inflammatory process could potentially appear similar ACT 112: Negative or not required by law. Electronically signed by: Jay Morris M.D. 11/01/2020 7:35 AM Discharge Plan Visit Data Chief Complaint: Shortness of Breath/Dyspnea Stated Complaint: sob ED Provider: Anselmo Olsen Discharge Problem: Hypoxia, Chest pain Patient Disposition: Admitted As Inpatient Discharge Instructions Interventions: ED Discharge Assessment Last Done: 11/01/20 11:14
--- NOTE | 2020-11-01 07:37 | XRay Report ---
XR chest 1V portable CLINICAL HISTORY: Atypical chest pain COMPARISON STUDY: 12/24/2017 FINDINGS: The heart is enlarged. There is diffuse elevation of interstitium consistent with congestiv e failure and mild pulmonary edema. Clinical correlation is advocated is a bilateral infectious/infla mmatory process could appear similar. There is a suspected trace left pleural effusion[ IMPRESSION: Cardiomegaly and radiographic evidence of congestive failure with mild pulmonary edema. C linical correlation advocated as a bilateral infectious/inflammatory process could potentially appear similar ACT 112: Negative or not required by law. Electronically signed by: Jay Morris M.D. 11/01/2020 7:35 AM
[2020-11-01 07:44] LABS: Basophils # (auto) 0.01 K/uL (0-0.2); Basophils % (auto) 0.1 %; Eosinophils # (auto) 0.14 K/uL (0-0.5); Eosinophils % (auto) 1.2 %; Hematocrit (blood only) 35.3 % (42-52); Immature Granulocytes # (auto) 0.03 K/uL (0.00-0.02); Immature Granulocytes % (auto) 0.3 %; Lymphocytes # (auto) 2.22 K/uL (1.2-3.4); Lymphocytes % (auto) 18.6 %; Mean Corpuscular Hemoglobin 30.1 pg (25-34); Mean Corpuscular Hgb Conc 31.2 g/dL (32-36); Mean Corpuscular Volume 96.4 fL (80-100); Mean Platelet Volume 10.4 fL (7.4-10.4); Monocytes # (auto) 0.78 K/uL (0.11-0.59); Monocytes % (auto) 6.5 %; Neutrophils # (auto) 8.74 K/uL (1.4-6.5); Neutrophils % (auto) 73.3 %; Platelet Count 207 K/uL (130-400); RDW Coefficient of Variation 16.3 % (11.5-14.5); RDW Standard Deviation 57.3 fL (36.4-46.3); Red Blood Count 3.66 M/uL (4.7-6.1); White Blood Count 11.92 K/uL (4.8-10.8)
[2020-11-01 07:52] LABS: Albumin Level 3.5 gm/dl (3.4-5.0); BUN Creatinine Ratio 20.1 (10-20); Calcium 8.4 mg/dl (8.5-10.1); Creatinine Clr Calc Pharmacy 34.4 ml/min; Est GFR (African American) 51.3; Est GFR (Non-African American) 44.2; Potassium 4.1 mmol/L (3.5-5.1)
[2020-11-01 07:58] LABS: Albumin Globulin Ratio 0.8 (0.9-2); Bilirubin,Total 0.3 mg/dl (0.2-1); Globulin 4.2 gm/dl (2.5-4.0); Total Protein 7.7 gm/dl (6.4-8.2); Troponin I 0.079 ng/ml (0-0.045)
[2020-11-01] MEDS ORDERED: FUROSEMIDE 40 MG/4 ML VIAL IV STA (08:16)
[2020-11-01 08:31] LABS: Influenza A virus by PCR Negative (Neg); Influenza B virus by PCR Negative (Neg); RSV by PCR Negative (Neg); SARS CoV2 RNA(COVID-19) InHosp NEGATIVE (Negative)
--- NOTE | 2020-11-01 11:07 | History & Physical Report ---
Date of Service November 01, 2020 Assessment & Plan (1) Acute CHF (congestive heart failure): Mr. Marsahll is an 89 year old male with a history of Moderate to Severe Aortic Stenosis, Mild to Moderate MR, CAD s/p LCx Stent, Metastatic Renal Cell Carcinoma, Hypertension, Dyslipidemia, LE DVT's with LLL PE s/p IVC Filter, Renal Artery Aneurysm, Stage III CKD, and Chronic Anemia who presents to ER today with SOB secondary to Pulmonary Edema/CHF. He awakened this morning at 0230 and needed to use the restroom. In the bathroom he felt mildly SOB and had a vague discomfort in his anterior chest -- he belched repeatedly and had a very loose watery bowel movement -- and his symptoms were immediately better. When asked about his chest discomfort -- he states that it has been happening for years, it is not related to exertion, and it is dissimilar to his prior anginal pain (which was pain in his upper right posterior thorax). He denies any chest discomfort or angina at this time. Patient subsequently went back to bed, fell asleep, and then woke up and felt more SOB. He walked to the bathroom and his shortness of breath was much worse. He states that he was gasping for breath, and daughter states that he was wheezing and gurgling. His daughter called 911. EMS documented that patient's O2 saturation was low at 70%. Supplemental O2 was initiated, and patient transported to [facility] ER. Patient given IV Lasix 40 mg in the ER and his breathing has improved dramatically. His CXR shows cardiomegaly and pulmonary edema. Initial Troponin I level is mildly elevated at 0.079 ng/ml. ProBNP is pending. Recommend the followin. Admit to Med-Surg with Telemetry. 2. 2 Gram low-sodium diet. 3. Continue Lasix 40 mg IV b.i.d.. 4. Add Potassium Chloride 10 mEq b.i.d.. 5. Closely monitor I&Os, body weights. 6. Continue Lopressor 50 mg b.i.d.. 7. Continue Lisinopril 5 mg daily. 8. Continue Imdur ER 60 mg daily. (2) Aortic stenosis: -- Moderate to severe , mild AI, mild to moderate MR, and mild TR on Echocardiogram 7/02/18. -- Repeat Echocardiogram to reassess valvular heart disease, LV systolic function. -- Consult Dr. Jerome Rios. (3) Coronary artery disease: CAD s/p LCx stent. No angina pectoris per patient. Initial Troponin I is mildly elevated -- likely secondary to myocardial O2 supply demand mismatch. Serial Troponin I levels. 1. Continue Lopressor 50 mg b.i.d.. 2. Continue Lisinopril 5 mg daily. 3. Continue Imdur ER 60 mg daily. 4. Continue Amlodipine 10 mg daily. 5. Continue Aspirin 81 mg daily. 6. Continue Atorvastatin 40 mg daily. (4) HTN (hypertension): 1. Continue Lopressor 50 mg b.i.d.. 2. Continue Lisinopril 5 mg daily. 3. Continue Imdur ER 60 mg daily. 4. Continue Amlodipine 10 mg daily. (5) Hyperlipidemia: -- Continue Atorvastatin 40 mg daily. (6) Metastatic renal cell carcinoma: Patient received brachytherapy followed by radiation treatments in the past. Currently not on any specific treatment regimen. (7) CKD (chronic kidney disease), stage III: -- Monitor daily BMP, serum Mg level. History of Present Illness Chief Complaint: -- SOB, Chest Pain -- Acute CHF. -- Aortic Stenosis. Primary Care Provider: Devyn Garzon MD Mr. 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 In the bathroom he felt mildly SOB and had a vague discomfort in his anterior chest -- he belched repeatedly and had a very loose watery bowel movement -- and his symptoms were immediately better. When asked about his chest discomfort -- he states that it has been happening for years, it is not related to exertion, and it is dissimilar to his prior angina (which was pain in his upper right posterior thorax). He denies any chest discomfort or angina at this time. Patient subsequently went back to bed, fell asleep, and then woke up and felt more SOB. He walked to the bathroom and his shortness of breath was much worse. He states that he was gasping for breath, and daughter states that he was wheezing and gurgling. His daughter called 911. EMS documented that patient's O2 saturation was low at 70%. Supplemental O2 was initiated, and patient transported to [facility] ER. Patient given IV Lasix 40 mg in the ER and his breathing has improved dramatically. His CXR shows cardiomegaly and pulmonary edema. Initial Troponin I level is mildly elevated at 0.079 ng/ml. ProBNP is pending. Patient denies any history of heart failure but he has a history of valvular heart disease. ECHOCARDIOGRAM 12/24/17: -- LVEF 55% to 60%. -- Mild concentric LVH with focal thickening of basal septum. No LVOT obstruction. -- Moderate to severe aortic stenosis. -- Mild AI. -- Mild to moderate mitral regurgitation. -- Mild tricuspid regurgitation. Allergies Allergy/AdvReac Type Severity Reaction Status Date / Time Penicillins Allergy Severe HIVES + Verified 11/01/20 07:24 THROAT SWELLING Home Medications Medication Instructions Recorded Confirmed Type allopurinol 300 mg PO DAILY 12/26/18 11/01/20 History isosorbide mononitrate 60 mg PO QAM 12/26/18 11/01/20 History phenobarbital 64.8 mg PO BID 12/26/18 11/01/20 History primidone [Mysoline] 100 mg PO TID PRN 12/26/18 11/01/20 History metoprolol tartrate 50 mg tablet 50 mg PO BID tab 04/01/19 11/01/20 History lisinopril 5 mg tablet 5 mg PO DAILY #90 tab 06/03/20 11/01/20 Rx amlodipine 10 mg tablet 10 mg PO DAILY #90 tab 09/13/20 11/01/20 Rx finasteride 5 mg tablet 5 mg PO DAILY #90 tab 10/15/20 11/01/20 Rx aspirin 81 mg PO DAILY 11/01/20 11/01/20 History atorvastatin 40 mg PO QPM 11/01/20 11/01/20 History cholecalciferol (vitamin D3) 1,000 unit PO DAILY 11/01/20 11/01/20 History [Vitamin D3] diphenoxylate-atropine [Lomotil] 1 tab PO DAILY PRN 11/01/20 11/01/20 History fluorouracil 1 applic TOPICAL BID 11/01/20 11/01/20 History folic acid 400 mcg PO DAILY 11/01/20 11/01/20 History nitroglycerin 0.4 mg SUBLINGUAL UD PRN 11/01/20 11/01/20 History psyllium 1 packet PO TID PRN 11/01/20 11/01/20 History topiramate 25 mg PO BID 11/01/20 11/01/20 History furosemide 80 mg PO DAILY #30 tab 11/05/20 Rx Past Med/Surg History Medical History (HFpEF) heart failure with preserved ejection fraction Anemia 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 He received 3750 cGy." Moderate aortic stenosis Palliative care encounter Upper GI bleeding Surgical History H/O colonoscopy H/O hernia repair diaphragmatic hernia History of appendectomy History of cholecystectomy History of cystoscopy History of intravascular stent placement Hx of tonsillectomy S/P IVC filter Status post cryoablation renal cancer Family History Mother Liver cancer Denies family history of Ovarian cancer Prostate cancer Breast cancer Lung cancer Colorectal cancer Social History Smoking Status: Former smoker Second Hand Exposure: No; Hx Alcohol Use: Yes Alcohol Intake Frequency: Monthly or Less Hx Substance Use: No Preferred Language: Divehi Communication Ability: Effective Trial Court Justice Required: No Beliefs That Will Affect Care: None marital status: / Current Living Situation: Family Current Living Situation Comment: Lives with daughter Peggy current occupational status: retired Feels Safe at Home: Yes Dental Care, Regularly: No Physical Activity Frequency: Does not Exercise Seatbelt Use: always Sunscreen Use: No Assistive Devices: Walker Review of Systems Review of Systems: All systems reviewed & are unremarkable except as noted in Subjective Physical Exam Physical Exam: GENERAL: Patient in no acute distress. HEENT: Head is atraumatic, normocephalic. EOM's intact. Facies symmetric. No perioral cyanosis. NECK: No JVD. JVP is slightly elevated sitting upright. Carotid upstrokes are + 2 bilaterally without obvious bruits CHEST/LUNGS: Bibasilar crackles. No wheezes. CVS: S1 and S2 are regular with a grade 2/6 crescendo-decrescendo systolic murmur at the RUSB and also audible at left sternal border. Aortic valve closure sound is diminished. No diastolic murmurs appreciated. No gallops or rubs. PMI is nondisplaced. No lifts, heaves, or thrills. No abdominal aortic or renal bruits. ABDOMINAL EXAM: Appears mildly distended. Bowel sounds are present. No masses, organomegaly, or tenderness. EXTREMITIES: No clubbing or cyanosis. +2 bipedal edema, +1 edema to proximal tibia. Intact radial pulses bilaterally. NEUROLOGIC EXAM: Patient is awake, alert, and oriented. Pleasant and cooperative. Answers questions appropriately. Speech is clear. Normal movement in all 4 extremities. pit clerk shows normal sinus rhythm with IVCD. EKG 11/01/20: -- NSR with a first-degree AV block. -- LVH with QRS widening.. -- QRS duration is 120 msec. -- Corrected QT interval is 486 msec. Results & Data Results & Data ([facility]) Vital Signs (Past 12 Hours) Vital Signs Temp Pulse Pulse Resp BP BP Pulse Ox 11/01/20 10:10 80 21 98 11/01/20 10:01 75 16 99 11/01/20 10:00 76 18 154/63 H 97 11/01/20 09:50 78 20 99 11/01/20 09:42 73 22 142/62 H 99 11/01/20 09:40 73 22 98 11/01/20 09:30 70 18 142/62 H 100 11/01/20 09:20 70 18 100 11/01/20 09:10 68 18 100 11/01/20 09:01 71 17 98 11/01/20 09:00 73 22 147/63 H 99 11/01/20 08:50 68 18 100 11/01/20 08:40 67 17 100 11/01/20 08:31 65 16 100 11/01/20 08:30 66 16 129/54 L 100 05/10/21 08:29 100 11/01/20 08:20 66 17 11/01/20 08:10 69 17 100 11/01/20 08:01 71 17 100 11/01/20 08:00 70 16 134/68 100 11/01/20 07:50 73 17 11/01/20 07:40 75 17 11/01/20 07:34 77 22 142/58 H 11/01/20 07:31 77 20 11/01/20 07:30 76 16 142/58 H 11/01/20 07:20 76 22 11/01/20 07:10 78 17 11/01/20 07:01 78 16 100 11/01/20 07:00 78 17 149/56 H 11/01/20 06:50 80 18 11/01/20 06:46 36.9 C 84 19 157/73 H 99 11/01/20 06:41 85 20 99 11/01/20 06:39 84 19 157/73 H 99 Laboratory Results Laboratory Results - last 24 hr 11/01/20 11/01/20 11/01/20 06:45 06:45 06:45 WBC 11.92 H RBC 3.66 L Hgb 11.0 L Hct 35.3 L MCV 96.4 MCH 30.1 MCHC 31.2 L RDW Std Deviation 57.3 H RDW Coeff of [place] 16.3 H Plt Count 207 MPV 10.4 Immature Gran % (Auto) 0.3 Neut % (Auto) 73.3 Lymph % (Auto) 18.6 [place] % (Auto) 6.5 Eos % (Auto) 1.2 Baso % (Auto) 0.1 Neut # (Auto) 8.74 H Lymph # (Auto) 2.22 [place] # (Auto) 0.78 H Eos # (Auto) 0.14 Baso # (Auto) 0.01 Immature Gran # (Auto) 0.03 H PT 10.0 INR 1.0 Sodium 142 Potassium 4.1 Chloride 112 H Carbon Dioxide 22 Anion Gap 8.0 BUN 28 H Creatinine 1.40 Est Cr Clr Drug Dosing 34.4 Est GFR ( Amer) 51.3 Est GFR (Non-Af Amer) 44.2 BUN/Creatinine Ratio 20.1 H Glucose 173 H Calcium 8.4 L Total Bilirubin 0.3 AST 26 ALT 28 Alkaline Phosphatase 206 H Troponin I 0.079 H* Total Protein 7.7 Albumin 3.5 Globulin 4.2 H Albumin/Globulin Ratio 0.8 L Lipase 180 Phenobarbital COVID-19 Eval Order SARS-CoV-2 (PCR) Influenza Type A (PCR) Influenza Type B (PCR) RSV (RT-PCR) SARS-CoV-2, RNA, NAAT 11/01/20 11/01/20 11/01/20 06:45 07:24 07:24 WBC RBC Hgb Hct MCV MCH MCHC RDW Std Deviation RDW Coeff of [place] Plt Count MPV Immature Gran % (Auto) Neut % (Auto) Lymph % (Auto) [place] % (Auto) Eos % (Auto) Baso % (Auto) Neut # (Auto) Lymph # (Auto) [place] # (Auto) Eos # (Auto) Baso # (Auto) Immature Gran # (Auto) PT INR Sodium Potassium Chloride Carbon Dioxide Anion Gap BUN Creatinine Est Cr Clr Drug Dosing Est GFR ( Amer) Est GFR (Non-Af Amer) BUN/Creatinine Ratio Glucose Calcium Total Bilirubin AST ALT Alkaline Phosphatase Troponin I Total Protein Albumin Globulin Albumin/Globulin Ratio Lipase Phenobarbital 38.1 COVID-19 Eval Order CovFluRsv at [facility] SARS-CoV-2 (PCR) Influenza Type A (PCR) Influenza Type B (PCR) RSV (RT-PCR) SARS-CoV-2, RNA, NAAT Cancelled 11/01/20 07:24 WBC RBC Hgb Hct MCV MCH MCHC RDW Std Deviation RDW Coeff of [place] Plt Count MPV Immature Gran % (Auto) Neut % (Auto) Lymph % (Auto) [place] % (Auto) Eos % (Auto) Baso % (Auto) Neut # (Auto) Lymph # (Auto) [place] # (Auto) Eos # (Auto) Baso # (Auto) Immature Gran # (Auto) PT INR Sodium Potassium Chloride Carbon Dioxide Anion Gap BUN Creatinine Est Cr Clr Drug Dosing Est GFR ( Amer) Est GFR (Non-Af Amer) BUN/Creatinine Ratio Glucose Calcium Total Bilirubin AST ALT Alkaline Phosphatase Troponin I Total Protein Albumin Globulin Albumin/Globulin Ratio Lipase Phenobarbital COVID-19 Eval Order SARS-CoV-2 (PCR) NEGATIVE Influenza Type A (PCR) Negative Influenza Type B (PCR) Negative RSV (RT-PCR) Negative SARS-CoV-2, RNA, NAAT Diagnostic Findings CXR 11/01/20: FINDINGS: The heart is enlarged. There is diffuse elevation of interstitium consistent with congestive failure and mild pulmonary edema. Clinical correlation is advocated is a bilateral infectious/inflammatory process could appear similar. There is a suspected trace left pleural effusion[ IMPRESSION: -- Cardiomegaly and radiographic evidence of congestive failure with mild pulmonary edema. Clinical correlation advocated as a bilateral infectious/inflammatory process could potentially appear similar. Code Status & VTE Plan VTE Prophylaxis Plan VTE Prophylaxis will be ordered: Yes Supervising Physician Co-Signing Physician Notes During my face to face encounter with the patient, I obtained a history and physical exam. I reviewed above note and agree with it. I discussed case with ANA CRISTINA Haney and patient. Patient will be admitted for acute CHF Will be placed on diuretics. PG Care Time/CCT Total # of Minutes Spent Total Time Spent with Patient: Total time spent is greater than 50% in coordination of care (as documented) at patient's floor/unit and/or counseling patient:45 Coding Level of Care Code 29892 Initial Inpt Care Lvl 3 Diagnoses Acute CHF (congestive heart failure) I50.9 Aortic stenosis I35.0 Coronary artery disease I25.10 HTN (hypertension) I10 Hyperlipidemia E78.5 Metastatic renal cell carcinoma C64.9 CKD (chronic kidney disease), stage III N18.3 Time Spent (min) 70
[2020-11-01] MEDS ORDERED: NITROGLYCERIN SL 0.4 MG/TAB TAB SL PRN (11:33)
[2020-11-01] MEDS ORDERED: ACETAMINOPHEN 325 MG TAB PO PRN (11:33)
[2020-11-01] MEDS ORDERED: ZOLPIDEM TARTRATE 5 MG TAB PO PRN (11:33)
[2020-11-01] MEDS ORDERED: MAGNESIUM HYDROXIDE SUSP 30 ML UDC PO PRN (11:33)
[2020-11-01] MEDS ORDERED: PRIMIDONE 50 MG TAB PO PRN (11:33)
[2020-11-01] MEDS ORDERED: ONDANSETRON INJ 2 MG/ML 2 ML VIAL IV PRN (11:33)
[2020-11-01] MEDS ORDERED: ALUMINUM/MAGNESIUM SUSP 30 ML UDC PO PRN (11:33)
[2020-11-01] MEDS ORDERED: DIPHENOXYLATE/ATROPINE 2.5/0.025MG TAB PO PRN (11:33)
[2020-11-01] MEDS ORDERED: PSYLLIUM 58.6% POWDER PACKET PO PRN (11:41)
[2020-11-01] MEDS: TOPIRAMATE 25 MG TAB PO SCH ×2 (12:38→20:49)
[2020-11-01] MEDS: POTASSIUM CHLORIDE 10 MEQ TABCR PO SCH ×2 (12:38→20:53)
[2020-11-01] MEDS: METOPROLOL TARTRATE 50 MG TAB PO SCH ×2 (12:39→20:53)
[2020-11-01] MEDS: FOLIC ACID 400 MCG TAB PO SCH (12:39)
[2020-11-01] MEDS: amLODIPine BESYLATE 5 MG TAB PO SCH (12:40)
[2020-11-01] MEDS: ISOSORBIDE MONO EXTENDED REL 60 MG TABCR PO SCH (12:40)
[2020-11-01] MEDS: lisinopril 5 MG TAB PO SCH (12:40)
[2020-11-01] MEDS: FINASTERIDE 5 MG TAB PO SCH (12:41)
[2020-11-01] MEDS ORDERED: Heparin IV Adult Wt-Based Standard *NO* Bolus Protocol IV SCH (13:02)
[2020-11-01] MEDS ORDERED: HEPARIN SODIUM/DEXTROSE 25,000 UNITS/500 ML BAG IV SCH (13:17)
[2020-11-01] MEDS ORDERED: HEPARIN SOD 5,000 UNIT/0.5 ML VIAL SQ SCH (14:00)
[2020-11-01] MEDS ORDERED: FUROSEMIDE 40 MG/4 ML VIAL IV SCH (14:00)
[2020-11-01 14:13] LABS: Partial Thromboplastin Ratio 0.8
[2020-11-01] MEDS: FUROSEMIDE 40 MG in SYRINGE 0 ML IV SCH (14:18)
--- NOTE | 2020-11-01 15:13 | Cardiology Consultation ---
Date of Consultation November 01, 2020 Assessment & Plan (1) Acute CHF (congestive heart failure): (2) NSTEMI (non-ST elevated myocardial infarction): (3) Aortic stenosis: The patient's initial troponin I was 0.79 NG per mL, repeat performed at 12:04 PM was 11.2 NG per mL. Continue heparin infusion with caution given h/o anemia. Patient comfortable at present. Continue IV furosemide 40 mg IV twice daily and supplemental oxygen. Echocardiogram reveals low normal LVEF of 54%, severe calcific aortic valve stenosis is noted with CW velocity over 5 m/s, mean gradient 54 mmHg, calculated aortic valve area of 0.7 to 0.8 cm. The patient is not a very robust candidate for interventional therapy. Continue aspirin, isosorbide mononitrate, metoprolol, and lisinopril. Continue prior to hospital treatment with atorvastatin. Plan on a trial of medical therapy. Will update family by phone. History of Present Illness Attending Physician: Royce Arce History of Present Illness Mr Marshall is an 89 year old male seen in cardiology consultation per the request of Jeff Haney PA-C and Dr Arce for the evaluation of acute pulmonary edema, aortic stenosis, and NSTEMI. Patient's primary site worker is Dr Rios of our practice. Colin describes recent pain in his chest that radiates down his arms that has been "going on for a long time "perhaps 5 to 7 years, usually with exertion. His mobility is somewhat limited and he does not do a great deal of walking. Recently, he started noticing similar symptoms that would occur while sleeping and would wake him up from sleep. This morning at 1:45 AM he had such an episode of this discomfort, he went to the bathroom and had a bowel movement and subsequently felt better and went back to bed. By this morning he was severely short of breath prompting presentation to the emergency department Pulmonary edema was noted on chest x-ray. EKG performed 11/01/2020 at 6:40 AM revealed sinus rhythm at 84 bpm with long first-degree AV block, and lateral ST segment depression most notably in the lateral precordial leads in the high lateral leads I and aVL. He received IV furosemide and supplemental oxygen, and a repeat EKG performed at 1411 reveals improvement in the lateral repolarization changes. At the time of my discussion with him in room 289-2 he was feeling comfortable, he described that he was feeling "perfectly fine "with complete resolution of his symptoms including resolution of chest discomfort and shortness of breath. Problem List: Coronary heart disease status post remote PCI to the circumflex territory Aortic valve stenosis History of DVT, with remote inferior vena cava filter placement, off of anticoagulation due to anemia Renal cell carcinoma-status post cryosurgery of a right renal mass. He follows with rheumatology due to his history of gout and osteoarthritis Allergies Allergy/AdvReac Type Severity Reaction Status Date / Time Penicillins Allergy Severe HIVES + Verified 11/01/20 07:24 THROAT SWELLING Home Medications Medication Instructions Recorded Confirmed Type allopurinol 300 mg PO DAILY 12/26/18 11/01/20 History furosemide [Lasix] 40 mg PO DAILY 12/26/18 11/01/20 History isosorbide mononitrate 60 mg PO QAM 12/26/18 11/01/20 History phenobarbital 64.8 mg PO BID 12/26/18 11/01/20 History primidone [Mysoline] 100 mg PO TID PRN 12/26/18 11/01/20 History metoprolol tartrate 50 mg tablet 50 mg PO BID tab 04/01/19 11/01/20 History lisinopril 5 mg tablet 5 mg PO DAILY #90 tab 06/03/20 11/01/20 Rx amlodipine 10 mg tablet 10 mg PO DAILY #90 tab 09/13/20 11/01/20 Rx finasteride 5 mg tablet 5 mg PO DAILY #90 tab 10/15/20 11/01/20 Rx aspirin 81 mg PO DAILY 11/01/20 11/01/20 History atorvastatin 40 mg PO QPM 11/01/20 11/01/20 History cholecalciferol (vitamin D3) 1,000 unit PO DAILY 11/01/20 11/01/20 History [Vitamin D3] diphenoxylate-atropine [Lomotil] 1 tab PO DAILY PRN 11/01/20 11/01/20 History fluorouracil 1 applic TOPICAL BID 11/01/20 11/01/20 History folic acid 400 mcg PO DAILY 11/01/20 11/01/20 History nitroglycerin 0.4 mg SUBLINGUAL UD PRN 11/01/20 11/01/20 History psyllium [Metamucil] 1 packet PO TID PRN 11/01/20 11/01/20 History topiramate 25 mg PO BID 11/01/20 11/01/20 History Patient History Medical History (HFpEF) heart failure with preserved ejection fraction Anemia 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 He received 3750 cGy." Moderate aortic stenosis Palliative care encounter Upper GI bleeding Surgical History H/O colonoscopy H/O hernia repair diaphragmatic hernia History of appendectomy History of cholecystectomy History of cystoscopy History of intravascular stent placement Hx of tonsillectomy S/P IVC filter Status post cryoablation renal cancer Family History Mother Liver cancer Denies family history of Ovarian cancer Prostate cancer Breast cancer Lung cancer Colorectal cancer Social History Smoking Status: Former smoker Second Hand Exposure: No; Do You Dip or Chew Tobacco: No; Tobacco Cessation Education Requested by Patient: No Hx Alcohol Use: Yes Alcohol Intake Frequency: Monthly or Less Hx Substance Use: No Preferred Language: Finnish Extrusion Manager Required: No Beliefs That Will Affect Care: None marital status: / Current Living Situation: Family Current Living Situation Comment: Lives with daughter Peggy current occupational status: retired Other Information That Helps Us Care for You: No Feels Safe at Home: Yes Safety Concerns: Feels Safe At This Time Dental Care, Regularly: No Physical Activity Frequency: Does not Exercise Seatbelt Use: always Sunscreen Use: No Assistive Devices: Cane, Denture - Upper, Denture - Lower, Glasses, Walker and Wheelchair Assistive Devices Comment: patient uses as needed for ambulation assistance Review of Systems Review of Systems: All systems reviewed & are unremarkable except as noted in HPI & below Physical Exam Physical Exam: Temp Pulse Resp BP Pulse Ox 36.6 C 67 20 146/66 H 98 11/01/20 14:31 11/01/20 14:56 11/01/20 14:31 11/01/20 14:31 11/01/20 14:31 Respiratory: no labored breathing and no cough Auscultation: + diminished lung sounds (decreased BS at the bases bilaterally ) Cardiovascular: Rate/Rhythm: regular rhythm Heart Sounds: + murmur (2/6 SM) Vessels: no JVD Extremities: + edema (1+ LE edema) Results & Data ([facility]) Vital Signs (Past 12 Hours) Vital Signs Temp Pulse Pulse Resp BP BP Pulse Ox 11/01/20 14:56 67 11/01/20 14:31 36.6 C 65 20 146/66 H 98 11/01/20 12:16 71 11/01/20 11:43 36.9 C 73 18 148/66 H 98 11/01/20 11:00 65 15 125/61 99 11/01/20 10:50 68 18 98 11/01/20 10:40 70 17 98 11/01/20 10:31 71 17 98 11/01/20 10:30 72 17 130/55 L 98 11/01/20 10:20 73 16 98 11/01/20 10:10 80 21 98 11/01/20 10:01 75 16 99 11/01/20 10:00 76 18 154/63 H 97 11/01/20 09:50 78 20 99 11/01/20 09:42 73 22 142/62 H 99 11/01/20 09:40 73 22 98 11/01/20 09:30 70 18 142/62 H 100 11/01/20 09:20 70 18 100 11/01/20 09:10 68 18 100 11/01/20 09:01 71 17 98 11/01/20 09:00 73 22 147/63 H 99 11/01/20 08:50 68 18 100 11/01/20 08:40 67 17 100 11/01/20 08:31 65 16 100 11/01/20 08:30 66 16 129/54 L 100 11/01/20 08:29 100 11/01/20 08:20 66 17 100 11/01/20 08:10 69 17 100 11/01/20 08:01 71 17 100 11/01/20 08:00 70 16 134/68 100 11/01/20 07:50 73 17 100 11/01/20 07:40 75 17 100 11/01/20 07:34 77 22 142/58 H 100 11/01/20 07:31 77 20 100 11/01/20 07:30 76 16 142/58 H 100 11/01/20 07:20 76 22 100 11/01/20 07:10 78 17 100 11/01/20 07:01 78 16 100 11/01/20 07:00 78 17 149/56 H 100 11/01/20 06:50 80 18 100 11/01/20 06:46 36.9 C 84 19 157/73 H 99 11/01/20 06:41 85 20 99 11/01/20 06:39 84 19 157/73 H 99 Laboratory Results Cardiac Enzymes 11/01/20 11/01/20 Range/Units 06:45 12:04 AST 26 (15-37) U/L Troponin I 0.079 H* 11.200 H* (0-0.045) ng/ml Coagulation 11/01/20 11/01/20 Range/Units 06:45 13:52 PT 10.0 (9.0-12.0) Seconds APTT 21.0 (21.0-31.0) Seconds CBC 11/01/20 Range/Units 06:45 WBC 11.92 H (4.8-10.8) K/uL RBC 3.66 L (4.7-6.1) M/uL Hgb 11.0 L (14.0-18.0) g/dL Hct 35.3 L (42-52) % Plt Count 207 (130-400) K/uL Neut # (Auto) 8.74 H (1.4-6.5) K/uL Lymph # (Auto) 2.22 (1.2-3.4) K/uL [place] # (Auto) 0.78 H (0.11-0.59) K/uL Eos # (Auto) 0.14 (0-0.5) K/uL Baso # (Auto) 0.01 (0-0.2) K/uL Comprehensive Metabolic Panel 11/01/20 Range/Units 06:45 Sodium 142 (136-145) mmol/L Potassium 4.1 (3.5-5.1) mmol/L Chloride 112 H (98-107) mmol/L Carbon Dioxide 22 (21-32) mmol/L BUN 28 H (7-18) mg/dl Creatinine 1.40 (0.6-1.4) mg/dl Glucose 173 H (70-99) mg/dl Calcium 8.4 L (8.5-10.1) mg/dl AST 26 (15-37) U/L ALT 28 (12-78) U/L Alkaline Phosphatase 206 H (45-117) U/L Total Protein 7.7 (6.4-8.2) gm/dl Albumin 3.5 (3.4-5.0) gm/dl Intake and Output 11/01/20 11/01/20 11/01/20 06:59 14:59 22:59 Output Total 650 / 650 Balance -650 / -650 Output: Urine 650 / 650 Other: Weight 84.5 kg Weight Measurement Method Built in [facility]
--- NOTE | 2020-11-01 18:26 | Communication Note ---
Date of Service: November 01, 2020 Per patient's request , I called and spoke to his daughter, Peggy and offered updates.
[2020-11-01 20:42] LABS: Partial Thromboplastin Ratio 1.6; Partial Thromboplastin Time 41.3 Seconds (21.0-31.0)
[2020-11-01] MEDS: ATORVASTATIN 40 MG TAB PO SCH (20:53)
[2020-11-02 03:26] LABS: Eosinophils # (auto) 0.14 K/uL (0-0.5); Eosinophils % (auto) 2.5 %; Hematocrit (blood only) 28.4 % (42-52); Hemoglobin 8.8 g/dL (14.0-18.0); Immature Granulocytes # (auto) 0.01 K/uL (0.00-0.02); Immature Granulocytes % (auto) 0.2 %; Lymphocytes # (auto) 1.65 K/uL (1.2-3.4); Lymphocytes % (auto) 29.2 %; Mean Corpuscular Hemoglobin 29.2 pg (25-34); Mean Corpuscular Volume 94.4 fL (80-100); Mean Platelet Volume 9.9 fL (7.4-10.4); Monocytes # (auto) 0.52 K/uL (0.11-0.59); Monocytes % (auto) 9.2 %; Neutrophils # (auto) 3.33 K/uL (1.4-6.5); Neutrophils % (auto) 58.9 %; Platelet Count 158 K/uL (130-400); RDW Coefficient of Variation 16.7 % (11.5-14.5); RDW Standard Deviation 57.6 fL (36.4-46.3); Red Blood Count 3.01 M/uL (4.7-6.1); White Blood Count 5.65 K/uL (4.8-10.8)
[2020-11-02 03:44] LABS: Creatinine Clr Calc Pharmacy 28.8 ml/min; Est GFR (African American) 41.4; Est GFR (Non-African American) 35.7; Magnesium 2.3 mg/dl (1.8-2.4); Potassium 4.3 mmol/L (3.5-5.1)
[2020-11-02 04:02] LABS: Partial Thromboplastin Ratio 2.1
[2020-11-02 04:09] LABS: Partial Thromboplastin Time 55.5 Seconds (21.0-31.0)
--- NOTE | 2020-11-02 06:03 | Electrocardiogram Report ---
Test Reason : Blood Pressure : / mmHG Vent. Rate : 084 BPM Atrial Rate : 084 BPM P-R Int : 296 ms QRS Dur : 120 ms QT Int : 412 ms P-R-T Axes : 000 -26 104 degrees QTc Int : 486 ms Sinus rhythm with 1st degree A-V block Left ventricular hypertrophy with QRS widening and repolarization abnormality Abnormal ECG When compared with ECG of 24-DEC-2017 19:34, QRS duration has increased Confirmed by Devaughn Black ([id number]) on 11/02/2020 6:03:11 AM Referred By: REFERRED SELF Confirmed By:Devaughn Black
[2020-11-02] MEDS: ISOSORBIDE MONO EXTENDED REL 60 MG TABCR PO SCH (09:10)
[2020-11-02] MEDS: CHOLECALCIFEROL 1,000 UNITS 25 MCG TAB PO SCH (09:10)
[2020-11-02] MEDS: POTASSIUM CHLORIDE 10 MEQ TABCR PO SCH ×2 (09:10→20:09)
[2020-11-02] MEDS: amLODIPine BESYLATE 5 MG TAB PO SCH (09:10)
[2020-11-02] MEDS: METOPROLOL TARTRATE 50 MG TAB PO SCH ×2 (09:10→20:08)
[2020-11-02] MEDS: FOLIC ACID 400 MCG TAB PO SCH (09:10)
[2020-11-02] MEDS: FINASTERIDE 5 MG TAB PO SCH (09:10)
[2020-11-02] MEDS: TOPIRAMATE 25 MG TAB PO SCH ×2 (09:10→20:08)
[2020-11-02] MEDS: allopurinoL 300 MG TAB PO SCH (09:10)
[2020-11-02] MEDS: ASPIRIN 81 MG ECTAB PO SCH (09:10)
[2020-11-02] MEDS: lisinopril 5 MG TAB PO SCH (09:10)
[2020-11-02] MEDS: FUROSEMIDE 40 MG in SYRINGE 0 ML IV SCH ×2 (09:11→16:29)
[2020-11-02] MEDS: POLYETHYLENE (MIRALAX) 17 GM PACK PO PRN (09:14)
--- NOTE | 2020-11-02 10:13 | Cardiology Progress Note ---
Date of Service November 02, 2020 Assessment & Plan (1) NSTEMI (non-ST elevated myocardial infarction): (2) (HFpEF) heart failure with preserved ejection fraction: (3) Aortic stenosis: Heparin infusion discontinued due to Hgb trending down to 8.8 g/dl. Continue ASA , metoprolol, statin, Imdur, furosemide. Severe with normal LVEF noted. I would speculate that based on subacute progression of symptoms , getting worse at home over days / weeks per daughter that patient has severe underlying CAD, and severe . He is frail. Hardly walks at baseline and cardiac catheterization felt to be high risk and of low yield for interventional target. Continue supportive care. SQ heparin for DVT prophylaxis to start tomorrow. Admission and Anticipated Discharge Date Admission Date: November 01, 2020 Subjective Patient seen in follow up. No acute distress. Vitals stable. 2/10 chest pain overnight and this am. Telemetry reveals SR in the 50s -70s. Review of Systems Review of Systems: All systems reviewed & are unremarkable except as noted in HPI & below Physical Exam Physical Exam: Temp Pulse Resp BP Pulse Ox 36.8 C 74 18 163/67 H 96 11/02/20 07:54 11/02/20 09:03 11/02/20 07:54 11/02/20 09:03 11/02/20 07:54 Constitutional: WD/WN, vitals as above Respiratory: Auscultation: + diminished lung sounds (mildly decrease BS at the bases ); no crackles and no wheezes Cardiovascular: Rate/Rhythm: regular rhythm Heart Sounds: + murmur (2/6 SM) Extremities: + edema (trace edema ) Gastrointestinal (Abdomen): normal bowel sounds, soft, nontender, no hep atosplenomegaly Neurologic: PERRL, EOMI, accommodation nl, no face palsy, no dysarthria Results & Data ([facility]) Vital Signs (Past 12 Hours) Vital Signs Temp Pulse Pulse Resp BP Pulse Ox 11/02/20 09:03 74 163/67 H 11/02/20 07:54 36.8 C 64 18 152/56 H 96 11/02/20 07:00 52 L 11/02/20 04:00 36.7 C 55 L 18 138/62 98 11/01/20 23:00 36.8 C 53 L 18 130/54 L 96 11/01/20 22:20 56 L Laboratory Results Cardiac Enzymes 11/01/20 11/02/20 Range/Units 12:04 03:12 Troponin I 11.200 H* 10.100 H* (0-0.045) ng/ml Coagulation 11/01/20 11/01/20 11/02/20 Range/Units 13:52 20:12 03:12 APTT 21.0 41.3 H 55.5 H* (21.0-31.0) Seconds CBC 11/02/20 Range/Units 03:12 WBC 5.65 (4.8-10.8) K/uL RBC 3.01 L (4.7-6.1) M/uL Hgb 8.8 L (14.0-18.0) g/dL Hct 28.4 L (42-52) % Plt Count 158 (130-400) K/uL Neut # (Auto) 3.33 (1.4-6.5) K/uL Lymph # (Auto) 1.65 (1.2-3.4) K/uL Brown # (Auto) 0.52 (0.11-0.59) K/uL Eos # (Auto) 0.14 (0-0.5) K/uL Baso # (Auto) 0.00 (0-0.2) K/uL Comprehensive Metabolic Panel 11/02/20 Range/Units 03:12 Sodium 141 (136-145) mmol/L Potassium 4.3 (3.5-5.1) mmol/L Chloride 113 H (98-107) mmol/L Carbon Dioxide 25 (21-32) mmol/L BUN 35 H (7-18) mg/dl Creatinine 1.67 H (0.6-1.4) mg/dl Glucose 109 H (70-99) mg/dl Calcium 8.0 L (8.5-10.1) mg/dl Intake and Output 11/01/20 11/02/20 11/02/20 22:59 06:59 14:59 Intake Total 468.8 / 860.883 322.083 / 860.883 110.833 / 110.833 Output Total 675 / 1875 550 / 1875 Balance -206.2 / -1014.117 -227.917 / -1014.117 110.833 / 110.833 Intake: IV 168.8 / 410.883 172.083 / 410.883 110.833 / 110.833 Heparin Sodium/Dextrose 25,000 168.8 / 410.883 172.083 / 410.883 110.833 / 110.833 units In 500 ml @ 1,250 UNITS/ HR 25 mls/hr IV .Q20H [facility] Rx#: [id number] Oral 300 / 450 150 / 450 Output: Urine 675 / 1875 550 / 1875 Other: Weight 82.2 kg Weight Measurement Method Built in [facility]
--- NOTE | 2020-11-02 19:45 | Communication Note ---
Date of Service: November 02, 2020 I called pt's family, Peggy, and provided updates.
[2020-11-02] MEDS: ATORVASTATIN 40 MG TAB PO SCH (20:07)
--- NOTE | 2020-11-02 22:52 | Hospitalist Progress Note ---
Date of Service November 02, 2020 Assessment & Plan (1) Acute CHF (congestive heart failure): Mr. Marshall is an 89 year old male with a history of Moderate to Severe Aortic Stenosis, Mild to Moderate MR, CAD s/p LCx Stent, Metastatic Renal Cell Carcinoma, Hypertension, Dyslipidemia, LE DVT's with LLL PE s/p IVC Filter, Renal Artery Aneurysm, Stage III CKD, and Chronic Anemia who presents to ER today with SOB secondary to Pulmonary Edema/CHF. He awakened this morning at 0230 and needed to use the restroom. In the bathroom he felt mildly SOB and had a vague discomfort in his anterior chest -- he belched repeatedly and had a very loose watery bowel movement -- and his symptoms were immediately better. When asked about his chest discomfort -- he states that it has been happening for years, it is not related to exertion, and it is dissimilar to his prior anginal pain (which was pain in his upper right posterior thorax). He denies any chest discomfort or angina at this time. Patient subsequently went back to bed, fell asleep, and then woke up and felt more SOB. He walked to the bathroom and his shortness of breath was much worse. He states that he was gasping for breath, and daughter states that he was wheezing and gurgling. His daughter called 911. EMS documented that patient's O2 saturation was low at 70%. Supplemental O2 was initiated, and patient transported to [facility] ER. Patient given IV Lasix 40 mg in the ER and his breathing has improved dramatically. His CXR shows cardiomegaly and pulmonary edema. Initial Troponin I level is mildly elevated at 0.079 ng/ml. ProBNP is pending. Patient has shown improvement as his oxygen requirements have decreased. Will continue Gram low-sodium diet. Continue Lasix 40 mg IV b.i.d.. Potassium Chloride 10 mEq b.i.d.. Closely monitor I&Os, body weights. Continue Lopressor 50 mg b.i.d.. Continue Lisinopril 5 mg daily. Continue Imdur ER 60 mg daily. (2) Aortic stenosis: -- Moderate to severe , mild AI, mild to moderate MR, and mild TR on Echocardiogram 12/24/17. -- Repeat Echocardiogram to reassess valvular heart disease, LV systolic function. -- Consult Dr. Jerome Rios. (3) Coronary artery disease: CAD s/p LCx stent. No angina pectoris per patient. Initial Troponin I is mildly elevated -- likely secondary to myocardial O2 supply demand mismatch. Serial Troponin I levels. 1. Continue Lopressor 50 mg b.i.d.. 2. Continue Lisinopril 5 mg daily. 3. Continue Imdur ER 60 mg daily. 4. Continue Amlodipine 10 mg daily. 5. Continue Aspirin 81 mg daily. 6. Continue Atorvastatin 40 mg daily. (4) HTN (hypertension): 1. Continue Lopressor 50 mg b.i.d.. 2. Continue Lisinopril 5 mg daily. 3. Continue Imdur ER 60 mg daily. 4. Continue Amlodipine 10 mg daily. (5) Hyperlipidemia: -- Continue Atorvastatin 40 mg daily. (6) Metastatic renal cell carcinoma: Patient received brachytherapy followed by radiation treatments in the past. Currently not on any specific treatment regimen. (7) CKD (chronic kidney disease), stage III: -- Monitor daily BMP, serum Mg level. Admission and Anticipated Discharge Date Admission Date: November 01, 2020 Subjective Patient reports breathing better. He is not at baseline. Patient reports he would like to live until he is 89. Review of Systems Review of Systems: All systems reviewed & are unremarkable except as noted in HPI & below Physical Exam Physical Exam: GENERAL: Patient in no acute distress. HEENT: Head is atraumatic, normocephalic. EOM's intact. Facies symmetric. No perioral cyanosis. NECK: No JVD. JVP is slightly elevated sitting upright. Carotid upstrokes are + 2 bilaterally without obvious bruits CHEST/LUNGS: Bibasilar crackles. No wheezes. CVS: S1 and S2 are regular with a grade 2/6 crescendo-decrescendo systolic murmur at the RUSB and also audible at left sternal border. Aortic valve closure sound is diminished. No diastolic murmurs appreciated. No gallops or rubs. PMI is nondisplaced. No lifts, heaves, or thrills. No abdominal aortic or renal bruits. ABDOMINAL EXAM: Appears mildly distended. Bowel sounds are present. No masses, organomegaly, or tenderness. EXTREMITIES: No clubbing or cyanosis. +2 bipedal edema, +1 edema to proximal tibia. Intact radial pulses bilaterally. NEUROLOGIC EXAM: Patient is awake, alert, and orientedx1. Pleasant and cooperative. Answers questions appropriately. Speech is clear. Normal movement in all 4 extremities. Results & Data Results & Data ([facility]) Vital Signs (Past 12 Hours) Vital Signs Temp Pulse Pulse Resp BP Pulse Ox 11/02/20 19:00 37.3 C 68 18 156/66 H 68 L 11/02/20 16:28 60 118/61 11/02/20 15:33 37.2 C 62 16 144/51 H 97 11/02/20 15:00 66 11/02/20 11:08 36.9 C 77 17 155/54 H 96 PG Care Time/CCT Total # of Minutes Spent Total Time Spent with Patient: Total time spent is greater than 50% in coordination of care (as documented) at patient's floor/unit and/or counseling patient: Coding Level of Care Code 47525 Subseq Hosp Care Lvl 3 Diagnoses Acute CHF (congestive heart failure) I50.9 Aortic stenosis I35.0 Coronary artery disease I25.10 HTN (hypertension) I10 Hyperlipidemia E78.5 Metastatic renal cell carcinoma C64.9 CKD (chronic kidney disease), stage III N18.3 Time Spent (min) 35
--- NOTE | 2020-11-02 23:09 | Electrocardiogram Report ---
Test Reason : Blood Pressure : / mmHG Vent. Rate : 066 BPM Atrial Rate : 066 BPM P-R Int : 272 ms QRS Dur : 116 ms QT Int : 436 ms P-R-T Axes : 041 -22 062 degrees QTc Int : 457 ms Sinus rhythm with 1st degree A-V block Left ventricular hypertrophy with QRS widening and repolarization abnormality Abnormal ECG When compared with ECG of 01-NOV-2020 06:40, ST less depressed in Lateral leads Confirmed by Devaughn Black ([id number]) on 11/02/2020 11:08:44 PM Referred By: REFERRED SELF Confirmed By:Devaughn Black
[2020-11-03 06:17] LABS: Basophils # (auto) 0.01 K/uL (0-0.2); Basophils % (auto) 0.2 %; Eosinophils # (auto) 0.24 K/uL (0-0.5); Eosinophils % (auto) 4.2 %; Hematocrit (blood only) 30.4 % (42-52); Hemoglobin 9.5 g/dL (14.0-18.0); Immature Granulocytes # (auto) 0.01 K/uL (0.00-0.02); Immature Granulocytes % (auto) 0.2 %; Lymphocytes # (auto) 1.61 K/uL (1.2-3.4); Lymphocytes % (auto) 28.3 %; Mean Corpuscular Hemoglobin 28.9 pg (25-34); Mean Corpuscular Hgb Conc 31.3 g/dL (32-36); Mean Corpuscular Volume 92.4 fL (80-100); Mean Platelet Volume 10.1 fL (7.4-10.4); Monocytes # (auto) 0.65 K/uL (0.11-0.59); Monocytes % (auto) 11.4 %; Neutrophils # (auto) 3.17 K/uL (1.4-6.5); Neutrophils % (auto) 55.7 %; Platelet Count 147 K/uL (130-400); RDW Coefficient of Variation 16.4 % (11.5-14.5); RDW Standard Deviation 55.4 fL (36.4-46.3); Red Blood Count 3.29 M/uL (4.7-6.1); White Blood Count 5.69 K/uL (4.8-10.8)
--- NOTE | 2020-11-03 06:28 | Electrocardiogram Report ---
Test Reason : Blood Pressure : / mmHG Vent. Rate : 054 BPM Atrial Rate : 054 BPM P-R Int : 264 ms QRS Dur : 110 ms QT Int : 526 ms P-R-T Axes : -16 087 094 degrees QTc Int : 498 ms Sinus bradycardia with 1st degree A-V block Minimal voltage criteria for LVH, may be normal variant Prolonged QT Abnormal ECG When compared with ECG of 01-NOV-2020 14:11, Questionable change in QRS axis ST now depressed in Anterior leads T wave inversion now evident in Anterior leads Confirmed by Devaughn Black ([id number]) on 11/03/2020 6:28:21 AM Referred By: REFERRED SELF Confirmed By:Devaughn Black
[2020-11-03 06:41] LABS: BUN Creatinine Ratio 28.3 (10-20); Calcium 8.1 mg/dl (8.5-10.1); Creatinine Clr Calc Pharmacy 28.7 ml/min; Est GFR (African American) 42.7; Est GFR (Non-African American) 36.8; Magnesium 2.5 mg/dl (1.8-2.4); Potassium 4.3 mmol/L (3.5-5.1)
[2020-11-03 07:10] LABS: Troponin I 3.84 ng/ml (0-0.045)
[2020-11-03] MEDS: FUROSEMIDE 40 MG in SYRINGE 0 ML IV SCH ×2 (09:20→16:11)
[2020-11-03] MEDS: POTASSIUM CHLORIDE 10 MEQ TABCR PO SCH ×2 (09:20→20:20)
[2020-11-03] MEDS: ISOSORBIDE MONO EXTENDED REL 60 MG TABCR PO SCH (09:21)
[2020-11-03] MEDS: TOPIRAMATE 25 MG TAB PO SCH ×2 (09:22→20:20)
[2020-11-03] MEDS: FINASTERIDE 5 MG TAB PO SCH (09:22)
[2020-11-03] MEDS: lisinopril 5 MG TAB PO SCH (09:23)
[2020-11-03] MEDS: amLODIPine BESYLATE 5 MG TAB PO SCH (09:24)
[2020-11-03] MEDS: ASPIRIN 81 MG ECTAB PO SCH (09:24)
[2020-11-03] MEDS: METOPROLOL TARTRATE 50 MG TAB PO SCH ×2 (09:24→20:19)
[2020-11-03] MEDS: allopurinoL 300 MG TAB PO SCH (09:25)
[2020-11-03] MEDS: CHOLECALCIFEROL 1,000 UNITS 25 MCG TAB PO SCH (09:25)
[2020-11-03] MEDS: FOLIC ACID 400 MCG TAB PO SCH (09:25)
[2020-11-03] MEDS: HEPARIN SOD 5,000 UNIT/0.5 ML VIAL SQ SCH ×2 (09:27→20:20)
--- NOTE | 2020-11-03 16:43 | Cardiology Progress Note ---
Date of Service November 03, 2020 Assessment & Plan (1) NSTEMI (non-ST elevated myocardial infarction): (2) Aortic stenosis: (3) (HFpEF) heart failure with preserved ejection fraction: Non-ST segment elevation myocardial infarction complicated by congestive heart failure, severe aortic stenosis, presumed underlying severe coronary heart disease. Poor candidate for interventional therapy. Stable degree of acute kidney injury noted, creatinine 1.6, acceptable. Hemoglobin stable at 9.5, having discontinued unfractioned heparin 11/02/2020. Continue furosemide 40 mg IV twice daily, aspirin, Imdur, lisinopril, metoprolol. Continue subcutaneous heparin for DVT prophylaxis. Admission and Anticipated Discharge Date Admission Date: November 01, 2020 Subjective Patient seen in cardiology follow-up. He was out of bed and sitting the bedside chair. Denies chest discomfort. Overall looks much more energetic today. 1.7 L of urine output noted. Troponin trending down, creatinine stable. Review of Systems Review of Systems: All systems reviewed & are unremarkable except as noted in HPI & below Physical Exam Physical Exam: Temp Pulse Resp BP Pulse Ox 36.9 C 96 H 16 150/58 H 92 11/03/20 15:18 11/03/20 15:18 11/03/20 15:18 11/03/20 15:18 11/03/20 15:18 Constitutional: Chronically ill and frail in appearance without distress Respiratory: no cough and not tachypneic Auscultation: + diminished lung sounds (Mildly decreased breath sounds bilateral at the bases, no rales or rhonchi) Cardiovascular: Rate/Rhythm: regular rhythm Heart Sounds: + murmur (2/6 systolic murmur) Extremities: + edema (Trace bilateral lower extremity edema) Gastrointestinal (Abdomen): normal bowel sounds, soft, nontender, no hepatosplenomegaly Neurologic: PERRL, EOMI, accommodation nl, no face palsy, no dysarthria Results & Data ([facility]) Vital Signs (Past 12 Hours) Vital Signs Temp Pulse Pulse Resp BP Pulse Ox 11/03/20 15:18 36.9 C 96 H 16 150/58 H 92 11/03/20 15:00 56 L 11/03/20 09:37 178/65 H 11/03/20 07:30 54 L 11/03/20 07:16 36.5 C 67 16 92/61 L 94 Laboratory Results Cardiac Enzymes 11/03/20 Range/Units 05:57 Troponin I 3.840 H* (0-0.045) ng/ml CBC 11/03/20 Range/Units 05:57 WBC 5.69 (4.8-10.8) K/uL RBC 3.29 L (4.7-6.1) M/uL Hgb 9.5 L (14.0-18.0) g/dL Hct 30.4 L (42-52) % Plt Count 147 (130-400) K/uL Neut # (Auto) 3.17 (1.4-6.5) K/uL Lymph # (Auto) 1.61 (1.2-3.4) K/uL Davison # (Auto) 0.65 H (0.11-0.59) K/uL Eos # (Auto) 0.24 (0-0.5) K/uL Baso # (Auto) 0.01 (0-0.2) K/uL Comprehensive Metabolic Panel 11/03/20 Range/Units 05:57 Sodium 142 (136-145) mmol/L Potassium 4.3 (3.5-5.1) mmol/L Chloride 111 H (98-107) mmol/L Carbon Dioxide 28 (21-32) mmol/L BUN 46 H (7-18) mg/dl Creatinine 1.63 H (0.6-1.4) mg/dl Glucose 103 H (70-99) mg/dl Calcium 8.1 L (8.5-10.1) mg/dl Intake and Output 11/03/20 11/03/20 11/03/20 06:59 14:59 22:59 Intake Total 200 / 1560.833 395 / 395 Output Total 800 / 800 Balance 200 / -664.167 -405 / -405 Intake: Oral 200 / 1450 395 / 395 Output: Urine 800 / 800 Other: Weight 79.7 kg Weight Measurement Method Standing Scale Diagnostic Findings EKG performed today 11/03/2020 reviewed independently revealed sinus bradycardia 59 bpm with first-degree AV block, T wave inversions noted in leads V2 and V4 as well as the inferior leads, relatively stable findings.
--- NOTE | 2020-11-03 18:41 | Hospitalist Progress Note ---
Date of Service November 03, 2020 Assessment & Plan (1) Acute CHF (congestive heart failure): Acute on chronic diastolic CHF Mr. 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 EMS documented that patient's O2 saturation was low at 70%. Supplemental O2 was initiated, and patient transported to [facility] ER. Patient given IV Lasix 40 mg in the ER and his breathing has improved dramatically. His CXR shows cardiomegaly and pulmonary edema. Initial Troponin I level is mildly elevated at 0.079 ng/ml. ProBNP was elevated at 7150 NSTEMI complicated by CHF, severe aortic stenosis, and presumed underlying severe CAD He is deemed a poor candidate for interventional therapy Improving with diuresis Appreciate cardiology consultation Continue Lasix 40 mg IV b.i.d.. Continue Potassium Chloride 10 mEq b.i.d.. Closely monitor I&Os, body weights. He is -1.7 L net and weight is down 5 kg Continue Lopressor 50 mg b.i.d.. Continue Lisinopril 5 mg daily. Continue Imdur ER 60 mg daily. (2) Aortic stenosis: Moderate -- Moderate to severe , mild AI, mild to moderate MR, and mild TR on Echocardiogram 12/24/17. Echocardiogram here LVH, LVEF 52%, small apical wall motion abnormality with hypokinesis of lateral apical segment, mild MR, mild TR, severe aortic stenosis, ALICIA area 0.7-0.8 cm, mild AI, mild pulmonary hypertension-progressed aortic valve stenosis Poor interventional candidate as per cardiology Medical management (3) Coronary artery disease: With NSTEMI History of CAD s/p LCx stent. No angina pectoris per patient on this admission. Troponin peaked at 11.2 and now trending back downward Poor interventional candidate as per cardiology Continue medically manage Heparin drip was discontinued after 1 day or so due to a drop in hemoglobin Continue Lopressor, lisinopril, Imdur, amlodipine, aspirin, atorvastatin (4) HTN (hypertension): Blood pressures here are controlled mildly elevated Continue medications as above (5) Hyperlipidemia: -- Continue Atorvastatin 40 mg daily. 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: No acute issues Continue finasteride (12) Essential tremor: No acute issues Continue home primidone, phenobarbital, Topamax (13) Anemia: Hemoglobin did drop on heparin drip but now back up to 9.5 With very minimal gross hematuria likely secondary to known renal cell carcinoma in the setting of anticoagulation Heparin drip now held and on low-dose subcu heparin Some anemia secondary to anemia of chronic disease Follow CBC and transfuse as needed (14) Gross hematuria: As above, now off heparin drip Follow and if worsens, consult urology given large renal mass (15) DVT prophylaxis: Heparin drip now transition SQ heparin Disposition-continued stay for diuresis PT/OT consultations placed to ensure he is stable for discharge to home given hospital stay and advanced age Admission and Anticipated Discharge Date Admission Date: November 01, 2020 Subjective Patient feeling improved and is putting out a lot of urine. He denies any chest pain or significant shortness of breath, his leg swelling is much improved since admission. He is eating and drinking, no abdominal pains. Telemetry with sinus bradycardia and first-degree AV block with rates in the 50s to 60s, PVCs. Review of Systems Review of Systems: All systems reviewed & are unremarkable except as noted in HPI & below Reports having 2 episodes today of a small amount of bright red blood in his urine Physical Exam Constitutional: WD/WN, vitals as above Eyes: + anicteric sclerae Neck: trachea midline, no thyromegaly Respiratory: normal respiratory effort Auscultation: + crackles (At the left base); no rhonchi and no wheezes Cardiovascular: Rate/Rhythm: regular rate and regular rhythm Heart Sounds: + murmur (3/6 high-pitched ERIN at RUSB) Extremities: + edema (Trace pitting edema in legs bilaterally) Chest (Breasts): Chest: normal inspection of chest Gastrointestinal (Abdomen): normal bowel sounds, soft, nontender, no hepatosplenomegaly Musculoskeletal: Extremities: extremities normal to inspection; no cyanosis and no clubbing Skin: no rashes, warm and dry Neurologic: moves all extremities and awake; no focal motor deficits Psychiatric: A+Ox3, euthymic affect Genitourinary: no testicular masses, no penis abnormality (No bloody discharge) Lymphatic: no lymphedema Results & Data Results & Data ([facility]) Vital Signs (Past 12 Hours) Vital Signs Temp Pulse Pulse Resp BP Pulse Ox 11/03/20 15:18 36.9 C 96 H 16 150/58 H 92 11/03/20 15:00 56 L 11/03/20 09:37 178/65 H 11/03/20 07:30 54 L 11/03/20 07:16 36.5 C 67 16 92/61 L 94 Laboratory Results 11/03/20 05:57 11/03/20 05:57 PG Care Time/CCT Total # of Minutes Spent Total Time Spent with Patient: Total time spent is greater than 50% in coordination of care (as documented) at patient's floor/unit and/or counseling patient: Coding Level of Care Code 18748 Subseq Hosp Care Lvl 3 Diagnoses Acute CHF (congestive heart failure) I50.9 Aortic stenosis I35.0 Coronary artery disease I25.10 HTN (hypertension) I10 Hyperlipidemia E78.5 Metastatic renal cell carcinoma C64.9 CKD (chronic kidney disease), stage III N18.3 NSTEMI (non-ST elevated myocardial infarction) I21.4 Hypoxia R09.02 Gout M10.9 BPH with obstruction/lower urinary tract symptoms N40.1; N13.8 Essential tremor G25.0 Anemia D64.9 Gross hematuria R31.0 DVT prophylaxis Z29.9
[2020-11-03] MEDS: ATORVASTATIN 40 MG TAB PO SCH (20:18)
[2020-11-03] MEDS: POLYETHYLENE (MIRALAX) 17 GM PACK PO PRN (22:30)
--- NOTE | 2020-11-04 05:57 | Electrocardiogram Report ---
Test Reason : Blood Pressure : / mmHG Vent. Rate : 059 BPM Atrial Rate : 059 BPM P-R Int : 268 ms QRS Dur : 116 ms QT Int : 500 ms P-R-T Axes : 057 -28 -24 degrees QTc Int : 495 ms Sinus bradycardia with 1st degree A-V block Left ventricular hypertrophy with QRS widening and repolarization abnormality Prolonged QT Abnormal ECG When compared with ECG of 02-NOV-2020 05:52, QRS axis Shifted left T wave inversion now evident in Inferior leads Nonspecific T wave abnormality, improved in Lateral leads Confirmed by Devaughn Black ([id number]) on 11/04/2020 5:56:46 AM Referred By: REFERRED SELF Confirmed By:Devaughn Black
[2020-11-04 06:08] LABS: Basophils # (auto) 0.01 K/uL (0-0.2); Basophils % (auto) 0.2 %; Eosinophils # (auto) 0.24 K/uL (0-0.5); Eosinophils % (auto) 4.9 %; Hematocrit (blood only) 31.8 % (42-52); Hemoglobin 10.1 g/dL (14.0-18.0); Immature Granulocytes # (auto) 0.01 K/uL (0.00-0.02); Immature Granulocytes % (auto) 0.2 %; Lymphocytes # (auto) 1.43 K/uL (1.2-3.4); Lymphocytes % (auto) 28.9 %; Mean Corpuscular Hemoglobin 29.7 pg (25-34); Mean Corpuscular Hgb Conc 31.8 g/dL (32-36); Mean Corpuscular Volume 93.5 fL (80-100); Mean Platelet Volume 10.6 fL (7.4-10.4); Monocytes # (auto) 0.55 K/uL (0.11-0.59); Monocytes % (auto) 11.1 %; Neutrophils % (auto) 54.7 %; Platelet Count 178 K/uL (130-400); RDW Coefficient of Variation 16.3 % (11.5-14.5); RDW Standard Deviation 55.8 fL (36.4-46.3); White Blood Count 4.94 K/uL (4.8-10.8)
[2020-11-04 06:39] LABS: BUN Creatinine Ratio 28.7 (10-20); Creatinine Clr Calc Pharmacy 26.3 ml/min; Est GFR (African American) 38.3 ml/min; Est GFR (Non-African American) 33.1 ml/min; Magnesium 2.4 mg/dl (1.8-2.4); Potassium 4.7 mmol/L (3.5-5.1)
[2020-11-04] MEDS ORDERED: FUROSEMIDE 40 MG TAB PO SCH (09:00)
[2020-11-04] MEDS: FOLIC ACID 400 MCG TAB PO SCH (10:21)
[2020-11-04] MEDS: ASPIRIN 81 MG ECTAB PO SCH (10:21)
[2020-11-04] MEDS: FINASTERIDE 5 MG TAB PO SCH (10:21)
[2020-11-04] MEDS: ISOSORBIDE MONO EXTENDED REL 60 MG TABCR PO SCH (10:21)
[2020-11-04] MEDS: TOPIRAMATE 25 MG TAB PO SCH ×2 (10:21→20:08)
[2020-11-04] MEDS: CHOLECALCIFEROL 1,000 UNITS 25 MCG TAB PO SCH (10:21)
[2020-11-04] MEDS: lisinopril 5 MG TAB PO SCH (10:21)
[2020-11-04] MEDS: METOPROLOL TARTRATE 50 MG TAB PO SCH ×2 (10:21→20:07)
[2020-11-04] MEDS: amLODIPine BESYLATE 5 MG TAB PO SCH (10:21)
[2020-11-04] MEDS: allopurinoL 300 MG TAB PO SCH (10:22)
[2020-11-04] MEDS: HEPARIN SOD 5,000 UNIT/0.5 ML VIAL SQ SCH ×2 (10:22→20:06)
[2020-11-04] MEDS: POTASSIUM CHLORIDE 10 MEQ TABCR PO SCH ×2 (10:22→20:07)
--- NOTE | 2020-11-04 12:26 | Cardiology Progress Note ---
Date of Service November 04, 2020 Assessment & Plan (1) NSTEMI (non-ST elevated myocardial infarction): (2) Aortic stenosis: Heparin infusion discontinued due to Hgb trending down to 8.8 g/dl. Continue ASA , metoprolol, statin, amlodipine, lisinopril, Imdur. (3) (HFpEF) heart failure with preserved ejection fraction: Non-ST segment elevation myocardial infarction complicated by congestive heart failure, severe aortic stenosis, presumed underlying severe coronary heart disease. Poor candidate for interventional therapy. Patient better compensated, creatinine is trended up to 1.78. IV furosemide discontinued. Transition back to prior home dose of furosemide 40 mg daily tomorrow, although perhaps looking ahead I higher dosages 80 mg daily may be necessary to keep him compensated. Repeat basic metabolic panel tomorrow. Continue subcutaneous heparin for DVT prophylaxis. Agree with physical therapy evaluation. Increase activity as tolerated. Admission and Anticipated Discharge Date Admission Date: November 01, 2020 Subjective Patient seen in cardiology follow-up of his chief complaint of chest discomfort and shortness of breath. He was speaking to a friend on the phone at the time of my arrival, and the patient was in good spirits. He is comfortable. No significant chest discomfort. Blood pressure stable. Review of Systems Review of Systems: All systems reviewed & are unremarkable except as noted in HPI & below Physical Exam Physical Exam: Temp Pulse Resp BP Pulse Ox 37.0 C 70 20 142/68 H 96 11/04/20 07:50 11/04/20 10:19 11/04/20 07:50 11/04/20 10:19 11/04/20 07:50 Constitutional: WD/WN, vitals as above Respiratory: normal respiratory effort, lungs clear to auscultation Cardiovascular: Rate/Rhythm: regular rhythm Heart Sounds: + murmur (2/6 systolic murmur) Extremities: + edema (Trace lower extremity edema, improved) Gastrointestinal (Abdomen): normal bowel sounds, soft, nontender, no hepatosplenomegaly Neurologic: PERRL, EOMI, accommodation nl, no face palsy, no dysarthria Results & Data ([facility]) Vital Signs (Past 12 Hours) Vital Signs Temp Pulse Pulse Resp BP BP Pulse Ox 11/04/20 10:19 70 142/68 H 11/04/20 07:50 37.0 C 60 20 142/57 H 96 11/04/20 07:00 56 L 11/04/20 04:31 37.1 C 54 L 18 123/58 L 95 11/04/20 00:22 66 Laboratory Results CBC 11/04/20 Range/Units 05:20 WBC 4.94 (4.8-10.8) K/uL RBC 3.40 L (4.7-6.1) M/uL Hgb 10.1 L (14.0-18.0) g/dL Hct 31.8 L (42-52) % Plt Count 178 (130-400) K/uL Neut # (Auto) 2.70 (1.4-6.5) K/uL Lymph # (Auto) 1.43 (1.2-3.4) K/uL [place] # (Auto) 0.55 (0.11-0.59) K/uL Eos # (Auto) 0.24 (0-0.5) K/uL Baso # (Auto) 0.01 (0-0.2) K/uL Comprehensive Metabolic Panel 11/04/20 Range/Units 05:20 Sodium 139 (136-145) mmol/L Potassium 4.7 (3.5-5.1) mmol/L Chloride 108 H (98-107) mmol/L Carbon Dioxide 24 (21-32) mmol/L BUN 51 H (7-18) mg/dl Creatinine 1.78 H (0.6-1.4) mg/dl Glucose 81 (70-99) mg/dl Calcium 9.0 (8.5-10.1) mg/dl Intake and Output 11/03/20 11/04/20 11/04/20 22:59 06:59 14:59 Output Total 1100 / 1900 Balance -1100 / -1505 Output: Urine 1100 / 1900 Other: Other Intake Source Sips Sips # Unmeasured Voids 1 Weight 79.7 kg Weight Measurement Method Built in [facility]
--- NOTE | 2020-11-04 17:54 | Hospitalist Progress Note ---
Date of Service November 04, 2020 Assessment & Plan (1) Acute CHF (congestive heart failure): Acute on chronic diastolic CHF Mr. 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 EMS documented that patient's O2 saturation was low at 70%. Supplemental O2 was initiated, and patient transported to [facility] ER. Patient given IV Lasix 40 mg in the ER and his breathing has improved dramatically. His CXR shows cardiomegaly and pulmonary edema. Initial Troponin I level is mildly elevated at 0.079 ng/ml. ProBNP was elevated at 7150 NSTEMI complicated by CHF, severe aortic stenosis, and presumed underlying severe CAD He is deemed a poor candidate for interventional therapy Much improved with IV diuresis. Weight down 5kg, I.O net -3.25 L Appreciate cardiology consultation Converted to Lasix 40 mg po once daily today but not much UOP--> increase to lasix 80mg po once daily for tomorrow and dc to home on this -dc KCl as K+ now up to 4.7 and converting to po lasix Closely monitor I&Os, body weights. Continue Lopressor 50 mg b.i.d.. Continue Lisinopril 5 mg daily. Continue Imdur ER 60 mg daily. (2) Hypoxia: With acute respiratory failure with hypoxia secondary to acute CHF and NSTEMI as above POx in 70s on arrival and requiring O2--> now resolved, weaned to room air for several days Continue diuresis (3) NSTEMI (non-ST elevated myocardial infarction): Trop trended up to 11 then back down, no chest pain but had hypoxia, CHF, with severe poor interventional candidate was on heparin gtt but discontinued for drop in hgb continue metoprolol, statin, ASA, lisinopril, isosorbide (4) Aortic stenosis: Moderate -- Moderate to severe , mild AI, mild to moderate MR, and mild TR on Echocardiogram 12/24/17. Echocardiogram here LVH, LVEF 52%, small apical wall motion abnormality with hypokinesis of lateral apical segment, mild MR, mild TR, severe aortic stenosis, ALICIA area 0.7-0.8 cm, mild AI, mild pulmonary hypertension-progressed aortic valve stenosis Poor interventional candidate as per cardiology Medical management (5) Coronary artery disease: With NSTEMI History of CAD s/p LCx stent. No angina pectoris per patient on this admission. Troponin peaked at 11.2 and now trending back downward Poor interventional candidate as per cardiology Continue medically manage Heparin drip was discontinued after 1 day or so due to a drop in hemoglobin Continue Lopressor, lisinopril, Imdur, amlodipine, aspirin, atorvastatin (6) HTN (hypertension): Blood pressures here are controlled Continue medications as above (7) Hyperlipidemia: -- Continue Atorvastatin 40 mg daily. 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 With intermittent gross hematuria Status post cryosurgery Currently not on any specific treatment regimen-watchful waiting and follows 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: No acute issues Continue finasteride (12) Essential tremor: No acute issues Continue home primidone, phenobarbital, Topamax (13) Anemia: Hemoglobin did drop on heparin drip but now back up to 10.1 With very minimal gross hematuria likely secondary to known renal cell carcinoma in the setting of anticoagulation Heparin drip now held and on low-dose subcu heparin Some anemia secondary to anemia of chronic disease Follow CBC and transfuse as needed (14) Gross hematuria: As above, mild, now off heparin drip Follow and if worsens, consult urology given large renal mass (15) DVT prophylaxis: Heparin drip now transitioned to SQ heparin Disposition-continued stay as per Cardiology to ensure renal function stable in AM, and dc to home as long as remains stable Will not need 2 step as is doing well with PT off O2 PT/OT consultations placed to ensure he is stable for discharge to home given hospital stay and advanced age-recommend home with home health evaluation- message placed to [employer] Supervisor Discussed care with /SO on 11/04 Admission and Anticipated Discharge Date Admission Date: November 01, 2020 Subjective Pt reports he is feeling better. He ambulated in the halls with PT today, and was pleased that his POx remained normal. He is moving his bowels, eating. Not making as much urine today since converting to po lasix. Denies chest pain. Discussed his care with Cardiology. Also discussed his care with his Tele with NSR , PVCs, rates 60-70s Review of Systems Review of Systems: All systems reviewed & are unremarkable except as noted in HPI & below Physical Exam Constitutional: WD/WN, vitals as above Eyes: + anicteric sclerae Neck: trachea midline, no thyromegaly Respiratory: normal respiratory effort Auscultation: + crackles (At the lef t base); no rhonchi and no wheezes Cardiovascular: Rate/Rhythm: regular rate and regular rhythm Heart Sounds: + murmur (3/6 high-pitched ERIN at RUSB) Extremities: + edema (Trace pitting edema in legs bilaterally) Chest (Breasts): Chest: normal inspection of chest Gastrointestinal (Abdomen): normal bowel sounds, soft, nontender, no hepatosplenomegaly Musculoskeletal: Extremities: extremities normal to inspection; no cyanosis and no clubbing Skin: no rashes, warm and dry Neurologic: moves all extremities and awake; no focal motor deficits Psychiatric: A+Ox3, euthymic affect Lymphatic: no lymphedema Results & Data Results & Data ([facility]) Vital Signs (Past 12 Hours) Vital Signs Temp Pulse Pulse Resp BP Pulse Ox 11/04/20 17:00 37.2 C 59 L 16 149/60 H 95 11/04/20 16:16 96 11/04/20 14:54 59 L 11/04/20 12:34 36.9 C 59 L 20 138/56 L 96 11/04/20 10:19 70 142/68 H 11/04/20 07:50 37.0 C 60 20 142/57 H 96 11/04/20 07:00 56 L Laboratory Results 11/04/20 11/04/20 Range/Units 05:20 05:20 WBC 4.94 (4.8-10.8) K/uL RBC 3.40 L (4.7-6.1) M/uL Hgb 10.1 L (14.0-18.0) g/dL Hct 31.8 L (42-52) % MCV 93.5 (80-100) fL MCH 29.7 (25-34) pg MCHC 31.8 L (32-36) g/dL RDW Std Deviation 55.8 H (36.4-46.3) fL RDW Coeff of [place] 16.3 H (11.5-14.5) % Plt Count 178 (130-400) K/uL MPV 10.6 H (7.4-10.4) fL Immature Gran % (Auto) 0.2 % Neut % (Auto) 54.7 % Lymph % (Auto) 28.9 % [place] % (Auto) 11.1 % Eos % (Auto) 4.9 % Baso % (Auto) 0.2 % Neut # (Auto) 2.70 (1.4-6.5) K/uL Lymph # (Auto) 1.43 (1.2-3.4) K/uL [place] # (Auto) 0.55 (0.11-0.59) K/uL Eos # (Auto) 0.24 (0-0.5) K/uL Baso # (Auto) 0.01 (0-0.2) K/uL Immature Gran # (Auto) 0.01 (0.00-0.02) K/uL Sodium 139 (136-145) mmol/L Potassium 4.7 (3.5-5.1) mmol/L Chloride 108 H (98-107) mmol/L Carbon Dioxide 24 (21-32) mmol/L Anion Gap 7.0 (3-11) BUN 51 H (7-18) mg/dl Creatinine 1.78 H (0.6-1.4) mg/dl Est Cr Clr Drug Dosing 26.3 ml/min Est GFR ( Amer) 38.3 ml/min Est GFR (Non-Af Amer) 33.1 ml/min BUN/Creatinine Ratio 28.7 H (10-20) Glucose 81 (70-99) mg/dl Calcium 9.0 (8.5-10.1) mg/dl Magnesium 2.4 (1.8-2.4) mg/dl PG Care Time/CCT Total # of Minutes Spent Total Time Spent with Patient: Total time spent is greater than 50% in coordination of care (as documented) at patient's floor/unit and/or counseling patient: Coding Level of Care Code 50611 Subseq Hosp Care Lvl 2 Diagnoses Acute CHF (congestive heart failure) I50.9 Hypoxia R09.02 NSTEMI (non-ST elevated myocardial infarction) I21.4 Aortic stenosis I35.0 Coronary artery disease I25.10 HTN (hypertension) I10 Hyperlipidemia E78.5 Metastatic renal cell carcinoma C64.9 CKD (chronic kidney disease), stage III N18.3 Gout M10.9 BPH with obstruction/lower urinary tract symptoms N40.1; N13.8 Essential tremor G25.0 Anemia D64.9 Gross hematuria R31.0 DVT prophylaxis Z29.9
[2020-11-04] MEDS: ATORVASTATIN 40 MG TAB PO SCH (20:06)
[2020-11-05 07:06] LABS: BUN Creatinine Ratio 30.9 (10-20); Calcium 8.4 mg/dl (8.5-10.1); Creatinine Clr Calc Pharmacy 26.2 ml/min; Est GFR (African American) 38.1 ml/min; Est GFR (Non-African American) 32.9 ml/min; Magnesium 2.5 mg/dl (1.8-2.4); Potassium 4.4 mmol/L (3.5-5.1)
[2020-11-05] MEDS: allopurinoL 300 MG TAB PO SCH (08:57)
[2020-11-05] MEDS: amLODIPine BESYLATE 5 MG TAB PO SCH (08:57)
[2020-11-05] MEDS: FINASTERIDE 5 MG TAB PO SCH (08:59)
[2020-11-05] MEDS: CHOLECALCIFEROL 1,000 UNITS 25 MCG TAB PO SCH (08:59)
[2020-11-05] MEDS: ASPIRIN 81 MG ECTAB PO SCH (08:59)
[2020-11-05] MEDS ORDERED: FUROSEMIDE 80 MG TAB PO SCH (09:00)
[2020-11-05] MEDS: FOLIC ACID 400 MCG TAB PO SCH (09:00)
[2020-11-05] MEDS: ISOSORBIDE MONO EXTENDED REL 60 MG TABCR PO SCH (09:02)
[2020-11-05] MEDS: lisinopril 5 MG TAB PO SCH (09:02)
[2020-11-05] MEDS: METOPROLOL TARTRATE 50 MG TAB PO SCH (09:03)
[2020-11-05] MEDS: TOPIRAMATE 25 MG TAB PO SCH (09:04)
[2020-11-05] MEDS: HEPARIN SOD 5,000 UNIT/0.5 ML VIAL SQ SCH (09:17)
--- NOTE | 2020-11-05 10:44 | Cardiology Progress Note ---
Date of Service November 05, 2020 Assessment & Plan (1) NSTEMI (non-ST elevated myocardial infarction): (2) Aortic stenosis: (3) (HFpEF) heart failure with preserved ejection fraction: Presumed underlying severe coronary artery disease, severe aortic stenosis, preserved LVEF, non-STEMI complicated by volume overload, acute on chronic diastolic heart failure. Creatinine 1.79 today felt to be stable, acceptable. I have requested outpatient cardiology follow-up within 1 to 2 weeks. Admission and Anticipated Discharge Date Admission Date: November 01, 2020 Subjective Patient seen in cardiology follow-up of his chief complaint of chest pain and shortness of breath. He notes feeling great today. He has continued to improve every day. Telemetry reveals sinus rhythm in the range of 50 to 70 bpm. Physical Exam Physical Exam: Temp Pulse Resp BP Pulse Ox 36.7 C 63 15 165/74 H 97 11/05/20 07:31 11/05/20 08:51 11/05/20 07:31 11/05/20 08:51 11/05/20 07:31 Constitutional: WD/WN, vitals as above Respiratory: normal respiratory effort, lungs clear to auscultation Cardiovascular: Rate/Rhythm: regular rhythm Heart Sounds: + murmur (1/6 systolic murmur) Gastrointestinal (Abdomen): normal bowel sounds, soft, nontender, no hepatosplenomegaly Neurologic: PERRL, EOMI, accommodation nl, no face palsy, no dysarthria Results & Data ([facility]) Vital Signs (Past 12 Hours) Vital Signs Temp Pulse Pulse Resp BP Pulse Ox 11/05/20 08:51 63 165/74 H 11/05/20 08:00 57 L 11/05/20 07:31 36.7 C 61 15 149/70 H 97 11/05/20 02:45 36.8 C 58 L 17 129/55 L 97 11/04/20 23:55 58 L 11/04/20 22:52 36.9 C 59 L 17 122/58 L 91 Laboratory Results Comprehensive Metabolic Panel 11/05/20 Range/Units 05:55 Sodium 140 (136-145) mmol/L Potassium 4.4 (3.5-5.1) mmol/L Chloride 110 H (98-107) mmol/L Carbon Dioxide 24 (21-32) mmol/L BUN 55 H (7-18) mg/dl Creatinine 1.79 H (0.6-1.4) mg/dl Glucose 90 (70-99) mg/dl Calcium 8.4 L (8.5-10.1) mg/dl Intake and Output 11/04/20 11/05/20 11/05/20 22:59 06:59 14:59 Intake Total 795 / 795 118 / 118 Output Total 1200 / 1200 291 / 291 Balance -405 / -405 -173 / -173 Intake: Oral 795 / 795 118 / 118 Output: Urine 1200 / 1200 290 / 290 # Bowel Movements Other: # Unmeasured Voids 1 Weight 79.9 kg Weight Measurement Method Built in [facility]
--- NOTE | 2020-11-05 14:34 | Discharge Summary ---
Date of Service November 05, 2020 Admission HPI Per Admitting Provider Mr. 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 In the bathroom he felt mildly SOB and had a vague discomfort in his anterior chest -- he belched repeatedly and had a very loose watery bowel movement -- and his symptoms were immediately better. When asked about his chest discomfort -- he states that it has been happening for years, it is not related to exertion, and it is dissimilar to his prior angina (which was pain in his upper right posterior thorax). He denies any chest discomfort or angina at this time. Patient subsequently went back to bed, fell asleep, and then woke up and felt more SOB. He walked to the bathroom and his shortness of breath was much worse. He states that he was gasping for breath, and daughter states that he was wheezing and gurgling. His daughter called 911. EMS documented that patient's O2 saturation was low at 70%. Supplemental O2 was initiated, and patient transported to [facility] ER. Patien t given IV Lasix 40 mg in the ER and his breathing has improved dramatically. His CXR shows cardiomegaly and pulmonary edema. Initial Troponin I level is mildly elevated at 0.079 ng/ml. ProBNP is pending. Patient denies any history of heart failure but he has a history of valvular heart disease. ECHOCARDIOGRAM 12/24/17: -- LVEF 55% to 60%. -- Mild concentric LVH with focal thickening of basal septum. No LVOT obstruction. -- Moderate to severe aortic stenosis. -- Mild AI. -- Mild to moderate mitral regurgitation. -- Mild tricuspid regurgitation. Principal Diagnosis CHF exacerbation Discharge Exam Constitutional WD/WN, vitals as above Eyes EOM intact bilaterally; no conjunctival abnormality ENMT external ear and nose normal, oropharynx normal Neck trachea midline, no thyromegaly normal visual inspection Respiratory normal respiratory effort, lungs clear to auscultation no respiratory distress Cardiovascular RRR, no murmur, no edema Gastrointestinal (Abdomen) Inspection/Auscultation: abdomen normal to inspection; abdomen not distended Musculoskeletal no cyanosis or clubbing, extremities motor strength 5/5 Skin no rashes, warm and dry Neurologic moves all extremities and awake Psychiatric Orientation: alert, oriented to person and cooperative Discharge Data Allergies Allergy/AdvReac Type Severity Reaction Status Date / Time Penicillins Allergy Severe HIVES + Verified 11/01/20 07:24 THROAT SWELLING Consultations 11/01/20 08:42 ED Decision to Admit Stat 11/01/20 11:33 Consult Cardiology Routine Hospital Course (1) Acute CHF (congestive heart failure): Acute on chronic diastolic CHF Mr. 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 EMS documented that patient's O2 saturation was low at 70%. Supplemental O2 was initiated, and patient transported to [facility] ER. Patient given IV Lasix 40 mg in the ER and his breathing has improved dramatically. His CXR shows cardiomegaly and pulmonary edema. Initial Troponin I level is mildly elevated at 0.079 ng/ml. ProBNP was elevated at 7150 NSTEMI complicated by CHF, severe aortic stenosis, and presumed underlying severe CAD He is deemed a poor candidate for interventional therapy Much improved with IV diuresis. Weight down 5kg, I.O net -3.25 L Appreciate cardiology consultation Converted to Lasix 40 mg po once daily today but not much UOP--> increase to lasix 80mg po once daily for tomorrow and dc to home on this -dc KCl as K+ now up to 4.7 and converting to po lasix Closely monitor I&Os, body weights. Continue Lopressor 50 mg b.i.d.. Continue Lisinopril 5 mg daily. Continue Imdur ER 60 mg daily. (2) Hypoxia: With acute respiratory failure with hypoxia secondary to acute CHF and NSTEMI as above POx in 70s on arrival and requiring O2--> now resolved, weaned to room air for several days Continue diuresis (3) NSTEMI (non-ST elevated myocardial infarction): Trop trended up to 11 then back down, no chest pain but had hypoxia, CHF, with severe poor interventional candidate was on heparin gtt but discontinued for drop in hgb continue metoprolol, statin, ASA, lisinopril, isosorbide (4) Aortic stenosis: Moderate -- Moderate to severe , mild AI, mild to moderate MR, and mild TR on Echocardiogram 12/24/17. Echocardiogram here LVH, LVEF 52%, small apical wall motion abnormality with hypokinesis of lateral apical segment, mild MR, mild TR, severe aortic stenosis, ALICIA area 0.7-0.8 cm, mild AI, mild pulmonary hypertension-progressed aortic valve stenosis Poor interventional candidate as per cardiology Medical management (5) Coronary artery disease: With NSTEMI History of CAD s/p LCx stent. No angina pectoris per patient on this admission. Troponin peaked at 11.2 and now trending back downward Poor interventional candidate as per cardiology Continue medically manage Heparin drip was discontinued after 1 day or so due to a drop in hemoglobin Continue Lopressor, lisinopril, Imdur, amlodipine, aspirin, atorvastatin (6) HTN (hypertension): Blood pressures here are controlled Continue medications as above (7) Hyperlipidemia: -- Continue Atorvastatin 40 mg daily. 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: No acute issues Continue finasteride (12) Essential tremor: No acute issues Continue home primidone, phenobarbital, Topamax (13) Anemia: Hemoglobin did drop on heparin drip but now back up to 10.1 With very minimal gross hematuria likely secondary to known renal cell carcinoma in the setting of anticoagulation Heparin drip now held and on low-dose subcu heparin Some anemia secondary to anemia of chronic disease Follow CBC and transfuse as needed (14) Gross hematuria: As above, mild, now off heparin drip Follow and if worsens, consult urology given large renal mass (15) DVT prophylaxis: Heparin drip now transitioned to SQ heparin Disposition-continued stay as per Cardiology to ensure renal function stable in AM, and dc to home as long as remains stable Will not need 2 step as is doing well with PT off O2 I certify that this patient is under my care and that I, or a physicians entry level administrative assistant working with me, had a face to-face encounter that meets the home health [id number] encounter requirements with this patient. The encounter with the patient was in whole, or in part, for the following medical condition, which is the primary reason for home health care (list medical condition): I certify that, based on my findings, the following services are medically necessary home health services: My clinical findings support the need for the above services because: OT Assess ADL Status and Restore Function w ADLs PT Eval for Safety and Mobility Skilled Nsg Assessment Further, I certify that my clinical findings support that this patient is homebound (i.e. absences from home require considerable and taxing effort and are for medical reasons or gnosticist services or infrequently or of short duration when for other reasons) because: Supportive Aid - Walker Certification for Home Health Services: Based on the above findings, I certify that this patient is confined to the home and needs intermittent residential care, physical therapy and/or speech therapy or continues to need occupational therapy. The patient is under my care, and I have initiated the establishment of the plan of care. This patient will be followed by a physician who will periodically review the plan of care. Total Time Total Time Spent Total Time Spent (In Minutes): 35 Discharge Plan Discharge Items Patient Disposition: Home - Home Health Services Reason For Visit: CHF, AORTIC STENOSIS Discharge Diagnosis: CHF Activity: Resume your previous activity Non-emergency contact: Primary Care Provider Call non-emergency contact if: your symptoms worsen Follow-up/Referrals: Devyn Garzon MD [Primary Care Provider] - 11/12/20 11:30 am Jerry Matos, [[employer] Worker] - (Please see Dr. Matos or your normal cut off [employer] next week.) Diet: Heart Healthy and Low Sodium (2gm) Addtl Attending Provider Instructions: Mr. Marshall, You were admitted with heart failure from extra fluid on your legs and lungs. We gave you IV Lasix which helped pull the fluid off. We are sending you out on Lasix, but at a higher oral dose than before. Please follow up with Dr. Matos next week to be sure you are doing well. Pending Studies at Discharge: No Stand-Alone Forms: My [facility], Smoking Cessation Medications and DC Order Prescriptions: New furosemide 80 mg tablet 80 mg PO DAILY Qty: 30 RF: 0 Continued lisinopril [Zestril] 5 mg tablet 5 mg PO DAILY Qty: 90 RF: 3 amlodipine 10 mg tablet 10 mg PO DAILY Qty: 90 RF: 3 finasteride [Proscar] 5 mg tablet 5 mg PO DAILY Qty: 90 RF: 3 primidone [Mysoline] 50 mg tablet 100 mg PO TID PRN (Reason: Tremor(S)) RF: 0 phenobarbital 64.8 mg tablet 64.8 mg PO BID RF: 0 isosorbide mononitrate 60 mg tablet extended release 24 hr 60 mg PO QAM RF: 0 allopurinol 300 mg tablet 300 mg PO DAILY RF: 0 metoprolol tartrate [Lopressor] 50 mg tablet 50 mg PO BID RF: 0 atorvastatin 40 mg tablet 40 mg PO QPM RF: 0 fluorouracil 5 % cream 1 applic TOPICAL BID RF: 0 psyllium Packet 1 packet PO TID PRN (Reason: Constipation) RF: 0 diphenoxylate-atropine [Lomotil] 2.5-0.025 mg Tablet 1 tab PO DAILY PRN (Reason: Diarrhea) RF: 0 topiramate 25 mg tablet 25 mg PO BID RF: 0 folic acid 400 mcg Tablet 400 mcg PO DAILY RF: 0 aspirin 81 mg Tablet,Delayed Release (Dr/Ec) 81 mg PO DAILY RF: 0 nitroglycerin 0.4 mg tablet, sublingual 0.4 mg sublingual UD PRN (Reason: Chest Pain) RF: 0 cholecalciferol (vitamin D3) [Vitamin D3] 25 mcg (1,000 unit) Tablet 1,000 unit PO DAILY RF: 0 Discharge Orders: Discharge Order (Routine); Ordered 11/05/20 Ordered By: Tim Sinclair Admission Data Admit Date/Time: 11/01/20 10:27 Attending Provider: Tim Sinclair Admit Provider: Royce Arce Primary Care Provider: Devyn Garzon Other Providers: Jerome Rios ; Tim Sinclair Other Interventions: Discharge Summary Assessment (RN) Last Done: 11/05/20 10:46 Coding Level of Care Code D/C Day Management >30 mins Diagnoses Acute CHF (congestive heart failure) I50.9 Hypoxia R09.02 NSTEMI (non-ST elevated myocardial infarction) I21.4 Aortic stenosis I35.0 Coronary artery disease I25.10 HTN (hypertension) I10 Hyperlipidemia E78.5 Metastatic renal cell carcinoma C64.9 CKD (chronic kidney disease), stage III N18.3 Gout M10.9 BPH with obstruction/lower urinary tract symptoms N40.1; N13.8 Essential tremor G25.0 Anemia D64.9 Gross hematuria R31.0 DVT prophylaxis Z29.9
== END 2020-11-05 12:27 | disposition home health service (06) | DRG 280 ==
LOC: ED 06:34 → 2N 10:27 → SUATTDRO 10:27 → 2N 11:14

== ENCOUNTER 2021-01-17 18:09 | Inpatient (IN) ==
--- NOTE | 2021-01-17 18:24 | Emergency Department Note ---
Impression & Plan Chest pain, Hypoxia, Pulmonary edema, Respiratory failure ED Provider Note NAME: ELLEN ARGUELLES AGE: 89 SEX: M : 1930 ARRIVES VIA: Ambulance INFORMANT: Patient, EMS personnel ED PROVIDER(S): Andres South DO CHIEF COMPLAINT: Chest pain HPI: The patient is an 89-year-old male who presented to the emergency department for an evaluation of chest pain. The patient took multiple doses of nitroglycerin today prior to calling 911. The patient arrived via ambulance. The patient states he has been feeling very ill throughout the course of the day. He denies having any abdominal pain but has had significant shortness of breath as well as chest discomfort. He took multiple doses of nitroglycerin with only minimal relief. The patient has had similar symptoms in the past. He does have a history of an NSTEMI. He also has a history of chronic renal insufficiency as well as DVT of the lower extremities. The patient states he has been compliant with his outpatient medications. He was found to be hypoxic in the emergency department and was placed on supplemental oxygen. He was feeling much better on subsequent reevaluation. At this time his symptoms are improved. He lives normally at home with his daughter. ROS: See above HPI for pertinent positives & negatives. A total of 10 systems reviewed and were otherwise negative. PAST MEDICAL HISTORY: See Below PAST SURGICAL HISTORY: See Below FAMILY HISTORY: See Below SOCIAL HISTORY: See Below HOME MEDICATIONS: See Below ALLERGIES: See Below VITALS: See Below PHYSICAL EXAMINATION: GENERAL: The patient is awake and alert. He is seems frail appearing. EYES: The conjunctivae are clear. The pupils are round and reactive. EARS, NOSE, MOUTH AND THROAT: The nose is without any evidence of any deformity. NECK: The neck is nontender and supple. RESPIRATORY: Diminished breath sounds are noted throughout. There were rales noted throughout. Conversational dyspnea was noted. CARDIOVASCULAR: Regular rate and rhythm noted there no murmurs rubs or gallops normal S1 normal S2. GASTROINTESTINAL: The abdomen is soft. Abdomen is nontender. MUSCULOSKELETAL/EXTREMITIES: There is no evidence of gross deformity full range of motion is noted in the hips and shoulders. SKIN: Skin was warm and dry. There is pedal edema bilaterally. NEUROLOGIC: Patient is awake alert and oriented x3. MEDICAL DECISION MAKING: The patient is an 89-year-old male who presented to the emergency department for an evaluation of difficulty breathing. The patient complained of chest pain. He was given nitroglycerin prior to arrival with only minimal improvement of his symptoms. The patient was found to have significant hypoxia. He was placed on BiPAP. His underlying condition was likely secondary to pulmonary edema. He does have a history of a recent OK. His troponin was still elevated. The patient was also treated with IV Lasix. He had a Nam catheter placed. I discussed patient's laboratory and radiographic studies with him. Because of his degree of symptoms I discussed his case with the on-call [facility] hospitalist. They have agreed to evaluate the patient in the emergency departm ent for further management and disposition. After Lasix the patient did significantly improved. He was much more comfortable. Triage Nursing notes reviewed. Prior medical records reviewed Vital Signs: reviewed and remarkable for hypoxia Differential diagnosis: Cardiac ischemia, aortic dissection, pulmonary embolism, pneumothorax, pneumonia, pericarditis, myocarditis, esophageal rupture, GERD, cholecystitis, pancreatitis, musculoskeletal, as well as other pathologies. ER treatment provided: See below Diagnostics interpreted by me: ECG: EKG was obtained in the emergency department. My interpretation is sinus rhythm at 83 bpm. First-degree AV block is noted. LVH was noted by voltage criteria. Diffuse ST segment and T wave abnormalities were noted. This was compared to a tracing from November 032020. There was increase in the ST segment depressions in the high lateral leads however the remainder of the tracing appears unchanged. Cardiac Monitoring: An order was placed for continuous cardiac monitoring. The monitor shows a rate of 74 bpm with sinus rhythm. Laboratory studies: As stated above and show below. Imaging studies: See below Consultation(s): I discussed this case with Dr. Colunga who is on-call for the [facility] group. He will evaluate the patient in the emergency department. ED COURSE: Procedures: none PDMP:reviewed and no issues Critical Care: I have personally spent greater than 45 minutes of critical care time in the direct management of this patient. This includes bedside care, interpretation of diagnostic studies, and testing, discussion with consultants, patient, and family members, and other required patient management activities. This 45 minutes is in excess of all separately billable procedures. 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 He received 3750 cGy." Moderate aortic stenosis Palliative care encounter Upper GI bleeding Surgical History H/O colonoscopy H/O hernia repair diaphragmatic hernia History of appendectomy History of cholecystectomy History of cystoscopy History of intravascular stent placement Hx of tonsillectomy S/P IVC filter Status post cryoablation renal cancer Family History Mother Liver cancer Denies family history of Ovarian cancer Prostate cancer Breast cancer Lung cancer Colorectal cancer Social History Smoking Status: Never smoker Second Hand Exposure: No; Hx Alcohol Use: Yes Alcohol Intake Frequency: Monthly or Less Hx Substance Use: No Preferred Language: Czech Communication Ability: Effective Visual Impairment: Limited Family Worker Required: No Beliefs That Will Affect Care: None marital status: / Current Living Situation: Family Current Living Situation Comment: Lives with daughter Peggy current occupational status: retired Feels Safe at Home: Yes caffeine: Yes Dental Care, Regularly: No Physical Activity Frequency: Does not Exercise Seatbelt Use: always Sunscreen Use: No Assistive Devices: Walker Allergies Allergies Allergy/AdvReac Type Severity Reaction Status Date / Time Penicillins Allergy Severe HIVES + Verified 01/17/21 20:37 THROAT SWELLING Home Meds Home Medications Medication Instructions Recorded Confirmed allopurinol 300 mg tablet 300 mg PO DAILY 12/26/18 01/17/21 isosorbide mononitrate 60 mg 60 mg PO QAM 12/26/18 01/17/21 tablet,extended release 24 hr phenobarbital 64.8 mg tablet 64.8 mg PO BID 12/26/18 01/17/21 primidone 50 mg tablet (Mysoline) 50 - 100 mg PO TID 12/26/18 01/17/21 metoprolol tartrate 50 mg tablet 50 mg PO BID tab 04/01/19 01/17/21 (Lopressor) aspirin 81 mg tablet,delayed 81 mg PO DAILY 11/01/20 01/17/21 release atorvastatin 40 mg tablet 40 mg PO QPM 11/01/20 01/17/21 cholecalciferol (vitamin D3) 25 1,000 unit PO DAILY 11/01/20 01/17/21 mcg (1,000 unit) tablet (Vitamin D3) folic acid 400 mcg tablet 400 mcg PO DAILY 11/01/20 01/17/21 nitroglycerin 0.4 mg sublingual 0.4 mg SUBLINGUAL UD PRN 11/01/20 01/17/21 tablet furosemide 20 mg tablet 20 mg PO DAILY 01/17/21 01/17/21 omeprazole 40 mg capsule,delayed 40 mg PO QPM 01/17/21 01/17/21 release Previous Rx's Medication Instructions Recorded lisinopril 5 mg tablet (Zestril) 5 mg PO DAILY #90 tab 06/03/20 amlodipine 10 mg tablet 10 mg PO DAILY #90 tab 09/13/20 finasteride 5 mg tablet (Proscar) 5 mg PO DAILY #90 tab 10/15/20 Results & Data (ED) Vital Signs Vital Signs - 24 hr 01/17/21 18:12 01/17/21 18:24 01/17/21 18:39 Temperature 36.4 C L Temperature Source Oral Pulse Rate 82 85 Pulse Rate from SpO2 Sensor 82 Respiratory Rate 25 H 22 Respiratory Effort / Characteristics Non-Labored Respiratory Depth Normal Respiratory Pattern Regular Blood Pressure 131/72 132/62 Blood Pressure Mean 91 85 Blood Pressure Position Lying Pulse Oximetry 96 92 92 Oxygen Delivery Method Nasal Cannula Nasal Cannula Oxygen Flow Rate 4 4 4 Fraction of Inspired Oxygen Sepsis Recent Fever Within 48 Hours No Sepsis New/Unexplained Change in Mental Status No Sepsis Action Taken by Nursing No Action Required 01/17/21 19:32 01/17/21 21:17 Temperature Temperature Source Pulse Rate 89 76 Pulse Rate from SpO2 Sensor Respiratory Rate 18 28 H Respiratory Effort / Characteristics Non-Labored Spontaneous Spontaneous Respiratory Depth Normal Normal Respiratory Pattern Regular Tachypnea Blood Pressure Blood Pressure Mean Blood Pressure Position Pulse Oximetry 95 100 Oxygen Delivery Method Oxygen Flow Rate Fraction of Inspired Oxygen 50 50 Sepsis Recent Fever Within 48 Hours Sepsis New/Unexplained Change in Mental Status Sepsis Action Taken by [facility] Medications Current Medication List: was personally reviewed by me Laboratory Data Attestation: I reviewed the patient's lab results. Result diagrams: 01/17/21 19:55 01/17/21 19:55 Lab Results 01/17/21 01/17/21 01/17/21 Range/Units 19:14 19:14 19:55 WBC (4.8-10.8) K/uL RBC (4.7-6.1) M/uL Hgb (14.0-18.0) g/dL Hct (42-52) % MCV (80-100) fL MCH (25-34) pg MCHC (32-36) g/dL RDW Std Deviation (36.4-46.3) fL RDW Coeff of [place] (11.5-14.5) % Plt Count (130-400) K/uL MPV (7.4-10.4) fL Immature Gran % (Auto) % Neut % (Auto) % Lymph % (Auto) % [place] % (Auto) % Eos % (Auto) % Baso % (Auto) % Neut # (Auto) (1.4-6.5) K/uL Lymph # (Auto) (1.2-3.4) K/uL [place] # (Auto) (0.11-0.59) K/uL Eos # (Auto) (0-0.5) K/uL Baso # (Auto) (0-0.2) K/uL Immature Gran # (Auto) (0.00-0.02) K/uL PT 10.1 (9.0-12.0) Seconds INR 1.0 (0.9-1.1) APTT 21.1 (21.0-31.0) Seconds PTT Ratio 0.8 Sodium (136-145) mmol/L Potassium (3.5-5.1) mmol/L Chloride (98-107) mmol/L Carbon Dioxide (21-32) mmol/L Anion Gap (3-11) BUN (7-18) mg/dl Creatinine (0.6-1.4) mg/dl Est Cr Clr Drug Dosing Est GFR ( Amer) ml/min Est GFR (Non-Af Amer) ml/min BUN/Creatinine Ratio (10-20) Glucose (70-99) mg/dl Calcium (8.5-10.1) mg/dl Total Bilirubin (0.2-1) mg/dl AST (15-37) U/L ALT (12-78) U/L Alkaline Phosphatase (45-117) U/L Troponin I (0-0.045) ng/ml NT-Pro-B Natriuret Pep (0-1800) pg/ml Total Protein (6.4-8.2) gm/dl Albumin (3.4-5.0) gm/dl Globulin (2.5-4.0) gm/dl Albumin/Globulin Ratio (0.9-2) Lipase (73-393) U/L COVID-19 Eval Order Covid19 IDNow atMFLC SARS-CoV-2, RNA, NAAT NEGATIVE (NEGATIVE) 01/17/21 01/17/21 Range/Units 19:55 19:55 WBC 8.85 (4.8-10.8) K/uL RBC 3.45 L (4.7-6.1) M/uL Hgb 10.1 L (14.0-18.0) g/dL Hct 32.4 L (42-52) % MCV 93.9 (80-100) fL MCH 29.3 (25-34) pg MCHC 31.2 L (32-36) g/dL RDW Std Deviation 58.6 H (36.4-46.3) fL RDW Coeff of [place] 17.1 H (11.5-14.5) % Plt Count 170 (130-400) K/uL MPV 10.4 (7.4-10.4) fL Immature Gran % (Auto) 0.3 % Neut % (Auto) 71.9 % Lymph % (Auto) 20.2 % [place] % (Auto) 7.0 % Eos % (Auto) 0.5 % Baso % (Auto) 0.1 % Neut # (Auto) 6.36 (1.4-6.5) K/uL Lymph # (Auto) 1.79 (1.2-3.4) K/uL [place] # (Auto) 0.62 H (0.11-0.59) K/uL Eos # (Auto) 0.04 (0-0.5) K/uL Baso # (Auto) 0.01 (0-0.2) K/uL Immature Gran # (Auto) 0.03 H (0.00-0.02) K/uL PT (9.0-12.0) Seconds INR (0.9-1.1) APTT (21.0-31.0) Seconds PTT Ratio Sodium 142 (136-145) mmol/L Potassium 4.2 (3.5-5.1) mmol/L Chloride 115 H (98-107) mmol/L Carbon Dioxide 20 L (21-32) mmol/L Anion Gap 7.0 (3-11) BUN 35 H (7-18) mg/dl Creatinine 1.37 (0.6-1.4) mg/dl Est Cr Clr Drug Dosing Not Reportable Est GFR ( Amer) 52.6 ml/min Est GFR (Non-Af Amer) 45.4 ml/min BUN/Creatinine Ratio 25.6 H (10-20) Glucose 119 H (70-99) mg/dl Calcium 8.1 L (8.5-10.1) mg/dl Total Bilirubin 0.2 (0.2-1) mg/dl AST 26 (15-37) U/L ALT 27 (12-78) U/L Alkaline Phosphatase 197 H (45-117) U/L Troponin I 0.662 H* (0-0.045) ng/ml NT-Pro-B Natriuret Pep 6859 H (0-1800) pg/ml Total Protein 7.4 (6.4-8.2) gm/dl Albumin 3.3 L (3.4-5.0) gm/dl Globulin 4.1 H (2.5-4.0) gm/dl Albumin/Globulin Ratio 0.8 L (0.9-2) Lipase 103 (73-393) U/L COVID-19 Eval Order SARS-CoV-2, RNA, NAAT (NEGATIVE) Administered Medications Discontinued Medications Furosemide (Furosemide 40 Mg/4 Ml Vial) 40 mg IV NOW STA Stop: 01/17/21 20:46 Last Admin: 01/17/21 21:05 Dose: 40 mg Documented by: [id number] Imaging Data Radiologist's Impression: Chest X-Ray 01/17/21 18:20 XR chest 1V portable HISTORY: 89 years-old Male Chest Pain acute atypical chest pain COMPARISON: Chest radiograph 11/01/2020 TECHNIQUE: Portable AP view of the chest FINDINGS: Cardiac silhouette is enlarged, unchanged. Pulmonary vascular congestion. Reticular interstitial opacities are noted bilaterally. Trace right and small left pleural effusions with asymmetric left lung base opacities. Medial apices are partially obscured by the patient's chin. Calcified plaque of the thoracic aorta. Degenerative changes of the shoulders and spine. IMPRESSION: 1. Cardiomegaly with pulmonary edema. 2. Trace right and small left pleural effusions. 3. Asymmetric left lung base opacities suggestive of probable atelectasis. Pneumonia considered less likely. ACT 112: Negative or not required by law. The above report was generated using voice recognition software. It may contain grammatical, syntax or spelling errors. Electronically signed by: Elieser Ramirez M.D. 01/17/2021 7:18 PM Discharge Plan Visit Data Chief Complaint: Chest Pain ED Provider: Andres South Discharge Problem: Chest pain, Hypoxia, Pulmonary edema, Respiratory failure Patient Disposition: Being Evaluated by Hospitalist Condition: Good
--- NOTE | 2021-01-17 19:20 | XRay Report ---
XR chest 1V portable HISTORY: 89 years-old Male Chest Pain acute atypical chest pain COMPARISON: Chest radiograph 11/01/2020 TECHNIQUE: Portable AP view of the chest FINDINGS: Cardiac silhouette is enlarged, unchanged. Pulmonary vascular congestion. Reticular interstitial opac ities are noted bilaterally. Trace right and small left pleural effusions with asymmetric left lung b ase opacities. Medial apices are partially obscured by the patient's chin. Calcified plaque of the th oracic aorta. Degenerative changes of the shoulders and spine. IMPRESSION: 1. Cardiomegaly with pulmonary edema. 2. Trace right and small left pleural effusions. 3. Asymmetric left lung base opacities suggestive of probable atelectasis. Pneumonia considered less likely. ACT 112: Negative or not required by law. The above report was generated using voice recognition software. It may contain grammatical, syntax o r spelling errors. Electronically signed by: Elieser Ramirez M.D. 01/17/2021 7:18 PM
[2021-01-17 20:07] LABS: Basophils # (auto) 0.01 K/uL (0-0.2); Basophils % (auto) 0.1 %; Eosinophils # (auto) 0.04 K/uL (0-0.5); Eosinophils % (auto) 0.5 %; Hematocrit (blood only) 32.4 % (42-52); Hemoglobin 10.1 g/dL (14.0-18.0); Immature Granulocytes # (auto) 0.03 K/uL (0.00-0.02); Immature Granulocytes % (auto) 0.3 %; Lymphocytes # (auto) 1.79 K/uL (1.2-3.4); Lymphocytes % (auto) 20.2 %; Mean Corpuscular Hemoglobin 29.3 pg (25-34); Mean Corpuscular Hgb Conc 31.2 g/dL (32-36); Mean Corpuscular Volume 93.9 fL (80-100); Mean Platelet Volume 10.4 fL (7.4-10.4); Monocytes # (auto) 0.62 K/uL (0.11-0.59); Neutrophils # (auto) 6.36 K/uL (1.4-6.5); Neutrophils % (auto) 71.9 %; Platelet Count 170 K/uL (130-400); RDW Coefficient of Variation 17.1 % (11.5-14.5); RDW Standard Deviation 58.6 fL (36.4-46.3); Red Blood Count 3.45 M/uL (4.7-6.1); White Blood Count 8.85 K/uL (4.8-10.8)
[2021-01-17 20:19] LABS: Partial Thromboplastin Ratio 0.8; Partial Thromboplastin Time 21.1 Seconds (21.0-31.0); Prothrombin Time 10.1 Seconds (9.0-12.0)
[2021-01-17 20:30] LABS: Alanine Aminotransferase 27 U/L (12-78); Albumin Level 3.3 gm/dl (3.4-5.0); Aspartate Aminotransferase 26 U/L (15-37); BUN Creatinine Ratio 25.6 (10-20); Blood Urea Nitrogen 35 mg/dl (7-18); Calcium 8.1 mg/dl (8.5-10.1); Carbon Dioxide 20 mmol/L (21-32); Chloride 115 mmol/L (98-107); Est GFR (African American) 52.6 ml/min; Est GFR (Non-African American) 45.4 ml/min; Glucose 119 mg/dl (70-99); Lipase 103 U/L (73-393); Potassium 4.2 mmol/L (3.5-5.1); Sodium 142 mmol/L (136-145)
[2021-01-17 20:40] LABS: Albumin Globulin Ratio 0.8 (0.9-2); Alkaline Phosphatase 197 U/L (45-117); Bilirubin,Total 0.2 mg/dl (0.2-1); Globulin 4.1 gm/dl (2.5-4.0); NT Pro B Type Natriuretic Pept 6859 pg/ml (0-1800); Total Protein 7.4 gm/dl (6.4-8.2); Troponin I 0.662 ng/ml (0-0.045)
[2021-01-17] MEDS ORDERED: FUROSEMIDE 40 MG/4 ML VIAL IV STA (20:45)
--- NOTE | 2021-01-17 22:06 | History & Physical Report ---
Date of Service January 17, 2021 Assessment & Plan (1) Acute on chronic heart failure with preserved ejection fraction (HFpEF): Plan: Acute on chronic HFpEF/hypertension/history non-STEMI/elevated troponin/moderate aortic stenosis Given furosemide 40 mg IV in the ED, will continue every morning The patient will be admitted to telemetry for serial cardiac enzymes, serial EKG's, cardiac rhythm monitoring. Most recent echo performed on 11/01/2020 Continue amlodipine 10 mg daily, aspirin 81 mg daily, isosorbide mononitrate 60 mg every morning, lisinopril 5 mg daily, Toprol tartrate 50 mg p.o. twice daily. Hold oral furosemide Consult cardiology (2) NSTEMI (non-ST elevated myocardial infarction): Plan: See above (3) Aortic stenosis: Plan: See above (4) BPH with obstruction/lower urinary tract symptoms: Plan: Continue finasteride 5 mg daily (5) Gout: Plan: Continue allopurinol 20 mg daily (6) Hyperlipidemia: Plan: Continue atorvastatin 40 mg every evening (7) HTN (hypertension): Plan: See above History of Present Illness Chief Complaint: The patient presents to the emergency department via EMS for evaluation of chest pain that persisted after taking multiple doses of nitr oglycerin prior to calling EMS. Primary Care Provider: Devyn Garzon MD The patient is an 89-year-old male with a past medical history including NSTEMI, hypoxia, moderate aortic stenosis, acute CHF, HFpEF, BPH with LUTS, CKD stage III, chronic left lower extremity DVT, depression with anxiety, essential tremor, gout, hyperlipidemia, impaired glucose, insomnia, iron deficiency anemia, hypertension, gastric mass and metastatic renal cell carcinoma. The patient reports that he had been feeling short of breath throughout the day, and as the day progressed developed more significant chest discomfort, that persisted after taking several doses of sublingual nitroglycerin. Allergies Allergy/AdvReac Type Severity Reaction Status Date / Time Penicillins Allergy Severe HIVES + Verified 01/17/21 20:37 THROAT SWELLING Home Medications Medication Instructions Recorded Confirmed Type allopurinol 300 mg tablet 300 mg PO DAILY 12/26/18 01/17/21 History isosorbide mononitrate 60 mg 60 mg PO QAM 12/26/18 01/17/21 History tablet,extended release 24 hr phenobarbital 64.8 mg tablet 64.8 mg PO BID 12/26/18 01/17/21 History primidone 50 mg tablet (Mysoline) 50 - 100 mg PO TID 12/26/18 01/17/21 History metoprolol tartrate 50 mg tablet 50 mg PO BID tab 04/01/19 01/17/21 History (Lopressor) lisinopril 5 mg tablet (Zestril) 5 mg PO DAILY #90 tab 06/03/20 01/17/21 Rx amlodipine 10 mg tablet 10 mg PO DAILY #90 tab 09/13/20 01/17/21 Rx finasteride 5 mg tablet (Proscar) 5 mg PO DAILY #90 tab 10/15/20 01/17/21 Rx aspirin 81 mg tablet,delayed 81 mg PO DAILY 11/01/20 01/17/21 History release atorvastatin 40 mg tablet 40 mg PO QPM 11/01/20 01/17/21 History cholecalciferol (vitamin D3) 25 1,000 unit PO DAILY 11/01/20 01/17/21 History mcg (1,000 unit) tablet (Vitamin D3) folic acid 400 mcg tablet 400 mcg PO DAILY 11/01/20 01/17/21 History nitroglycerin 0.4 mg sublingual 0.4 mg SUBLINGUAL UD PRN 11/01/20 01/17/21 History tablet furosemide 20 mg tablet 20 mg PO DAILY 01/17/21 01/17/21 History omeprazole 40 mg capsule,delayed 40 mg PO QPM 01/17/21 01/17/21 History release Past Med/Surg History Medical History (HFpEF) heart failure with preserved ejection fraction Anemia 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 He received 3750 cGy." Moderate aortic stenosis Palliative care encounter Upper GI bleeding Surgical History H/O colonoscopy H/O hernia repair diaphragmatic hernia History of appendectomy History of cholecystectomy History of cystoscopy History of intravascular stent placement Hx of tonsillectomy S/P IVC filter Status post cryoablation renal cancer Family History Mother Liver cancer Denies family history of Ovarian cancer Prostate cancer Breast cancer Lung cancer Colorectal cancer Social History Smoking Status: Never smoker Second Hand Exposure: No; Hx Alcohol Use: Yes Alcohol type: beer Alcohol Intake Frequency: Monthly or Less Hx Substance Use: No Preferred Language: Divehi Communication Ability: Effective Visual Impairment: Limited Hydraulic Miner Required: No Beliefs That Will Affect Care: None marital status: / Current Living Situation: Family Current Living Situation Comment: Lives with daughter Peggy current occupational status: retired Other Information That Helps Us Care for You: No Feels Safe at Home: Yes Safety Concerns: Feels Safe At This Time caffeine: Yes Dental Care, Regularly: No Physical Activity Frequency: Does not Exercise Seatbelt Use: always Sunscreen Use: No Assistive Devices: Oxygen - Continuous and Walker Review of Systems Review of Systems: The patient denies palpitations, cough, sore throat, fevers, chills, sweats, nausea, vomiting, diarrhea , constipation, abdominal pain, pelvic pain, blood in urine or stool, dysuria, urinary frequency or urgency, lightheadedness, dizziness, headache, loss of consciousness, rash, abnormal bruising or bleeding, focal weakness, numbness or tingling in arms or legs, generalized arthralgias or myalgias, back or neck pain, or night sweats. The review of systems is otherwise negative other than for that already noted above, and at least 10 systems have been reviewed. Physical Exam Physical Exam: The patient is awake, alert and oriented 3, well developed and well nourished, normocephalic and atraumatic, lying in bed and in no acute distress. HEENT--PERRL, EOMI, mucous membranes and oropharynx normal. Neck--supple. No JVD. No bruits. Thyroid normal, trachea midline, no adenopathy. Heart--normal S1 and S2. No murmurs, rubs or gallops. Lungs--clear bilaterally, no respiratory distress, no accessory muscle use. Abdomen--normal bowel sounds and soft. Nontender. Nondistended Extremities--no cyanosis or clubbing. 2+ bilateral pretibial pitting edema. Dermatologic--normal skin turgor, normal color, no abnormal lymph nodes, no rash. Neurologic--cranial nerves II through XII grossly intact. Rheumatologic--normal range of motion. Psychiatric--normal affect. Results & Data Results & Data ([facility]) Vital Signs (Past 12 Hours) Vital Signs Temp Pulse Resp BP Pulse Ox 01/17/21 21:17 76 28 H 100 01/17/21 19:32 89 18 95 01/17/21 18:39 92 01/17/21 18:24 97.5 F L 85 22 132/62 92 01/17/21 18:12 82 25 H 131/72 96 Laboratory Results Laboratory Results WBC 8.85 K/uL (4.8-10.8) 01/17/21 19:55 RBC 3.45 M/uL (4.7-6.1) L 01/17/21 19:55 Hgb 10.1 g/dL (14.0-18.0) L 01/17/21 19:55 Hct 32.4 % (42-52) L 01/17/21 19:55 MCV 93.9 fL (80-100) 01/17/21 19:55 MCH 29.3 pg (25-34) 01/17/21 19:55 MCHC 31.2 g/dL (32-36) L 01/17/21 19:55 RDW Std Deviation 58.6 fL (36.4-46.3) H 01/17/21 19:55 RDW Coeff of [place] 17.1 % (11.5-14.5) H 01/17/21 19:55 Plt Count 170 K/uL (130-400) 01/17/21 19:55 MPV 10.4 fL (7.4-10.4) 01/17/21 19:55 Immature Gran % (Auto) 0.3 % 01/17/21 19:55 Neut % (Auto) 71.9 % 01/17/21 19:55 Lymph % (Auto) 20.2 % 01/17/21 19:55 [place] % (Auto) 7.0 % 01/17/21 19:55 Eos % (Auto) 0.5 % 01/17/21 19:55 Baso % (Auto) 0.1 % 01/17/21 19:55 Neut # (Auto) 6.36 K/uL (1.4-6.5) 01/17/21 19:55 Lymph # (Auto) 1.79 K/uL (1.2-3.4) 01/17/21 19:55 [place] # (Auto) 0.62 K/uL (0.11-0.59) H 01/17/21 19:55 Eos # (Auto) 0.04 K/uL (0-0.5) 01/17/21 19:55 Baso # (Auto) 0.01 K/uL (0-0.2) 01/17/21 19:55 Immature Gran # (Auto) 0.03 K/uL (0.00-0.02) H 01/17/21 19:55 PT 10.1 Seconds (9.0-12.0) 01/17/21 19:55 INR 1.0 (0.9-1.1) 01/17/21 19:55 APTT 21.1 Seconds (21.0-31.0) 01/17/21 19:55 PTT Ratio 0.8 01/17/21 19:55 Sodium 142 mmol/L (136-145) 01/17/21 19:55 Potassium 4.2 mmol/L (3.5-5.1) 01/17/21 19:55 Chloride 115 mmol/L (98-107) H 01/17/21 19:55 Carbon Dioxide 20 mmol/L (21-32) L 01/17/21 19:55 Anion Gap 7.0 (3-11) 01/17/21 19:55 BUN 35 mg/dl (7-18) H 01/17/21 19:55 Creatinine 1.37 mg/dl (0.6-1.4) 01/17/21 19:55 Est Cr Clr Drug Dosing Not Reportable 01/17/21 19:55 Est GFR ( Amer) 52.6 ml/min 01/17/21 19:55 Est GFR (Non-Af Amer) 45.4 ml/min 01/17/21 19:55 BUN/Creatinine Ratio 25.6 (10-20) H 01/17/21 19:55 Glucose 119 mg/dl (70-99) H 01/17/21 19:55 Calcium 8.1 mg/dl (8.5-10.1) L 01/17/21 19:55 Total Bilirubin 0.2 mg/dl (0.2-1) 01/17/21 19:55 AST 26 U/L (15-37) 01/17/21 19:55 ALT 27 U/L (12-78) 01/17/21 19:55 Alkaline Phosphatase 197 U/L (45-117) H 01/17/21 19:55 Troponin I 0.662 ng/ml (0-0.045) H* 01/17/21 19:55 NT-Pro-B Natriuret Pep 6859 pg/ml (0-1800) H 01/17/21 19:55 Total Protein 7.4 gm/dl (6.4-8.2) 01/17/21 19:55 Albumin 3.3 gm/dl (3.4-5.0) L 01/17/21 19:55 Globulin 4.1 gm/dl (2.5-4.0) H 01/17/21 19:55 Albumin/Globulin Ratio 0.8 (0.9-2) L 01/17/21 19:55 Lipase 103 U/L (73-393) 01/17/21 19:55 COVID-19 Eval Order Covid19 [facility]Now [facility] 01/17/21 19:14 SARS-CoV-2, RNA, NAAT NEGATIVE (NEGATIVE) 01/17/21 19:14 Impressions Chest X-Ray 01/17/21 18:20 XR chest 1V portable HISTORY: 89 years-old Male Chest Pain acute atypical chest pain COMPARISON: Chest radiograph 11/01/2020 TECHNIQUE: Portable AP view of the chest FINDINGS: Cardiac silhouette is enlarged, unchanged. Pulmonary vascular congestion. Reticular interstitial opacities are noted bilaterally. Trace right and small left pleural effusions with asymmetric left lung base opacities. Medial apices are partially obscured by the patient's chin. Calcified plaque of the thoracic aorta. Degenerative changes of the shoulders and spine. IMPRESSION: 1. Cardiomegaly with pulmonary edema. 2. Trace right and small left pleural effusions. 3. Asymmetric left lung base opacities suggestive of probable atelectasis. Pneumonia considered less likely. ACT 112: Negative or not required by law. The above report was generated using voice recognition software. It may contain grammatical, syntax or spelling errors. Electronically signed by: Elieser Ramirez M.D. 01/17/2021 7:18 PM Code Status & VTE Plan Code Status Conditional code VTE Prophylaxis Plan VTE Prophylaxis will be ordered: Yes PG Care Time/CCT Total # of Minutes Spent Total Time Spent with Patient: Total time spent is greater than 50% in coordination of care (as documented) at patient's floor/unit and/or counseling patient: Coding Level of Care Code 96967 Initial Inpt Care Lvl 3 Diagnoses Acute on chronic heart failure with preserved ejection fraction (HFpEF) I50.33 NSTEMI (non-ST elevated myocardial infarction) I21.4 Aortic stenosis I35.0 BPH with obstruction/lower urinary tract symptoms N40.1; N13.8 Gout M10.9 Hyperlipidemia E78.5 HTN (hypertension) I10
[2021-01-17] MEDS ORDERED: ONDANSETRON INJ 2 MG/ML 2 ML VIAL IV PRN (23:25)
[2021-01-17] MEDS ORDERED: ACETAMINOPHEN 325 MG TAB PO PRN (23:25)
[2021-01-18] MEDS: METOPROLOL TARTRATE 50 MG TAB PO SCH ×3 (00:24→20:52)
[2021-01-18] MEDS: NITROGLYCERIN 2% OINTMENT 30GM TUBE EXT SCH ×5 (00:25→23:21)
[2021-01-18] MEDS: ALBUT/IPRATROP 3MG/0.5MG NEB 3 ML VIAL NEB SCH ×2 (07:15→11:50)
--- NOTE | 2021-01-18 08:22 | Electrocardiogram Report ---
Test Reason : Blood Pressure : / mmHG Vent. Rate : 083 BPM Atrial Rate : 083 BPM P-R Int : 268 ms QRS Dur : 130 ms QT Int : 404 ms P-R-T Axes : 105 -21 109 degrees QTc Int : 474 ms Sinus rhythm with 1st degree A-V block Left ventricular hypertrophy with QRS widening and repolarization abnormality Abnormal ECG When compared with ECG of 03-NOV-2020 04:53, T wave inversion no longer evident in Inferior leads T wave inversion no longer evident in Anterior leads Confirmed by Huseyin Terrell ([id number]) on 01/18/2021 8:21:59 AM Referred By: REFERRED SELF Confirmed By:Huseyin Terrell
[2021-01-18 08:46] LABS: Basophils # (auto) 0.01 K/uL (0-0.2); Basophils % (auto) 0.1 %; Eosinophils # (auto) 0.02 K/uL (0-0.5); Eosinophils % (auto) 0.2 %; Hematocrit (blood only) 33.4 % (42-52); Hemoglobin 10.3 g/dL (14.0-18.0); Immature Granulocytes # (auto) 0.03 K/uL (0.00-0.02); Immature Granulocytes % (auto) 0.3 %; Lymphocytes % (auto) 19.7 %; Mean Corpuscular Hemoglobin 29.3 pg (25-34); Mean Corpuscular Hgb Conc 30.8 g/dL (32-36); Mean Corpuscular Volume 94.9 fL (80-100); Mean Platelet Volume 10.7 fL (7.4-10.4); Monocytes # (auto) 0.96 K/uL (0.11-0.59); Monocytes % (auto) 8.6 %; Neutrophils # (auto) 7.93 K/uL (1.4-6.5); Neutrophils % (auto) 71.1 %; Platelet Count 201 K/uL (130-400); RDW Coefficient of Variation 17.1 % (11.5-14.5); RDW Standard Deviation 59.2 fL (36.4-46.3); Red Blood Count 3.52 M/uL (4.7-6.1); White Blood Count 11.15 K/uL (4.8-10.8)
--- NOTE | 2021-01-18 08:49 | Electrocardiogram Report ---
Test Reason : Blood Pressure : / mmHG Vent. Rate : 071 BPM Atrial Rate : 071 BPM P-R Int : 254 ms QRS Dur : 122 ms QT Int : 438 ms P-R-T Axes : 064 -21 044 degrees QTc Int : 475 ms Sinus rhythm with 1st degree A-V block Left ventricular hypertrophy with QRS widening and repolarization abnormality Abnormal ECG When compared with ECG of 17-JAN-2021 18:17, No significant change was found Confirmed by Huseyin Terrell ([id number]) on 01/18/2021 8:49:19 AM Referred By: REFERRED SELF Confirmed By:Huseyin Terrell
[2021-01-18] MEDS ORDERED: FUROSEMIDE 40 MG/4 ML VIAL IV SCH (09:00)
[2021-01-18] MEDS ORDERED: ISOSORBIDE MONO EXTENDED REL 60 MG TABCR PO SCH (09:00)
[2021-01-18] MEDS ORDERED: amLODIPine BESYLATE 5 MG TAB PO SCH (09:00)
[2021-01-18] MEDS ORDERED: FUROSEMIDE 40 MG in SYRINGE 0 ML IV SCH (09:00)
[2021-01-18 09:07] LABS: Albumin Level 3.3 gm/dl (3.4-5.0); Calcium 8.5 mg/dl (8.5-10.1); Creatinine Clr Calc Pharmacy 30.6 ml/min; Est GFR (African American) 45.7 ml/min; Est GFR (Non-African American) 39.4 ml/min; Magnesium 2.3 mg/dl (1.8-2.4); Potassium 4.6 mmol/L (3.5-5.1)
[2021-01-18 09:20] LABS: Albumin Globulin Ratio 0.8 (0.9-2); Bilirubin,Total 0.3 mg/dl (0.2-1); Globulin 4.1 gm/dl (2.5-4.0); Total Protein 7.4 gm/dl (6.4-8.2); Troponin I 3.1 ng/ml (0-0.045)
--- NOTE | 2021-01-18 09:42 | Hospitalist Progress Note ---
Date of Service January 18, 2021 Assessment & Plan (1) Acute on chronic heart failure with preserved ejection fraction (HFpEF): Plan: Acute on chronic HFpEF/hypertension/history non-STEMI/elevated troponin/moderate aortic stenosis Given furosemide 40 mg IV in the ED, cardiology increased to bid, has mild elevation of Cr Continue amlodipine 10 mg daily, aspirin 81 mg daily, isosorbide mononitrate 60 mg every morning, lisinopril 5 mg daily, Toprol tartrate 50 mg p.o. twice daily. Consult cardiology who knows patient well recommends medical management (2) NSTEMI (non-ST elevated myocardial infarction): Plan: troponin has gone up to 3 from 0.6, has no acute changes seen on serial ecg, however ecg with chest pain has some lateral depression, is on nitro paste, will increase isosorbide 01/19 and stop paste, consider ranexa discuss with cardiology (3) Aortic stenosis: Plan: cardiology recommends stopping dara i (4) BPH with obstruction/lower urinary tract symptoms: Plan: Continue finasteride 5 mg daily (5) Gout: Plan: Continue allopurinol 20 mg daily (6) Hyperlipidemia: Plan: Continue atorvastatin 40 mg every evening (7) HTN (hypertension): Plan: See above Plan: outlook is questionable Admission and Anticipated Discharge Date Admission Date: January 17, 2021 Subjective Patient was tapered off of noninvasive positive pressure ventilation today as diuresis improved his oxygenation. He still is on significant oxygen administration. Initial consideration for heparin was changed due to previous intolerance of heparin, conservative medical management be undertaken for this patient's heart failure and perhaps unstable angina non-STEMI Review of Systems Review of Systems: Moderate respiratory distress and fatigue no headache, no visual changes no speech or swallowing issues no chest pain, pressure or palpitations Shortness of breath at rest no coughing no abdominal pain, nausea or vomiting, diarrhea or constipation no dysuria, hematuria or frequency no focal joint pain significant lower extremity swelling no back pain, CVA tenderness or radicular pain no bruising, bleeding or rashes no focal signs of weakness or numbness or altered sensation no complaints of anxiety or depression.. Physical Exam Physical Exam: The patient appeared well nourished and normally developed. Vital signs as documented. Head exam is normocephalic atraumatic Neck is with 2 cm JVD, thyromegaly, or carotid bruits. Lungs are also the bases decreased air movement Cardiac exam, Rhythm is regular.. Systolic murmur consistent with aortic stenosis Abdominal exam reveals normal bowel sounds, soft non tender, no masses Extremities are 2+ edematous and both pedal pulses are present Neurologic exam is alert and oriented, no focal loss of strength or sensation Skin is without bruises or rashes Psychologically is without concerns for anxiety or depression Results & Data Results & Data ([facility]) Vital Signs (Past 12 Hours) Vital Signs Temp Pulse Pulse Pulse Pulse Resp BP 01/18/21 08:00 97.2 F L 73 70 22 01/18/21 07:16 73 20 01/18/21 02:49 98.6 F 61 18 104/47 L 01/18/21 01:11 73 01/17/21 23:29 98.1 F 74 20 127/70 01/17/21 23:25 98.1 F 72 74 20 127/70 01/17/21 22:42 62 16 BP Pulse Ox Pulse Ox 01/18/21 08:00 127/53 L 93 96 01/18/21 07:16 96 01/18/21 02:49 98 01/18/21 01:11 01/17/21 23:29 96 01/17/21 23:25 95 96 01/17/21 22:42 100 PG Care Time/CCT Total # of Minutes Spent Total Time Spent with Patient: Total time spent is greater than 50% in coordination of care (as documented) at patient's floor/unit and/or counseling patient: Coding Level of Care Code 42666 Subseq Hosp Care Lvl 3 Diagnoses Acute on chronic heart failure with preserved ejection fraction (HFpEF) I50.33 NSTEMI (non-ST elevated myocardial infarction) I21.4 Aortic stenosis I35.0 BPH with obstruction/lower urinary tract symptoms N40.1; N13.8 Gout M10.9 Hyperlipidemia E78.5 HTN (hypertension) I10
[2021-01-18] MEDS: HEPARIN SOD 5,000 UNIT/0.5 ML VIAL SQ SCH ×2 (10:20→20:51)
[2021-01-18] MEDS: PRIMIDONE 50 MG TAB PO SCH ×3 (10:21→20:53)
--- NOTE | 2021-01-18 10:25 | Cardiology Consultation ---
Date of Consultation January 18, 2021 Assessment & Plan (1) Acute on chronic heart failure with preserved ejection fraction (HFpEF): (2) Chest pain: (3) Hypoxia: (4) Pulmonary edema: (5) Respiratory failure: (6) NSTEMI (non-ST elevated myocardial infarction): (7) Aortic stenosis: Complex 89 year old male with significant aortic valve stenosis and coronary artery disease. Patient admitted with significant dyspnea and angina, acute decompensated congestive heart failure complicated by non-ST segment elevation myocardial infarction. Patient has responded to initial therapies though remains decompensated. Continue IV furosemide, increasing to 40 mg twice per day. Recommend utilization for unfractionated heparin x48 hours. Hold lisinopril with plans to discontinue given aortic stenosis. Patient appears to be a poor candidate for intervention with outpatient chart review revealing patient and family request for conservative medical therapy. Further recommendations pending the above, evaluation by Dr. Meadows, and the patient's ongoing hospitalization. Supervising Physician Co-Signing Physician Notes Patient was seen and personally examined, chart, medications, telemetry reviewed. Full assessment as well outlined above. Patient with complex underlying history of cardiac disease admitted with decompensated congestive heart failure with elevated troponin. Patient at time of examination clinically improved, no further chest pain and dyspnea improved Plan continue conservative management asf previously outlined Patient in agreement History of Present Illness Reason for Consultation: NSTEMI, CHF Requesting Physician: Andre Attending Physician: Tracy History of Present Illness Complex 89-year-old male who presented to the emergency room via ambulance with significant shortness of breath then recurrent chest discomfort requiring multiple doses of sublingual nitroglycerin. Patient notably hypoxic on presentation, improving with supplemental oxygen, IV furosemide, and BiPAP therapy. EKG show sinus rhythm with a first-degree AV block, LVH with QRS widening and repolarization changes. Troponin elevated, 0.662 then 3.100 ng/mL. Chest x-ray shows cardiomegaly with pulmonary edema, trace right and small left pleural effusions, asymmetric left lung opacity more suggestive of atelectasis than pneumonia. Patient notes improvement following IV furosemide and BiPAP therapy though remains ill. Oral Furosemide notably decreased approximately three weeks ago due to concern for hypovolemia. Allergies Allergy/AdvReac Type Severity Reaction Status Date / Time Penicillins Allergy Severe HIVES + Verified 01/17/21 20:37 THROAT SWELLING Home Medications Medication Instructions Recorded Confirmed Type allopurinol 300 mg tablet 300 mg PO DAILY 12/26/18 01/17/21 History isosorbide mononitrate 60 mg 60 mg PO QAM 12/26/18 01/17/21 History tablet,extended release 24 hr phenobarbital 64.8 mg tablet 64.8 mg PO BID 12/26/18 01/17/21 History primidone 50 mg tablet (Mysoline) 50 - 100 mg PO TID 12/26/18 01/17/21 History metoprolol tartrate 50 mg tablet 50 mg PO BID tab 04/01/19 01/17/21 History (Lopressor) lisinopril 5 mg tablet (Zestril) 5 mg PO DAILY #90 tab 06/03/20 01/17/21 Rx amlodipine 10 mg tablet 10 mg PO DAILY #90 tab 09/13/20 01/17/21 Rx finasteride 5 mg tablet (Proscar) 5 mg PO DAILY #90 tab 10/15/20 01/17/21 Rx aspirin 81 mg tablet,delayed 81 mg PO DAILY 11/01/20 01/17/21 History release atorvastatin 40 mg tablet 40 mg PO QPM 11/01/20 01/17/21 History cholecalciferol (vitamin D3) 25 1,000 unit PO DAILY 11/01/20 01/17/21 History mcg (1,000 unit) tablet (Vitamin D3) folic acid 400 mcg tablet 400 mcg PO DAILY 11/01/20 01/17/21 History nitroglycerin 0.4 mg sublingual 0.4 mg SUBLINGUAL UD PRN 11/01/20 01/17/21 History tablet furosemide 20 mg tablet 20 mg PO DAILY 01/17/21 01/17/21 History omeprazole 40 mg capsule,delayed 40 mg PO QPM 01/17/21 01/17/21 History release Patient History Medical History (HFpEF) heart failure with preserved ejection fraction Anemia 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 He received 3750 cGy." Moderate aortic stenosis Palliative care encounter Upper GI bleeding Surgical History H/O colonoscopy H/O hernia repair diaphragmatic hernia History of appendectomy History of cholecystectomy History of cystoscopy History of intravascular stent placement Hx of tonsillectomy S/P IVC filter Status post cryoablation renal cancer Family History Mother Liver cancer Denies family history of Ovarian cancer Prostate cancer Breast cancer Lung cancer Colorectal cancer Social History Smoking Status: Never smoker Second Hand Exposure: No; Hx Alcohol Use: Yes Alcohol type: beer Alcohol Intake Frequency: Monthly or Less Hx Substance Use: No Preferred Language: Arabic Communication Ability: Effective Visual Impairment: Limited Jackscrew Man Required: No Beliefs That Will Affect Care: None marital status: / Current Living Situation: Family Current Living Situation Comment: Lives with daughter Peggy current occupational status: retired Other Information That Helps Us Care for You: No Feels Safe at Home: Yes Safety Concerns: Feels Safe At This Time caffeine: Yes Dental Care, Regularly: No Physical Activity Frequency: Does not Exercise Seatbelt Use: always Sunscreen Use: No Assistive Devices: Oxygen - Continuous and Walker Review of Systems Review of Systems: A complete review of systems was not obtained due to the patient's condition, currently on BiPAP therapy. Physical Exam Physical Exam: General: Mild distress, on BiPAP therapy. Alert to person, place, and time. No focal neuro deficits. HENT: Normocephalic. Atraumatic. Eyes: PER. EOMI. Conjunctiva and sclera clear. NECK: Transmitted systolic murmur. + JVD. Heart: RRR, 70 bpm. Grade III/ systolic ejection murmur. Lungs: Scattered rales. No wheeze. Abdomen: Normal bowel sounds. Soft. Nontender. No masses or organomegaly. No abdominal bruits. Extremities: Mild edema. No clubbing. No cyanosis. Results & Data ([facility]) Vital Signs (Past 12 Hours) Vital Signs Temp Pulse Pulse Pulse Pulse Resp BP 01/18/21 08:00 36.2 C L 73 70 22 01/18/21 07:16 73 20 01/18/21 02:49 37.0 C 61 18 104/47 L 01/18/21 01:11 73 01/17/21 23:29 36.7 C 74 20 127/70 01/17/21 23:25 36.7 C 72 74 20 127/70 01/17/21 22:42 62 16 BP Pulse Ox Pulse Ox 01/18/21 08:00 127/53 L 93 96 01/18/21 07:16 96 01/18/21 02:49 98 01/18/21 01:11 01/17/21 23:29 96 01/17/21 23:25 95 96 01/17/21 22:42 100 Laboratory Results Laboratory Results - last 24 hr 01/17/21 01/17/21 01/17/21 19:14 19:14 19:55 WBC RBC Hgb Hct MCV MCH MCHC RDW Std Deviation RDW Coeff of [place] Plt Count MPV Immature Gran % (Auto) Neut % (Auto) Lymph % (Auto) [place] % (Auto) Eos % (Auto) Baso % (Auto) Neut # (Auto) Lymph # (Auto) [place] # (Auto) Eos # (Auto) Baso # (Auto) Immature Gran # (Auto) PT 10.1 INR 1.0 APTT 21.1 PTT Ratio 0.8 Sodium Potassium Chloride Carbon Dioxide Anion Gap BUN Creatinine Est Cr Clr Drug Dosing Est GFR ( Amer) Est GFR (Non-Af Amer) BUN/Creatinine Ratio Glucose Calcium Magnesium Total Bilirubin AST ALT Alkaline Phosphatase Troponin I NT-Pro-B Natriuret Pep Total Protein Albumin Globulin Albumin/Globulin Ratio Lipase COVID-19 Eval Order Covid19 [facility]Now [facility] SARS-CoV-2, RNA, NAAT NEGATIVE 01/17/21 01/17/21 01/18/21 19:55 19:55 08:04 WBC 8.85 RBC 3.45 L Hgb 10.1 L Hct 32.4 L MCV 93.9 MCH 29.3 MCHC 31.2 L RDW Std Deviation 58.6 H RDW Coeff of [place] 17.1 H Plt Count 170 MPV 10.4 Immature Gran % (Auto) 0.3 Neut % (Auto) 71.9 Lymph % (Auto) 20.2 [place] % (Auto) 7.0 Eos % (Auto) 0.5 Baso % (Auto) 0.1 Neut # (Auto) 6.36 Lymph # (Auto) 1.79 [place] # (Auto) 0.62 H Eos # (Auto) 0.04 Baso # (Auto) 0.01 Immature Gran # (Auto) 0.03 H PT INR APTT PTT Ratio Sodium 142 142 Potassium 4.2 4.6 Chloride 115 H 114 H Carbon Dioxide 20 L 20 L Anion Gap 7.0 7.0 BUN 35 H 40 H Creatinine 1.37 1.54 H Est Cr Clr Drug Dosing Not Reportable 30.6 Est GFR ( Amer) 52.6 45.7 Est GFR (Non-Af Amer) 45.4 39.4 BUN/Creatinine Ratio 25.6 H 26.0 H Glucose 119 H 113 H Calcium 8.1 L 8.5 Magnesium 2.3 Total Bilirubin 0.2 0.3 AST 26 37 ALT 27 27 Alkaline Phosphatase 197 H 198 H Troponin I 0.662 H* 3.100 H* NT-Pro-B Natriuret Pep 6859 H Total Protein 7.4 7.4 Albumin 3.3 L 3.3 L Globulin 4.1 H 4.1 H Albumin/Globulin Ratio 0.8 L 0.8 L Lipase 103 COVID-19 Eval Order SARS-CoV-2, RNA, NAAT 01/18/21 08:04 WBC 11.15 H RBC 3.52 L Hgb 10.3 L Hct 33.4 L MCV 94.9 MCH 29.3 MCHC 30.8 L RDW Std Deviation 59.2 H RDW Coeff of [place] 17.1 H Plt Count 201 MPV 10.7 H Immature Gran % (Auto) 0.3 Neut % (Auto) 71.1 Lymph % (Auto) 19.7 [place] % (Auto) 8.6 Eos % (Auto) 0.2 Baso % (Auto) 0.1 Neut # (Auto) 7.93 H Lymph # (Auto) 2.20 [place] # (Auto) 0.96 H Eos # (Auto) 0.02 Baso # (Auto) 0.01 Immature Gran # (Auto) 0.03 H PT INR APTT PTT Ratio Sodium Potassium Chloride Carbon Dioxide Anion Gap BUN Creatinine Est Cr Clr Drug Dosing Est GFR ( Amer) Est GFR (Non-Af Amer) BUN/Creatinine Ratio Glucose Calcium Magnesium Total Bilirubin AST ALT Alkaline Phosphatase Troponin I NT-Pro-B Natriuret Pep Total Protein Albumin Globulin Albumin/Globulin Ratio Lipase COVID-19 Eval Order SARS-CoV-2, RNA, NAAT Diagnostic Findings November 01, 2020 TTE Interpretation Summary ([facility], Dr. Matos): Moderate concentric LVH. Normal LV systolic function. EF 52%. Small size apical wall motion abnormality with hypokinesis of the lateral apical segment. Mild mitral regurgitation. Mild tricuspid regurgitation. Severely calcified aortic valve with severe aortic stenosis. Peak continuous-wave Doppler velocity 5 m/s. Mean gradient 54 mmHg. Calculated aortic valve area 0.7 to 0.8 cm. Mild aortic regurgitation. Mild pulmonary hypertension. Estimated pulmonary artery systolic pressure 40 mmHg. Telemetry: Sinus in the 70s. (1) Pulmonary edema Chronicity: acute Qualified Code(s): J81.0 - Acute pulmonary edema (2) Respiratory failure Chronicity: acute Respiratory failure complication: hypoxia Qualified Code(s): J96.01 - Acute respiratory failure with hypoxia (3) Chest pain Chest pain type: unspecified Qualified Code(s): R07.9 - Chest pain, unspecified
[2021-01-18] MEDS: ASPIRIN 81 MG ECTAB PO SCH (11:08)
[2021-01-18] MEDS: allopurinoL 300 MG TAB PO SCH (11:09)
[2021-01-18] MEDS: FINASTERIDE 5 MG TAB PO SCH (11:10)
[2021-01-18] MEDS: FOLIC ACID 400 MCG TAB PO SCH (11:11)
[2021-01-18] MEDS: CHOLECALCIFEROL 1,000 UNITS 25 MCG TAB PO SCH (11:11)
[2021-01-18] MEDS ORDERED: ALBUT/IPRATROP 3MG/0.5MG NEB 3 ML VIAL NEB PRN (14:07)
[2021-01-18] MEDS: FUROSEMIDE 40 MG in SYRINGE 0 ML IV SCH (16:34)
[2021-01-18] MEDS: NITROGLYCERIN SL 0.4 MG/TAB TAB SL PRN ×2 (18:53→23:04)
[2021-01-18] MEDS ORDERED: PANTOprazole 40 MG TAB PO SCH (21:00)
[2021-01-18] MEDS ORDERED: ATORVASTATIN 40 MG TAB PO SCH (21:00)
[2021-01-18] MEDS ORDERED: FUROSEMIDE 40 MG/4 ML VIAL IV ONE (23:18)
--- NOTE | 2021-01-18 23:21 | Communication Note ---
Date of Service: January 18, 2021 Called by bedside nursing staff, with regard to concern for patient having aspiration and desaturations. At that time patient was having copious amounts of oral secretions in his oropharynx, and clearing his airway. Upon my presentation to bedside patient had coarse breath sounds bilaterally, with crackles in the lower lobes. Patient's oxygen saturation was approximately 84% at that time on BiPAP. Given the expressed concerns about aspiration, in addition to the setting of congestive heart failure presentation to the hospital, concerned as to whether or not this decompensation/hypoxia is usually result of pneumonitis versus worsening congestive heart failure. CXR and laboratory studies ordered. Chest x-ray demonstrating improved lung base, right, with maintained opacity over the left lower lobe, and unclear costophrenic angle on the left. BNP demonstrated acute rise from 6000-18,000. Troponin had decreased since last checked. Given this concern, held in addition to the low urine output patient was having at that time additional 40 of IV Lasix x2 was ordered. Additionally 40 of IV Solu-Medrol was given at that time, with then transition of patient onto high flow nasal cannula. Patient had minimal urine output following Lasix, did have improved oxygenation up to 94% on the high flow nasal cannula, however was requiring 40 L high flow with 100% FiO2. Later during the shift, patient continued to have abdominal distention and nursing expressed concern about potential of high flow contributions to this. KUB was ordered with attempt to place NG tube to reduce gastric distention as a result of high flow nasal cannula. However unfortunately NG tube was unable to be placed after multiple attempts. Patient to continue to h ave declining mentation over this time, ICU team on-call was contacted for additional assistance in management. Upon their presentation to bedside patient was continued to have poor mentation, after lengthy discussion regarding steps as above, patient was transitioned to ICU care for further evaluation. ABG at that time demonstrated pH of 7.13 with PCO2 of 63. Following this patient was transitioned back to BiPAP for transportation to ICU. After some time on BiPAP in the ICU setting, patient was mentation seemingly improved, with repeat ABG demonstrating improved acidosis to 7.29, with decreased CO2 retention. Resident Activity Tracking Resident Involvement: Resident Care Provided Care Provided: [facility]
[2021-01-18 23:26] LABS: Basophils # (auto) 0.01 K/uL (0-0.2); Basophils % (auto) 0.1 %; Eosinophils # (auto) 0.02 K/uL (0-0.5); Eosinophils % (auto) 0.1 %; Hematocrit (blood only) 31.2 % (42-52); Hemoglobin 9.8 g/dL (14.0-18.0); Immature Granulocytes # (auto) 0.05 K/uL (0.00-0.02); Immature Granulocytes % (auto) 0.4 %; Lymphocytes # (auto) 3.04 K/uL (1.2-3.4); Lymphocytes % (auto) 21.4 %; Mean Corpuscular Hemoglobin 29.5 pg (25-34); Mean Corpuscular Hgb Conc 31.4 g/dL (32-36); Mean Platelet Volume 10.6 fL (7.4-10.4); Monocytes # (auto) 1.32 K/uL (0.11-0.59); Monocytes % (auto) 9.3 %; Neutrophils # (auto) 9.74 K/uL (1.4-6.5); Neutrophils % (auto) 68.7 %; Platelet Count 207 K/uL (130-400); RDW Standard Deviation 58.2 fL (36.4-46.3); Red Blood Count 3.32 M/uL (4.7-6.1); White Blood Count 14.18 K/uL (4.8-10.8)
[2021-01-18] MEDS ORDERED: methylPREDNISolone 40 MG in SYRINGE 0 ML IV ONE (23:30)
[2021-01-18] MEDS ORDERED: FUROSEMIDE 40 MG in SYRINGE 0 ML IV ONE (23:30)
[2021-01-18 23:39] LABS: Prothrombin Time 10.2 Seconds (9.0-12.0)
[2021-01-18 23:42] LABS: BUN Creatinine Ratio 29.5 (10-20); Calcium 7.7 mg/dl (8.5-10.1); Creatinine Clr Calc Pharmacy 29.5 ml/min; Est GFR (African American) 43.6 ml/min; Est GFR (Non-African American) 37.6 ml/min; Potassium 4.1 mmol/L (3.5-5.1)
[2021-01-18 23:52] LABS: Troponin I 2.39 ng/ml (0-0.045)
[2021-01-19] MEDS ORDERED: FUROSEMIDE 40 MG/4 ML VIAL IV ONE (00:06)
[2021-01-19] MEDS ORDERED: FUROSEMIDE 40 MG in SYRINGE 0 ML IV ONE (00:15)
[2021-01-19] MEDS ORDERED: MoRPHine SULFATE 2 MG/ML CARP ONE (02:14)
[2021-01-19] MEDS ORDERED: MoRPHine SULFATE 2 MG/ML CARP IV STA (02:14)
[2021-01-19 03:03] LABS: Hematocrit (blood only) 33.6 % (42-52); Hemoglobin 10.5 g/dL (14.0-18.0); Immature Granulocytes # (auto) 0.08 K/uL (0.00-0.02); Immature Granulocytes % (auto) 0.5 %; Lymphocytes # (auto) 0.73 K/uL (1.2-3.4); Lymphocytes % (auto) 4.9 %; Mean Corpuscular Hemoglobin 29.7 pg (25-34); Mean Corpuscular Hgb Conc 31.3 g/dL (32-36); Mean Corpuscular Volume 94.9 fL (80-100); Mean Platelet Volume 10.9 fL (7.4-10.4); Monocytes # (auto) 0.84 K/uL (0.11-0.59); Monocytes % (auto) 5.6 %; Neutrophils # (auto) 13.28 K/uL (1.4-6.5); Nucleated RBC # (auto) 0.06 K/uL (0-0); Nucleated RBC % (auto) 0.4 %; Platelet Count 218 K/uL (130-400); RDW Coefficient of Variation 17.2 % (11.5-14.5); Red Blood Count 3.54 M/uL (4.7-6.1); White Blood Count 14.93 K/uL (4.8-10.8)
[2021-01-19 03:04] LABS: Base Excess ABG -9.1 mEq/L (-9-1.8); HCO3 ABG 20 mmol/L (19-24); Oxygen Saturation ABG 95.2 % (90-95); PCO2 ABG 63 mmHg (35-46); PO2 ABG 89 mmHg (80-95)
[2021-01-19 03:06] LABS: Allen Test Pos (Pos)
[2021-01-19 03:07] LABS: pH ABG 7.13 (7.35-7.45)
[2021-01-19 03:31] LABS: Albumin Level 3.2 gm/dl (3.4-5.0); Calcium 8.2 mg/dl (8.5-10.1); Creatinine Clr Calc Pharmacy 23.8 ml/min; Est GFR (African American) 33.7 ml/min; Est GFR (Non-African American) 29.1 ml/min; Magnesium 2.4 mg/dl (1.8-2.4); Potassium 4.8 mmol/L (3.5-5.1)
[2021-01-19 03:34] LABS: Albumin Globulin Ratio 0.7 (0.9-2); Bilirubin,Total 0.3 mg/dl (0.2-1); Globulin 4.5 gm/dl (2.5-4.0); Total Protein 7.7 gm/dl (6.4-8.2); Troponin I 2.87 ng/ml (0-0.045)
--- NOTE | 2021-01-19 03:48 | Critical Care Consultation ---
Date of Consultation January 19, 2021 Assessment & Plan (1) Admitted to intensive care unit: Reason Critically Ill: 89-year-old male with acute hypoxic respiratory failure with hypercapnia in the setting of decompensated CHF requiring close monitoring for possible need for endotracheal intubation. NEURO - * CAM ICU: Unable to assess * Somnolent: * Likely secondary to hypercapnia. * Monitor for changes/improvement with correction of underlying disease process. CARDIAC/VASCULAR - * Decompensated heart failure: * Patient initially responded well to IV Lasix, nitrates, and positive pressure ventilation. * Received a total of 120 mg IV Lasix. * Minimal urine output. * Will add 1 dose of IV Bumex. * Monitor for urine output. Consider Bumex drip. * Pending improvement of urine output with addition of Bumex, consider starting the patient on inotropes. * Patient is certainly concerning given degree of pulmonary edema and decompensation as well as drop off in urine output. We will recheck baseline labs as I am suspicious that the patient is now with worsening GUSTAVO. Will check liver enzymes to assess for worsening signs of congestion (i.e. congestive hepatopathy). * BNP continues to rise suggesting worsening failure component. * NSTEMI: * Likely secondary to the above. * Patient w/ chronic LBBB so difficult to assess for new/worsening ischemia. * Patient with chronic s/s of ischemia requiring regular use of nitro at home. * Previously assessed as not a candidate for cath/surgery. * Continue to trend trops. * Nitro as needed. * Apparently, patient unable to be anticoagulated 2/2 h/o severe GI Bleeding in the past. * Monitor on telemetry. RESPIRATORY - * Acute hypoxic respiratory failure with hypercapnia: * On initial evaluation yesterday, the patient was with substantial pulmonary edema on chest x-ray. Did have some improvement with IV Lasix and positive pressure ventilation. He was able to be weaned down to oxygen mask yesterday. Patient apparently with increasing hypoxia with saturations in the 80s. Patient was placed back on BiPAP. Apparently, there was concern for possible aspiration, however there was never any noted josh aspiration. Nursing staff describes possible "silent aspiration". Repeat chest x-ray reviewed by myself demonstrates no overt signs of infiltrative changes suggestive of acute aspiration/infiltrative process. Pulmonary edema actually seems slightly improved approximately 4 hours ago. Patient is obtunded and on high flow. Suggested for blood gas and transfer to ICU. * ABG shows primary respiratory acidosis with a pH of 7.13 and CO2 of 63. Patient had already been started on BiPAP. He was placed on settings of 14/6 and 40%. He is saturating the 90s. Repeat blood gas ordered for 1.5 hours. Patient is already mentating better at this time. Repeat labs suggestive of worsening GUSTAVO and electrolyte dysfunction. Patient is not putting out urine. * While the patient certainly may have sustained a degree of slight aspiration with a degree of pneumonitis, I am more concerned that the patient is displaying symptoms of worsening decompensated heart failure with pulmonary edema and poor ventilation secondary to noncompliance of lungs secondary to significant pulmonary edema. Patient warrants ongoing positive pressure support. * Will monitor for improvement versus worsening respiratory/mental status despite positive pressure ventilatory techniques. * Low threshold for intubation, however I am concerned that the patient is now in a worsening decompensated heart failure with minimal urine output which may be progressing to more terminal situation. * Consider possibility of new PE, however the patient is requiring only 40% FiO2 when positive pressure in place making this less likely. Regardless, the patient has substantial adverse effects of anticoagulation which certainly may outweigh the benefits of systemic anticoagulation preemptively with concern for possible thromboembolic process. GI/NUTRITION - * N.p.o. RENAL/LYTES - * GUSTAVO: * Likely secondary to poor forward flow. * Continue to attempt to offload with diuretics. * Consider addition of inotropes to floor layer helper in forward flow. * Will give initial dose of Bumex. Progress to Bumex drip if improved. - * Nam in place - Strict I&Os. ENDO - * No h/o DM or Thyroid Dz * BSGs per unit protocol. ISS --> gtt per unit policy. HEME - * Anemia. * Significant history of thromboembolic disease. ID - * Without concern for significant infectious causes. LINES/IV ACCESS - * PIVs x3 * Nam DVT PROPHYLAXIS - * Heparin sq * SCDs I have personally spent 55 minutes of critical care time in the direct management of this patient. This is a life/limb threatening event. This includes time spent evaluating patient, direct bedside care, chart review, placing orders, interpretation of diagnostic studies, discussion with consultants, patient, and family members, as well as other required patient management activities. This time is exclusive of all separately billable procedures, and teaching time and separate from and in addition to any other critical care service time. Thank you for allowing us to participate in the care of this patient. Please refer to my attending physician's documentation for any further recommendations. (2) Acute respiratory failure with hypoxia and hypercapnia: (3) Acute on chronic heart failure with preserved ejection fraction (HFpEF): (4) Chest pain: (5) Hypoxia: (6) Pulmonary edema: (7) Respiratory failure: (8) NSTEMI (non-ST elevated myocardial infarction): (9) Aortic stenosis: (10) (HFpEF) heart failure with preserved ejection fraction: (11) CKD (chronic kidney disease), stage III: History of Present Illness Attending Physician: Jakub Molina MD History of Present Illness Patient is an 89-year-old male with a significant past medical history of hypertension, heart failure with preserved ejection fraction, recurrent chest pain/angina, severe aortic stenosis, CKD 3, history of significant thromboembolic disease, hyperlipidemia, presumed coronary artery disease, metastatic renal cell carcinoma, history of GI bleeding. Patient was initially admitted to this institution on 01/17 with acute on chronic CHF with hypoxic respiratory failure. The patient received IV Lasix and positive pressure ventilation which did seem to improve his symptoms. He did receive an nissa tional dose of Lasix yesterday. Apparently, throughout the night, the patient had fluctuations of hypoxia. At some point, there was apparently concern of aspiration, however staff was unable to provide true examples of aspiration. The patient was taken off his BiPAP as there was concern for distention of his abdomen. Attempts were made to decompress the stomach using NG tube which was unsuccessful. Patient was placed on high flow. I was consulted to evaluate the patient as there was concern for possible need for intubation. Upon my evaluation in room 218, the patient is somnolent, but does arouse to noxious stimuli. He is not tachypneic. He does not appear well. Decision made to obtain [id number] ABG while on high flow and transition the patient to the ICU to be placed on BiPAP for further assessment. Patient unable to contribute to history of present illness secondary to mental status. Allergies Allergy/AdvReac Type Severity Reaction Status Date / Time Penicillins Allergy Severe HIVES + Verified 01/17/21 20:37 THROAT SWELLING Home Medications Medication Instructions Recorded Confirmed Type allopurinol 300 mg tablet 300 mg PO DAILY 12/26/18 01/17/21 History isosorbide mononitrate 60 mg 60 mg PO QAM 12/26/18 01/17/21 History tablet,extended release 24 hr phenobarbital 64.8 mg tablet 64.8 mg PO BID 12/26/18 01/17/21 History primidone 50 mg tablet (Mysoline) 50 - 100 mg PO TID 12/26/18 01/17/21 History metoprolol tartrate 50 mg tablet 50 mg PO BID tab 04/01/19 01/17/21 History (Lopressor) lisinopril 5 mg tablet (Zestril) 5 mg PO DAILY #90 tab 06/03/20 01/17/21 Rx amlodipine 10 mg tablet 10 mg PO DAILY #90 tab 09/13/20 01/17/21 Rx finasteride 5 mg tablet (Proscar) 5 mg PO DAILY #90 tab 10/15/20 01/17/21 Rx aspirin 81 mg tablet,delayed 81 mg PO DAILY 11/01/20 01/17/21 History release atorvastatin 40 mg tablet 40 mg PO QPM 11/01/20 01/17/21 History cholecalciferol (vitamin D3) 25 1,000 unit PO DAILY 11/01/20 01/17/21 History mcg (1,000 unit) tablet (Vitamin D3) folic acid 400 mcg tablet 400 mcg PO DAILY 11/01/20 01/17/21 History nitroglycerin 0.4 mg sublingual 0.4 mg SUBLINGUAL UD PRN 11/01/20 01/17/21 History tablet furosemide 20 mg tablet 20 mg PO DAILY 01/17/21 01/17/21 History omeprazole 40 mg capsule,delayed 40 mg PO QPM 01/17/21 01/17/21 History release Patient History Medical History (HFpEF) heart failure with preserved ejection fraction Anemia 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 He received 3750 cGy." Moderate aortic stenosis Palliative care encounter Upper GI bleeding Surgical History H/O colonoscopy H/O hernia repair diaphragmatic hernia History of appendectomy History of cholecystectomy History of cystoscopy History of intravascular stent placement Hx of tonsillectomy S/P IVC filter Status post cryoablation renal cancer Family History Mother Liver cancer Denies family history of Ovarian cancer Prostate cancer Breast cancer Lung cancer Colorectal cancer Social History Smoking Status: Never smoker Second Hand Exposure: No; Hx Alcohol Use: Yes Alcohol type: beer Alcohol Intake Frequency: Monthly or Less Hx Substance Use: No Preferred Language: Divehi Communication Ability: Effective Visual Impairment: Limited Senior Technical Business Analyst Required: No Beliefs That Will Affect Care: None marital status: / Current Living Situation: Family Current Living Situation Comment: Lives with daughter Peggy current occupational status: retired Feels Safe at Home: Yes caffeine: Yes Dental Care, Regularly: No Physical Activity Frequency: Does not Exercise Seatbelt Use: always Sunscreen Use: No Assistive Devices: Oxygen - Continuous and Walker Review of Systems Review of Systems: Unobtainable due to cognitive status and Unobtainable due to reduced consciousness Physical Exam Physical Exam: VITAL SIGNS - Vital signs and nursing notes were reviewed. GENERAL - 89-year-old male appearing his stated age who is in moderate distress. Somnolent but responds to voice and noxious stimuli. HEAD - NC/AT. EYES - PERRL with EOMI bilaterally. Sclera anicteric. EARS - No deformities of external structures noted on gross examination bilaterally. NOSE - Midline and without cyanosis. No epistaxis or purulent drainage noted. MOUTH/OROPHARYNX - Without perioral cyanosis. Buccal mucosa pink and dry. NECK - Kyphosis. Supple to palpation. LUNGS - Chest wall symmetric without accessory muscle use, intercostals retractions, or central cyanosis. Normal vesicular breath sounds CTA B/L. No wheezes, rales, or rhonchi appreciated. CARDIAC - RRR with S1/S2. ERIN noted throughout. No reproducible tenderness to palpation appreciated over the anterior chest wall. ABDOMEN - Abdominal contour obese without pulsations or visible masses. BS normoactive all four quadrants. No tenderness, palpable masses, hepatosplenomegaly, or ascites noted. EXTREMITIES - No clubbing or peripheral cyanosis. Moderate pretibial edema present. +3/5 radial and dorsalis pedis pulses palpated throughout. NEUROLOGIC - No focal neurological deficits noted. Unable to fully cooperate 2/2 level of somnolence. PSYCH - Somnolent. Nods yes/no to questions. Results & Data Results & Data ([facility]) Vital Signs (Past 12 Hours) Vital Signs Temp Pulse Pulse Resp BP Pulse Ox 01/19/21 03:24 36.7 C 64 16 108/47 L 96 01/19/21 01:00 87 22 122/74 93 01/19/21 00:30 86 22 116/61 95 01/19/21 00:00 90 85 22 117/59 L 94 01/18/21 23:48 37.1 C 96 H 22 122/70 90 01/18/21 23:30 90 26 H 124/62 97 01/18/21 23:27 89 24 115/59 L 91 01/18/21 23:25 84 24 92 01/18/21 23:00 133/70 01/18/21 22:43 94 H 22 91 01/18/21 22:01 92 H 12 96 01/18/21 19:08 74 22 109/47 L 96 01/18/21 18:40 89 20 117/65 95 Coding Level of Care Code Critical Care 1st 30-74 mins Diagnoses Admitted to intensive care unit Z78.9 Acute respiratory failure with hypoxia and hypercapnia J96.01; J96.02 Acute on chronic heart failure with preserved ejection fraction (HFpEF) I50.33 Chest pain R07.9 Chest pain type: unspecified Hypoxia R09.02 Pulmonary edema J81.0 Chronicity: acute Respiratory failure J96.01 Chronicity: acute Respiratory failure complication: hypoxia NSTEMI (non-ST elevated myocardial infarction) I21.4 Aortic stenosis I35.0 (HFpEF) heart failure with preserved ejection fraction I50.30 CKD (chronic kidney disease), stage III N18.3 Time Spent (min) 55 (1) Chest pain Chest pain type: unspecified Qualified Code(s): R07.9 - Chest pain, unspecified (2) Pulmonary edema Chronicity: acute Qualified Code(s): J81.0 - Acute pulmonary edema (3) Respiratory failure Chronicity: acute Respiratory failure complication: hypoxia Qualified Code(s): J96.01 - Acute respiratory failure with hypoxia
[2021-01-19] MEDS ORDERED: BUMETANIDE 1 MG in SYRINGE 0 ML IV ONE (04:00)
[2021-01-19 05:13] LABS: iSTAT Allen Test Pass; iSTAT Art Bld Gas pCO2 Correct 36 mmHg (35-46); iSTAT Art Bld Gas pH Corrected 7.291 (7.35-7.45); iSTAT Arterial Blood Gas HCO3 18 meg/L (19-24); iSTAT Arterial Blood Gas pCO2 36 mmHg (35-46); iSTAT Arterial Blood Gas pH 7.29 (7.35-7.45); iSTAT Arterial Blood Gas pO2 79 mmHg (80-95); iSTAT Arterial Blood Gas pO2 C 79; iSTAT Carbon Dioxide 19 mmol/L (24-31); iSTAT FiO2 40 %; iSTAT Hematocrit 30 % (42-52); iSTAT Hemoglobin 10.2 g/dl (14.0-18.0); iSTAT Potassium 4.6 mmol/L (3.3-5.0); iSTAT Site L Radial; iSTAT Sodium 138 mmol/L (135-144)
--- NOTE | 2021-01-19 06:29 | XRay Report ---
XR chest 1V portable HISTORY: 89 years-old Male Worsening dyspnea acute shortness of breath COMPARISON: Chest radiograph 01/17/2021, chest CT 05/28/2018 TECHNIQUE: Portable AP view of the chest FINDINGS: Cardiomegaly. Calcified plaque of the thoracic aorta. Pulmonary vascular congestion with persistent i nterstitial coarsening. Mildly progressed left lung base opacities with trace right and small left pl eural effusions. No pneumothorax. Degenerative changes of the shoulders and spine. IMPRESSION: 1. Cardiomegaly with persistent pulmonary edema. 2. Trace right and small left pleural effusions. 3. Mildly progressed left lung base opacities suggestive of atelectasis versus pneumonia. ACT 112: Negative or not required by law. The above report was generated using voice recognition software. It may contain grammatical, syntax o r spelling errors. Electronically signed by: Elieser Ramirez M.D. 01/19/2021 6:28 AM
--- NOTE | 2021-01-19 07:28 | Hospitalist Progress Note ---
Date of Service January 19, 2021 Assessment & Plan (1) Acute respiratory failure with hypoxia and hypercarbia: Plan: this pt had acute respiratory failure, found to be hypercarbic, increased oral secretions, aspiration and concern for gastric distension from NIPPV. pt t ransfered to ICU for further care (2) Acute on chronic heart failure with preserved ejection fraction (HFpEF): Plan: Acute on chronic HFpEF/hypertension/history non-STEMI/elevated troponin/moderate aortic stenosis Given furosemide 40 mg IV in the ED, cardiology increased to bid, has mild elevation of Cr Continue amlodipine 10 mg daily, aspirin 81 mg daily, isosorbide mononitrate 60 mg every morning, lisinopril 5 mg daily, Toprol tartrate 50 mg p.o. twice daily. Consult cardiology recommends medical management (3) NSTEMI (non-ST elevated myocardial infarction): Plan: poa troponin has gone up to 3 from 0.6, has no acute changes seen on serial ecg, how ever ecg with chest pain has some lateral depression, is on nitro paste, will increase isosorbide 01/19 and stop paste, consider ranexa discuss with cardiology (4) Aortic stenosis: Plan: cardiology recommends stopping dara i (5) BPH with obstruction/lower urinary tract symptoms: Plan: Continue finasteride 5 mg daily (6) Gout: Plan: Continue allopurinol 20 mg daily (7) Hyperlipidemia: Plan: Continue atorvastatin 40 mg every evening (8) HTN (hypertension): Plan: See above Plan: outlook is questionable Admission and Anticipated Discharge Date Admission Date: January 17, 2021 Results & Data Results & Data ([facility]) Vital Signs (Past 12 Hours) Vital Signs Temp Pulse Pulse Pulse Resp BP Pulse Ox 01/19/21 06:28 69 20 109/47 L 98 01/19/21 05:06 68 19 101/59 L 97 01/19/21 04:08 67 19 112/53 L 96 01/19/21 03:24 98.1 F 64 16 108/47 L 96 01/19/21 03:00 68 20 94 01/19/21 01:00 87 22 122/74 93 01/19/21 00:30 86 22 116/61 95 01/19/21 00:00 90 85 22 117/59 L 94 01/18/21 23:48 98.8 F 96 H 22 122/70 90 01/18/21 23:30 90 26 H 124/62 97 01/18/21 23:27 89 24 115/59 L 91 01/18/21 23:25 84 24 92 01/18/21 23:00 133/70 01/18/21 22:43 94 H 22 91 01/18/21 22:01 92 H 12 96 PG Care Time/CCT Total # of Minutes Spent Total Time Spent with Patient: Total time spent is greater than 50% in coordination of care (as documented) at patient's floor/unit and/or counseling patient: Coding Diagnoses Acute on chronic heart failure with preserved ejection fraction (HFpEF) I50.33 NSTEMI (non-ST elevated myocardial infarction) I21.4 Aortic stenosis I35.0 BPH with obstruction/lower urinary tract symptoms N40.1; N13.8 Gout M10.9 Hyperlipidemia E78.5 HTN (hypertension) I10 Acute respiratory failure with hypoxia and hypercarbia J96.01; J96.02
[2021-01-19 07:58] VITALS: TEMP 97.7
[2021-01-19] MEDS: HEPARIN SOD 5,000 UNIT/0.5 ML VIAL SQ SCH (08:05)
[2021-01-19] MEDS: FUROSEMIDE 40 MG in SYRINGE 0 ML IV SCH (08:05)
--- NOTE | 2021-01-19 08:12 | Electrocardiogram Report ---
Test Reason : Blood Pressure : / mmHG Vent. Rate : 087 BPM Atrial Rate : 087 BPM P-R Int : 270 ms QRS Dur : 126 ms QT Int : 376 ms P-R-T Axes : 000 -17 143 degrees QTc Int : 452 ms Sinus rhythm with 1st degree A-V block Left ventricular hypertrophy with QRS widening and repolarization abnormality Abnormal ECG When compared with ECG of 18-JAN-2021 04:49, No significant change Confirmed by Huseyin Terrell ([id number]) on 01/19/2021 8:11:40 AM Referred By: REFERRED SELF Confirmed By:Huseyin Terrell
--- NOTE | 2021-01-19 08:50 | Electrocardiogram Report ---
Test Reason : Blood Pressure : / mmHG Vent. Rate : 088 BPM Atrial Rate : 088 BPM P-R Int : 264 ms QRS Dur : 124 ms QT Int : 384 ms P-R-T Axes : 157 -17 138 degrees QTc Int : 464 ms Sinus rhythm with 1st degree A-V block Left ventricular hypertrophy with repolarization abnormality Abnormal ECG When compared with ECG of 18-JAN-2021 18:43, No significant change Confirmed by Huseyin Terrell ([id number]) on 01/19/2021 8:50:19 AM Referred By: REFERRED SELF Confirmed By:Huseyin Terrell
--- NOTE | 2021-01-19 08:51 | Electrocardiogram Report ---
Test Reason : Blood Pressure : / mmHG Vent. Rate : 093 BPM Atrial Rate : 093 BPM P-R Int : 208 ms QRS Dur : 132 ms QT Int : 404 ms P-R-T Axes : 000 -18 123 degrees QTc Int : 502 ms Normal sinus rhythm Left ventricular hypertrophy with repolarization abnormality Abnormal ECG When compared with ECG of 18-JAN-2021 21:20, No significant change Confirmed by Huseyin Terrell ([id number]) on 01/19/2021 8:50:37 AM Referred By: REFERRED SELF Confirmed By:Huseyin Terrell
--- NOTE | 2021-01-19 08:53 | Electrocardiogram Report ---
Test Reason : Blood Pressure : / mmHG Vent. Rate : 077 BPM Atrial Rate : 077 BPM P-R Int : 222 ms QRS Dur : 124 ms QT Int : 452 ms P-R-T Axes : 075 -13 092 degrees QTc Int : 511 ms Sinus rhythm with 1st degree A-V block Left ventricular hypertrophy with QRS widening and repolarization abnormality Abnormal ECG When compared with ECG of 18-JAN-2021 23:05, No significant change Confirmed by Huseyin Terrell ([id number]) on 01/19/2021 8:52:54 AM Referred By: REFERRED SELF Confirmed By:Huseyin Terrell
--- NOTE | 2021-01-19 08:57 | XRay Report ---
XR chest 1V portable CLINICAL HISTORY: f/u COMPARISON STUDY: Chest radiograph January 18, 2021. FINDINGS: There is no pneumothorax. Small bilateral pleural effusions are noted, left larger than rig ht. Left basilar opacity persists. Cardiomegaly is noted. Interstitial thickening has slightly improv ed. IMPRESSION: 1. Persistent, but improved, pulmonary edema. 2. No significant change in bilateral pleural effusions, left larger than right. Persistent left basi lar opacity. ACT 112: Negative or not required by law. Electronically signed by: Salomon Cantor M.D. 01/19/2021 8:56 AM
[2021-01-19] MEDS ORDERED: ISOSORBIDE MONO EXTENDED REL 30 MG TABCR PO SCH (09:00)
[2021-01-19] MEDS ORDERED: amLODIPine BESYLATE 5 MG TAB PO SCH (09:00)
--- NOTE | 2021-01-19 09:01 | XRay Report ---
KUB HISTORY: Acute generalized abdominal pain with distention abdominal distension COMPARISON: Chest radiograph of same day, CT abdomen and pelvis 05/28/2018 FINDINGS: Air-filled loops of large and small bowel with gaseous distention of the stomach. 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 1.1 cm indeterminate calcification of the abdominal right upper quadrant possibly a urolith. Degenerative changes of the spine, pelvis and hips. IMPRESSION: 1. Gaseous distention of the stomach with nonobstructive bowel gas pattern. 2. Indeterminate 11 mm calcification of the abdominal right upper quadrant possibly correlating with the previously noted calculus within the proximal right ureter. 3. Peripherally calcified left renal artery aneurysm. ACT 112: Negative or not required by law. The above report was generated using voice recognition software. It may contain grammatical, syntax o r spelling errors. Electronically signed by: Elieser Ramirez M.D. 01/19/2021 9:00 AM
--- NOTE | 2021-01-19 09:41 | Critical Care Progress Note ---
Date of Service January 19, 2021 Assessment & Plan (1) Admitted to intensive care unit: Plan: Reason Critically Ill: 89-year-old male with acute hypoxic respiratory failure with hypercapnia in the setting of decompensated CHF requiring close monitoring for possible need for endotracheal intubation. NEURO - * Somnolent: Significantly improved * Likely secondary to hypercapnia. * Monitor for changes/improvement with correction of underlying disease process. CARDIAC/VASCULAR - * Decompensated heart failure: * Patient initially responded well to IV Lasix, nitrates, and positive pressure ventilation. * Received a total of 120 mg IV Lasix. * Minimal urine output. * Patient is certainly concerning given degree of pulmonary edema and decompensation as well as drop off in urine output. We will recheck baseline labs as I am suspicious that the patient is now with worsening GUSTAVO. Will check liver enzymes to assess for worsening signs of congestion (i.e. congestive hepatopathy). * BNP continues to rise suggesting worsening failure component. * NSTEMI: * Likely secondary to the above. * Patient w/ chronic LBBB so difficult to assess for new/worsening ischemia. * Patient with chronic s/s of ischemia requiring regular use of nitro at home. * Previously assessed as not a candidate for cath/surgery. * Apparently, patient unable to be anticoagulated 2/2 h/o severe GI Bleeding in the past. RESPIRATORY - * Acute hypoxic respiratory failure with hypercapnia: * Improved after noninvasive ventilation GI/NUTRITION - * N.p.o. RENAL/LYTES - * GUSTAVO: Worsening * Likely secondary to poor forward flow. * Continue to attempt to offload with diuretics. - * Nam in place - Strict I&Os. ENDO - * No h/o DM or Thyroid Dz * BSGs per unit protocol. ISS --> gtt per unit policy. HEME - * Anemia. * Significant history of thromboembolic disease. ID - * Without concern for significant infectious causes. LINES/IV ACCESS - * PIVs x3 * Nam DVT PROPHYLAXIS - * Heparin sq * SCDs Had extensive discussion and patient's family, 2 daughters 1 son at bedside discussing goals of care. I feel this patient is going into acute renal failure with worsening creatinine and has poor forward flow with severe aortic stenosis that is not amenable to surgery, he previously declined surgery for conservative management. Ultimate goal is to transition to home with hospice, we discussed noninvasive mechanical ventilation which was a temporizing procedure, we will not reinstitute this and if the patient becomes somnolent and hypercapnic we will proceed with analgesic medications for air hunger. We have made the patient total DNR/DNI and no advanced respiratory maneuvers in event of respiratory insufficiency. I have discontinued his labs and have placed transfer orders to medicine while awaiting case management to coordinate hospice at home if possible. (2) Acute respiratory failure with hypoxia and hypercapnia: (3) Acute on chronic heart failure with preserved ejection fraction (HFpEF): (4) Chest pain: (5) Hypoxia: (6) Pulmonary edema: (7) Respiratory failure: (8) NSTEMI (non-ST elevated myocardial infarction): (9) Aortic stenosis: (10) (HFpEF) heart failure with preserved ejection fraction: (11) CKD (chronic kidney disease), stage III: Admission and Anticipated Discharge Date Admission Date: January 17, 2021 Supervising Physician Co-Signing Physician Notes Patient was discussed in multidisciplinary rounds I have personally spent 50 minutes of critical care time in the direct management of this patient. This is a life/limb threatening event. This includes time spent evaluating patient, direct bedside care, chart review, placing orders, interpretation of diagnostic studies, discussion with consultants, patient, and/or family members regarding treatment decisions, as well as other required patient management activities. This time is exclusive of all separately billable procedures, and teaching time and separate from and in addition to any other critical care service time. Subjective Patient complaints of tight fitting mask, no exertional dyspnea at this time. Physical Exam Physical Exam: General: Alert. nontoxic. Skin: Warm, dry, Head: Atraumatic Ears, nose, mouth and throat: airway patent Cardiovascular: Normal peripheral perfusion Respiratory: no respiratory distress Gastrointestinal: Non distended Musculoskeletal: No deformity Results & Data Results & Data ([facility]) Vital Signs (Past 12 Hours) Vital Signs Temp Pulse Pulse Pulse Resp BP Pulse Ox 01/19/21 07:00 36.5 C 78 18 112/56 L 91 01/19/21 06:28 69 20 109/47 L 98 01/19/21 05:06 68 19 101/59 L 97 01/19/21 04:08 67 19 112/53 L 96 01/19/21 03:24 36.7 C 64 16 108/47 L 96 01/19/21 03:00 68 20 94 01/19/21 01:00 87 22 122/74 93 01/19/21 00:30 86 22 116/61 95 01/19/21 00:00 90 85 22 117/59 L 94 01/18/21 23:48 37.1 C 96 H 22 122/70 90 01/18/21 23:30 90 26 H 124/62 97 01/18/21 23:27 89 24 115/59 L 91 01/18/21 23:25 84 24 92 01/18/21 23:00 133/70 01/18/21 22:43 94 H 22 91 01/18/21 22:01 92 H 12 96 Laboratory Results 01/19/21 01/19/21 01/19/21 Range/Units 10:16 10:16 10:16 WBC (4.8-10.8) K/uL RBC (4.7-6.1) M/uL Hgb (14.0-18.0) g/dL POC Hgb (14.0-18.0) g/dl Hct (42-52) % POC Hct (42-52) % MCV (80-100) fL MCH (25-34) pg MCHC (32-36) g/dL RDW Std Deviation (36.4-46.3) fL RDW Coeff of Kenyon (11.5-14.5) % Plt Count (130-400) K/uL MPV (7.4-10.4) fL Immature Gran % (Auto) % Neut % (Auto) % Lymph % (Auto) % Motley % (Auto) % Eos % (Auto) % Baso % (Auto) % Neut # (Auto) (1.4-6.5) K/uL Lymph # (Auto) (1.2-3.4) K/uL Motley # (Auto) (0.11-0.59) K/uL Eos # (Auto) (0-0.5) K/uL Baso # (Auto) (0-0.2) K/uL Immature Gran # (Auto) (0.00-0.02) K/uL Absolute Nucleated RBC (0-0) K/uL Nucleated RBC % (auto) % PT (9.0-12.0) Seconds INR (0.9-1.1) Sample Site POC pH (7.35-7.45) POC pCO2 (35-46) mmHg POC pO2 (80-95) mmHg POC HCO3 (19-24) letitia/L POC Total CO2 (24-31) mmol/L POC Base Excess (-9-1.8) letitia/L ABG pH (7.35-7.45) ABG pH (Temp Correct) (7.35-7.45) ABG pCO2 (35-46) mmHg ABG pCO2 (Temp Corrct (35-46) mmHg ABG pO2 (80-95) mmHg POC ABG pO2 at Pt Temp ABG HCO3 (19-24) mmol/L POC ABG O2 Sat (90-95) % ABG O2 Saturation (90-95) % ABG Base Excess (-9-1.8) mEq/L Young Test (Pos) VBG pH 7.21 L (7.36-7.41) VBG pCO2 53 H (38-50) mmHg VBG pO2 31 mmHg VBG HCO3 21 mmol/L VBG O2 Saturation < 60.0 % VBG Base Excess -7.4 mEq/L Barometric Pressure 733.5 mm/Hg Oxygen Given O2 Delivery Device POC O2 Rate POC FiO2 % PEEP POC Sodium (135-144) mmol/L Sodium 138 (136-145) mmol/L POC Potassium (3.3-5.0) mmol/L Potassium 4.6 (3.5-5.1) mmol/L Chloride 111 H (98-107) mmol/L Carbon Dioxide 22 (21-32) mmol/L Anion Gap 5.0 (3-11) BUN 56 H (7-18) mg/dl Creatinine 2.15 H (0.6-1.4) mg/dl Est Cr Clr Drug Dosing 21.9 ml/min Est GFR ( Amer) 30.5 ml/min Est GFR (Non-Af Amer) 26.3 ml/min BUN/Creatinine Ratio 26.0 H (10-20) Glucose 128 H (70-99) mg/dl POC Glucose (70-99) mg/dl Lactate 1.9 (0.4-2.0) mmol/L Calcium 8.4 L (8.5-10.1) mg/dl Phosphorus 5.6 H (2.5-4.9) mg/dl Magnesium (1.8-2.4) mg/dl Total Bilirubin (0.2-1) mg/dl AST (15-37) U/L ALT (12-78) U/L Alkaline Phosphatase (45-117) U/L Troponin I (0-0.045) ng/ml NT-Pro-B Natriuret Pep (0-1800) pg/ml Total Protein (6.4-8.2) gm/dl Albumin (3.4-5.0) gm/dl Globulin (2.5-4.0) gm/dl Albumin/Globulin Ratio (0.9-2) Procalcitonin (0-0.5) ng/ml Nasal Screen MRSA (PCR) (Negative) 01/19/21 01/19/21 01/19/21 Range/Units 04:59 03:06 02:53 WBC (4.8-10.8) K/uL RBC (4.7-6.1) M/uL Hgb (14.0-18.0) g/dL POC Hgb 10.2 L (14.0-18.0) g/dl Hct (42-52) % POC Hct 30 L (42-52) % MCV (80-100) fL MCH (25-34) pg MCHC (32-36) g/dL RDW Std Deviation (36.4-46.3) fL RDW Coeff of Kenyon (11.5-14.5) % Plt Count (130-400) K/uL MPV (7.4-10.4) fL Immature Gran % (Auto) % Neut % (Auto) % Lymph % (Auto) % Motley % (Auto) % Eos % (Auto) % Baso % (Auto) % Neut # (Auto) (1.4-6.5) K/uL Lymph # (Auto) (1.2-3.4) K/uL Motley # (Auto) (0.11-0.59) K/uL Eos # (Auto) (0-0.5) K/uL Baso # (Auto) (0-0.2) K/uL Immature Gran # (Auto) (0.00-0.02) K/uL Absolute Nucleated RBC (0-0) K/uL Nucleated RBC % (auto) % PT (9.0-12.0) Seconds INR (0.9-1.1) Sample Site L Radial POC pH 7.29 L (7.35-7.45) POC pCO2 36 (35-46) mmHg POC pO2 79 L (80-95) mmHg POC HCO3 18 L (19-24) letitia/L POC Total CO2 19 L (24-31) mmol/L POC Base Excess -9.0 (-9-1.8) letitia/L ABG pH 7.13 L* (7.35-7.45) ABG pH (Temp Correct) 7.291 L (7.35-7.45) ABG pCO2 63 H (35-46) mmHg ABG pCO2 (Temp Corrct 36 (35-46) mmHg ABG pO2 89 (80-95) mmHg POC ABG pO2 at Pt Temp 79 ABG HCO3 20 (19-24) mmol/L POC ABG O2 Sat 94.0 (90-95) % ABG O2 Saturation 95.2 H (90-95) % ABG Base Excess -9.1 L (-9-1.8) mEq/L Young Test Pass Pos (Pos) VBG pH (7.36-7.41) VBG pCO2 (38-50) mmHg VBG pO2 mmHg VBG HCO3 mmol/L VBG O2 Saturation % VBG Base Excess mEq/L Barometric Pressure mm/Hg Oxygen Given 100% O2 Delivery Device Ventilator POC O2 Rate 12 POC FiO2 40 % PEEP 6 POC Sodium 138 (135-144) mmol/L Sodium (136-145) mmol/L POC Potassium 4.6 (3.3-5.0) mmol/L Potassium (3.5-5.1) mmol/L Chloride (98-107) mmol/L Carbon Dioxide (21-32) mmol/L Anion Gap (3-11) BUN (7-18) mg/dl Creatinine (0.6-1.4) mg/dl Est Cr Clr Drug Dosing ml/min Est GFR ( Amer) ml/min Est GFR (Non-Af Amer) ml/min BUN/Creatinine Ratio (10-20) Glucose (70-99) mg/dl POC Glucose (70-99) mg/dl Lactate (0.4-2.0) mmol/L Calcium (8.5-10.1) mg/dl Phosphorus (2.5-4.9) mg/dl Magnesium (1.8-2.4) mg/dl Total Bilirubin (0.2-1) mg/dl AST (15-37) U/L ALT (12-78) U/L Alkaline Phosphatase (45-117) U/L Troponin I (0-0.045) ng/ml NT-Pro-B Natriuret Pep (0-1800) pg/ml Total Protein (6.4-8.2) gm/dl Albumin (3.4-5.0) gm/dl Globulin (2.5-4.0) gm/dl Albumin/Globulin Ratio (0.9-2) Procalcitonin (0-0.5) ng/ml Nasal Screen MRSA (PCR) Negative (Negative) 01/19/21 01/19/21 01/18/21 Range/Units 02:53 02:53 23:15 WBC 14.93 H (4.8-10.8) K/uL RBC 3.54 L (4.7-6.1) M/uL Hgb 10.5 L (14.0-18.0) g/dL POC Hgb (14.0-18.0) g/dl Hct 33.6 L (42-52) % POC Hct (42-52) % MCV 94.9 (80-100) fL MCH 29.7 (25-34) pg MCHC 31.3 L (32-36) g/dL RDW Std Deviation 60.0 H (36.4-46.3) fL RDW Coeff of Kenyon 17.2 H (11.5-14.5) % Plt Count 218 (130-400) K/uL MPV 10.9 H (7.4-10.4) fL Immature Gran % (Auto) 0.5 % Neut % (Auto) 89.0 % Lymph % (Auto) 4.9 % Motley % (Auto) 5.6 % Eos % (Auto) 0.0 % Baso % (Auto) 0.0 % Neut # (Auto) 13.28 H (1.4-6.5) K/uL Lymph # (Auto) 0.73 L (1.2-3.4) K/uL Motley # (Auto) 0.84 H (0.11-0.59) K/uL Eos # (Auto) 0.00 (0-0.5) K/uL Baso # (Auto) 0.00 (0-0.2) K/uL Immature Gran # (Auto) 0.08 H (0.00-0.02) K/uL Absolute Nucleated RBC 0.06 H (0-0) K/uL Nucleated RBC % (auto) 0.4 % PT (9.0-12.0) Seconds INR (0.9-1.1) Sample Site POC pH (7.35-7.45) POC pCO2 (35-46) mmHg POC pO2 (80-95) mmHg POC HCO3 (19-24) letitia/L POC Total CO2 (24-31) mmol/L POC Base Excess (-9-1.8) letitia/L ABG pH (7.35-7.45) ABG pH (Temp Correct) (7.35-7.45) ABG pCO2 (35-46) mmHg ABG pCO2 (Temp Corrct (35-46) mmHg ABG pO2 (80-95) mmHg POC ABG pO2 at Pt Temp ABG HCO3 (19-24) mmol/L POC ABG O2 Sat (90-95) % ABG O2 Saturation (90-95) % ABG Base Excess (-9-1.8) mEq/L Young Test (Pos) VBG pH (7.36-7.41) VBG pCO2 (38-50) mmHg VBG pO2 mmHg VBG HCO3 mmol/L VBG O2 Saturation % VBG Base Excess mEq/L Barometric Pressure mm/Hg Oxygen Given O2 Delivery Device POC O2 Rate POC FiO2 % PEEP POC Sodium (135-144) mmol/L Sodium 138 (136-145) mmol/L POC Potassium (3.3-5.0) mmol/L Potassium 4.8 D (3.5-5.1) mmol/L Chloride 111 H (98-107) mmol/L Carbon Dioxide 21 (21-32) mmol/L Anion Gap 6.0 (3-11) BUN 52 H (7-18) mg/dl Creatinine 1.98 H D (0.6-1.4) mg/dl Est Cr Clr Drug Dosing 23.8 ml/min Est GFR ( Amer) 33.7 ml/min Est GFR (Non-Af Amer) 29.1 ml/min BUN/Creatinine Ratio 26.0 H (10-20) Glucose 162 H (70-99) mg/dl POC Glucose (70-99) mg/dl Lactate (0.4-2.0) mmol/L Calcium 8.2 L (8.5-10.1) mg/dl Phosphorus (2.5-4.9) mg/dl Magnesium 2.4 (1.8-2.4) mg/dl Total Bilirubin 0.3 (0.2-1) mg/dl AST 55 H (15-37) U/L ALT 28 (12-78) U/L Alkaline Phosphatase 189 H (45-117) U/L Troponin I 2.870 H* (0-0.045) ng/ml NT-Pro-B Natriuret Pep (0-1800) pg/ml Total Protein 7.7 (6.4-8.2) gm/dl Albumin 3.2 L (3.4-5.0) gm/dl Globulin 4.5 H (2.5-4.0) gm/dl Albumin/Globulin Ratio 0.7 L (0.9-2) Procalcitonin 0.05 (0-0.5) ng/ml Nasal Screen MRSA (PCR) (Negative) 01/18/21 01/18/21 01/18/21 Range/Units 23:14 23:14 23:14 WBC 14.18 H (4.8-10.8) K/uL RBC 3.32 L (4.7-6.1) M/uL Hgb 9.8 L (14.0-18.0) g/dL POC Hgb (14.0-18.0) g/dl Hct 31.2 L (42-52) % POC Hct (42-52) % MCV 94.0 (80-100) fL MCH 29.5 (25-34) pg MCHC 31.4 L (32-36) g/dL RDW Std Deviation 58.2 H (36.4-46.3) fL RDW Coeff of Kenyon 17.0 H (11.5-14.5) % Plt Count 207 (130-400) K/uL MPV 10.6 H (7.4-10.4) fL Immature Gran % (Auto) 0.4 % Neut % (Auto) 68.7 % Lymph % (Auto) 21.4 % Motley % (Auto) 9.3 % Eos % (Auto) 0.1 % Baso % (Auto) 0.1 % Neut # (Auto) 9.74 H (1.4-6.5) K/uL Lymph # (Auto) 3.04 (1.2-3.4) K/uL Motley # (Auto) 1.32 H (0.11-0.59) K/uL Eos # (Auto) 0.02 (0-0.5) K/uL Baso # (Auto) 0.01 (0-0.2) K/uL Immature Gran # (Auto) 0.05 H (0.00-0.02) K/uL Absolute Nucleated RBC (0-0) K/uL Nucleated RBC % (auto) % PT 10.2 (9.0-12.0) Seconds INR 1.0 (0.9-1.1) Sample Site POC pH (7.35-7.45) POC pCO2 (35-46) mmHg POC pO2 (80-95) mmHg POC HCO3 (19-24) letitia/L POC Total CO2 (24-31) mmol/L POC Base Excess (-9-1.8) letitia/L ABG pH (7.35-7.45) ABG pH (Temp Correct) (7.35-7.45) ABG pCO2 (35-46) mmHg ABG pCO2 (Temp Corrct (35-46) mmHg ABG pO2 (80-95) mmHg POC ABG pO2 at Pt Temp ABG HCO3 (19-24) mmol/L POC ABG O2 Sat (90-95) % ABG O2 Saturation (90-95) % ABG Base Excess (-9-1.8) mEq/L Young Test (Pos) VBG pH (7.36-7.41) VBG pCO2 (38-50) mmHg VBG pO2 mmHg VBG HCO3 mmol/L VBG O2 Saturation % VBG Base Excess mEq/L Barometric Pressure mm/Hg Oxygen Given O2 Delivery Device POC O2 Rate POC FiO2 % PEEP POC Sodium (135-144) mmol/L Sodium 141 (136-145) mmol/L POC Potassium (3.3-5.0) mmol/L Potassium 4.1 (3.5-5.1) mmol/L Chloride 114 H (98-107) mmol/L Carbon Dioxide 20 L (21-32) mmol/L Anion Gap 7.0 (3-11) BUN 47 H (7-18) mg/dl Creatinine 1.60 H (0.6-1.4) mg/dl Est Cr Clr Drug Dosing 29.5 ml/min Est GFR ( Amer) 43.6 ml/min Est GFR (Non-Af Amer) 37.6 ml/min BUN/Creatinine Ratio 29.5 H (10-20) Glucose 133 H (70-99) mg/dl POC Glucose (70-99) mg/dl Lactate (0.4-2.0) mmol/L Calcium 7.7 L (8.5-10.1) mg/dl Phosphorus (2.5-4.9) mg/dl Magnesium (1.8-2.4) mg/dl Total Bilirubin (0.2-1) mg/dl AST (15-37) U/L ALT (12-78) U/L Alkaline Phosphatase (45-117) U/L Troponin I 2.390 H* (0-0.045) ng/ml NT-Pro-B Natriuret Pep 36909 H (0-1800) pg/ml Total Protein (6.4-8.2) gm/dl Albumin (3.4-5.0) gm/dl Globulin (2.5-4.0) gm/dl Albumin/Globulin Ratio (0.9-2) Procalcitonin (0-0.5) ng/ml Nasal Screen MRSA (PCR) (Negative) 01/18/21 01/18/21 01/18/21 Range/Units 20:40 20:06 13:03 WBC (4.8-10.8) K/uL RBC (4.7-6.1) M/uL Hgb (14.0-18.0) g/dL POC Hgb (14.0-18.0) g/dl Hct (42-52) % POC Hct (42-52) % MCV (80-100) fL MCH (25-34) pg MCHC (32-36) g/dL RDW Std Deviation (36.4-46.3) fL RDW Coeff of Kenyon (11.5-14.5) % Plt Count (130-400) K/uL MPV (7.4-10.4) fL Immature Gran % (Auto) % Neut % (Auto) % Lymph % (Auto) % Motley % (Auto) % Eos % (Auto) % Baso % (Auto) % Neut # (Auto) (1.4-6.5) K/uL Lymph # (Auto) (1.2-3.4) K/uL Motley # (Auto) (0.11-0.59) K/uL Eos # (Auto) (0-0.5) K/uL Baso # (Auto) (0-0.2) K/uL Immature Gran # (Auto) (0.00-0.02) K/uL Absolute Nucleated RBC (0-0) K/uL Nucleated RBC % (auto) % PT (9.0-12.0) Seconds INR (0.9-1.1) Sample Site POC pH (7.35-7.45) POC pCO2 (35-46) mmHg POC pO2 (80-95) mmHg POC HCO3 (19-24) letitia/L POC Total CO2 (24-31) mmol/L POC Base Excess (-9-1.8) letitia/L ABG pH (7.35-7.45) ABG pH (Temp Correct) (7.35-7.45) ABG pCO2 (35-46) mmHg ABG pCO2 (Temp Corrct (35-46) mmHg ABG pO2 (80-95) mmHg POC ABG pO2 at Pt Temp ABG HCO3 (19-24) mmol/L POC ABG O2 Sat (90-95) % ABG O2 Saturation (90-95) % ABG Base Excess (-9-1.8) mEq/L Young Test (Pos) VBG pH (7.36-7.41) VBG pCO2 (38-50) mmHg VBG pO2 mmHg VBG HCO3 mmol/L VBG O2 Saturation % VBG Base Excess mEq/L Barometric Pressure mm/Hg Oxygen Given O2 Delivery Device POC O2 Rate POC FiO2 % PEEP POC Sodium (135-144) mmol/L Sodium (136-145) mmol/L POC Potassium (3.3-5.0) mmol/L Potassium (3.5-5.1) mmol/L Chloride (98-107) mmol/L Carbon Dioxide (21-32) mmol/L Anion Gap (3-11) BUN (7-18) mg/dl Creatinine (0.6-1.4) mg/dl Est Cr Clr Drug Dosing ml/min Est GFR ( Amer) ml/min Est GFR (Non-Af Amer) ml/min BUN/Creatinine Ratio (10-20) Glucose (70-99) mg/dl POC Glucose 119 H (70-99) mg/dl Lactate (0.4-2.0) mmol/L Calcium (8.5-10.1) mg/dl Phosphorus (2.5-4.9) mg/dl Magnesium (1.8-2.4) mg/dl Total Bilirubin (0.2-1) mg/dl AST (15-37) U/L ALT (12-78) U/L Alkaline Phosphatase (45-117) U/L Troponin I 3.480 H* 3.460 H* (0-0.045) ng/ml NT-Pro-B Natriuret Pep (0-1800) pg/ml Total Protein (6.4-8.2) gm/dl Albumin (3.4-5.0) gm/dl Globulin (2.5-4.0) gm/dl Albumin/Globulin Ratio (0.9-2) Procalcitonin (0-0.5) ng/ml Nasal Screen MRSA (PCR) (Negative) Coding Level of Care Code Critical Care 1st 30-74 mins Diagnoses Admitted to intensive care unit Z78.9 Acute respiratory failure with hypoxia and hypercapnia J96.01; J96.02 Acute on chronic heart failure with preserved ejection fraction (HFpEF) I50.33 Chest pain R07.9 Chest pain type: unspecified Hypoxia R09.02 Pulmonary edema J81.0 Chronicity: acute Respiratory failure J96.01 Chronicity: acute Respiratory failure complication: hypoxia NSTEMI (non-ST elevated myocardial infarction) I21.4 Aortic stenosis I35.0 (HFpEF) heart failure with preserved ejection fraction I50.30 CKD (chronic kidney disease), stage III N18.3 (1) Pulmonary edema Chronicity: acute Qualified Code(s): J81.0 - Acute pulmonary edema (2) Respiratory failure Chronicity: acute Respiratory failure complication: hypoxia Qualified Code(s): J96.01 - Acute respiratory failure with hypoxia (3) Chest pain Chest pain type: unspecified Qualified Code(s): R07.9 - Chest pain, unspecified
--- NOTE | 2021-01-19 10:05 | Cardiology Progress Note ---
Date of Service January 19, 2021 Assessment & Plan (1) Acute on chronic heart failure with preserved ejection fraction (HFpEF): Plan: Patient being treated for mixed respiratory failure predominantly diastolic heart failure secondary to severe valvular disease with critical aortic stenosis. Pulmonary edema has improved at the expense of renal function and cardiac output Overall patient clinically declining. Aortic stenosis appears to be predominant contributing factor and patient has declined prior valve intervention and wished medical conservative management. Would not recommend escalating care and consider palliative therapy at this point time (2) Chest pain: (3) Hypoxia: (4) Pulmonary edema: (5) Respiratory failure: (6) NSTEMI (non-ST elevated myocardial infarction): (7) Aortic stenosis: Admission and Anticipated Discharge Date Admission Date: January 17, 2021 Subjective Patient was seen and examined, chart, medications telemetry reviewed. Events of prior evening reviewed. Patient currently on BiPAP and sleeping, somnolent. Notable history for worsening respiratory acidosis and hypercarbia last night with transfer to the intensive care unit. Patient has responded to IV diuretics with improving pulmonary edema on chest x- ray though remains hypoventilatory and acidotic. Renal function has worsened in response to reduced cardiac output. EKG without acute change reflecting sinus rhythm of left ventricular hypertrophy with strain pattern Review of Systems Review of Systems: Unobtainable due to cognitive status Physical Exam Constitutional: + lethargic (On BiPAP) Neck: trachea midline Respiratory: Auscultation: + rales Cardiovascular: Rate/Rhythm: regular rate and regular rhythm Heart Sounds: + murmur (Grade 3/6 systolic murmur no diastolic) Extremities: + edema (1-2+) Gastrointestinal (Abdomen): Inspection/Auscultation: abdomen not distended Results & Data ([facility]) Vital Signs (Past 12 Hours) Vital Signs Temp Pulse Pulse Pulse Resp BP Pulse Ox 01/19/21 07:00 36.5 C 78 18 112/56 L 91 01/19/21 06:28 69 20 109/47 L 98 01/19/21 05:06 68 19 101/59 L 97 01/19/21 04:08 67 19 112/53 L 96 01/19/21 03:24 36.7 C 64 16 108/47 L 96 01/19/21 03:00 68 20 94 01/19/21 01:00 87 22 122/74 93 01/19/21 00:30 86 22 116/61 95 01/19/21 00:00 90 85 22 117/59 L 94 01/18/21 23:48 37.1 C 96 H 22 122/70 90 01/18/21 23:30 90 26 H 124/62 97 01/18/21 23:27 89 24 115/59 L 91 01/18/21 23:25 84 24 92 01/18/21 23:00 133/70 01/18/21 22:43 94 H 22 91 Laboratory Results Laboratory Results - last 24 hr 01/18/21 01/18/21 01/18/21 13:03 20:06 20:40 WBC RBC Hgb POC Hgb Hct POC Hct MCV MCH MCHC RDW Std Deviation RDW Coeff of [place] Plt Count MPV Immature Gran % (Auto) Neut % (Auto) Lymph % (Auto) Upson % (Auto) Eos % (Auto) Baso % (Auto) Neut # (Auto) Lymph # (Auto) Upson # (Auto) Eos # (Auto) Baso # (Auto) Immature Gran # (Auto) Absolute Nucleated RBC Nucleated RBC % (auto) PT INR Sample Site POC pH POC pCO2 POC pO2 POC HCO3 POC Total CO2 POC Base Excess ABG pH ABG pH (Temp Correct) ABG pCO2 ABG pCO2 (Temp Corrct ABG pO2 POC ABG pO2 at Pt Temp ABG HCO3 POC ABG O2 Sat ABG O2 Saturation ABG Base Excess Young Test Oxygen Given O2 Delivery Device POC O2 Rate POC FiO2 PEEP POC Sodium Sodium POC Potassium Potassium Chloride Carbon Dioxide Anion Gap BUN Creatinine Est Cr Clr Drug Dosing Est GFR ( Amer) Est GFR (Non-Af Amer) BUN/Creatinine Ratio Glucose POC Glucose 119 H Calcium Magnesium Total Bilirubin AST ALT Alkaline Phosphatase Troponin I 3.460 H* 3.480 H* NT-Pro-B Natriuret Pep Total Protein Albumin Globulin Albumin/Globulin Ratio Procalcitonin Nasal Screen MRSA (PCR) 01/18/21 01/18/21 01/18/21 23:14 23:14 23:14 WBC 14.18 H RBC 3.32 L Hgb 9.8 L POC Hgb Hct 31.2 L POC Hct MCV 94.0 MCH 29.5 MCHC 31.4 L RDW Std Deviation 58.2 H RDW Coeff of Kenyon 17.0 H Plt Count 207 MPV 10.6 H Immature Gran % (Auto) 0.4 Neut % (Auto) 68.7 Lymph % (Auto) 21.4 Upson % (Auto) 9.3 Eos % (Auto) 0.1 Baso % (Auto) 0.1 Neut # (Auto) 9.74 H Lymph # (Auto) 3.04 Upson # (Auto) 1.32 H Eos # (Auto) 0.02 Baso # (Auto) 0.01 Immature Gran # (Auto) 0.05 H Absolute Nucleated RBC Nucleated RBC % (auto) PT 10.2 INR 1.0 Sample Site POC pH POC pCO2 POC pO2 POC HCO3 POC Total CO2 POC Base Excess ABG pH ABG pH (Temp Correct) ABG pCO2 ABG pCO2 (Temp Corrct ABG pO2 POC ABG pO2 at Pt Temp ABG HCO3 POC ABG O2 Sat ABG O2 Saturation ABG Base Excess Young Test Oxygen Given O2 Delivery Device POC O2 Rate POC FiO2 PEEP POC Sodium Sodium 141 POC Potassium Potassium 4.1 Chloride 114 H Carbon Dioxide 20 L Anion Gap 7.0 BUN 47 H Creatinine 1.60 H Est Cr Clr Drug Dosing 29.5 Est GFR ( Amer) 43.6 Est GFR (Non-Af Amer) 37.6 BUN/Creatinine Ratio 29.5 H Glucose 133 H POC Glucose Calcium 7.7 L Magnesium Total Bilirubin AST ALT Alkaline Phosphatase Troponin I 2.390 H* NT-Pro-B Natriuret Pep 53916 H Total Protein Albumin Globulin Albumin/Globulin Ratio Procalcitonin Nasal Screen MRSA (PCR) 01/18/21 01/19/21 01/19/21 23:15 02:53 02:53 WBC 14.93 H RBC 3.54 L Hgb 10.5 L POC Hgb Hct 33.6 L POC Hct MCV 94.9 MCH 29.7 MCHC 31.3 L RDW Std Deviation 60.0 H RDW Coeff of [place] 17.2 H Plt Count 218 MPV 10.9 H Immature Gran % (Auto) 0.5 Neut % (Auto) 89.0 Lymph % (Auto) 4.9 Upson % (Auto) 5.6 Eos % (Auto) 0.0 Baso % (Auto) 0.0 Neut # (Auto) 13.28 H Lymph # (Auto) 0.73 L Upson # (Auto) 0.84 H Eos # (Auto) 0.00 Baso # (Auto) 0.00 Immature Gran # (Auto) 0.08 H Absolute Nucleated RBC 0.06 H Nucleated RBC % (auto) 0.4 PT INR Sample Site POC pH POC pCO2 POC pO2 POC HCO3 POC Total CO2 POC Base Excess ABG pH ABG pH (Temp Correct) ABG pCO2 ABG pCO2 (Temp Corrct ABG pO2 POC ABG pO2 at Pt Temp ABG HCO3 POC ABG O2 Sat ABG O2 Saturation ABG Base Excess Young Test Oxygen Given O2 Delivery Device POC O2 Rate POC FiO2 PEEP POC Sodium Sodium 138 POC Potassium Potassium 4.8 D Chloride 111 H Carbon Dioxide 21 Anion Gap 6.0 BUN 52 H Creatinine 1.98 H D Est Cr Clr Drug Dosing 23.8 Est GFR ( Amer) 33.7 Est GFR (Non-Af Amer) 29.1 BUN/Creatinine Ratio 26.0 H Glucose 162 H POC Glucose Calcium 8.2 L Magnesium 2.4 Total Bilirubin 0.3 AST 55 H ALT 28 Alkaline Phosphatase 189 H Troponin I 2.870 H* NT-Pro-B Natriuret Pep Total Protein 7.7 Albumin 3.2 L Globulin 4.5 H Albumin/Globulin Ratio 0.7 L Procalcitonin 0.05 Nasal Screen MRSA (PCR) 01/19/21 01/19/21 01/19/21 02:53 03:06 04:59 WBC RBC Hgb POC Hgb 10.2 L Hct POC Hct 30 L MCV MCH MCHC RDW Std Deviation RDW Coeff of [place] Plt Count MPV Immature Gran % (Auto) Neut % (Auto) Lymph % (Auto) Upson % (Auto) Eos % (Auto) Baso % (Auto) Neut # (Auto) Lymph # (Auto) Upson # (Auto) Eos # (Auto) Baso # (Auto) Immature Gran # (Auto) Absolute Nucleated RBC Nucleated RBC % (auto) PT INR Sample Site L Radial POC pH 7.29 L POC pCO2 36 POC pO2 79 L POC HCO3 18 L POC Total CO2 19 L POC Base Excess -9.0 ABG pH 7.13 L* ABG pH (Temp Correct) 7.291 L ABG pCO2 63 H ABG pCO2 (Temp Corrct 36 ABG pO2 89 POC ABG pO2 at Pt Temp 79 ABG HCO3 20 POC ABG O2 Sat 94.0 ABG O2 Saturation 95.2 H ABG Base Excess -9.1 L Young Test Pos Pass Oxygen Given 100% O2 Delivery Device Ventilator POC O2 Rate 12 POC FiO2 40 PEEP 6 POC Sodium 138 Sodium POC Potassium 4.6 Potassium Chloride Carbon Dioxide Anion Gap BUN Creatinine Est Cr Clr Drug Dosing Est GFR ( Amer) Est GFR (Non-Af Amer) BUN/Creatinine Ratio Glucose POC Glucose Calcium Magnesium Total Bilirubin AST ALT Alkaline Phosphatase Troponin I NT-Pro-B Natriuret Pep Total Protein Albumin Globulin Albumin/Globulin Ratio Procalcitonin Nasal Screen MRSA (PCR) Negative (1) Chest pain Chest pain type: unspecified Qualified Code(s): R07.9 - Chest pain, unspecified (2) Pulmonary edema Chronicity: acute Qualified Code(s): J81.0 - Acute pulmonary edema (3) Respiratory failure Chronicity: acute Respiratory failure complication: hypoxia Qualified Code(s): J96.01 - Acute respiratory failure with hypoxia
[2021-01-19] MEDS: FINASTERIDE 5 MG TAB PO SCH (10:15)
[2021-01-19] MEDS: CHOLECALCIFEROL 1,000 UNITS 25 MCG TAB PO SCH (10:15)
[2021-01-19] MEDS: ASPIRIN 81 MG ECTAB PO SCH (10:15)
[2021-01-19] MEDS: FOLIC ACID 400 MCG TAB PO SCH (10:15)
[2021-01-19] MEDS: allopurinoL 300 MG TAB PO SCH (10:15)
[2021-01-19] MEDS: METOPROLOL TARTRATE 50 MG TAB PO SCH (10:15)
[2021-01-19] MEDS: PRIMIDONE 50 MG TAB PO SCH ×2 (10:16→13:55)
[2021-01-19 10:28] VITALS: O2SAT 99
[2021-01-19 10:31] LABS: Base Excess VBG -7.4 mEq/L; HCO3 VBG 21 mmol/L; PCO2 VBG 53 mmHg (38-50); PO2 VBG 31 mmHg; pH VBG 7.21 (7.36-7.41)
[2021-01-19 10:32] LABS: Oxygen Saturation VBG < 60.0 %
[2021-01-19 10:46] LABS: Calcium 8.4 mg/dl (8.5-10.1); Creatinine Clr Calc Pharmacy 21.9 ml/min; Est GFR (African American) 30.5 ml/min; Est GFR (Non-African American) 26.3 ml/min; Phosphorus 5.6 mg/dl (2.5-4.9); Potassium 4.6 mmol/L (3.5-5.1)
[2021-01-19 11:16] VITALS: BP 125/57; PULSE 77
[2021-01-19] MEDS ORDERED: ACETAMINOPHEN 325 MG TAB PO PRN (12:04)
[2021-01-19] MEDS ORDERED: ONDANSETRON 4 MG OD TAB SL PRN (12:04)
[2021-01-19] MEDS ORDERED: MoRPHine SULFATE 2 MG/ML CARP IV PRN (12:04)
[2021-01-19] MEDS ORDERED: ONDANSETRON INJ 2 MG/ML 2 ML VIAL IV PRN (12:04)
--- NOTE | 2021-01-19 19:47 | Discharge Summary ---
Date of Service January 19, 2021 Admission HPI Per Admitting Provider The patient is an 89-year-old male with a past medical history including NSTEMI, hypoxia, moderate aortic stenosis, acute CHF, HFpEF, BPH with LUTS, CKD stage III, chronic left lower extremity DVT, depression with anxiety, essential tremor, gout, hyperlipidemia, impaired glucose, insomnia, iron deficiency anemia, hypertension, gastric mass and metastatic renal cell carcinoma. The patient reports that he had been feeling short of breath throughout the day, and as the day progressed developed more significant chest discomfort, that persisted after taking several doses of sublingual nitroglycerin. Principal Diagnosis acute respiratory failure due to heart failure preserved EF from aortic stenosis Discharge Exam The patient appeared chronically ill, will tranfer to hospice care at home and expected shortly Vital signs as documented. Lungs are coarse and labored Cardiac exam, Priyanka Abdominal exam reveals normal bowel sounds, soft non tender, no masses Extremities are edematous b/l . Neurologic exam is obtunded Discharge Data Allergies Allergy/AdvReac Type Severity Reaction Status Date / Time Penicillins Allergy Severe HIVES + Verified 01/17/21 20:37 THROAT SWELLING Consultations 01/17/21 21:32 ED Decision to Admit Stat 01/17/21 23:25 Consult Cardiology Routine 01/19/21 02:45 Consult Information Technology Data Analyst Stat Hospital Course (1) Acute respiratory failure with hypoxia and hypercarbia: this pt had acute respiratory failure, found to be hypercarbic, increased oral secretions, aspiration and concern for gastric distension from NIPPV. pt transfered to ICU for further care (2) Acute on chronic heart failure with preserved ejection fraction (HFpEF): Acute on chronic HFpEF/hypertension/history non-STEMI/elevated troponin/moderate aortic stenosis Given furosemide 40 mg IV in the ED, cardiology increased to bid, has mild elevation of Cr Continue amlodipine 10 mg daily, aspirin 81 mg daily, isosorbide mononitrate 60 mg every morning, lisinopril 5 mg daily, Toprol tartrate 50 mg p.o. twice daily. Consult cardiology recommends medical management (3) NSTEMI (non-ST elevated myocardial infarction): poa troponin has gone up to 3 from 0.6, has no acute changes seen on serial ecg, however ecg with chest pain has some lateral depression, is on nitro paste, will increase isosorbide 01/19 and stop paste, consider ranexa discuss with cardiology (4) Aortic stenosis: cardiology recommends stopping dara i (5) BPH with obstruction/lower urinary tract symptoms: Continue finasteride 5 mg daily (6) Gout: Continue allopurinol 20 mg daily (7) Hyperlipidemia: Continue atorvastatin 40 mg every evening (8) HTN (hypertension): See above outlook is questionable Total Time Total Time Spent Total Time Spent (In Minutes): It required greater than 30 minutes to prepare this patient for discharge Discharge Plan Discharge Items Patient Disposition: Hospice - Home Reason For Visit: ACUTE RESP FAILURE WITH HYPOXIA, CHF, NSTEMI Discharge Diagnosis: acuter respiratory failure aortic stenosis heart failure preserved ejection fraction home for hospice care Condition on Discharge: Good Activity: Resume your previous activity Non-emergency contact: Primary Care Provider Call non-emergency contact if: you have any medication questions Follow-up/Referrals: Devyn Garzon MD [Primary Care Provider] - Diet: Regular Addtl Attending Provider Instructions: Hopefully he will be engaged in hospice care shortly after he arrived home. Medications have been prescribed to Karlene castro to help facilitate attention to symptom control. If any additional questions regarding dosing is redirected to the hospice care services however are up most direction of care would be to provide comfort Pending Studies at Discharge: Yes Stand-Alone Forms: [facility] Medications and DC Order Prescriptions: New morphine concentrate 100 mg/5 mL (20 mg/mL) solution 20 mg sublingual Q6H PRN (Reason: pain) Qty: 15 RF: 0 lorazepam [Ativan] 0.5 mg tablet 0.5 mg PO Q6H PRN (Reason: anxiety) Qty: 20 RF: 0 scopolamine base [Transderm-Scop] 1 mg over 3 days patch 3 day 1 patch transdermal Q3D PRN (Reason: nausea and vomiting) Qty: 2 RF: 0 atropine 1 % drops 2 drp buccal Q6H PRN (Reason: secretions) Qty: 2 RF: 0 Continued primidone [Mysoline] 50 mg tablet 50 - 100 mg PO TID RF: 0 phenobarbital 64.8 mg tablet 64.8 mg PO BID RF: 0 isosorbide mononitrate 60 mg tablet extended release 24 hr 60 mg PO QAM RF: 0 metoprolol tartrate [Lopressor] 50 mg tablet 50 mg PO BID RF: 0 aspirin 81 mg Tablet,Delayed Release (Dr/Ec) 81 mg PO DAILY RF: 0 nitroglycerin 0.4 mg tablet, sublingual 0.4 mg sublingual UD PRN (Reason: Chest Pain) RF: 0 omeprazole 40 mg capsule,delayed release(DR/EC) 40 mg PO QPM RF: 0 furosemide 20 mg tablet 20 mg PO DAILY RF: 0 Discontinued lisinopril [Zestril] 5 mg tablet 5 mg PO DAILY Qty: 90 RF: 3 amlodipine 10 mg tablet 10 mg PO DAILY Qty: 90 RF: 3 finasteride [Proscar] 5 mg tablet 5 mg PO DAILY Qty: 90 RF: 3 allopurinol 300 mg tablet 300 mg PO DAILY RF: 0 atorvastatin 40 mg tablet 40 mg PO QPM RF: 0 folic acid 400 mcg Tablet 400 mcg PO DAILY RF: 0 cholecalciferol (vitamin D3) [Vitamin D3] 25 mcg (1,000 unit) Tablet 1,000 unit PO DAILY RF: 0 Discharge Orders: Discharge Order (Routine); Ordered 01/19/21 Ordered By: Jakub Molina Admission Data Admit Date/Time: 01/17/21 22:05 Attending Provider: Jakub Molina Admit Provider: Juan Powell Primary Care Provider: Devyn Garzon Other Providers: Juan Powell ; Jerry Matos ; Todd Naylor Other Interventions: Discharge Summary Assessment (RN) Last Done: 01/19/21 15:35 Coding Level of Care Code D/C DAY MANAGEMENT >30 MINS Diagnoses Acute respiratory failure with hypoxia and hypercarbia J96.01; J96.02 Acute on chronic heart failure with preserved ejection fraction (HFpEF) I50.33 NSTEMI (non-ST elevated myocardial infarction) I21.4 Aortic stenosis I35.0 BPH with obstruction/lower urinary tract symptoms N40.1; N13.8 Gout M10.9 Hyperlipidemia E78.5 HTN (hypertension) I10
== END 2021-01-19 16:54 | disposition hospice, home (50) | DRG 280 ==
LOC: ED 18:09 → SUATTDRO 22:05 → 2S 22:05 → 1E 01-19 02:52